=== PATIENT | male | born 1955 | race Hispanic/Latino ===

== ENCOUNTER 2018-08-29 15:50 | Inpatient (IN) | payer MEDICARE ==
--- NOTE | 2018-08-29 16:42 | Emergency Department Report ---
ED Shortness of Breath HPI - General Chief Complaint: Dyspnea/Respdistress Stated Complaint: CHEST/RIGHT SIDE PAIN, PERI Time Seen by Provider: 08/29/18 16:22 Source: EMS, old records reviewed Mode of arrival: Stretcher Limitations: Physical Limitation - History of Present Illness Initial Comments: 63-year-old male the past medical history cva with residual right-sided deficit, CAD, and hypertension presents to the hospital complaining of shortness of breath 1 month suddenly worsened today. Patient has been back and forth to his primary care physician at [facility] without any improvement. Patient also complains of ongoing right-sided sharp chest pain that is worse with palpation and movement that extends to his right shoulder. Patient received albuterol 5 mg and Solu-Medrol 125 mg IV in route with minimal improvement. Patient denies a history of COPD or CHF but he is a long-time smoker and states he has recently lost 10 pounds. He also denies home oxygen use. No reports of fever. Occasional cough reported - Related Data Previous Rx's Medication Instructions Recorded Last Taken Type Aspirin [Aspirin TAB] 325 mg PO QDAY #30 tablet 07/19/13 Unknown Rx Carvedilol [Coreg] 25 mg PO Q12HR 30 Days tablet 07/19/13 Unknown Rx Simvastatin (Nf) [Zocor TAB] 20 mg PO QHS 30 Days tablet 07/19/13 Unknown Rx amLODIPine [Norvasc] 10 mg PO DAILY 30 Days tab 07/19/13 Unknown Rx cloNIDine [Catapres] 0.1 mg PO BID #60 tablet 07/19/13 Unknown Rx hydrALAZINE [Apresoline TAB] 100 mg PO Q8H #30 tablet 07/19/13 Unknown Rx Lisinopril [Zestril TAB] 10 mg PO QDAY 30 Days tablet 07/22/13 Unknown Rx Allergies Allergy/AdvReac Type Severity Reaction Status Date / Time Penicillins Allergy Unknown Verified 07/05/13 15:11 ED Review of Systems ROS: Stated complaint: CHEST/RIGHT SIDE PAIN, PREI Other details as noted in HPI Comment: All other systems reviewed and negative ED Past Medical Hx - Past Medical History Previous Medical History?: Yes Hx Hypertension: Yes Hx CVA: Yes Hx Heart Attack/AMI: No Hx Congestive Heart Failure: No Hx Diabetes: No Hx Asthma: No Hx COPD: No - Surgical History Past Surgical History?: Yes Additional Surgical History: testicular torsion 1966 - Social History Smoking Status: Current Every Day Smoker Substance Use Type: None - Medications Home Medications: Home Medications Medication Instructions Recorded Confirmed Last Taken Type Aspirin [Aspirin TAB] 325 mg PO QDAY #30 tablet 07/19/13 Unknown Rx Carvedilol [Coreg] 25 mg PO Q12HR 30 Days tablet 07/19/13 Unknown Rx Simvastatin (Nf) [Zocor TAB] 20 mg PO QHS 30 Days tablet 07/19/13 Unknown Rx amLODIPine [Norvasc] 10 mg PO DAILY 30 Days tab 07/19/13 Unknown Rx cloNIDine [Catapres] 0.1 mg PO BID #60 tablet 07/19/13 Unknown Rx hydrALAZINE [Apresoline TAB] 100 mg PO Q8H #30 tablet 07/19/13 Unknown Rx Lisinopril [Zestril TAB] 10 mg PO QDAY 30 Days tablet 07/22/13 Unknown Rx ED Physical Exam - General Limitations: Physical Limitation - Other Other exam information: General: Respiratory distress Head exam: Atraumatic, normocephalic Eyes exam: Normal appearance, pupils equal reactive to light, extraocular movements intact ENT: Moist mucous membrane, normal oropharynx Neck exam: Normal inspection, full range of motion, no meningismus nontender Respiratory exam: Tachypnea, accessory muscle use, wet sounding breath sounds with bilateral Rales. Breathless with speaking Cardiovascular: Tachycardic regular rhythm Abdomen: Soft, nondistended, and nontender, with normal bowel sounds, no rebound, or guarding Extremity: Full range of motion normal inspection no deformity, no lower extremity pitting edema Back: Normal Inspection, full range of motion, no tenderness Neurologic: Alert, oriented x3, cranial nerves intact, no motor or sensory deficit Psychiatric: normal affect, normal mood Skin: Warm, dry, intact ED Course Vital Signs 08/29/18 08/29/18 08/29/18 16:09 16:11 16:15 Temperature 99 F Pulse Rate 125 H 119 H Pulse Rate [ Anterior Bilateral Throughout] Respiratory 35 H 34 H Rate Respiratory Rate [Anterior Bilateral Throughout] Blood Pressure 172/82 160/74 Blood Pressure [Left] O2 Sat by Pulse 95 93 95 Oximetry 08/29/18 08/29/18 08/29/18 16:30 16:43 18:01 Temperature 98.1 F Pulse Rate 114 H Pulse Rate [ Anterior Bilateral Throughout] Respiratory 35 H 18 Rate Respiratory Rate [Anterior Bilateral Throughout] Blood Pressure 164/78 Blood Pressure [Left] O2 Sat by Pulse 96 Oximetry 08/29/18 08/29/18 08/29/18 20:10 20:47 21:42 Temperature Pulse Rate 120 H Pulse Rate [ 129 H 119 H Anterior Bilateral Throughout] Respiratory 20 Rate Respiratory 20 18 Rate [Anterior Bilateral Throughout] Blood Pressure Blood Pressure 156/68 [Left] O2 Sat by Pulse 95 Oximetry 08/29/18 08/29/18 08/29/18 22:00 22:30 22:40 Temperature Pulse Rate 101 H 104 H 99 H Pulse Rate [ Anterior Bilateral Throughout] Respiratory 16 20 19 Rate Respiratory Rate [Anterior Bilateral Throughout] Blood Pressure 132/60 147/72 133/59 Blood Pressure [Left] O2 Sat by Pulse 93 93 93 Oximetry 08/29/18 08/29/18 08/29/18 22:50 23:00 23:10 Temperature Pulse Rate 97 H 97 H 115 H Pulse Rate [ Anterior Bilateral Throughout] Respiratory 18 18 16 Rate Respiratory Rate [Anterior Bilateral Throughout] Blood Pressure 130/63 125/60 130/63 Blood Pressure [Left] O2 Sat by Pulse 92 92 100 Oximetry 08/29/18 08/29/18 08/29/18 23:11 23:16 23:20 Temperature Pulse Rate 115 H 127 H Pulse Rate [ Anterior Bilateral Throughout] Respiratory 16 19 Rate Respiratory Rate [Anterior Bilateral Throughout] Blood Pressure 156/72 156/72 Blood Pressure 125/60 [Left] O2 Sat by Pulse 99 Oximetry - ABG Interpretation Ph: 7.45 PCO2: 32 PO2: 47 Bicarbonate: 22 Interpretation: other (hypoxia) Additional Comments: abg performed on 4 Liters 36% fio2 and show significant hypoxia ED Medical Decision Making - Lab Data Result diagrams: 08/30/18 08:18 08/30/18 08:18 Lab Results 08/29/18 08/29/18 08/29/18 Range/Units 16:34 16:34 16:34 WBC 14.5 H (4.5-11.0) K/mm3 RBC 4.18 (3.65-5.03) M/mm3 Hgb 13.3 (11.8-15.2) gm/dl Hct 39.1 (35.5-45.6) % MCV 93 (84-94) fl MCH 32 (28-32) pg MCHC 34 (32-34) % RDW 14.3 (13.2-15.2) % Plt Count 337 (140-440) K/mm3 Lymph % (Auto) 10.4 L (13.4-35.0) % [place] % (Auto) 8.4 H (0.0-7.3) % Eos % (Auto) 6.3 H (0.0-4.3) % Baso % (Auto) 0.7 (0.0-1.8) % Lymph # 1.5 (1.2-5.4) K/mm3 [place] # 1.2 H (0.0-0.8) K/mm3 Eos # 0.9 H (0.0-0.4) K/mm3 Baso # 0.1 (0.0-0.1) K/mm3 Seg Neutrophils % 74.2 H (40.0-70.0) % Seg Neutrophils # 10.7 H (1.8-7.7) K/mm3 PT (12.2-14.9) Sec. INR (0.87-1.13) APTT (24.2-36.6) Sec. D-Dimer (0-234) ng/mlDDU POC ABG pH (7.35-7.45) POC ABG pCO2 (35-45) POC ABG HCO3 (22-26 mml/L) POC ABG Total CO2 (23-27mmol/L) POC ABG O2 Sat POC ABG Base Excess ((-2) - (+3)mmol/L) VBG pH (7.320-7.420) FiO2 % Sodium 138 (137-145) mmol/L Potassium 3.6 (3.6-5.0) mmol/L Chloride 100.5 (98-107) mmol/L Carbon Dioxide 22 (22-30) mmol/L Anion Gap 19 mmol/L BUN 19 (9-20) mg/dL Creatinine 0.9 (0.8-1.5) mg/dL Estimated GFR > 60 ml/min BUN/Creatinine Ratio 21 % Glucose 170 H (75-100) mg/dL Lactic Acid 1.90 (0.7-2.0) mmol/L Calcium 10.0 (8.4-10.2) mg/dL Magnesium (1.7-2.3) mg/dL Total Bilirubin 0.60 (0.1-1.2) mg/dL AST 11 (5-40) units/L ALT 7 (7-56) units/L Alkaline Phosphatase 81 (35-129) units/L Total Creatine Kinase 32 L (55-170) units/L CK-MB (CK-2) 2.3 (0.0-4.0) ng/mL CK-MB (CK-2) Rel Index 7.1 H (0-4) Troponin T < 0.010 (0.00-0.029) ng/mL NT-Pro-B Natriuret Pep 694.9 (0-900) pg/mL Total Protein 7.7 (6.3-8.2) g/dL Albumin 3.8 L (3.9-5) g/dL Albumin/Globulin Ratio 1.0 % 08/29/18 08/29/18 08/29/18 Range/Units 16:34 16:34 16:46 WBC (4.5-11.0) K/mm3 RBC (3.65-5.03) M/mm3 Hgb (11.8-15.2) gm/dl Hct (35.5-45.6) % MCV (84-94) fl MCH (28-32) pg MCHC (32-34) % RDW (13.2-15.2) % Plt Count (140-440) K/mm3 Lymph % (Auto) (13.4-35.0) % [place] % (Auto) (0.0-7.3) % Eos % (Auto) (0.0-4.3) % Baso % (Auto) (0.0-1.8) % Lymph # (1.2-5.4) K/mm3 [place] # (0.0-0.8) K/mm3 Eos # (0.0-0.4) K/mm3 Baso # (0.0-0.1) K/mm3 Seg Neutrophils % (40.0-70.0) % Seg Neutrophils # (1.8-7.7) K/mm3 PT 13.0 (12.2-14.9) Sec. INR 0.93 (0.87-1.13) APTT 27.7 (24.2-36.6) Sec. D-Dimer (0-234) ng/mlDDU POC ABG pH (7.35-7.45) POC ABG pCO2 (35-45) POC ABG HCO3 (22-26 mml/L) POC ABG Total CO2 (23-27mmol/L) POC ABG O2 Sat POC ABG Base Excess ((-2) - (+3)mmol/L) VBG pH 7.447 H (7.320-7.420) FiO2 % Sodium (137-145) mmol/L Potassium (3.6-5.0) mmol/L Chloride (98-107) mmol/L Carbon Dioxide (22-30) mmol/L Anion Gap mmol/L BUN (9-20) mg/dL Creatinine (0.8-1.5) mg/dL Estimated GFR ml/min BUN/Creatinine Ratio % Glucose (75-100) mg/dL Lactic Acid (0.7-2.0) mmol/L Calcium (8.4-10.2) mg/dL Magnesium 2.20 (1.7-2.3) mg/dL Total Bilirubin (0.1-1.2) mg/dL AST (5-40) units/L ALT (7-56) units/L Alkaline Phosphatase (35-129) units/L Total Creatine Kinase (55-170) units/L CK-MB (CK-2) (0.0-4.0) ng/mL CK-MB (CK-2) Rel Index (0-4) Troponin T (0.00-0.029) ng/mL NT-Pro-B Natriuret Pep (0-900) pg/mL Total Protein (6.3-8.2) g/dL Albumin (3.9-5) g/dL Albumin/Globulin Ratio % 08/29/18 08/29/18 08/29/18 Range/Units 17:00 17:09 19:25 WBC (4.5-11.0) K/mm3 RBC (3.65-5.03) M/mm3 Hgb (11.8-15.2) gm/dl Hct (35.5-45.6) % MCV (84-94) fl MCH (28-32) pg MCHC (32-34) % RDW (13.2-15.2) % Plt Count (140-440) K/mm3 Lymph % (Auto) (13.4-35.0) % [place] % (Auto) (0.0-7.3) % Eos % (Auto) (0.0-4.3) % Baso % (Auto) (0.0-1.8) % Lymph # (1.2-5.4) K/mm3 [place] # (0.0-0.8) K/mm3 Eos # (0.0-0.4) K/mm3 Baso # (0.0-0.1) K/mm3 Seg Neutrophils % (40.0-70.0) % Seg Neutrophils # (1.8-7.7) K/mm3 PT (12.2-14.9) Sec. INR (0.87-1.13) APTT (24.2-36.6) Sec. D-Dimer 617.53 H (0-234) ng/mlDDU POC ABG pH 7.458 H (7.35-7.45) POC ABG pCO2 32.1 L (35-45) POC ABG HCO3 22.7 (22-26 mml/L) POC ABG Total CO2 24 (23-27mmol/L) POC ABG O2 Sat 85 POC ABG Base Excess -1 ((-2) - (+3)mmol/L) VBG pH (7.320-7.420) FiO2 36 % Sodium (137-145) mmol/L Potassium (3.6-5.0) mmol/L Chloride (98-107) mmol/L Carbon Dioxide (22-30) mmol/L Anion Gap mmol/L BUN (9-20) mg/dL Creatinine (0.8-1.5) mg/dL Estimated GFR ml/min BUN/Creatinine Ratio % Glucose (75-100) mg/dL Lactic Acid 1.40 (0.7-2.0) mmol/L Calcium (8.4-10.2) mg/dL Magnesium (1.7-2.3) mg/dL Total Bilirubin (0.1-1.2) mg/dL AST (5-40) units/L ALT (7-56) units/L Alkaline Phosphatase (35-129) units/L Total Creatine Kinase (55-170) units/L CK-MB (CK-2) (0.0-4.0) ng/mL CK-MB (CK-2) Rel Index (0-4) Troponin T (0.00-0.029) ng/mL NT-Pro-B Natriuret Pep (0-900) pg/mL Total Protein (6.3-8.2) g/dL Albumin (3.9-5) g/dL Albumin/Globulin Ratio % - EKG Data -: EKG Interpreted by Me (ant lat q waves) EKG shows normal: sinus rhythm, axis (qrs -72), QRS complexes (qrsd 107), ST-T waves (no stemi) Rate: tachycardia (116) - EKG Data When compared to previous EKG there are: changes noted (new Inferior lateral infarct noted compared to 2014 EKG) - Radiology Data Radiology results: report reviewed Chest x-ray: Mild elevation of the left hemidiaphragm otherwise normal CT angiogram chest: No pulmonary emboli. 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 Partial destruction of the left ribs 3 and 4 as described. Invasion of the body of the sternum and a pathologic fracture indeterminate mass in the left kidney which could represent a tumor. - Medical Decision Making Patient will be admitted to the hospital for hypoxemia with associated masses suggestive of lung cancer. Patient does not appear to have sepsis or septic shock. Hospitalist informed for admission. - Differential Diagnosis COPD, CHF, PE, bronchitis, pneumonia, sepsis Critical Care Time: No Critical care attestation.: If time is entered above; I have spent that time in minutes in the direct care of this critically ill patient, excluding procedure time. ED Disposition Clinical Impression: Lung mass, Pathological fracture of sternum, Hypoxia, Smoker, History of CVA with residual deficit, Hypertension, Hemiplegia affecting dominant side Disposition: DC-09 OP ADMIT IP TO THIS HOSP Is pt being admited?: Yes Condition: Stable Time of Disposition: 20:08 (hospitalist)
[2018-08-29 16:50] LABS: Basophils # (Auto) 0.1 K/mm3 (0.0-0.1); Basophils % (Auto) 0.7 % (0.0-1.8); Eosinophils # (Auto) 0.9 K/mm3 (0.0-0.4); Eosinophils % (Auto) 6.3 % (0.0-4.3); Hematocrit 39.1 % (35.5-45.6); Hemoglobin 13.3 gm/dl (11.8-15.2); Lymphocytes # (Auto) 1.5 K/mm3 (1.2-5.4); Lymphocytes % (Auto) 10.4 % (13.4-35.0); Mean Corpuscular HGB Conc 34 % (32-34); Mean Corpuscular Volume 93 fl (84-94); Monocytes # (Auto) 1.2 K/mm3 (0.0-0.8); Monocytes % (Auto) 8.4 % (0.0-7.3); Platelet Count 337 K/mm3 (140-440); Red Blood Count 4.18 M/mm3 (3.65-5.03); Red Cell Distribution Width 14.3 % (13.2-15.2)
[2018-08-29] MEDS ORDERED: MORPHINE IV ONE ×2 (16:51→20:06)
[2018-08-29] MEDS ORDERED: ZOFRAN IV ONE (16:51)
[2018-08-29] MEDS ORDERED: MAGNESIUM SULFATE 2GM/50ML 2 GM/50 ML BAG IV ONE (16:54)
[2018-08-29] MEDS ORDERED: ATROVENT IH ONE (16:54)
[2018-08-29] MEDS ORDERED: XOPENEX IH ONE (16:54)
[2018-08-29 16:59] LABS: INR 0.93 (0.87-1.13)
[2018-08-29 17:00] LABS: Partial Thromboplastin Time 27.7 Sec. (24.2-36.6)
[2018-08-29 17:13] LABS: Creatine Kinase MB 2.3 ng/mL (0.0-4.0)
[2018-08-29 17:15] LABS: Alanine Aminotransferase 7 units/L (7-56); Albumin 3.8 g/dL (3.9-5); BUN/Creatinine Ratio 21; Blood Urea Nitrogen 19 mg/dL (9-20); Hemolysis Index 19
--- NOTE | 2018-08-29 18:18 | XRay Report ---
PROCEDURE: XR CHEST 1V AP TECHNIQUE: Chest AP HISTORY: sob COMPARISONS: FINDINGS: Cardiac and mediastinal contours are unremarkable. There is some elevation of the left hemidiaphragm. No acute pulmonary infiltrate identified. No pleural fluid collection seen. Pulmonary vasculature is unremarkable IMPRESSION: Mild elevation the left hemidiaphragm Otherwise no acute findings. This document is electronically signed by Gabino Salcedo MD., August 29 2018 06:16:37 PM ET
--- NOTE | 2018-08-29 19:38 | Cat Scan Report ---
PROCEDURE: CT angiogram chest with contrast. TECHNIQUE: Computerized tomographic angiography of the chest was performed after the IV injection of iodinated nonionic contrast including image processing. The image data was postprocessed using 2-di mensional multiplanar reformatted (MPR) and 3-dimensional (MIP and/or volume rendered) techniques. Au tomated exposure control, adjustment of mA and/or kV according to patient size, or iterative reconstr uction dose optimization techniques were utilized. CT DOSE LENGTH PRODUCT: 703.15 mGycm HISTORY: sob, right sharp cp, elevated ddimer COMPARISONS: None. FINDINGS: The trachea and central bronchi appear normal. The right lung is clear and well expanded. There is so me mildly increased opacity in the left lower lobe. This could represent subsegmental atelectasis or early pneumonia. There are no pleural effusions. The thoracic aorta has a normal caliber without evid ence of dissection. The pulmonary arteries enhance normally. There is no evidence of pulmonary emboli sm. There is a large abnormal solid mediastinal mass beginning in the aorticopulmonary window. This e xtends laterally into the anterior portion of the left upper lobe. I am uncertain whether this mass o riginates in the mediastinum or originates within the left upper lobe. The mass extends to the chest wall. There is destruction involving the anterior half of the left third rib and a small portion of t he anterior left fourth rib. This mass also invades the body of the sternum where there is partial de struction and a pathological fracture. It is impossible to accurately measure the mass because of its irregular shape. The mass is at least 8.4 cm x 6.7 cm in cross-section however. This clearly represe nts a malignancy. It should be relatively easy to perform a percutaneous biopsy if clinically warrant ed. The heart size is normal. The adrenal glands are not enlarged. There is a rounded mass in the lat eral aspect of the left kidney. This measures 3.0 cm x 2.7 cm in cross-section. It has some mixed att enuation and does not represent a simple cyst. A complex cyst or renal neoplasm are possible. IMPRESSION: No evidence of pulmonary embolism. 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 Partial destructions of left ribs 3 and 4 as described. Invasion of the body of the sternum with a pathologic fracture. Indeterminate mass in the left kidney which could rep resent a tumor. This document is electronically signed by Fernando Villalobos MD., August 29 2018 07:36:27 PM ET
[2018-08-29] MEDS ORDERED: HABITROL TD ONE (20:05)
[2018-08-29] MEDS ORDERED: NACL 0.9% 500 ML 500 ML IV ONE (20:07)
[2018-08-29 20:14] LABS: Bilirubin,Urine NEG (Negative); Blood,Urine NEG (Negative); Color,Urine Yellow (Yellow); Mucus,Urine FEW /HPF; Protein,Urine <15 mg/dL mg/dL (Negative)
[2018-08-29] MEDS ORDERED: TYLENOL PO PRN (21:29)
[2018-08-29] MEDS ORDERED: ALUM-MAG HYDROX-SIMETH 200-200-20MG/5ML PO PRN (21:29)
[2018-08-29] MEDS ORDERED: ZOFRAN IV PRN (21:29)
[2018-08-29] MEDS ORDERED: AMBIEN PO PRN (21:29)
[2018-08-29] MEDS ORDERED: SODIUM CHLORIDE FLUSH SYRINGE 10 ML IV PRN (21:29)
--- NOTE | 2018-08-29 21:51 | History and Physical Report ---
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 Patient has been back and forth to his primary care physician at [facility] without any improvement. Patient also complains of ongoing right-sided sharp chest pain that is worse with palpation and movement that extends to his right shoulder. Patient received albuterol 5 mg and Solu-Medrol 125 mg IV in route with minimal improvement. Patient denies a history of COPD or CHF but he is a long-time smoker and states he has recently lost 10 pounds. He also denies home oxygen us e. No reports of fever. Occasional cough reported Past History Past Medical History: hypertension, hyperlipidemia, stroke Past Surgical History: Other (testicular torsion 1965) Social history: lives with family, smoking Medications and Allergies Allergies Allergy/AdvReac Type Severity Reaction Status Date / Time Penicillins Allergy Unknown Verified 07/05/13 15:11 Home Medications Medication Instructions Recorded Confirmed Last Taken Type Aspirin [Aspirin TAB] 325 mg PO QDAY #30 tablet 07/19/13 Unknown Rx Carvedilol [Coreg] 25 mg PO Q12HR 30 Days tablet 07/19/13 Unknown Rx Simvastatin (Nf) [Zocor TAB] 20 mg PO QHS 30 Days tablet 07/19/13 Unknown Rx amLODIPine [Norvasc] 10 mg PO DAILY 30 Days tab 07/19/13 Unknown Rx cloNIDine [Catapres] 0.1 mg PO BID #60 tablet 07/19/13 Unknown Rx hydrALAZINE [Apresoline TAB] 100 mg PO Q8H #30 tablet 07/19/13 Unknown Rx Lisinopril [Zestril TAB] 10 mg PO QDAY 30 Days tablet 07/22/13 Unknown Rx Active Meds: Active Medications Acetaminophen (Tylenol) 650 mg PO Q4H PRN PRN Reason: Pain MILD(1-3)/Fever >100.5/VENEGAS Al Hydrox/Mg Hydrox/Simethicone (Alum-Mag Hydrox-Simeth 400-282-98sg/5ml) 30 ml PO Q4H PRN PRN Reason: Indigestion Albuterol/Ipratropium (Duoneb *Not For Prn Use*) 1 ampul IH Q6HRT GUILLERMO Amlodipine Besylate (Norvasc) 10 mg PO DAILY [facility] Aspirin (Aspirin) 325 mg PO QDAY GUILLERMO Carvedilol (Coreg) 25 mg PO Q12HR GUILLERMO Clonidine HCl (Catapres) 0.1 mg PO BID GUILLERMO Docusate Sodium (Colace) 100 mg PO BID GUILLERMO Enoxaparin Sodium (Lovenox) 40 mg SUB-Q QDAY GUILLERMO Famotidine (Pepcid) 20 mg PO BID GUILLERMO Hydralazine HCl (Apresoline) 100 mg PO Q8H GUILLERMO Hydromorphone HCl (Dilaudid) 2 mg IV Q3H PRN PRN Reason: Pain, Moderate (4-6) Sodium Chloride (Nacl 0.45% 1000 Ml) 1,000 mls @ 125 mls/hr IV DIRECT GUILLERMO Lisinopril (Zestril) 10 mg PO QDAY GUILLERMO Miscellaneous Medication (Simvastatin) 20 mg PO QHS GUILLERMO Ondansetron HCl (Zofran) 4 mg IV Q6H PRN PRN Reason: Nausea And Vomiting Oxycodone/Acetaminophen (Percocet 5/325) 1 tab PO Q6H PRN PRN Reason: Pain, Moderate (4-6) Sodium Chloride (Sodium Chloride Flush Syringe 10 Ml) 10 ml IV BID GUILLERMO Sodium Chloride (Sodium Chloride Flush Syringe 10 Ml) 10 ml IV PRN PRN PRN Reason: LINE FLUSH Zolpidem Tartrate (Ambien) 5 mg PO QHS PRN PRN Reason: Insomnia Review of Systems All systems: negative (as mentioned in HPI) Constitutional: weakness, malaise Respiratory: shortness of breath, dyspnea on exertion, pleurisy, pain on inspiration Musculoskeletal: shooting arm pain, gait dysfunction Exam - Physical Exam Narrative exam: General: the patient is awake alert oriented to time place and person. In moderate distress due to pain HEENT: Head is atraumatic normocephalic,. Pupils equal round reactive to light and accommodation, extraocular movements intact. Oral mucosa moist. Oropharynx clear. No pharyngeal erythema or tonsillar exudate. Neck: Supple no JVD no thyromegaly or lymphadenopathy. Heart: Tachycardic but regular rhythm no murmurs or gallops. S1 and S2 normal. PMI not displaced. Lungs: Globally diminished breath sounds scattered rhonchi bibasilar crackles scattered wheezing mildly labored breathing but no accessory muscle use. Diminished chest wall expansion due to pain Clear to auscultation bilaterally. No rales rhonchi wheezing. Nonlabored breathing. Normal chest wall expansion. Abdomen: Soft, nondistended, and nontender. Normoactive bowel sounds. No hepatosplenomegaly. No abdominal masses or bruit appreciated. Extremities: No cyanosis/clubbing/ edema. Musculoskeletal: Severely limited range of movement of the right upper extremity due to pain. Anterior chest wall CVA tenderness to palpation. Diffuse muscle atrophy of bilateral lower extremities. No obvious deformity . Normal muscle tone. Back: Normal alignment. No step-off. No midline or paraspinal tenderness. No CVA tenderness. Neurological: Right hemiparesis from previous stroke gait not tested. Sensations intact . Skin: Warm and dry no rashes or bruises. Bilateral lower extremity hyperpigmentation and chronic venous insufficiency changes Psychiatric: Normal mood. Appropriate affect and good insight and judgment. Vascular system: No lymphadenopathy. Distal pulses 2+ bilaterally. - Constitutional Vitals: Temp Pulse Resp BP Pulse Ox 98.1 F 120 H 20 156/68 95 08/29/18 16:43 08/29/18 21:42 08/29/18 21:42 08/29/18 21:42 08/29/18 21:42 Results - Labs CBC & Chem 7: 08/29/18 16:34 08/29/18 16:34 Labs: Laboratory Last Values WBC 14.5 K/mm3 (4.5-11.0) H 08/29/18 16:34 RBC 4.18 M/mm3 (3.65-5.03) 08/29/18 16:34 Hgb 13.3 gm/dl (11.8-15.2) 08/29/18 16:34 Hct 39.1 % (35.5-45.6) 08/29/18 16:34 MCV 93 fl (84-94) 08/29/18 16:34 MCH 32 pg (28-32) 08/29/18 16:34 MCHC 34 % (32-34) 08/29/18 16:34 RDW 14.3 % (13.2-15.2) 08/29/18 16:34 Plt Count 337 K/mm3 (140-440) 08/29/18 16:34 Lymph % (Auto) 10.4 % (13.4-35.0) L 08/29/18 16:34 [place] % (Auto) 8.4 % (0.0-7.3) H 08/29/18 16:34 Eos % (Auto) 6.3 % (0.0-4.3) H 08/29/18 16:34 Baso % (Auto) 0.7 % (0.0-1.8) 08/29/18 16:34 Lymph # 1.5 K/mm3 (1.2-5.4) 08/29/18 16:34 [place] # 1.2 K/mm3 (0.0-0.8) H 08/29/18 16:34 Eos # 0.9 K/mm3 (0.0-0.4) H 08/29/18 16:34 Baso # 0.1 K/mm3 (0.0-0.1) 08/29/18 16:34 Seg Neutrophils % 74.2 % (40.0-70.0) H 08/29/18 16:34 Seg Neutrophils # 10.7 K/mm3 (1.8-7.7) H 08/29/18 16:34 PT 13.0 Sec. (12.2-14.9) 08/29/18 16:34 INR 0.93 (0.87-1.13) 08/29/18 16:34 APTT 27.7 Sec. (24.2-36.6) 08/29/18 16:34 D-Dimer 617.53 ng/mlDDU (0-234) H 08/29/18 17:00 POC ABG pH 7.458 (7.35-7.45) H 08/29/18 17:09 POC ABG pCO2 32.1 (35-45) L 08/29/18 17:09 POC ABG HCO3 22.7 (22-26 mml/L) 08/29/18 17:09 POC ABG Total CO2 24 (23-27mmol/L) 08/29/18 17:09 POC ABG O2 Sat 85 08/29/18 17:09 POC ABG Base Excess -1 ((-2) - (+3)mmol/L) 08/29/18 17:09 VBG pH 7.447 (7.320-7.420) H 08/29/18 16:34 FiO2 36 % 08/29/18 17:09 Sodium 138 mmol/L (137-145) 08/29/18 16:34 Potassium 3.6 mmol/L (3.6-5.0) 08/29/18 16:34 Chloride 100.5 mmol/L (98-107) 08/29/18 16:34 Carbon Dioxide 22 mmol/L (22-30) 08/29/18 16:34 Anion Gap 19 mmol/L 08/29/18 16:34 BUN 19 mg/dL (9-20) 08/29/18 16:34 Creatinine 0.9 mg/dL (0.8-1.5) 08/29/18 16:34 Estimated GFR > 60 ml/min 08/29/18 16:34 BUN/Creatinine Ratio 21 % 08/29/18 16:34 Glucose 170 mg/dL (75-100) H 08/29/18 16:34 Lactic Acid 1.40 mmol/L (0.7-2.0) 08/29/18 19:25 Calcium 10.0 mg/dL (8.4-10.2) 08/29/18 16:34 Magnesium 2.20 mg/dL (1.7-2.3) 08/29/18 16:46 Total Bilirubin 0.60 mg/dL (0.1-1.2) 08/29/18 16:34 AST 11 units/L (5-40) 08/29/18 16:34 ALT 7 units/L (7-56) 08/29/18 16:34 Alkaline Phosphatase 81 units/L (35-129) 08/29/18 16:34 Total Creatine Kinase 32 units/L (55-170) L 08/29/18 16:34 CK-MB (CK-2) 2.3 ng/mL (0.0-4.0) 08/29/18 16:34 CK-MB (CK-2) Rel Index 7.1 (0-4) H 08/29/18 16:34 Troponin T < 0.010 ng/mL (0.00-0.029) 08/29/18 16:34 NT-Pro-B Natriuret Pep 694.9 pg/mL (0-900) 08/29/18 16:34 Total Protein 7.7 g/dL (6.3-8.2) 08/29/18 16:34 Albumin 3.8 g/dL (3.9-5) L 08/29/18 16:34 Albumin/Globulin Ratio 1.0 % 08/29/18 16:34 Urine Color Yellow (Yellow) 08/29/18 19:44 Urine Turbidity Clear (Clear) 08/29/18 19:44 Urine pH 5.0 (5.0-7.0) 08/29/18 19:44 Ur Specific [place] 1.035 (1.003-1.030) H 08/29/18 19:44 Urine Protein <15 mg/dl mg/dL (Negative) 08/29/18 19:44 Urine Glucose (UA) Neg mg/dL (Negative) 08/29/18 19:44 Urine Ketones Tr mg/dL (Negative) 08/29/18 19:44 Urine Blood Neg (Negative) 08/29/18 19:44 Urine Nitrite Neg (Negative) 08/29/18 19:44 Urine Bilirubin Neg (Negative) 08/29/18 19:44 Urine Urobilinogen 2.0 mg/dL (<2.0) 08/29/18 19:44 Ur Leukocyte Esterase Neg (Negative) 08/29/18 19:44 Urine WBC (Auto) 7.0 /HPF (0.0-6.0) H 08/29/18 19:44 Urine RBC (Auto) 1.0 /HPF (0.0-6.0) 08/29/18 19:44 U Epithel Cells (Auto) < 1.0 /HPF (0-13.0) 08/29/18 19:44 Urine Mucus Few /HPF 08/29/18 19:44 Assessment and Plan Assessment and plan: Assessment and plan : * Left lung mass /mediastinal mass - highly suspicious for malignancy especially with his underlying tobacco abuse history * Respiratory distress with hypoxia likely secondary to underlying COPD along with pneumonia and lung mass * Right shoulder pain likely secondary to the invasion of the sternum and rib cage. 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 will get right shoulder x-rays for further evaluation As for his shortness of breath this is multifactorial (Ultracet when necessary and scheduled dilators No evidence of acute COPD exacerbation no wheezing Start the patient on IV Levaquin for his left lower lobe pneumonia No need for systemic steroids currently Aggressive pain management with Dilaudid and when necessary Percocet Supportive care with IV fluids Continue his home medications aspirin and statin Monitor CBC and electrolytes Replace electrolytes when necessary as per protocol DVT GI prophylaxis as ordered Monitor and follow the patient closely
[2018-08-29] MEDS ORDERED: NON-FORMULARY (Simvastatin 20 MG) PO SCH (22:00)
[2018-08-29] MEDS ORDERED: NORMODYNE IV PRN (22:07)
--- NOTE | 2018-08-29 23:15 | XRay Report ---
PROCEDURE: RIGHT SHOULDER, 2 VIEWS TECHNIQUE: RIGHT shoulder radiographs including AP views in internal and external rotation. CPT 7303 0 HISTORY: Pain COMPARISONS: None . FINDINGS: Fracture (s) and/or Dislocation(s): None . Joint space(s): There is mild degenerative arthrosis of the glenohumeral joint. . Soft tissues: Normal . Bone mineralization: Normal . Foreign bodies: None . IMPRESSION: There is no acute bony or soft tissue abnormality. There is degenerative arthrosis of th e glenohumeral joint. . This document is electronically signed by Navneet Rivera MD., August 29 2018 11:13:52 PM ET
[2018-08-30] MEDS: APRESOLINE PO SCH ×3 (01:14→22:43)
[2018-08-30] MEDS: DUONEB *Not for PRN Use IH SCH ×5 (01:14→22:39)
[2018-08-30] MEDS: COLACE PO SCH ×3 (01:16→22:37)
[2018-08-30] MEDS: PERCOCET 5/325 PO PRN ×2 (01:16→15:48)
[2018-08-30] MEDS: PRAVACHOL PO SCH ×2 (01:16→22:37)
[2018-08-30] MEDS: CATAPRES PO SCH ×3 (01:16→22:40)
[2018-08-30] MEDS: COREG PO SCH ×3 (01:17→22:43)
[2018-08-30] MEDS: PEPCID PO SCH ×3 (01:17→22:37)
[2018-08-30] MEDS: SODIUM CHLORIDE FLUSH SYRINGE 10 ML IV SCH ×3 (01:18→22:41)
[2018-08-30] MEDS: NACL 0.45% 1000 ML 1,000 ML IV SCH ×2 (07:41→18:29)
[2018-08-30] MEDS: DILAUDID IV PRN (08:16)
[2018-08-30 08:37] LABS: Hematocrit 41.5 % (35.5-45.6); Mean Corpuscular HGB Conc 34 % (32-34); Mean Corpuscular Volume 94 fl (84-94); Platelet Count 329 K/mm3 (140-440); Red Blood Count 4.41 M/mm3 (3.65-5.03); Red Cell Distribution Width 14.3 % (13.2-15.2)
[2018-08-30 08:59] LABS: Alanine Aminotransferase 6 units/L (7-56); Albumin 3.5 g/dL (3.9-5); BUN/Creatinine Ratio 23; Blood Urea Nitrogen 16 mg/dL (9-20); Calcium 9.5 mg/dL (8.4-10.2); Hemolysis Index 29
[2018-08-30] MEDS: LEVAQUIN 750MG/150ML 750 MG/150 ML BAG IV SCH (09:43)
[2018-08-30] MEDS: ZESTRIL PO SCH (09:43)
[2018-08-30] MEDS: ASPIRIN PO SCH (09:43)
[2018-08-30] MEDS: LOVENOX SUB-Q SCH (09:43)
[2018-08-30] MEDS: NORVASC PO SCH (09:44)
[2018-08-30 09:53] LABS: Basophils % (Manual) 0 % (0.0-1.8); Eosinophils % (Manual) 0 % (0.0-4.3); Total Cells Counted 100
[2018-08-30 09:54] LABS: Platelet Clumps Rare; Platelet Estimate Consistent w Auto; RBC Morphology Normal
--- NOTE | 2018-08-30 10:37 | Progress Note ---
Assessment and Plan Assessment and plan: --Hypoxic respiratory failure; requiring BiPAP Oxygen, nebulizers, IV steroids, IV antibiotics, supportive care Consult pulmonary --Left lung mass/left mediastinal mass, suspicious for malignancy Pulmonary evaluation, possible CT-guided biopsy --Right shoulder pain; probably secondary to metastasis Pain management and supportive care --Left lower lobe pneumonia; probably post obstructive pneumonia Continue IV antibiotics follow cultures --Leukocytosis; sepsis secondary to pneumonia --History of CVA with residual right-sided weakness Physical therapy occupational therapy and supportive care --Ongoing tobacco use; smoking cessation advised nicotine patch as needed --Full CODE STATUS --DVT prophylaxis; SCDs, Lovenox Will try to call the family to get additional medical history and to discuss Patient's condition and treatment plan History Interval history: Patient seen and examined medical records reviewed Patient is clearly in distress, shortness of breath on oxygen Admitted with respiratory failure, evaluation consistent with a lung mass No proper history available Vital signs reviewed Hospitalist Physical - Constitutional Vitals: Temp Pulse Resp BP Pulse Ox 100.2 F H 107 H 18 155/84 93 08/30/18 05:42 08/30/18 08:26 08/30/18 08:26 08/30/18 05:42 08/30/18 08:27 General appearance: Present: mild distress, cachectic, disheveled - EENT Eyes: Present: PERRL, EOM intact - Neck Neck: Present: supple, normal ROM - Respiratory Respiratory effort: normal Respiratory: bilateral: diminished, rhonchi, negative: rales, wheezing - Cardiovascular Rhythm: regular Heart Sounds: Present: S1 & S2 - Extremities Extremities: no ischemia, No edema - Abdominal General gastrointestinal: soft, non-tender, non-distended, normal bowel sounds - Integumentary Integumentary: Present: clear, warm - Psychiatric Psychiatric: appropriate mood/affect, cooperative, agitated - Neurologic Neurologic: CNII-XII intact, moves all extremities Results - Labs CBC & Chem 7: 08/30/18 08:18 08/30/18 08:18 Labs: Laboratory Last Values WBC 12.9 K/mm3 (4.5-11.0) H 08/30/18 08:18 RBC 4.41 M/mm3 (3.65-5.03) 08/30/18 08:18 Hgb 14.0 gm/dl (11.8-15.2) 08/30/18 08:18 Hct 41.5 % (35.5-45.6) 08/30/18 08:18 MCV 94 fl (84-94) 08/30/18 08:18 MCH 32 pg (28-32) 08/30/18 08:18 MCHC 34 % (32-34) 08/30/18 08:18 RDW 14.3 % (13.2-15.2) 08/30/18 08:18 Plt Count 329 K/mm3 (140-440) 08/30/18 08:18 Lymph % (Auto) 10.4 % (13.4-35.0) L 08/29/18 16:34 [place] % (Auto) 8.4 % (0.0-7.3) H 08/29/18 16:34 Eos % (Auto) 6.3 % (0.0-4.3) H 08/29/18 16:34 Baso % (Auto) 0.7 % (0.0-1.8) 08/29/18 16:34 Lymph # 1.5 K/mm3 (1.2-5.4) 08/29/18 16:34 [place] # 1.2 K/mm3 (0.0-0.8) H 08/29/18 16:34 Eos # 0.9 K/mm3 (0.0-0.4) H 08/29/18 16:34 Baso # 0.1 K/mm3 (0.0-0.1) 08/29/18 16:34 Add Manual Diff Complete 08/30/18 08:18 Total Counted 100 08/30/18 08:18 Seg Neutrophils % 74.2 % (40.0-70.0) H 08/29/18 16:34 Seg Neuts % (Manual) 89.0 % (40.0-70.0) H 08/30/18 08:18 Band Neutrophils % 0 % 08/30/18 08:18 Lymphocytes % (Manual) 4.0 % (13.4-35.0) L 08/30/18 08:18 Reactive Lymphs % (Man) 0 % 08/30/18 08:18 Monocytes % (Manual) 7.0 % (0.0-7.3) 08/30/18 08:18 Eosinophils % (Manual) 0 % (0.0-4.3) 08/30/18 08:18 Basophils % (Manual) 0 % (0.0-1.8) 08/30/18 08:18 Metamyelocytes % 0 % 08/30/18 08:18 Myelocytes % 0 % 08/30/18 08:18 Promyelocytes % 0 % 08/30/18 08:18 Blast Cells % 0 % 08/30/18 08:18 Nucleated RBC % Not Reportable 08/30/18 08:18 Seg Neutrophils # 10.7 K/mm3 (1.8-7.7) H 08/29/18 16:34 Seg Neutrophils # Man 11.5 K/mm3 (1.8-7.7) H 08/30/18 08:18 Band Neutrophils # 0.0 K/mm3 08/30/18 08:18 Lymphocytes # (Manual) 0.5 K/mm3 (1.2-5.4) L 08/30/18 08:18 Abs React Lymphs (Man) 0.0 K/mm3 08/30/18 08:18 Monocytes # (Manual) 0.9 K/mm3 (0.0-0.8) H 08/30/18 08:18 Eosinophils # (Manual) 0.0 K/mm3 (0.0-0.4) 08/30/18 08:18 Basophils # (Manual) 0.0 K/mm3 (0.0-0.1) 08/30/18 08:18 Metamyelocytes # 0.0 K/mm3 08/30/18 08:18 Myelocytes # 0.0 K/mm3 08/30/18 08:18 Promyelocytes # 0.0 K/mm3 08/30/18 08:18 Blast Cells # 0.0 K/mm3 08/30/18 08:18 WBC Morphology Not Reportable 08/30/18 08:18 Hypersegmented Neuts Not Reportable 08/30/18 08:18 Hyposegmented Neuts Not Reportable 08/30/18 08:18 Hypogranular Neuts Not Reportable 08/30/18 08:18 Smudge Cells Not Reportable 08/30/18 08:18 Toxic Granulation Not Reportable 08/30/18 08:18 Toxic Vacuolation Not Reportable 08/30/18 08:18 Dohle Bodies Not Reportable 08/30/18 08:18 Pelger-Huet Anomaly Not Reportable 08/30/18 08:18 [place] Rods Not Reportable 08/30/18 08:18 Platelet Estimate Consistent w auto 08/30/18 08:18 Clumped Platelets Rare 08/30/18 08:18 Plt Clumps, EDTA Not Reportable 08/30/18 08:18 Large Platelets Not Reportable 08/30/18 08:18 Giant Platelets Not Reportable 08/30/18 08:18 Platelet Satelliting Not Reportable 08/30/18 08:18 Plt Morphology Comment Not Reportable 08/30/18 08:18 RBC Morphology Normal 08/30/18 08:18 Dimorphic RBCs Not Reportable 08/30/18 08:18 Polychromasia Not Reportable 08/30/18 08:18 Hypochromasia Not Reportable 08/30/18 08:18 Poikilocytosis Not Reportable 08/30/18 08:18 Anisocytosis Not Reportable 08/30/18 08:18 Microcytosis Not Reportable 08/30/18 08:18 Macrocytosis Not Reportable 08/30/18 08:18 Spherocytes Not Reportable 08/30/18 08:18 Pappenheimer Bodies Not Reportable 08/30/18 08:18 Sickle Cells Not Reportable 08/30/18 08:18 Target Cells Not Reportable 08/30/18 08:18 Tear Drop Cells Not Reportable 08/30/18 08:18 Ovalocytes Not Reportable 08/30/18 08:18 Helmet Cells Not Reportable 08/30/18 08:18 [place] Bodies Not Reportable 08/30/18 08:18 [place] Rings Not Reportable 08/30/18 08:18 [place] Cells Not Reportable 08/30/18 08:18 Bite Cells Not Reportable 08/30/18 08:18 Crenated Cell Not Reportable 08/30/18 08:18 Elliptocytes Not Reportable 08/30/18 08:18 Acanthocytes (Spur) Not Reportable 08/30/18 08:18 Rouleaux Not Reportable 08/30/18 08:18 Hemoglobin C Crystals Not Reportable 08/30/18 08:18 Schistocytes Not Reportable 08/30/18 08:18 Malaria parasites Not Reportable 08/30/18 08:18 [place] Bodies Not Reportable 08/30/18 08:18 Hem Pathologist Commnt No 08/30/18 08:18 PT 13.0 Sec. (12.2-14.9) 08/29/18 16:34 INR 0.93 (0.87-1.13) 08/29/18 16:34 APTT 27.7 Sec. (24.2-36.6) 08/29/18 16:34 D-Dimer 617.53 ng/mlDDU (0-234) H 08/29/18 17:00 POC ABG pH 7.458 (7.35-7.45) H 08/29/18 17:09 POC ABG pCO2 32.1 (35-45) L 08/29/18 17:09 POC ABG HCO3 22.7 (22-26 mml/L) 08/29/18 17:09 POC ABG Total CO2 24 (23-27mmol/L) 08/29/18 17:09 POC ABG O2 Sat 85 08/29/18 17:09 POC ABG Base Excess -1 ((-2) - (+3)mmol/L) 08/29/18 17:09 VBG pH 7.447 (7.320-7.420) H 08/29/18 16:34 FiO2 36 % 08/29/18 17:09 Sodium 142 mmol/L (137-145) 08/30/18 08:18 Potassium 4.3 mmol/L (3.6-5.0) 08/30/18 08:18 Chloride 103.8 mmol/L (98-107) 08/30/18 08:18 Carbon Dioxide 25 mmol/L (22-30) 08/30/18 08:18 Anion Gap 18 mmol/L 08/30/18 08:18 BUN 16 mg/dL (9-20) 08/30/18 08:18 Creatinine 0.7 mg/dL (0.8-1.5) L 08/30/18 08:18 Estimated GFR > 60 ml/min 08/30/18 08:18 BUN/Creatinine Ratio 23 % 08/30/18 08:18 Glucose 101 mg/dL (75-100) H 08/30/18 08:18 Lactic Acid 1.40 mmol/L (0.7-2.0) 08/29/18 19:25 Calcium 9.5 mg/dL (8.4-10.2) 08/30/18 08:18 Phosphorus 3.20 mg/dL (2.5-4.5) 08/30/18 08:18 Magnesium 1.70 mg/dL (1.7-2.3) 08/30/18 08:18 Total Bilirubin 0.80 mg/dL (0.1-1.2) 08/30/18 08:18 AST 10 units/L (5-40) 08/30/18 08:18 ALT 6 units/L (7-56) L 08/30/18 08:18 Alkaline Phosphatase 67 units/L (35-129) 08/30/18 08:18 Total Creatine Kinase 32 units/L (55-170) L 08/29/18 16:34 CK-MB (CK-2) 2.3 ng/mL (0.0-4.0) 08/29/18 16:34 CK-MB (CK-2) Rel Index 7.1 (0-4) H 08/29/18 16:34 Troponin T < 0.010 ng/mL (0.00-0.029) 08/29/18 16:34 NT-Pro-B Natriuret Pep 694.9 pg/mL (0-900) 08/29/18 16:34 Total Protein 7.1 g/dL (6.3-8.2) 08/30/18 08:18 Albumin 3.5 g/dL (3.9-5) L 08/30/18 08:18 Albumin/Globulin Ratio 1.0 % 08/30/18 08:18 Urine Color Yellow (Yellow) 08/29/18 19:44 Urine Turbidity Clear (Clear) 08/29/18 19:44 Urine pH 5.0 (5.0-7.0) 08/29/18 19:44 Ur Specific [place] 1.035 (1.003-1.030) H 08/29/18 19:44 Urine Protein <15 mg/dl mg/dL (Negative) 08/29/18 19:44 Urine Glucose (UA) Neg mg/dL (Negative) 08/29/18 19:44 Urine Ketones Tr mg/dL (Negative) 08/29/18 19:44 Urine Blood Neg (Negative) 08/29/18 19:44 Urine Nitrite Neg (Negative) 08/29/18 19:44 Urine Bilirubin Neg (Negative) 08/29/18 19:44 Urine Urobilinogen 2.0 mg/dL (<2.0) 08/29/18 19:44 Ur Leukocyte Esterase Neg (Negative) 08/29/18 19:44 Urine WBC (Auto) 7.0 /HPF (0.0-6.0) H 08/29/18 19:44 Urine RBC (Auto) 1.0 /HPF (0.0-6.0) 08/29/18 19:44 U Epithel Cells (Auto) < 1.0 /HPF (0-13.0) 08/29/18 19:44 Urine Mucus Few /HPF 08/29/18 19:44 Active Medications - Current Medications Current Medications: Generic Name Dose Route Start Last Admin Trade Name Freq PRN Reason Stop Dose Admin Acetaminophen 650 mg 08/29/18 21:29 08/30/18 05:53 Tylenol PO 650 mg Q4H PRN Administration Pain MILD(1-3)/Fever >100.5/VENEGAS Al Hydrox/Mg Hydrox/Simethicone 30 ml 08/29/18 21:29 Alum-Mag Hydrox-Simeth [id number]/5ml PO Q4H PRN Indigestion Albuterol/Ipratropium 1 ampul 08/29/18 21:45 08/30/18 08:26 Duoneb *Not For Prn Use* IH 1 ampul Q6HRT GUILLERMO Administration Amlodipine Besylate 10 mg 08/30/18 10:00 08/30/18 09:44 Norvasc PO 10 mg DAILY GUILLERMO Administration Aspirin 325 mg 08/30/18 10:00 08/30/18 09:43 Aspirin PO 325 mg QDAY GUILLERMO Administration Carvedilol 25 mg 08/29/18 22:00 08/30/18 09:43 Coreg PO 25 mg Q12HR GUILLERMO Administration Clonidine HCl 0.1 mg 08/29/18 22:00 08/30/18 09:44 Catapres PO 0.1 mg BID GUILLERMO Administration Docusate Sodium 100 mg 08/29/18 22:00 08/30/18 09:44 Colace PO 100 mg BID GUILLERMO Administration Enoxaparin Sodium 40 mg 08/30/18 10:00 08/30/18 09:43 Lovenox SUB-Q 40 mg QDAY GUILLERMO Administration Famotidine 20 mg 08/29/18 22:00 08/30/18 09:44 Pepcid PO 20 mg BID GUILLERMO Administration Hydralazine HCl 100 mg 08/29/18 22:00 08/30/18 01:14 Apresoline PO 100 mg Q8H GUILLERMO Administration Hydromorphone HCl 2 mg 08/29/18 21:29 08/30/18 08:16 Dilaudid IV 1 mg Q3H PRN Administration Pain, Moderate (4-6) Sodium Chloride 1,000 mls @ 125 mls/hr 08/29/18 22:00 08/30/18 07:41 Nacl 0.45% 1000 Ml IV 125 mls/hr DIRECT GUILLERMO Administration Levofloxacin/Dextrose 750 mg in 150 mls @ 100 mls/hr 08/30/18 10:00 08/30/18 09:43 Levaquin 750mg/150ml IV 100 mls/hr Q24HR GUILLERMO Administration Protocol Labetalol HCl 10 mg 08/29/18 22:07 Normodyne IV Q6HR PRN Hypertension Lisinopril 10 mg 08/30/18 10:00 08/30/18 09:43 Zestril PO 10 mg QDAY GUILLERMO Administration Ondansetron HCl 4 mg 08/29/18 21:29 Zofran IV Q6H PRN Nausea And Vomiting Oxycodone/Acetaminophen 1 tab 08/29/18 21:29 08/30/18 01:16 Percocet 5/325 PO 1 tab Q6H PRN Administration Pain, Moderate (4-6) Pravastatin Sodium 40 mg 08/29/18 22:00 08/30/18 01:16 Pravachol PO 40 mg QHS GUILLERMO Administration Sodium Chloride 10 ml 08/29/18 22:00 08/30/18 09:45 Sodium Chloride Flush Syringe 10 Ml IV 10 ml BID GUILLERMO Administration Sodium Chloride 10 ml 08/29/18 21:29 Sodium Chloride Flush Syringe 10 Ml IV PRN PRN LINE FLUSH Zolpidem Tartrate 5 mg 08/29/18 21:29 Ambien PO QHS PRN Insomnia
[2018-08-31] MEDS: NACL 0.45% 1000 ML 1,000 ML IV SCH ×3 (03:55→21:50)
[2018-08-31] MEDS: DUONEB *Not for PRN Use IH SCH ×3 (08:24→19:58)
--- NOTE | 2018-08-31 09:29 | Progress Note ---
Assessment and Plan Assessment and plan: --Left lung mass/left mediastinal mass, suspicious for malignancy Pulmonary evaluation, possible CT-guided biopsy --Hypoxic respiratory failure; requiring BiPAP Oxygen, nebulizers, IV steroids, IV antibiotics, supportive care Consult pulmonary --Right shoulder pain; probably secondary to metastasis Pain management and supportive care --Left lower lobe pneumonia; probably post obstructive pneumonia Continue IV antibiotics follow cultures --Leukocytosis; sepsis secondary to pneumonia --History of CVA with residual right-sided weakness Physical therapy occupational therapy and supportive care --Ongoing tobacco use; smoking cessation advised nicotine patch as needed --Full CODE STATUS --DVT prophylaxis; SCDs, Lovenox Will try to call the family to get additional medical history and to discuss Patient's condition and treatment plan History Interval history: Patient seen and examined medical records reviewed No new events reported by nursing Mild shortness of breath and congestion of lungs Vital signs reviewed Hospitalist Physical - Constitutional Vitals: Temp Pulse Resp BP Pulse Ox 97.8 F 83 18 101/49 95 08/31/18 06:11 08/31/18 08:34 08/31/18 08:34 08/31/18 06:11 08/31/18 08:25 General appearance: Present: mild distress, cachectic, disheveled - EENT Eyes: Present: PERRL, EOM intact - Neck Neck: Present: supple, normal ROM - Respiratory Respiratory effort: normal Respiratory: bilateral: diminished, rhonchi, negative: rales, wheezing - Cardiovascular Rhythm: regular Heart Sounds: Present: S1 & S2 - Extremities Extremities: no ischemia, No edema - Abdominal General gastrointestinal: soft, non-tender, non-distended, normal bowel sounds - Integumentary Integumentary: Present: clear, warm - Psychiatric Psychiatric: appropriate mood/affect, cooperative - Neurologic Neurologic: CNII-XII intact, moves all extremities Results - Labs CBC & Chem 7: 08/30/18 08:18 08/30/18 08:18 Labs: Laboratory Last Values WBC 12.9 K/mm3 (4.5-11.0) H 08/30/18 08:18 RBC 4.41 M/mm3 (3.65-5.03) 08/30/18 08:18 Hgb 14.0 gm/dl (11.8-15.2) 08/30/18 08:18 Hct 41.5 % (35.5-45.6) 08/30/18 08:18 MCV 94 fl (84-94) 08/30/18 08:18 MCH 32 pg (28-32) 08/30/18 08:18 MCHC 34 % (32-34) 08/30/18 08:18 RDW 14.3 % (13.2-15.2) 08/30/18 08:18 Plt Count 329 K/mm3 (140-440) 08/30/18 08:18 Lymph % (Auto) 10.4 % (13.4-35.0) L 08/29/18 16:34 [place] % (Auto) 8.4 % (0.0-7.3) H 08/29/18 16:34 Eos % (Auto) 6.3 % (0.0-4.3) H 08/29/18 16:34 Baso % (Auto) 0.7 % (0.0-1.8) 08/29/18 16:34 Lymph # 1.5 K/mm3 (1.2-5.4) 08/29/18 16:34 [place] # 1.2 K/mm3 (0.0-0.8) H 08/29/18 16:34 Eos # 0.9 K/mm3 (0.0-0.4) H 08/29/18 16:34 Baso # 0.1 K/mm3 (0.0-0.1) 08/29/18 16:34 Add Manual Diff Complete 08/30/18 08:18 Total Counted 100 08/30/18 08:18 Seg Neutrophils % 74.2 % (40.0-70.0) H 08/29/18 16:34 Seg Neuts % (Manual) 89.0 % (40.0-70.0) H 08/30/18 08:18 Band Neutrophils % 0 % 08/30/18 08:18 Lymphocytes % (Manual) 4.0 % (13.4-35.0) L 08/30/18 08:18 Reactive Lymphs % (Man) 0 % 08/30/18 08:18 Monocytes % (Manual) 7.0 % (0.0-7.3) 08/30/18 08:18 Eosinophils % (Manual) 0 % (0.0-4.3) 08/30/18 08:18 Basophils % (Manual) 0 % (0.0-1.8) 08/30/18 08:18 Metamyelocytes % 0 % 08/30/18 08:18 Myelocytes % 0 % 08/30/18 08:18 Promyelocytes % 0 % 08/30/18 08:18 Blast Cells % 0 % 08/30/18 08:18 Nucleated RBC % Not Reportable 08/30/18 08:18 Seg Neutrophils # 10.7 K/mm3 (1.8-7.7) H 08/29/18 16:34 Seg Neutrophils # Man 11.5 K/mm3 (1.8-7.7) H 08/30/18 08:18 Band Neutrophils # 0.0 K/mm3 08/30/18 08:18 Lymphocytes # (Manual) 0.5 K/mm3 (1.2-5.4) L 08/30/18 08:18 Abs React Lymphs (Man) 0.0 K/mm3 08/30/18 08:18 Monocytes # (Manual) 0.9 K/mm3 (0.0-0.8) H 08/30/18 08:18 Eosinophils # (Manual) 0.0 K/mm3 (0.0-0.4) 08/30/18 08:18 Basophils # (Manual) 0.0 K/mm3 (0.0-0.1) 08/30/18 08:18 Metamyelocytes # 0.0 K/mm3 08/30/18 08:18 Myelocytes # 0.0 K/mm3 08/30/18 08:18 Promyelocytes # 0.0 K/mm3 08/30/18 08:18 Blast Cells # 0.0 K/mm3 08/30/18 08:18 WBC Morphology Not Reportable 08/30/18 08:18 Hypersegmented Neuts Not Reportable 08/30/18 08:18 Hyposegmented Neuts Not Reportable 08/30/18 08:18 Hypogranular Neuts Not Reportable 08/30/18 08:18 Smudge Cells Not Reportable 08/30/18 08:18 Toxic Granulation Not Reportable 08/30/18 08:18 Toxic Vacuolation Not Reportable 08/30/18 08:18 Dohle Bodies Not Reportable 08/30/18 08:18 Pelger-Huet Anomaly Not Reportable 08/30/18 08:18 [place] Rods Not Reportable 08/30/18 08:18 Platelet Estimate Consistent w auto 08/30/18 08:18 Clumped Platelets Rare 08/30/18 08:18 Plt Clumps, EDTA Not Reportable 08/30/18 08:18 Large Platelets Not Reportable 08/30/18 08:18 Giant Platelets Not Reportable 08/30/18 08:18 Platelet Satelliting Not Reportable 08/30/18 08:18 Plt Morphology Comment Not Reportable 08/30/18 08:18 RBC Morphology Normal 08/30/18 08:18 Dimorphic RBCs Not Reportable 08/30/18 08:18 Polychromasia Not Reportable 08/30/18 08:18 Hypochromasia Not Reportable 08/30/18 08:18 Poikilocytosis Not Reportable 08/30/18 08:18 Anisocytosis Not Reportable 08/30/18 08:18 Microcytosis Not Reportable 08/30/18 08:18 Macrocytosis Not Reportable 08/30/18 08:18 Spherocytes Not Reportable 08/30/18 08:18 Pappenheimer Bodies Not Reportable 08/30/18 08:18 Sickle Cells Not Reportable 08/30/18 08:18 Target Cells Not Reportable 08/30/18 08:18 Tear Drop Cells Not Reportable 08/30/18 08:18 Ovalocytes Not Reportable 08/30/18 08:18 Helmet Cells Not Reportable 08/30/18 08:18 [place] Bodies Not Reportable 08/30/18 08:18 [place] Rings Not Reportable 08/30/18 08:18 [place] Cells Not Reportable 08/30/18 08:18 Bite Cells Not Reportable 08/30/18 08:18 Crenated Cell Not Reportable 08/30/18 08:18 Elliptocytes Not Reportable 08/30/18 08:18 Acanthocytes (Spur) Not Reportable 08/30/18 08:18 Rouleaux Not Reportable 08/30/18 08:18 Hemoglobin C Crystals Not Reportable 08/30/18 08:18 Schistocytes Not Reportable 08/30/18 08:18 Malaria parasites Not Reportable 08/30/18 08:18 [place] Bodies Not Reportable 08/30/18 08:18 Hem Pathologist Commnt No 08/30/18 08:18 PT 13.0 Sec. (12.2-14.9) 08/29/18 16:34 INR 0.93 (0.87-1.13) 08/29/18 16:34 APTT 27.7 Sec. (24.2-36.6) 08/29/18 16:34 D-Dimer 617.53 ng/mlDDU (0-234) H 08/29/18 17:00 POC ABG pH 7.458 (7.35-7.45) H 08/29/18 17:09 POC ABG pCO2 32.1 (35-45) L 08/29/18 17:09 POC ABG HCO3 22.7 (22-26 mml/L) 08/29/18 17:09 POC ABG Total CO2 24 (23-27mmol/L) 08/29/18 17:09 POC ABG O2 Sat 85 08/29/18 17:09 POC ABG Base Excess -1 ((-2) - (+3)mmol/L) 08/29/18 17:09 VBG pH 7.447 (7.320-7.420) H 08/29/18 16:34 FiO2 36 % 08/29/18 17:09 Sodium 142 mmol/L (137-145) 08/30/18 08:18 Potassium 4.3 mmol/L (3.6-5.0) 08/30/18 08:18 Chloride 103.8 mmol/L (98-107) 08/30/18 08:18 Carbon Dioxide 25 mmol/L (22-30) 08/30/18 08:18 Anion Gap 18 mmol/L 08/30/18 08:18 BUN 16 mg/dL (9-20) 08/30/18 08:18 Creatinine 0.7 mg/dL (0.8-1.5) L 08/30/18 08:18 Estimated GFR > 60 ml/min 08/30/18 08:18 BUN/Creatinine Ratio 23 % 08/30/18 08:18 Glucose 101 mg/dL (75-100) H 08/30/18 08:18 Lactic Acid 1.40 mmol/L (0.7-2.0) 08/29/18 19:25 Calcium 9.5 mg/dL (8.4-10.2) 08/30/18 08:18 Phosphorus 3.20 mg/dL (2.5-4.5) 08/30/18 08:18 Magnesium 1.70 mg/dL (1.7-2.3) 08/30/18 08:18 Total Bilirubin 0.80 mg/dL (0.1-1.2) 08/30/18 08:18 AST 10 units/L (5-40) 08/30/18 08:18 ALT 6 units/L (7-56) L 08/30/18 08:18 Alkaline Phosphatase 67 units/L (35-129) 08/30/18 08:18 Total Creatine Kinase 32 units/L (55-170) L 08/29/18 16:34 CK-MB (CK-2) 2.3 ng/mL (0.0-4.0) 08/29/18 16:34 CK-MB (CK-2) Rel Index 7.1 (0-4) H 08/29/18 16:34 Troponin T < 0.010 ng/mL (0.00-0.029) 08/29/18 16:34 NT-Pro-B Natriuret Pep 694.9 pg/mL (0-900) 08/29/18 16:34 Total Protein 7.1 g/dL (6.3-8.2) 08/30/18 08:18 Albumin 3.5 g/dL (3.9-5) L 08/30/18 08:18 Albumin/Globulin Ratio 1.0 % 08/30/18 08:18 Urine Color Yellow (Yellow) 08/29/18 19:44 Urine Turbidity Clear (Clear) 08/29/18 19:44 Urine pH 5.0 (5.0-7.0) 08/29/18 19:44 Ur Specific [place] 1.035 (1.003-1.030) H 08/29/18 19:44 Urine Protein <15 mg/dl mg/dL (Negative) 08/29/18 19:44 Urine Glucose (UA) Neg mg/dL (Negative) 08/29/18 19:44 Urine Ketones Tr mg/dL (Negative) 08/29/18 19:44 Urine Blood Neg (Negative) 08/29/18 19:44 Urine Nitrite Neg (Negative) 08/29/18 19:44 Urine Bilirubin Neg (Negative) 08/29/18 19:44 Urine Urobilinogen 2.0 mg/dL (<2.0) 08/29/18 19:44 Ur Leukocyte Esterase Neg (Negative) 08/29/18 19:44 Urine WBC (Auto) 7.0 /HPF (0.0-6.0) H 08/29/18 19:44 Urine RBC (Auto) 1.0 /HPF (0.0-6.0) 08/29/18 19:44 U Epithel Cells (Auto) < 1.0 /HPF (0-13.0) 08/29/18 19:44 Urine Mucus Few /HPF 08/29/18 19:44 Active Medications - Current Medications Current Medications: Generic Name Dose Route Start Last Admin Trade Name Freq PRN Reason Stop Dose Admin Acetaminophen 650 mg 08/29/18 21:29 08/30/18 05:53 Tylenol PO 650 mg Q4H PRN Administration Pain MILD(1-3)/Fever >100.5/VENEGAS Al Hydrox/Mg Hydrox/Simethicone 30 ml 08/29/18 21:29 Alum-Mag Hydrox-Simeth [id number]/5ml PO Q4H PRN Indigestion Albuterol/Ipratropium 1 ampul 08/31/18 08:00 08/31/18 08:24 Duoneb *Not For Prn Use* IH 1 ampul TIDRT GUILLERMO Administration Amlodipine Besylate 10 mg 08/30/18 10:00 08/30/18 09:44 Norvasc PO 10 mg DAILY GUILLERMO Administration Aspirin 325 mg 08/30/18 10:00 08/30/18 09:43 Aspirin PO 325 mg QDAY GUILLERMO Administration Carvedilol 25 mg 08/29/18 22:00 08/30/18 22:43 Coreg PO Not Given Q12HR GUILLERMO Clonidine HCl 0.1 mg 08/29/18 22:00 08/30/18 22:40 Catapres PO Not Given BID GUILLERMO Docusate Sodium 100 mg 08/29/18 22:00 08/30/18 22:37 Colace PO 100 mg BID GUILLERMO Administration Enoxaparin Sodium 40 mg 08/30/18 10:00 08/30/18 09:43 Lovenox SUB-Q 40 mg QDAY GUILLERMO Administration Famotidine 20 mg 08/29/18 22:00 08/30/18 22:37 Pepcid PO 20 mg BID GUILLERMO Administration Hydralazine HCl 100 mg 08/29/18 22:00 08/30/18 22:43 Apresoline PO Not Given Q8H GUILLERMO Hydromorphone HCl 2 mg 08/29/18 21:29 08/30/18 08:16 Dilaudid IV 1 mg Q3H PRN Administration Pain, Moderate (4-6) Sodium Chloride 1,000 mls @ 125 mls/hr 08/29/18 22:00 08/31/18 03:55 Nacl 0.45% 1000 Ml IV 125 mls/hr DIRECT GUILLERMO Administration Levofloxacin/Dextrose 750 mg in 150 mls @ 100 mls/hr 08/30/18 10:00 08/30/18 09:43 Levaquin 750mg/150ml IV 100 mls/hr Q24HR GUILLERMO Administration Protocol Labetalol HCl 10 mg 08/29/18 22:07 Normodyne IV Q6HR PRN Hypertension Lisinopril 10 mg 08/30/18 10:00 08/30/18 09:43 Zestril PO 10 mg QDAY GUILLERMO Administration Ondansetron HCl 4 mg 08/29/18 21:29 Zofran IV Q6H PRN Nausea And Vomiting Oxycodone/Acetaminophen 1 tab 08/29/18 21:29 08/30/18 15:48 Percocet 5/325 PO 1 tab Q6H PRN Administration Pain, Moderate (4-6) Pravastatin Sodium 40 mg 08/29/18 22:00 08/30/18 22:37 Pravachol PO 40 mg QHS GUILLERMO Administration Sodium Chloride 10 ml 08/29/18 22:00 08/30/18 22:41 Sodium Chloride Flush Syringe 10 Ml IV 10 ml BID GUILLERMO Administration Sodium Chloride 10 ml 08/29/18 21:29 Sodium Chloride Flush Syringe 10 Ml IV PRN PRN LINE FLUSH Zolpidem Tartrate 5 mg 08/29/18 21:29 Ambien PO QHS PRN Insomnia Nutrition/Malnutrition Assess - Dietary Evaluation Nutrition/Malnutrition Findings: Nutrition Notes Start: 08/30/18 13:41 Freq: Status: Active Protocol: Document 08/30/18 13:41 RM (Rec: 08/30/18 13:53 RM [id number]) Nutrition Notes Need for Assessment generated from: MST Initial or Follow up Assessment Current Diagnosis Coronary Artery Disease, Hypertension,Stroke, Hyperlipidemia Other Pertinent Diagnosis Respiratory distress, R hemiparesis Current Diet Cardiac Labs/Tests Reviewed Pertinent Medications Reviewed Height 5 ft 11 in Weight 62 kg Usual Body Weight 63.64 kg [place] Body Weight (kg) 78.18 BMI 19.1 Subjective/Other Information Screened for malnutrition. Pt was having difficulty speaking and hard to understand d/t SOB. Pt stated that [employer] he ate 1-2 meals daily. Stated he ate bites of his breakfast this morning. Admitted to chewing difficulty d/t missing teeth. Stated UBW was 140 lbs last month. Stated that prior to his CVA 4 years ago pt weighed 250 lbs. Noted temporal wasting. Percent of energy/protein needs met: 0%/0% Burn Absent Trauma Absent #1 Nutrition Diagnosis Malnutrition Etiology SOB, Hx CVA As Evidenced by Signs and Symptoms pt stated that [employer] he ate 1-2 meals daily, temporal wasting Is patient on ventilator? No Is Patient Ambulatory and/or Out of Bed No REE-([facility]-confined to bed) 1718.052 Kcal/Kg value to use for calculation 33 Approximate Energy Requirements Using 2046 kcal/Kg Calculation Used for Recommendations Kcal/kg Additional Notes Protein Needs: 74-93g (1.2-1. 5g/kg) Fluid Needs: 1 ml/kcal Nutrition Intervention Change [facility] Add Supplement/Snack (indicate name/kcal Ensure Enlive Chocolate 1 /protein ) daily Provides kCal: 350 Provides Protein (gm) 20 Goal #1 Meet at least 75% of calorie and protein needs via PO and ONS intakes Anticipated Discharge Needs: Unable to determine at this time Follow-Up By: 09/01/18 Additional Comments Follow for PO and ONS intakes
[2018-08-31] MEDS: COLACE PO SCH ×2 (10:19→21:48)
[2018-08-31] MEDS: ASPIRIN PO SCH (10:19)
[2018-08-31] MEDS: LOVENOX SUB-Q SCH (10:19)
[2018-08-31] MEDS: LEVAQUIN 750MG/150ML 750 MG/150 ML BAG IV SCH (10:19)
[2018-08-31] MEDS: PEPCID PO SCH ×2 (10:19→21:50)
[2018-08-31] MEDS: PERCOCET 5/325 PO PRN (10:19)
[2018-08-31] MEDS: APRESOLINE PO SCH ×3 (10:25→21:48)
[2018-08-31] MEDS: COREG PO SCH ×2 (10:26→21:48)
[2018-08-31] MEDS: NORVASC PO SCH (10:26)
[2018-08-31] MEDS: CATAPRES PO SCH ×2 (10:26→21:48)
[2018-08-31] MEDS: SODIUM CHLORIDE FLUSH SYRINGE 10 ML IV SCH ×2 (10:27→21:51)
[2018-08-31] MEDS: ZESTRIL PO SCH (10:27)
--- NOTE | 2018-08-31 11:03 | Consultation ---
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 Patient has been back and forth to his primary care physician at [facility] without any improvement. Patient also complains of ongoing right-sided sharp chest pain that is worse with palpation and movement that extends to his right shoulder. Patient received albuterol 5 mg and Solu-Medrol 125 mg IV in route with minimal improvement. Patient denies a history of COPD or CHF but he is a long-time smoker and states he has recently lost 10 pounds. He did report chronic cough and chest congestion to me during the interview. Quit smoking 3 days ago. He also denies home oxygen use. No reports of fever. Imaging CT scan shows a large mediastinal/pulmonary mass. Pulmonary opinion requested at this point Past History Past Medical History: hypertension, hyperlipidemia, stroke Past Surgical History: Other (testicular torsion 1965) Social history: lives with family, smoking Medications and Allergies Allergies Allergy/AdvReac Type Severity Reaction Status Date / Time Penicillins Allergy Unknown Verified 07/05/13 15:11 Home Medications Medication Instructions Recorded Confirmed Last Taken Type Aspirin [Aspirin TAB] 325 mg PO QDAY #30 tablet 07/19/13 08/31/18 Unknown Rx Simvastatin (Nf) [Zocor TAB] 20 mg PO QHS 30 Days tablet 07/19/13 08/31/18 Unknown Rx amLODIPine [Norvasc] 10 mg PO DAILY 30 Days tab 07/19/13 08/31/18 Unknown Rx cloNIDine [Catapres] 0.1 mg PO BID #60 tablet 07/19/13 08/31/18 Unknown Rx Lisinopril [Zestril TAB] 10 mg PO QDAY 30 Days tablet 07/22/13 08/31/18 Unknown Rx hydrALAZINE [Apresoline] 50 mg PO BID 08/31/18 08/31/18 Unknown History Active Meds: Active Medications Acetaminophen (Tylenol) 650 mg PO Q4H PRN PRN Reason: Pain MILD(1-3)/Fever >100.5/VENEGAS Last Admin: 08/30/18 05:53 Dose: 650 mg Documented by: Al Hydrox/Mg Hydrox/Simethicone (Alum-Mag Hydrox-Simeth [id number]/5ml) 30 ml PO Q4H PRN PRN Reason: Indigestion Albuterol/Ipratropium (Duoneb *Not For Prn Use*) 1 ampul IH TIDRT [facility] Last Admin: 08/31/18 08:24 Dose: 1 ampul Documented by: Amlodipine Besylate (Norvasc) 10 mg PO DAILY [facility] Last Admin: 08/31/18 10:26 Dose: Not Given Documented by: Aspirin (Aspirin) 325 mg PO QDAY [facility] Last Admin: 08/31/18 10:19 Dose: 325 mg Documented by: Carvedilol (Coreg) 25 mg PO Q12HR [facility] Last Admin: 08/31/18 10:26 Dose: Not Given Documented by: Clonidine HCl (Catapres) 0.1 mg PO BID [facility] Last Admin: 08/31/18 10:26 Dose: Not Given Documented by: Docusate Sodium (Colace) 100 mg PO BID [facility] Last Admin: 08/31/18 10:19 Dose: 100 mg Documented by: Enoxaparin Sodium (Lovenox) 40 mg SUB-Q QDAY [facility] Last Admin: 08/31/18 10:19 Dose: 40 mg Documented by: Famotidine (Pepcid) 20 mg PO BID [facility] Last Admin: 08/31/18 10:19 Dose: 20 mg Documented by: Hydralazine HCl (Apresoline) 100 mg PO Q8H [facility] Last Admin: 08/31/18 10:25 Dose: Not Given Documented by: Hydromorphone HCl (Dilaudid) 2 mg IV Q3H PRN PRN Reason: Pain, Moderate (4-6) Last Admin: 08/30/18 08:16 Dose: 1 mg Documented by: Sodium Chloride (Nacl 0.45% 1000 Ml) 1,000 mls @ 125 mls/hr IV DIRECT [facility] Last Admin: 08/31/18 03:55 Dose: 125 mls/hr Documented by: Levofloxacin/Dextrose (Levaquin 750mg/150ml) 750 mg in 150 mls @ 100 mls/hr IV Q24HR [facility]; Protocol Last Admin: 08/31/18 10:19 Dose: 100 mls/hr Documented by: Labetalol HCl (Normodyne) 10 mg IV Q6HR PRN PRN Reason: Hypertension Lisinopril (Zestril) 10 mg PO QDAY [facility] Last Admin: 08/31/18 10:27 Dose: Not Given Documented by: Ondansetron HCl (Zofran) 4 mg IV Q6H PRN PRN Reason: Nausea And Vomiting Oxycodone/Acetaminophen (Percocet 5/325) 1 tab PO Q6H PRN PRN Reason: Pain, Moderate (4-6) Last Admin: 08/31/18 10:19 Dose: 1 tab Documented by: Pravastatin Sodium (Pravachol) 40 mg PO QHS [facility] Last Admin: 08/30/18 22:37 Dose: 40 mg Documented by: Sodium Chloride (Sodium Chloride Flush Syringe 10 Ml) 10 ml IV BID [facility] Last Admin: 08/31/18 10:27 Dose: 10 ml Documented by: Sodium Chloride (Sodium Chloride Flush Syringe 10 Ml) 10 ml IV PRN PRN PRN Reason: LINE FLUSH Zolpidem Tartrate (Ambien) 5 mg PO QHS PRN PRN Reason: Insomnia Review of Systems All systems: negative Physical Examination Vital signs: Vital Signs Pulse Ox 95 08/29/18 16:09 General appearance: no acute distress, alert, other (able to talk in full sentences but speech slightly slurred) ENT: oropharynx moist Neck: supple, no JVD, other (no collateral circulation visible in the upper chest) Ascultation: Bilateral: rhonchi Cardiovascular: regular rate and rhythm Gastrointestinal: normoactive bowel sounds, non-distended Integumentary: normal Extremities: no cyanosis, no edema Musculoskeletal: no deformities normal mental status, non-focal exam, CN II-XII normal mood appropriate, affect normal Results - Laboratory Findings CBC and BMP: 08/30/18 08:18 08/30/18 08:18 ABG POC ABG pH 7.458 (7.35-7.45) H 08/29/18 17:09 POC ABG pCO2 32.1 (35-45) L 08/29/18 17:09 POC ABG HCO3 22.7 (22-26 mml/L) 08/29/18 17:09 POC ABG Total CO2 24 (23-27mmol/L) 08/29/18 17:09 POC ABG O2 Sat 85 08/29/18 17:09 PT/INR, D-dimer PT 13.0 Sec. (12.2-14.9) 08/29/18 16:34 INR 0.93 (0.87-1.13) 08/29/18 16:34 D-Dimer 617.53 ng/mlDDU (0-234) H 08/29/18 17:00 Abnormal lab findings: Abnormal Labs 08/29/18 08/29/18 08/29/18 16:34 16:34 16:34 WBC 14.5 H Lymph % (Auto) 10.4 L [place] % (Auto) 8.4 H Eos % (Auto) 6.3 H [place] # 1.2 H Eos # 0.9 H Seg Neutrophils % 74.2 H Seg Neuts % (Manual) Lymphocytes % (Manual) Seg Neutrophils # 10.7 H Seg Neutrophils # Man Lymphocytes # (Manual) Monocytes # (Manual) D-Dimer POC ABG pH POC ABG pCO2 VBG pH 7.447 H Creatinine Glucose 170 H ALT Total Creatine Kinase 32 L CK-MB (CK-2) Rel Index 7.1 H Albumin 3.8 L Ur Specific [place] Urine WBC (Auto) 08/29/18 08/29/18 08/29/18 17:00 17:09 19:44 WBC Lymph % (Auto) [place] % (Auto) Eos % (Auto) [place] # Eos # Seg Neutrophils % Seg Neuts % (Manual) Lymphocytes % (Manual) Seg Neutrophils # Seg Neutrophils # Man Lymphocytes # (Manual) Monocytes # (Manual) D-Dimer 617.53 H POC ABG pH 7.458 H POC ABG pCO2 32.1 L VBG pH Creatinine Glucose ALT Total Creatine Kinase CK-MB (CK-2) Rel Index Albumin Ur Specific [place] 1.035 H Urine WBC (Auto) 7.0 H 08/30/18 08/30/18 08:18 08:18 WBC 12.9 H Lymph % (Auto) [place] % (Auto) Eos % (Auto) [place] # Eos # Seg Neutrophils % Seg Neuts % (Manual) 89.0 H Lymphocytes % (Manual) 4.0 L Seg Neutrophils # Seg Neutrophils # Man 11.5 H Lymphocytes # (Manual) 0.5 L Monocytes # (Manual) 0.9 H D-Dimer POC ABG pH POC ABG pCO2 VBG pH Creatinine 0.7 L Glucose 101 H ALT 6 L Total Creatine Kinase CK-MB (CK-2) Rel Index Albumin 3.5 L Ur Specific [place] Urine WBC (Auto) Assessment and Plan 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 All questions answered. Thanks
[2018-08-31] MEDS: PRAVACHOL PO SCH (21:48)
[2018-09-01 05:44] LABS: Basophils % (Auto) 0.2 % (0.0-1.8); Eosinophils # (Auto) 0.1 K/mm3 (0.0-0.4); Eosinophils % (Auto) 0.7 % (0.0-4.3); Hematocrit 37.6 % (35.5-45.6); Hemoglobin 12.8 gm/dl (11.8-15.2); Lymphocytes % (Auto) 6.5 % (13.4-35.0); Mean Corpuscular HGB Conc 34 % (32-34); Mean Corpuscular Volume 94 fl (84-94); Monocytes # (Auto) 0.6 K/mm3 (0.0-0.8); Monocytes % (Auto) 3.8 % (0.0-7.3); Platelet Count 224 K/mm3 (140-440); Red Blood Count 4.01 M/mm3 (3.65-5.03); Red Cell Distribution Width 13.9 % (13.2-15.2)
[2018-09-01 06:09] LABS: BUN/Creatinine Ratio 30; Blood Urea Nitrogen 21 mg/dL (9-20); Calcium 8.8 mg/dL (8.4-10.2); Hemolysis Index 11
[2018-09-01] MEDS: APRESOLINE PO SCH ×3 (06:25→21:18)
[2018-09-01] MEDS: NACL 0.45% 1000 ML 1,000 ML IV SCH ×2 (06:29→17:35)
[2018-09-01] MEDS: DILAUDID IV PRN (07:12)
[2018-09-01] MEDS: DUONEB *Not for PRN Use IH SCH ×3 (08:07→22:43)
[2018-09-01] MEDS: LEVAQUIN 750MG/150ML 750 MG/150 ML BAG IV SCH (09:17)
[2018-09-01] MEDS: SODIUM CHLORIDE FLUSH SYRINGE 10 ML IV SCH ×2 (09:18→21:17)
--- NOTE | 2018-09-01 09:51 | Progress Note ---
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 Some increased congestion today but no respiratory distress Tobacco abuse Acute exacerbation chronic bronchitis AMS, delirious Recommendations CT guided needle biopsy for diagnosis DuoNeb to 4 times a day Chest trachea insertion has needed Solu-Medrol 40-60 mg IV every 6-8 hours Oxygen support via nasal cannula or mask to maintain oximetry over 92% DVT prophylaxis Smoking cessation discussed Subjective Date of service: 09/01/18 Principal diagnosis: [place], COPD Interval history: Placed on restrictions last night. Some coughing and rhonchi Objective Vital Signs - 12hr 08/31/18 09/01/18 09/01/18 23:25 05:12 08:22 Temperature 99.2 F 97.6 F Pulse Rate 88 88 Pulse Rate [ 87 Anterior Bilateral Throughout] Respiratory 20 18 Rate Respiratory 18 Rate [Anterior Bilateral Throughout] Blood Pressure 168/73 146/77 O2 Sat by Pulse 91 92 Oximetry 09/01/18 08:23 Temperature Pulse Rate Pulse Rate [ Anterior Bilateral Throughout] Respiratory Rate Respiratory Rate [Anterior Bilateral Throughout] Blood Pressure O2 Sat by Pulse 93 Oximetry Constitutional: no acute distress, alert, other (able to talk in full sentences but speech slightly slurred) ENT: oropharynx moist Neck: supple, no JVD, other (no collateral circulation visible in the upper chest) Ascultation: Bilateral: rhonchi Cardiovascular: regular rate and rhythm Gastrointestinal: normoactive bowel sounds, non-distended Integumentary: normal Extremities: no cyanosis, no edema Neurologic: non-focal exam, CN II-XII normal, other (more confused, on restraints) CBC and BMP: 09/01/18 05:31 09/01/18 05:31 ABG, PT/INR, D-dimer: ABG POC ABG pH 7.458 (7.35-7.45) H 08/29/18 17:09 POC ABG pCO2 32.1 (35-45) L 08/29/18 17:09 POC ABG HCO3 22.7 (22-26 mml/L) 08/29/18 17:09 POC ABG Total CO2 24 (23-27mmol/L) 08/29/18 17:09 POC ABG O2 Sat 85 08/29/18 17:09 PT/INR, D-dimer PT 13.0 Sec. (12.2-14.9) 08/29/18 16:34 INR 0.93 (0.87-1.13) 08/29/18 16:34 D-Dimer 617.53 ng/mlDDU (0-234) H 08/29/18 17:00 Abnormal lab findings: Abnormal Labs 08/29/18 08/29/18 08/29/18 16:34 16:34 16:34 WBC 14.5 H Lymph % (Auto) 10.4 L [place] % (Auto) 8.4 H Eos % (Auto) 6.3 H Lymph # [place] # 1.2 H Eos # 0.9 H Seg Neutrophils % 74.2 H Seg Neuts % (Manual) Lymphocytes % (Manual) Seg Neutrophils # 10.7 H Seg Neutrophils # Man Lymphocytes # (Manual) Monocytes # (Manual) D-Dimer POC ABG pH POC ABG pCO2 VBG pH 7.447 H Sodium BUN Creatinine Glucose 170 H ALT Total Creatine Kinase 32 L CK-MB (CK-2) Rel Index 7.1 H Albumin 3.8 L Ur Specific [place] Urine WBC (Auto) 08/29/18 08/29/18 08/29/18 17:00 17:09 19:44 WBC Lymph % (Auto) [place] % (Auto) Eos % (Auto) Lymph # [place] # Eos # Seg Neutrophils % Seg Neuts % (Manual) Lymphocytes % (Manual) Seg Neutrophils # Seg Neutrophils # Man Lymphocytes # (Manual) Monocytes # (Manual) D-Dimer 617.53 H POC ABG pH 7.458 H POC ABG pCO2 32.1 L VBG pH Sodium BUN Creatinine Glucose ALT Total Creatine Kinase CK-MB (CK-2) Rel Index Albumin Ur Specific [place] 1.035 H Urine WBC (Auto) 7.0 H 08/30/18 08/30/18 09/01/18 08:18 08:18 05:31 WBC 12.9 H 15.4 H Lymph % (Auto) 6.5 L [place] % (Auto) Eos % (Auto) Lymph # 1.0 L [place] # Eos # Seg Neutrophils % 88.8 H Seg Neuts % (Manual) 89.0 H Lymphocytes % (Manual) 4.0 L Seg Neutrophils # 13.7 H Seg Neutrophils # Man 11.5 H Lymphocytes # (Manual) 0.5 L Monocytes # (Manual) 0.9 H D-Dimer POC ABG pH POC ABG pCO2 VBG pH Sodium BUN Creatinine 0.7 L Glucose 101 H ALT 6 L Total Creatine Kinase CK-MB (CK-2) Rel Index Albumin 3.5 L Ur Specific [place] Urine WBC (Auto) 09/01/18 05:31 WBC Lymph % (Auto) [place] % (Auto) Eos % (Auto) Lymph # [place] # Eos # Seg Neutrophils % Seg Neuts % (Manual) Lymphocytes % (Manual) Seg Neutrophils # Seg Neutrophils # Man Lymphocytes # (Manual) Monocytes # (Manual) D-Dimer POC ABG pH POC ABG pCO2 VBG pH Sodium 134 L D BUN 21 H Creatinine 0.7 L Glucose ALT Total Creatine Kinase CK-MB (CK-2) Rel Index Albumin Ur Specific [place] Urine WBC (Auto)
--- NOTE | 2018-09-01 11:17 | Progress Note ---
Assessment and Plan Assessment and plan: --Hypoxic respiratory failure; requiring BiPAP Oxygen, nebulizers, IV steroids, IV antibiotics, supportive care Consult pulmonary --Left lung mass/left mediastinal mass, suspicious for malignancy Pulmonary evaluation, possible CT-guided biopsy today --Right shoulder pain; probably secondary to metastasis Pain management and supportive care --Left lower lobe pneumonia; probably post obstructive pneumonia Continue IV antibiotics follow cultures --Leukocytosis; sepsis secondary to pneumonia --History of CVA with residual right-sided weakness Physical therapy occupational therapy and supportive care --Ongoing tobacco use; smoking cessation advised nicotine patch as needed --Full CODE STATUS --DVT prophylaxis; SCDs, Lovenox Will try to call the family to get additional medical history and to discuss Patient's condition and treatment plan History Interval history: Patient seen and examined medical records reviewed No new events reported by the nursing staff Vital signs noted Unable to do CT guided biopsy as the radiologist is not available Patient and his are angry about the procedure could not be done today Hospitalist Physical - Constitutional Vitals: Temp Pulse Resp BP Pulse Ox 97.6 F 87 18 146/77 93 09/01/18 05:12 09/01/18 08:22 09/01/18 08:22 09/01/18 05:12 09/01/18 08:23 General appearance: Present: mild distress, cachectic, disheveled - EENT Eyes: Present: PERRL, EOM intact - Neck Neck: Present: supple, normal ROM - Respiratory Respiratory effort: normal Respiratory: bilateral: diminished, rhonchi, negative: rales, wheezing - Cardiovascular Rhythm: regular Heart Sounds: Present: S1 & S2 - Extremities Extremities: no ischemia, No edema - Abdominal General gastrointestinal: soft, non-tender, non-distended, normal bowel sounds - Integumentary Integumentary: Present: clear, warm - Psychiatric Psychiatric: appropriate mood/affect, cooperative - Neurologic Neurologic: moves all extremities Results - Labs CBC & Chem 7: 09/01/18 05:31 09/01/18 05:31 Labs: Laboratory Last Values WBC 15.4 K/mm3 (4.5-11.0) H 09/01/18 05:31 RBC 4.01 M/mm3 (3.65-5.03) 09/01/18 05:31 Hgb 12.8 gm/dl (11.8-15.2) 09/01/18 05:31 Hct 37.6 % (35.5-45.6) 09/01/18 05:31 MCV 94 fl (84-94) 09/01/18 05:31 MCH 32 pg (28-32) 09/01/18 05:31 MCHC 34 % (32-34) 09/01/18 05:31 RDW 13.9 % (13.2-15.2) 09/01/18 05:31 Plt Count 224 K/mm3 (140-440) 09/01/18 05:31 Lymph % (Auto) 6.5 % (13.4-35.0) L 09/01/18 05:31 [place] % (Auto) 3.8 % (0.0-7.3) 09/01/18 05:31 Eos % (Auto) 0.7 % (0.0-4.3) 09/01/18 05:31 Baso % (Auto) 0.2 % (0.0-1.8) 09/01/18 05:31 Lymph # 1.0 K/mm3 (1.2-5.4) L 09/01/18 05:31 [place] # 0.6 K/mm3 (0.0-0.8) 09/01/18 05:31 Eos # 0.1 K/mm3 (0.0-0.4) 09/01/18 05:31 Baso # 0.0 K/mm3 (0.0-0.1) 09/01/18 05:31 Add Manual Diff Complete 08/30/18 08:18 Total Counted 100 08/30/18 08:18 Seg Neutrophils % 88.8 % (40.0-70.0) H 09/01/18 05:31 Seg Neuts % (Manual) 89.0 % (40.0-70.0) H 08/30/18 08:18 Band Neutrophils % 0 % 08/30/18 08:18 Lymphocytes % (Manual) 4.0 % (13.4-35.0) L 08/30/18 08:18 Reactive Lymphs % (Man) 0 % 08/30/18 08:18 Monocytes % (Manual) 7.0 % (0.0-7.3) 08/30/18 08:18 Eosinophils % (Manual) 0 % (0.0-4.3) 08/30/18 08:18 Basophils % (Manual) 0 % (0.0-1.8) 08/30/18 08:18 Metamyelocytes % 0 % 08/30/18 08:18 Myelocytes % 0 % 08/30/18 08:18 Promyelocytes % 0 % 08/30/18 08:18 Blast Cells % 0 % 08/30/18 08:18 Nucleated RBC % Not Reportable 08/30/18 08:18 Seg Neutrophils # 13.7 K/mm3 (1.8-7.7) H 09/01/18 05:31 Seg Neutrophils # Man 11.5 K/mm3 (1.8-7.7) H 08/30/18 08:18 Band Neutrophils # 0.0 K/mm3 08/30/18 08:18 Lymphocytes # (Manual) 0.5 K/mm3 (1.2-5.4) L 08/30/18 08:18 Abs React Lymphs (Man) 0.0 K/mm3 08/30/18 08:18 Monocytes # (Manual) 0.9 K/mm3 (0.0-0.8) H 08/30/18 08:18 Eosinophils # (Manual) 0.0 K/mm3 (0.0-0.4) 08/30/18 08:18 Basophils # (Manual) 0.0 K/mm3 (0.0-0.1) 08/30/18 08:18 Metamyelocytes # 0.0 K/mm3 08/30/18 08:18 Myelocytes # 0.0 K/mm3 08/30/18 08:18 Promyelocytes # 0.0 K/mm3 08/30/18 08:18 Blast Cells # 0.0 K/mm3 08/30/18 08:18 WBC Morphology Not Reportable 08/30/18 08:18 Hypersegmented Neuts Not Reportable 08/30/18 08:18 Hyposegmented Neuts Not Reportable 08/30/18 08:18 Hypogranular Neuts Not Reportable 08/30/18 08:18 Smudge Cells Not Reportable 08/30/18 08:18 Toxic Granulation Not Reportable 08/30/18 08:18 Toxic Vacuolation Not Reportable 08/30/18 08:18 Dohle Bodies Not Reportable 08/30/18 08:18 Pelger-Huet Anomaly Not Reportable 08/30/18 08:18 [place] Rods Not Reportable 08/30/18 08:18 Platelet Estimate Consistent w auto 08/30/18 08:18 Clumped Platelets Rare 08/30/18 08:18 Plt Clumps, EDTA Not Reportable 08/30/18 08:18 Large Platelets Not Reportable 08/30/18 08:18 Giant Platelets Not Reportable 08/30/18 08:18 Platelet Satelliting Not Reportable 08/30/18 08:18 Plt Morphology Comment Not Reportable 08/30/18 08:18 RBC Morphology Normal 08/30/18 08:18 Dimorphic RBCs Not Reportable 08/30/18 08:18 Polychromasia Not Reportable 08/30/18 08:18 Hypochromasia Not Reportable 08/30/18 08:18 Poikilocytosis Not Reportable 08/30/18 08:18 Anisocytosis Not Reportable 08/30/18 08:18 Microcytosis Not Reportable 08/30/18 08:18 Macrocytosis Not Reportable 08/30/18 08:18 Spherocytes Not Reportable 08/30/18 08:18 Pappenheimer Bodies Not Reportable 08/30/18 08:18 Sickle Cells Not Reportable 08/30/18 08:18 Target Cells Not Reportable 08/30/18 08:18 Tear Drop Cells Not Reportable 08/30/18 08:18 Ovalocytes Not Reportable 08/30/18 08:18 Helmet Cells Not Reportable 08/30/18 08:18 [place] Bodies Not Reportable 08/30/18 08:18 [place] Rings Not Reportable 08/30/18 08:18 [place] Cells Not Reportable 08/30/18 08:18 Bite Cells Not Reportable 08/30/18 08:18 Crenated Cell Not Reportable 08/30/18 08:18 Elliptocytes Not Reportable 08/30/18 08:18 Acanthocytes (Spur) Not Reportable 08/30/18 08:18 Rouleaux Not Reportable 08/30/18 08:18 Hemoglobin C Crystals Not Reportable 08/30/18 08:18 Schistocytes Not Reportable 08/30/18 08:18 Malaria parasites Not Reportable 08/30/18 08:18 [place] Bodies Not Reportable 08/30/18 08:18 Hem Pathologist Commnt No 08/30/18 08:18 PT 13.0 Sec. (12.2-14.9) 08/29/18 16:34 INR 0.93 (0.87-1.13) 08/29/18 16:34 APTT 27.7 Sec. (24.2-36.6) 08/29/18 16:34 D-Dimer 617.53 ng/mlDDU (0-234) H 08/29/18 17:00 POC ABG pH 7.458 (7.35-7.45) H 08/29/18 17:09 POC ABG pCO2 32.1 (35-45) L 08/29/18 17:09 POC ABG HCO3 22.7 (22-26 mml/L) 08/29/18 17:09 POC ABG Total CO2 24 (23-27mmol/L) 08/29/18 17:09 POC ABG O2 Sat 85 08/29/18 17:09 POC ABG Base Excess -1 ((-2) - (+3)mmol/L) 08/29/18 17:09 VBG pH 7.447 (7.320-7.420) H 08/29/18 16:34 FiO2 36 % 08/29/18 17:09 Sodium 134 mmol/L (137-145) L D 09/01/18 05:31 Potassium 4.0 mmol/L (3.6-5.0) 09/01/18 05:31 Chloride 100.5 mmol/L (98-107) 09/01/18 05:31 Carbon Dioxide 22 mmol/L (22-30) 09/01/18 05:31 Anion Gap 16 mmol/L 09/01/18 05:31 BUN 21 mg/dL (9-20) H 09/01/18 05:31 Creatinine 0.7 mg/dL (0.8-1.5) L 09/01/18 05:31 Estimated GFR > 60 ml/min 09/01/18 05:31 BUN/Creatinine Ratio 30 % 09/01/18 05:31 Glucose 86 mg/dL (75-100) 09/01/18 05:31 Lactic Acid 1.40 mmol/L (0.7-2.0) 08/29/18 19:25 Calcium 8.8 mg/dL (8.4-10.2) 09/01/18 05:31 Phosphorus 3.20 mg/dL (2.5-4.5) 08/30/18 08:18 Magnesium 1.70 mg/dL (1.7-2.3) 08/30/18 08:18 Total Bilirubin 0.80 mg/dL (0.1-1.2) 08/30/18 08:18 AST 10 units/L (5-40) 08/30/18 08:18 ALT 6 units/L (7-56) L 08/30/18 08:18 Alkaline Phosphatase 67 units/L (35-129) 08/30/18 08:18 Total Creatine Kinase 32 units/L (55-170) L 08/29/18 16:34 CK-MB (CK-2) 2.3 ng/mL (0.0-4.0) 08/29/18 16:34 CK-MB (CK-2) Rel Index 7.1 (0-4) H 08/29/18 16:34 Troponin T < 0.010 ng/mL (0.00-0.029) 08/29/18 16:34 NT-Pro-B Natriuret Pep 694.9 pg/mL (0-900) 08/29/18 16:34 Total Protein 7.1 g/dL (6.3-8.2) 08/30/18 08:18 Albumin 3.5 g/dL (3.9-5) L 08/30/18 08:18 Albumin/Globulin Ratio 1.0 % 08/30/18 08:18 Urine Color Yellow (Yellow) 08/29/18 19:44 Urine Turbidity Clear (Clear) 08/29/18 19:44 Urine pH 5.0 (5.0-7.0) 08/29/18 19:44 Ur Specific [place] 1.035 (1.003-1.030) H 08/29/18 19:44 Urine Protein <15 mg/dl mg/dL (Negative) 08/29/18 19:44 Urine Glucose (UA) Neg mg/dL (Negative) 08/29/18 19:44 Urine Ketones Tr mg/dL (Negative) 08/29/18 19:44 Urine Blood Neg (Negative) 08/29/18 19:44 Urine Nitrite Neg (Negative) 08/29/18 19:44 Urine Bilirubin Neg (Negative) 08/29/18 19:44 Urine Urobilinogen 2.0 mg/dL (<2.0) 08/29/18 19:44 Ur Leukocyte Esterase Neg (Negative) 08/29/18 19:44 Urine WBC (Auto) 7.0 /HPF (0.0-6.0) H 08/29/18 19:44 Urine RBC (Auto) 1.0 /HPF (0.0-6.0) 08/29/18 19:44 U Epithel Cells (Auto) < 1.0 /HPF (0-13.0) 08/29/18 19:44 Urine Mucus Few /HPF 08/29/18 19:44 Active Medications - Current Medications Current Medications: Generic Name Dose Route Start Last Admin Trade Name Freq PRN Reason Stop Dose Admin Acetaminophen 650 mg 08/29/18 21:29 08/30/18 05:53 Tylenol PO 650 mg Q4H PRN Administration Pain MILD(1-3)/Fever >100.5/VEENGAS Al Hydrox/Mg Hydrox/Simethicone 30 ml 08/29/18 21:29 Alum-Mag Hydrox-Simeth 280-278-05ai/5ml PO Q4H PRN Indigestion Albuterol/Ipratropium 1 ampul 09/01/18 14:00 Duoneb *Not For Prn Use* IH Q6HRT [facility] Amlodipine Besylate 10 mg 08/30/18 10:00 08/31/18 10:26 Norvasc PO Not Given DAILY [facility] Aspirin 325 mg 08/30/18 10:00 08/31/18 10:19 Aspirin PO 325 mg QDAY GUILLERMO Administration Carvedilol 25 mg 08/29/18 22:00 08/31/18 21:48 Coreg PO 25 mg Q12HR GUILLERMO Administration Clonidine HCl 0.1 mg 08/29/18 22:00 08/31/18 21:48 Catapres PO 0.1 mg BID GUILLERMO Administration Docusate Sodium 100 mg 08/29/18 22:00 08/31/18 21:48 Colace PO 100 mg BID GUILLERMO Administration Enoxaparin Sodium 40 mg 08/30/18 10:00 08/31/18 10:19 Lovenox SUB-Q 40 mg QDAY GUILLERMO Administration Famotidine 20 mg 08/29/18 22:00 08/31/18 21:50 Pepcid PO 20 mg BID GUILLERMO Administration Hydralazine HCl 100 mg 08/29/18 22:00 09/01/18 06:25 Apresoline PO 100 mg Q8H GUILLERMO Administration Hydromorphone HCl 2 mg 08/29/18 21:29 09/01/18 07:12 Dilaudid IV 2 mg Q3H PRN Administration Pain, Moderate (4-6) Sodium Chloride 1,000 mls @ 125 mls/hr 08/29/18 22:00 09/01/18 06:29 Nacl 0.45% 1000 Ml IV 125 mls/hr DIRECT GUILLERMO Administration Levofloxacin/Dextrose 750 mg in 150 mls @ 100 mls/hr 08/30/18 10:00 09/01/18 09:17 Levaquin 750mg/150ml IV 100 mls/hr Q24HR GUILLERMO Administration Protocol Labetalol HCl 10 mg 08/29/18 22:07 Normodyne IV Q6HR PRN Hypertension Lisinopril 10 mg 08/30/18 10:00 08/31/18 10:27 Zestril PO Not Given QDAY GUILLERMO Ondansetron HCl 4 mg 08/29/18 21:29 Zofran IV Q6H PRN Nausea And Vomiting Oxycodone/Acetaminophen 1 tab 08/29/18 21:29 08/31/18 10:19 Percocet 5/325 PO 1 tab Q6H PRN Administration Pain, Moderate (4-6) Pravastatin Sodium 40 mg 08/29/18 22:00 08/31/18 21:48 Pravachol PO 40 mg QHS GUILLERMO Administration Sodium Chloride 10 ml 08/29/18 22:00 09/01/18 09:18 Sodium Chloride Flush Syringe 10 Ml IV 10 ml BID GUILLERMO Administration Sodium Chloride 10 ml 08/29/18 21:29 Sodium Chloride Flush Syringe 10 Ml IV PRN PRN LINE FLUSH Zolpidem Tartrate 5 mg 08/29/18 21:29 Ambien PO QHS PRN Insomnia Nutrition/Malnutrition Assess - Dietary Evaluation Nutrition/Malnutrition Findings: Nutrition Notes Start: 08/30/18 13:41 Freq: Status: Active Protocol: Document 08/30/18 13:41 RM (Rec: 04/03/19 13:53 RM [id number]) Nutrition Notes Need for Assessment generated from: MST Initial or Follow up Assessment Current Diagnosis Coronary Artery Disease, Hypertension,Stroke, Hyperlipidemia Other Pertinent Diagnosis Respiratory distress, R hemiparesis Current Diet Cardiac Labs/Tests Reviewed Pertinent Medications Reviewed Height 5 ft 11 in Weight 62 kg Usual Body Weight 63.64 kg [place] Body Weight (kg) 78.18 BMI 19.1 Subjective/Other Information Screened for malnutrition. Pt was having difficulty speaking and hard to understand d/t SOB. 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 Stated he ate bites of his breakfast this morning. Admitted to chewing difficulty d/t missing teeth. Stated UBW was 140 lbs last month. Stated that prior to his CVA 4 years ago pt weighed 250 lbs. Noted temporal wasting. 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 No Is Patient Ambulatory and/or Out of Bed No REE-([place] [facility]-confined to bed) 1718.052 Kcal/Kg value to use for calculation 33 Approximate Energy Requirements Using 2046 kcal/Kg Calculation Used for Recommendations Kcal/kg Additional Notes Protein Needs: 74-93g (1.2-1. 5g/kg) Fluid Needs: 1 ml/kcal Nutrition Intervention Change Diet Order: [facility] soft w/ground meat Add Supplement/Snack (indicate name/kcal Ensure Enlive Chocolate 1 /protein ) daily Provides kCal: 350 Provides Protein (gm) 20 Goal #1 Meet at least 75% of calorie and protein needs via PO and ONS intakes Anticipated Discharge Needs: Unable to determine at this time Follow-Up By: 09/01/18 Additional Comments Follow for PO and ONS intakes
[2018-09-01] MEDS ORDERED: HALDOL IM PRN (11:34)
[2018-09-01] MEDS ORDERED: HALDOL IM ONE (11:35)
[2018-09-01] MEDS ORDERED: ATIVAN IV NR (11:45)
[2018-09-01] MEDS: LOVENOX SUB-Q SCH (12:21)
[2018-09-01] MEDS: CATAPRES PO SCH ×2 (12:21→21:16)
[2018-09-01] MEDS: ZESTRIL PO SCH (12:23)
[2018-09-01] MEDS: ASPIRIN PO SCH (12:23)
[2018-09-01] MEDS: NORVASC PO SCH (12:24)
[2018-09-01] MEDS: COREG PO SCH ×2 (12:24→21:16)
[2018-09-01] MEDS: COLACE PO SCH ×2 (12:24→21:16)
[2018-09-01] MEDS: PEPCID PO SCH ×2 (12:24→21:18)
[2018-09-01] MEDS: PRAVACHOL PO SCH (21:16)
[2018-09-02] MEDS: DUONEB *Not for PRN Use IH SCH ×4 (02:06→21:37)
[2018-09-02] MEDS: DILAUDID IV PRN (05:19)
[2018-09-02] MEDS: NACL 0.45% 1000 ML 1,000 ML IV SCH ×3 (05:19→22:38)
[2018-09-02] MEDS: APRESOLINE PO SCH ×3 (06:28→22:37)
[2018-09-02] MEDS: LEVAQUIN 750MG/150ML 750 MG/150 ML BAG IV SCH (10:31)
[2018-09-02] MEDS: ASPIRIN PO SCH (10:34)
[2018-09-02] MEDS: NORVASC PO SCH (10:34)
[2018-09-02] MEDS: ZESTRIL PO SCH (10:34)
[2018-09-02] MEDS: COLACE PO SCH ×2 (10:34→22:37)
[2018-09-02] MEDS: COREG PO SCH ×2 (10:34→22:36)
[2018-09-02] MEDS: PEPCID PO SCH ×2 (10:34→22:36)
[2018-09-02] MEDS: CATAPRES PO SCH ×2 (10:34→22:36)
[2018-09-02] MEDS: SODIUM CHLORIDE FLUSH SYRINGE 10 ML IV SCH ×2 (10:35→22:37)
[2018-09-02] MEDS: LOVENOX SUB-Q SCH (10:35)
--- NOTE | 2018-09-02 11:08 | Progress Note ---
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 Still with some chest congestion today but no res piratory distress Tobacco abuse Acute exacerbation chronic bronchitis AMS, delirious Recommendations CT guided needle biopsy for diagnosis DuoNeb to 4 times a day Chest PT Complete antibiotics Solu-Medrol 40-60 mg IV every 6-8 hours Oxygen support via nasal cannula or mask to maintain oximetry over 92% DVT prophylaxis Smoking cessation discussed Subjective Date of service: 09/02/18 Principal diagnosis: Lung mass, COPD Interval history: Complaints of his cough, wants to walk out of bed. Family at the bedside Objective Vital Signs - 12hr 09/02/18 09/02/18 05:17 10:34 Temperature 98.1 F Pulse Rate 72 72 Respiratory 20 Rate Blood Pressure 125/58 125/58 O2 Sat by Pulse 93 Oximetry Constitutional: no acute distress, alert, other (able to talk in full sentences but speech slightly slurred) ENT: oropharynx moist Neck: supple, no JVD, other (no collateral circulation visible in the upper chest) Ascultation: Bilateral: rhonchi Cardiovascular: regular rate and rhythm Gastrointestinal: normoactive bowel sounds, non-distended Integumentary: normal Extremities: no cyanosis, no edema Neurologic: non-focal exam, CN II-XII normal, other (more confused, on restraints) Psychiatric: mood appropriate, affect normal CBC and BMP: 09/01/18 05:31 09/01/18 05:31 ABG, PT/INR, D-dimer: ABG POC ABG pH 7.458 (7.35-7.45) H 08/29/18 17:09 POC ABG pCO2 32.1 (35-45) L 08/29/18 17:09 POC ABG HCO3 22.7 (22-26 mml/L) 08/29/18 17:09 POC ABG Total CO2 24 (23-27mmol/L) 08/29/18 17:09 POC ABG O2 Sat 85 08/29/18 17:09 PT/INR, D-dimer PT 13.0 Sec. (12.2-14.9) 08/29/18 16:34 INR 0.93 (0.87-1.13) 08/29/18 16:34 D-Dimer 617.53 ng/mlDDU (0-234) H 08/29/18 17:00 Abnormal lab findings: Abnormal Labs 08/29/18 08/29/18 08/29/18 16:34 16:34 16:34 WBC 14.5 H Lymph % (Auto) 10.4 L [place] % (Auto) 8.4 H Eos % (Auto) 6.3 H Lymph # [place] # 1.2 H Eos # 0.9 H Seg Neutrophils % 74.2 H Seg Neuts % (Manual) Lymphocytes % (Manual) Seg Neutrophils # 10.7 H Seg Neutrophils # Man Lymphocytes # (Manual) Monocytes # (Manual) D-Dimer POC ABG pH POC ABG pCO2 VBG pH 7.447 H Sodium BUN Creatinine Glucose 170 H ALT Total Creatine Kinase 32 L CK-MB (CK-2) Rel Index 7.1 H Albumin 3.8 L Ur Specific [place] Urine WBC (Auto) 08/29/18 08/29/18 08/29/18 17:00 17:09 19:44 WBC Lymph % (Auto) [place] % (Auto) Eos % (Auto) Lymph # [place] # Eos # Seg Neutrophils % Seg Neuts % (Manual) Lymphocytes % (Manual) Seg Neutrophils # Seg Neutrophils # Man Lymphocytes # (Manual) Monocytes # (Manual) D-Dimer 617.53 H POC ABG pH 7.458 H POC ABG pCO2 32.1 L VBG pH Sodium BUN Creatinine Glucose ALT Total Creatine Kinase CK-MB (CK-2) Rel Index Albumin Ur Specific [place] 1.035 H Urine WBC (Auto) 7.0 H 08/30/18 08/30/18 09/01/18 08:18 08:18 05:31 WBC 12.9 H 15.4 H Lymph % (Auto) 6.5 L [place] % (Auto) Eos % (Auto) Lymph # 1.0 L [place] # Eos # Seg Neutrophils % 88.8 H Seg Neuts % (Manual) 89.0 H Lymphocytes % (Manual) 4.0 L Seg Neutrophils # 13.7 H Seg Neutrophils # Man 11.5 H Lymphocytes # (Manual) 0.5 L Monocytes # (Manual) 0.9 H D-Dimer POC ABG pH POC ABG pCO2 VBG pH Sodium BUN Creatinine 0.7 L Glucose 101 H ALT 6 L Total Creatine Kinase CK-MB (CK-2) Rel Index Albumin 3.5 L Ur Specific [place] Urine WBC (Auto) 09/01/18 05:31 WBC Lymph % (Auto) [place] % (Auto) Eos % (Auto) Lymph # [place] # Eos # Seg Neutrophils % Seg Neuts % (Manual) Lymphocytes % (Manual) Seg Neutrophils # Seg Neutrophils # Man Lymphocytes # (Manual) Monocytes # (Manual) D-Dimer POC ABG pH POC ABG pCO2 VBG pH Sodium 134 L D BUN 21 H Creatinine 0.7 L Glucose ALT Total Creatine Kinase CK-MB (CK-2) Rel Index Albumin Ur Specific [place] Urine WBC (Auto)
--- NOTE | 2018-09-02 12:07 | Progress Note ---
Assessment and Plan Assessment and plan: --Left lung mass/left mediastinal mass, suspicious for malignancy Pulmonary evaluation, possible CT-guided biopsy for 09/04/2018 --Hypoxic respiratory failure; requiring BiPAP Oxygen, nebulizers, IV steroids, IV antibiotics, supportive care Pulmonary following --Right shoulder pain; probably secondary to metastasis Pain management and supportive care --Left lower lobe pneumonia; probably post obstructive pneumonia Continue IV antibiotics follow cultures --Leukocytosis; sepsis secondary to pneumonia --History of CVA with residual right-sided weakness Physical therapy occupational therapy and supportive care --Ongoing tobacco use; smoking cessation advised nicotine patch as needed --Full CODE STATUS --DVT prophylaxis; SCDs, Lovenox Will try to call the family to get additional medical history and to discuss Patient's condition and treatment plan History Interval history: Patient seen and examined medical records reviewed New events reported by the nursing staff Patient is alert awake , not in acute distress Vital signs reviewed CT guided lung mass biopsy is scheduled for 09/04/2018 Hospitalist Physical - Constitutional Vitals: Temp Pulse Resp BP Pulse Ox 98.2 F 81 20 108/63 93 09/02/18 11:19 09/02/18 11:20 09/02/18 11:19 09/02/18 11:19 09/02/18 11:20 General appearance: Present: no acute distress, cachectic, disheveled - EENT Eyes: Present: PERRL, EOM intact - Neck Neck: Present: supple, normal ROM - Respiratory Respiratory effort: normal Respiratory: bilateral: diminished, rhonchi, negative: rales, wheezing - Cardiovascular Rhythm: regular Heart Sounds: Present: S1 & S2 - Extremities Extremities: no ischemia, No edema - Abdominal General gastrointestinal: soft, non-tender, non-distended, normal bowel sounds - Integumentary Integumentary: Present: clear, warm - Psychiatric Psychiatric: appropriate mood/affect, cooperative - Neurologic Neurologic: CNII-XII intact, moves all extremities Results - Labs CBC & Chem 7: 09/01/18 05:31 09/01/18 05:31 Labs: Laboratory Last Values WBC 15.4 K/mm3 (4.5-11.0) H 09/01/18 05:31 RBC 4.01 M/mm3 (3.65-5.03) 09/01/18 05:31 Hgb 12.8 gm/dl (11.8-15.2) 09/01/18 05:31 Hct 37.6 % (35.5-45.6) 09/01/18 05:31 MCV 94 fl (84-94) 09/01/18 05:31 MCH 32 pg (28-32) 09/01/18 05:31 MCHC 34 % (32-34) 09/01/18 05:31 RDW 13.9 % (13.2-15.2) 09/01/18 05:31 Plt Count 224 K/mm3 (140-440) 09/01/18 05:31 Lymph % (Auto) 6.5 % (13.4-35.0) L 09/01/18 05:31 [place] % (Auto) 3.8 % (0.0-7.3) 09/01/18 05:31 Eos % (Auto) 0.7 % (0.0-4.3) 09/01/18 05:31 Baso % (Auto) 0.2 % (0.0-1.8) 09/01/18 05:31 Lymph # 1.0 K/mm3 (1.2-5.4) L 09/01/18 05:31 [place] # 0.6 K/mm3 (0.0-0.8) 09/01/18 05:31 Eos # 0.1 K/mm3 (0.0-0.4) 09/01/18 05:31 Baso # 0.0 K/mm3 (0.0-0.1) 09/01/18 05:31 Add Manual Diff Complete 08/30/18 08:18 Total Counted 100 08/30/18 08:18 Seg Neutrophils % 88.8 % (40.0-70.0) H 09/01/18 05:31 Seg Neuts % (Manual) 89.0 % (40.0-70.0) H 08/30/18 08:18 Band Neutrophils % 0 % 08/30/18 08:18 Lymphocytes % (Manual) 4.0 % (13.4-35.0) L 08/30/18 08:18 Reactive Lymphs % (Man) 0 % 08/30/18 08:18 Monocytes % (Manual) 7.0 % (0.0-7.3) 08/30/18 08:18 Eosinophils % (Manual) 0 % (0.0-4.3) 08/30/18 08:18 Basophils % (Manual) 0 % (0.0-1.8) 08/30/18 08:18 Metamyelocytes % 0 % 08/30/18 08:18 Myelocytes % 0 % 08/30/18 08:18 Promyelocytes % 0 % 08/30/18 08:18 Blast Cells % 0 % 08/30/18 08:18 Nucleated RBC % Not Reportable 08/30/18 08:18 Seg Neutrophils # 13.7 K/mm3 (1.8-7.7) H 09/01/18 05:31 Seg Neutrophils # Man 11.5 K/mm3 (1.8-7.7) H 08/30/18 08:18 Band Neutrophils # 0.0 K/mm3 08/30/18 08:18 Lymphocytes # (Manual) 0.5 K/mm3 (1.2-5.4) L 08/30/18 08:18 Abs React Lymphs (Man) 0.0 K/mm3 08/30/18 08:18 Monocytes # (Manual) 0.9 K/mm3 (0.0-0.8) H 08/30/18 08:18 Eosinophils # (Manual) 0.0 K/mm3 (0.0-0.4) 08/30/18 08:18 Basophils # (Manual) 0.0 K/mm3 (0.0-0.1) 08/30/18 08:18 Metamyelocytes # 0.0 K/mm3 08/30/18 08:18 Myelocytes # 0.0 K/mm3 08/30/18 08:18 Promyelocytes # 0.0 K/mm3 08/30/18 08:18 Blast Cells # 0.0 K/mm3 08/30/18 08:18 WBC Morphology Not Reportable 08/30/18 08:18 Hypersegmented Neuts Not Reportable 08/30/18 08:18 Hyposegmented Neuts Not Reportable 08/30/18 08:18 Hypogranular Neuts Not Reportable 08/30/18 08:18 Smudge Cells Not Reportable 08/30/18 08:18 Toxic Granulation Not Reportable 08/30/18 08:18 Toxic Vacuolation Not Reportable 08/30/18 08:18 Dohle Bodies Not Reportable 08/30/18 08:18 Pelger-Huet Anomaly Not Reportable 08/30/18 08:18 [place] Rods Not Reportable 08/30/18 08:18 Platelet Estimate Consistent w auto 08/30/18 08:18 Clumped Platelets Rare 08/30/18 08:18 Plt Clumps, EDTA Not Reportable 08/30/18 08:18 Large Platelets Not Reportable 08/30/18 08:18 Giant Platelets Not Reportable 08/30/18 08:18 Platelet Satelliting Not Reportable 08/30/18 08:18 Plt Morphology Comment Not Reportable 08/30/18 08:18 RBC Morphology Normal 08/30/18 08:18 Dimorphic RBCs Not Reportable 08/30/18 08:18 Polychromasia Not Reportable 08/30/18 08:18 Hypochromasia Not Reportable 08/30/18 08:18 Poikilocytosis Not Reportable 08/30/18 08:18 Anisocytosis Not Reportable 08/30/18 08:18 Microcytosis Not Reportable 08/30/18 08:18 Macrocytosis Not Reportable 08/30/18 08:18 Spherocytes Not Reportable 08/30/18 08:18 Pappenheimer Bodies Not Reportable 08/30/18 08:18 Sickle Cells Not Reportable 08/30/18 08:18 Target Cells Not Reportable 08/30/18 08:18 Tear Drop Cells Not Reportable 08/30/18 08:18 Ovalocytes Not Reportable 08/30/18 08:18 Helmet Cells Not Reportable 08/30/18 08:18 [place] Bodies Not Reportable 08/30/18 08:18 [place] Rings Not Reportable 08/30/18 08:18 Philip Cells Not Reportable 08/30/18 08:18 Bite Cells Not Reportable 08/30/18 08:18 Crenated Cell Not Reportable 08/30/18 08:18 Elliptocytes Not Reportable 08/30/18 08:18 Acanthocytes (Spur) Not Reportable 08/30/18 08:18 Rouleaux Not Reportable 08/30/18 08:18 Hemoglobin C Crystals Not Reportable 08/30/18 08:18 Schistocytes Not Reportable 08/30/18 08:18 Malaria parasites Not Reportable 08/30/18 08:18 Lefty Bodies Not Reportable 08/30/18 08:18 Hem Pathologist Commnt No 08/30/18 08:18 PT 13.0 Sec. (12.2-14.9) 08/29/18 16:34 INR 0.93 (0.87-1.13) 08/29/18 16:34 APTT 27.7 Sec. (24.2-36.6) 08/29/18 16:34 D-Dimer 617.53 ng/mlDDU (0-234) H 08/29/18 17:00 POC ABG pH 7.458 (7.35-7.45) H 08/29/18 17:09 POC ABG pCO2 32.1 (35-45) L 08/29/18 17:09 POC ABG HCO3 22.7 (22-26 mml/L) 08/29/18 17:09 POC ABG Total CO2 24 (23-27mmol/L) 08/29/18 17:09 POC ABG O2 Sat 85 08/29/18 17:09 POC ABG Base Excess -1 ((-2) - (+3)mmol/L) 08/29/18 17:09 VBG pH 7.447 (7.320-7.420) H 08/29/18 16:34 FiO2 36 % 08/29/18 17:09 Sodium 134 mmol/L (137-145) L D 09/01/18 05:31 Potassium 4.0 mmol/L (3.6-5.0) 09/01/18 05:31 Chloride 100.5 mmol/L (98-107) 09/01/18 05:31 Carbon Dioxide 22 mmol/L (22-30) 09/01/18 05:31 Anion Gap 16 mmol/L 09/01/18 05:31 BUN 21 mg/dL (9-20) H 09/01/18 05:31 Creatinine 0.7 mg/dL (0.8-1.5) L 09/01/18 05:31 Estimated GFR > 60 ml/min 09/01/18 05:31 BUN/Creatinine Ratio 30 % 09/01/18 05:31 Glucose 86 mg/dL (75-100) 09/01/18 05:31 Lactic Acid 1.40 mmol/L (0.7-2.0) 08/29/18 19:25 Calcium 8.8 mg/dL (8.4-10.2) 09/01/18 05:31 Phosphorus 3.20 mg/dL (2.5-4.5) 08/30/18 08:18 Magnesium 1.70 mg/dL (1.7-2.3) 08/30/18 08:18 Total Bilirubin 0.80 mg/dL (0.1-1.2) 08/30/18 08:18 AST 10 units/L (5-40) 08/30/18 08:18 ALT 6 units/L (7-56) L 08/30/18 08:18 Alkaline Phosphatase 67 units/L (35-129) 08/30/18 08:18 Total Creatine Kinase 32 units/L (55-170) L 08/29/18 16:34 CK-MB (CK-2) 2.3 ng/mL (0.0-4.0) 08/29/18 16:34 CK-MB (CK-2) Rel Index 7.1 (0-4) H 08/29/18 16:34 Troponin T < 0.010 ng/mL (0.00-0.029) 08/29/18 16:34 NT-Pro-B Natriuret Pep 694.9 pg/mL (0-900) 08/29/18 16:34 Total Protein 7.1 g/dL (6.3-8.2) 08/30/18 08:18 Albumin 3.5 g/dL (3.9-5) L 08/30/18 08:18 Albumin/Globulin Ratio 1.0 % 08/30/18 08:18 Urine Color Yellow (Yellow) 08/29/18 19:44 Urine Turbidity Clear (Clear) 08/29/18 19:44 Urine pH 5.0 (5.0-7.0) 08/29/18 19:44 Ur Specific [place] 1.035 (1.003-1.030) H 08/29/18 19:44 Urine Protein <15 mg/dl mg/dL (Negative) 08/29/18 19:44 Urine Glucose (UA) Neg mg/dL (Negative) 08/29/18 19:44 Urine Ketones Tr mg/dL (Negative) 08/29/18 19:44 Urine Blood Neg (Negative) 08/29/18 19:44 Urine Nitrite Neg (Negative) 08/29/18 19:44 Urine Bilirubin Neg (Negative) 08/29/18 19:44 Urine Urobilinogen 2.0 mg/dL (<2.0) 08/29/18 19:44 Ur Leukocyte Esterase Neg (Negative) 08/29/18 19:44 Urine WBC (Auto) 7.0 /HPF (0.0-6.0) H 08/29/18 19:44 Urine RBC (Auto) 1.0 /HPF (0.0-6.0) 08/29/18 19:44 U Epithel Cells (Auto) < 1.0 /HPF (0-13.0) 08/29/18 19:44 Urine Mucus Few /HPF 08/29/18 19:44 Active Medications - Current Medications Current Medications: Generic Name Dose Route Start Last Admin Trade Name Freq PRN Reason Stop Dose Admin Acetaminophen 650 mg 08/29/18 21:29 08/30/18 05:53 Tylenol PO 650 mg Q4H PRN Administration Pain MILD(1-3)/Fever >100.5/VENEGAS Al Hydrox/Mg Hydrox/Simethicone 30 ml 08/29/18 21:29 Alum-Mag Hydrox-Simeth 376-280-87yw/5ml PO Q4H PRN Indigestion Albuterol/Ipratropium 1 ampul 09/01/18 14:00 09/02/18 07:41 Duoneb *Not For Prn Use* IH 1 ampul Q6HRT GUILLERMO Administration Amlodipine Besylate 10 mg 08/30/18 10:00 09/02/18 10:34 Norvasc PO 10 mg DAILY GUILLERMO Administration Aspirin 325 mg 08/30/18 10:00 09/02/18 10:34 Aspirin PO 325 mg QDAY GUILLERMO Administration Carvedilol 25 mg 08/29/18 22:00 09/02/18 10:34 Coreg PO 25 mg Q12HR GUILLERMO Administration Clonidine HCl 0.1 mg 08/29/18 22:00 09/02/18 10:34 Catapres PO 0.1 mg BID GUILLERMO Administration Docusate Sodium 100 mg 08/29/18 22:00 09/02/18 10:34 Colace PO 100 mg BID GUILLERMO Administration Enoxaparin Sodium 40 mg 08/30/18 10:00 09/02/18 10:35 Lovenox SUB-Q 40 mg QDAY GUILLERMO Administration Famotidine 20 mg 08/29/18 22:00 09/02/18 10:34 Pepcid PO 20 mg BID GUILLERMO Administration Haloperidol Lactate 2 mg 09/01/18 11:34 Haldol IM Q6H PRN Agitation Hydralazine HCl 100 mg 08/29/18 22:00 09/02/18 06:28 Apresoline PO Not Given Q8H GUILLERMO Hydromorphone HCl 2 mg 08/29/18 21:29 09/02/18 05:19 Dilaudid IV 2 mg Q3H PRN Administration Pain, Moderate (4-6) Sodium Chloride 1,000 mls @ 125 mls/hr 08/29/18 22:00 09/02/18 05:19 Nacl 0.45% 1000 Ml IV 125 mls/hr DIRECT GUILLERMO Administration Levofloxacin/Dextrose 750 mg in 150 mls @ 100 mls/hr 08/30/18 10:00 09/02/18 10:31 Levaquin 750mg/150ml IV 100 mls/hr Q24HR GUILLERMO Administration Protocol Labetalol HCl 10 mg 08/29/18 22:07 Normodyne IV Q6HR PRN Hypertension Lisinopril 10 mg 08/30/18 10:00 09/02/18 10:34 Zestril PO 10 mg QDAY GUILLERMO Administration Ondansetron HCl 4 mg 08/29/18 21:29 Zofran IV Q6H PRN Nausea And Vomiting Oxycodone/Acetaminophen 1 tab 08/29/18 21:29 08/31/18 10:19 Percocet 5/325 PO 1 tab Q6H PRN Administration Pain, Moderate (4-6) Pravastatin Sodium 40 mg 08/29/18 22:00 09/01/18 21:16 Pravachol PO 40 mg QHS GUILLERMO Administration Sodium Chloride 10 ml 08/29/18 22:00 09/02/18 10:35 Sodium Chloride Flush Syringe 10 Ml IV 10 ml BID GUILLERMO Administration Sodium Chloride 10 ml 08/29/18 21:29 Sodium Chloride Flush Syringe 10 Ml IV PRN PRN LINE FLUSH Zolpidem Tartrate 5 mg 08/29/18 21:29 Ambien PO QHS PRN Insomnia Nutrition/Malnutrition Assess - Dietary Evaluation Nutrition/Malnutrition Findings: Nutrition Notes Start: 08/30/18 13:41 Freq: Status: Active Protocol: Document 09/01/18 11:38 SA (Rec: 09/01/18 11:51 SA [id number]) Co-Sign 09/01/18 11:38 LP Nutrition Notes Initial or Follow up Reassessment Current Diagnosis Coronary Artery Disease, Hypertension,Stroke, Hyperlipidemia Other Pertinent Diagnosis Respiratory distress, R hemiparesis Current Diet NPO Labs/Tests Na: 134 BUN: 21 Cr: 0.7 Pertinent Medications Reviewed Height 5 ft 11 in Weight 62 kg [place] Body Weight (kg) 78.18 BMI 19.1 Subjective/Other Information Patient very confused at time of visit. Per pt nurse, pt has zero appetite. Nurse states pt will eat when she sits with him and encourages him to eat but only consumes 25% of trays and a little bit of ensure before NPO status. Nurse states he has no N/V/D or chewing/swallowing difficulty. Percent of energy/protein needs met: 0%/0% Burn Absent Trauma Absent #1 Nutrition Diagnosis Malnutrition Diagnosis Progress(for reassessment Continues documentation) Is patient on ventilator? No Is Patient Ambulatory and/or Out of Bed No REE-([facility]-confined to bed) 1718.052 Kcal/Kg value to use for calculation 33 Approximate Energy Requirements Using 2046 kcal/Kg Calculation Used for Recommendations Kcal/kg Additional Notes Protein Needs: 74-93g (1.2-1. 5g/kg) Fluid Needs: 1 ml/kcal Nutrition Intervention Change Diet Order: [facility] soft w/ground meat Add Supplement/Snack (indicate name/kcal Ensure Enlive Chocolate 1 /protein ) daily Provides kCal: 350 Provides Protein (gm) 20 Goal #1 Meet at least 75% of calorie and protein needs via PO and ONS intakes Anticipated Discharge Needs: Unable to determine at this time Follow-Up By: 09/04/18 Additional Comments F/U: PO and ONS intakes
[2018-09-02] MEDS: PRAVACHOL PO SCH (22:36)
[2018-09-03] MEDS: DUONEB *Not for PRN Use IH SCH ×4 (03:52→21:01)
[2018-09-03] MEDS: NACL 0.45% 1000 ML 1,000 ML IV SCH ×2 (06:50→16:52)
[2018-09-03] MEDS: APRESOLINE PO SCH ×3 (07:00→21:48)
--- NOTE | 2018-09-03 10:56 | Progress Note ---
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 Improving Tobacco abuse Acute exacerbation chronic bronchitis. Improving AMS, delirious Recommendations CT guided needle biopsy for diagnosis tomorrow DuoNeb to 4 times a day Chest PT Complete antibiotics May switch to oral steroids Oxygen support via nasal cannula or mask to maintain oximetry over 92% DVT prophylaxis Smoking cessation discussed Subjective Date of service: 09/03/18 Principal diagnosis: Lung mass, COPD Interval history: Multiple complaints, some cough but appears to be better. No chest pain nor fever Objective Vital Signs - 12hr 09/02/18 09/03/18 09/03/18 23:49 03:50 04:01 Temperature 97.8 F Pulse Rate 72 Pulse Rate [ 70 76 Anterior Bilateral Throughout] Respiratory 18 Rate Respiratory 16 18 Rate [Anterior Bilateral Throughout] Blood Pressure 137/64 O2 Sat by Pulse 95 Oximetry 09/03/18 09/03/18 05:14 07:00 Temperature 98.5 F Pulse Rate 70 Pulse Rate [ Anterior Bilateral Throughout] Respiratory 18 Rate Respiratory Rate [Anterior Bilateral Throughout] Blood Pressure 139/65 139/65 O2 Sat by Pulse 94 Oximetry Constitutional: no acute distress, alert, other (slight speech slightly slurred) ENT: oropharynx moist Neck: supple, no JVD, other (no collateral circulation visible in the upper chest) Ascultation: Bilateral: clear, diminished breath sounds, rhonchi (sporadic) Cardiovascular: regular rate and rhythm Gastrointestinal: normoactive bowel sounds, non-distended Integumentary: normal Extremities: no cyanosis, no edema Neurologic: non-focal exam, CN II-XII normal Psychiatric: mood appropriate, affect normal CBC and BMP: 09/01/18 05:31 09/01/18 05:31 ABG, PT/INR, D-dimer: ABG POC ABG pH 7.458 (7.35-7.45) H 08/29/18 17:09 POC ABG pCO2 32.1 (35-45) L 08/29/18 17:09 POC ABG HCO3 22.7 (22-26 mml/L) 08/29/18 17:09 POC ABG Total CO2 24 (23-27mmol/L) 08/29/18 17:09 POC ABG O2 Sat 85 08/29/18 17:09 PT/INR, D-dimer PT 13.0 Sec. (12.2-14.9) 08/29/18 16:34 INR 0.93 (0.87-1.13) 08/29/18 16:34 D-Dimer 617.53 ng/mlDDU (0-234) H 08/29/18 17:00 Abnormal lab findings: Abnormal Labs 08/29/18 08/29/18 08/29/18 16:34 16:34 16:34 WBC 14.5 H Lymph % (Auto) 10.4 L [place] % (Auto) 8.4 H Eos % (Auto) 6.3 H Lymph # [place] # 1.2 H Eos # 0.9 H Seg Neutrophils % 74.2 H Seg Neuts % (Manual) Lymphocytes % (Manual) Seg Neutrophils # 10.7 H Seg Neutrophils # Man Lymphocytes # (Manual) Monocytes # (Manual) D-Dimer POC ABG pH POC ABG pCO2 VBG pH 7.447 H Sodium BUN Creatinine Glucose 170 H ALT Total Creatine Kinase 32 L CK-MB (CK-2) Rel Index 7.1 H Albumin 3.8 L Ur Specific [place] Urine WBC (Auto) 08/29/18 08/29/18 08/29/18 17:00 17:09 19:44 WBC Lymph % (Auto) [place] % (Auto) Eos % (Auto) Lymph # [place] # Eos # Seg Neutrophils % Seg Neuts % (Manual) Lymphocytes % (Manual) Seg Neutrophils # Seg Neutrophils # Man Lymphocytes # (Manual) Monocytes # (Manual) D-Dimer 617.53 H POC ABG pH 7.458 H POC ABG pCO2 32.1 L VBG pH Sodium BUN Creatinine Glucose ALT Total Creatine Kinase CK-MB (CK-2) Rel Index Albumin Ur Specific [place] 1.035 H Urine WBC (Auto) 7.0 H 08/30/18 08/30/18 09/01/18 08:18 08:18 05:31 WBC 12.9 H 15.4 H Lymph % (Auto) 6.5 L [place] % (Auto) Eos % (Auto) Lymph # 1.0 L [place] # Eos # Seg Neutrophils % 88.8 H Seg Neuts % (Manual) 89.0 H Lymphocytes % (Manual) 4.0 L Seg Neutrophils # 13.7 H Seg Neutrophils # Man 11.5 H Lymphocytes # (Manual) 0.5 L Monocytes # (Manual) 0.9 H D-Dimer POC ABG pH POC ABG pCO2 VBG pH Sodium BUN Creatinine 0.7 L Glucose 101 H ALT 6 L Total Creatine Kinase CK-MB (CK-2) Rel Index Albumin 3.5 L Ur Specific [place] Urine WBC (Auto) 09/01/18 05:31 WBC Lymph % (Auto) [place] % (Auto) Eos % (Auto) Lymph # [place] # Eos # Seg Neutrophils % Seg Neuts % (Manual) Lymphocytes % (Manual) Seg Neutrophils # Seg Neutrophils # Man Lymphocytes # (Manual) Monocytes # (Manual) D-Dimer POC ABG pH POC ABG pCO2 VBG pH Sodium 134 L D BUN 21 H Creatinine 0.7 L Glucose ALT Total Creatine Kinase CK-MB (CK-2) Rel Index Albumin Ur Specific [place] Urine WBC (Auto)
--- NOTE | 2018-09-03 11:21 | Progress Note ---
Assessment and Plan Assessment and plan: --Left lung mass/left mediastinal mass, suspicious for malignancy Pulmonary evaluation, possible CT-guided biopsy for 09/04/2018 --Hypoxic respiratory failure; requiring BiPAP Oxygen, nebulizers, IV steroids, IV antibiotics, supportive care Pulmonary following --Right shoulder pain; probably secondary to metastasis Pain management and supportive care --Left lower lobe pneumonia; probably post obstructive pneumonia Continue IV antibiotics follow cultures --Leukocytosis; sepsis secondary to pneumonia --History of CVA with residual right-sided weakness Physical therapy occupational therapy and supportive care --Ongoing tobacco use; smoking cessation advised nicotine patch as needed --Full CODE STATUS --DVT prophylaxis; SCDs, Lovenox Will try to call the family to get additional medical history and to discuss Patient's condition and treatment plan History Interval history: Patient seen and examined medical records reviewed Patient is comfortable on nasal cannula oxygen Not in acute distress, Vital signs reviewed No new complaints, Scheduled for biopsy tomorrow Hospitalist Physical - Constitutional Vitals: Temp Pulse Resp BP Pulse Ox 98.5 F 70 18 139/65 94 09/03/18 05:14 09/03/18 05:14 09/03/18 05:14 09/03/18 07:00 09/03/18 05:14 General appearance: Present: mild distress, cachectic, disheveled - EENT Eyes: Present: PERRL, EOM intact - Neck Neck: Present: supple, normal ROM - Respiratory Respiratory effort: normal Respiratory: bilateral: diminished, rales, rhonchi, negative: wheezing - Cardiovascular Rhythm: regular Heart Sounds: Present: S1 & S2 - Extremities Extremities: no ischemia, No edema - Abdominal General gastrointestinal: soft, non-tender, non-distended, normal bowel sounds - Integumentary Integumentary: Present: clear, warm - Psychiatric Psychiatric: appropriate mood/affect, cooperative - Neurologic Neurologic: moves all extremities Results - Labs CBC & Chem 7: 09/01/18 05:31 09/01/18 05:31 Labs: Laboratory Last Values WBC 15.4 K/mm3 (4.5-11.0) H 09/01/18 05:31 RBC 4.01 M/mm3 (3.65-5.03) 09/01/18 05:31 Hgb 12.8 gm/dl (11.8-15.2) 09/01/18 05:31 Hct 37.6 % (35.5-45.6) 09/01/18 05:31 MCV 94 fl (84-94) 09/01/18 05:31 MCH 32 pg (28-32) 09/01/18 05:31 MCHC 34 % (32-34) 09/01/18 05:31 RDW 13.9 % (13.2-15.2) 09/01/18 05:31 Plt Count 224 K/mm3 (140-440) 09/01/18 05:31 Lymph % (Auto) 6.5 % (13.4-35.0) L 09/01/18 05:31 Hughes % (Auto) 3.8 % (0.0-7.3) 09/01/18 05:31 Eos % (Auto) 0.7 % (0.0-4.3) 09/01/18 05:31 Baso % (Auto) 0.2 % (0.0-1.8) 09/01/18 05:31 Lymph # 1.0 K/mm3 (1.2-5.4) L 09/01/18 05:31 Hughes # 0.6 K/mm3 (0.0-0.8) 09/01/18 05:31 Eos # 0.1 K/mm3 (0.0-0.4) 09/01/18 05:31 Baso # 0.0 K/mm3 (0.0-0.1) 09/01/18 05:31 Add Manual Diff Complete 08/30/18 08:18 Total Counted 100 08/30/18 08:18 Seg Neutrophils % 88.8 % (40.0-70.0) H 09/01/18 05:31 Seg Neuts % (Manual) 89.0 % (40.0-70.0) H 08/30/18 08:18 Band Neutrophils % 0 % 08/30/18 08:18 Lymphocytes % (Manual) 4.0 % (13.4-35.0) L 08/30/18 08:18 Reactive Lymphs % (Man) 0 % 08/30/18 08:18 Monocytes % (Manual) 7.0 % (0.0-7.3) 08/30/18 08:18 Eosinophils % (Manual) 0 % (0.0-4.3) 08/30/18 08:18 Basophils % (Manual) 0 % (0.0-1.8) 08/30/18 08:18 Metamyelocytes % 0 % 08/30/18 08:18 Myelocytes % 0 % 08/30/18 08:18 Promyelocytes % 0 % 08/30/18 08:18 Blast Cells % 0 % 08/30/18 08:18 Nucleated RBC % Not Reportable 08/30/18 08:18 Seg Neutrophils # 13.7 K/mm3 (1.8-7.7) H 09/01/18 05:31 Seg Neutrophils # Man 11.5 K/mm3 (1.8-7.7) H 08/30/18 08:18 Band Neutrophils # 0.0 K/mm3 08/30/18 08:18 Lymphocytes # (Manual) 0.5 K/mm3 (1.2-5.4) L 08/30/18 08:18 Abs React Lymphs (Man) 0.0 K/mm3 08/30/18 08:18 Monocytes # (Manual) 0.9 K/mm3 (0.0-0.8) H 08/30/18 08:18 Eosinophils # (Manual) 0.0 K/mm3 (0.0-0.4) 08/30/18 08:18 Basophils # (Manual) 0.0 K/mm3 (0.0-0.1) 08/30/18 08:18 Metamyelocytes # 0.0 K/mm3 08/30/18 08:18 Myelocytes # 0.0 K/mm3 08/30/18 08:18 Promyelocytes # 0.0 K/mm3 08/30/18 08:18 Blast Cells # 0.0 K/mm3 08/30/18 08:18 WBC Morphology Not Reportable 08/30/18 08:18 Hypersegmented Neuts Not Reportable 08/30/18 08:18 Hyposegmented Neuts Not Reportable 08/30/18 08:18 Hypogranular Neuts Not Reportable 08/30/18 08:18 Smudge Cells Not Reportable 08/30/18 08:18 Toxic Granulation Not Reportable 08/30/18 08:18 Toxic Vacuolation Not Reportable 08/30/18 08:18 Dohle Bodies Not Reportable 08/30/18 08:18 Pelger-Huet Anomaly Not Reportable 08/30/18 08:18 Ed[place]ira Rods Not Reportable 08/30/18 08:18 Platelet Estimate Consistent w auto 08/30/18 08:18 Clumped Platelets Rare 08/30/18 08:18 Plt Clumps, EDTA Not Reportable 08/30/18 08:18 Large Platelets Not Reportable 08/30/18 08:18 Giant Platelets Not Reportable 08/30/18 08:18 Platelet Satelliting Not Reportable 08/30/18 08:18 Plt Morphology Comment Not Reportable 08/30/18 08:18 RBC Morphology Normal 08/30/18 08:18 Dimorphic RBCs Not Reportable 08/30/18 08:18 Polychromasia Not Reportable 08/30/18 08:18 Hypochromasia Not Reportable 08/30/18 08:18 Poikilocytosis Not Reportable 08/30/18 08:18 Anisocytosis Not Reportable 08/30/18 08:18 Microcytosis Not Reportable 08/30/18 08:18 Macrocytosis Not Reportable 08/30/18 08:18 Spherocytes Not Reportable 08/30/18 08:18 Pappenheimer Bodies Not Reportable 08/30/18 08:18 Sickle Cells Not Reportable 08/30/18 08:18 Target Cells Not Reportable 08/30/18 08:18 Tear Drop Cells Not Reportable 08/30/18 08:18 Ovalocytes Not Reportable 08/30/18 08:18 Helmet Cells Not Reportable 08/30/18 08:18 [place] Bodies Not Reportable 08/30/18 08:18 [place] Rings Not Reportable 08/30/18 08:18 [place] Cells Not Reportable 08/30/18 08:18 Bite Cells Not Reportable 08/30/18 08:18 Crenated Cell Not Reportable 08/30/18 08:18 Elliptocytes Not Reportable 08/30/18 08:18 Acanthocytes (Spur) Not Reportable 08/30/18 08:18 Rouleaux Not Reportable 08/30/18 08:18 Hemoglobin C Crystals Not Reportable 08/30/18 08:18 Schistocytes Not Reportable 08/30/18 08:18 Malaria parasites Not Reportable 08/30/18 08:18 Lefty Bodies Not Reportable 08/30/18 08:18 Hem Pathologist Commnt No 08/30/18 08:18 PT 13.0 Sec. (12.2-14.9) 08/29/18 16:34 INR 0.93 (0.87-1.13) 08/29/18 16:34 APTT 27.7 Sec. (24.2-36.6) 08/29/18 16:34 D-Dimer 617.53 ng/mlDDU (0-234) H 08/29/18 17:00 POC ABG pH 7.458 (7.35-7.45) H 08/29/18 17:09 POC ABG pCO2 32.1 (35-45) L 08/29/18 17:09 POC ABG HCO3 22.7 (22-26 mml/L) 08/29/18 17:09 POC ABG Total CO2 24 (23-27mmol/L) 08/29/18 17:09 POC ABG O2 Sat 85 08/29/18 17:09 POC ABG Base Excess -1 ((-2) - (+3)mmol/L) 08/29/18 17:09 VBG pH 7.447 (7.320-7.420) H 08/29/18 16:34 FiO2 36 % 08/29/18 17:09 Sodium 134 mmol/L (137-145) L D 09/01/18 05:31 Potassium 4.0 mmol/L (3.6-5.0) 09/01/18 05:31 Chloride 100.5 mmol/L (98-107) 09/01/18 05:31 Carbon Dioxide 22 mmol/L (22-30) 09/01/18 05:31 Anion Gap 16 mmol/L 09/01/18 05:31 BUN 21 mg/dL (9-20) H 09/01/18 05:31 Creatinine 0.7 mg/dL (0.8-1.5) L 09/01/18 05:31 Estimated GFR > 60 ml/min 09/01/18 05:31 BUN/Creatinine Ratio 30 % 09/01/18 05:31 Glucose 86 mg/dL (75-100) 09/01/18 05:31 Lactic Acid 1.40 mmol/L (0.7-2.0) 08/29/18 19:25 Calcium 8.8 mg/dL (8.4-10.2) 09/01/18 05:31 Phosphorus 3.20 mg/dL (2.5-4.5) 08/30/18 08:18 Magnesium 1.70 mg/dL (1.7-2.3) 08/30/18 08:18 Total Bilirubin 0.80 mg/dL (0.1-1.2) 08/30/18 08:18 AST 10 units/L (5-40) 08/30/18 08:18 ALT 6 units/L (7-56) L 08/30/18 08:18 Alkaline Phosphatase 67 units/L (35-129) 08/30/18 08:18 Total Creatine Kinase 32 units/L (55-170) L 08/29/18 16:34 CK-MB (CK-2) 2.3 ng/mL (0.0-4.0) 08/29/18 16:34 CK-MB (CK-2) Rel Index 7.1 (0-4) H 08/29/18 16:34 Troponin T < 0.010 ng/mL (0.00-0.029) 08/29/18 16:34 NT-Pro-B Natriuret Pep 694.9 pg/mL (0-900) 08/29/18 16:34 Total Protein 7.1 g/dL (6.3-8.2) 08/30/18 08:18 Albumin 3.5 g/dL (3.9-5) L 08/30/18 08:18 Albumin/Globulin Ratio 1.0 % 08/30/18 08:18 Urine Color Yellow (Yellow) 08/29/18 19:44 Urine Turbidity Clear (Clear) 08/29/18 19:44 Urine pH 5.0 (5.0-7.0) 08/29/18 19:44 Ur Specific [place] 1.035 (1.003-1.030) H 08/29/18 19:44 Urine Protein <15 mg/dl mg/dL (Negative) 08/29/18 19:44 Urine Glucose (UA) Neg mg/dL (Negative) 08/29/18 19:44 Urine Ketones Tr mg/dL (Negative) 08/29/18 19:44 Urine Blood Neg (Negative) 08/29/18 19:44 Urine Nitrite Neg (Negative) 08/29/18 19:44 Urine Bilirubin Neg (Negative) 08/29/18 19:44 Urine Urobilinogen 2.0 mg/dL (<2.0) 08/29/18 19:44 Ur Leukocyte Esterase Neg (Negative) 08/29/18 19:44 Urine WBC (Auto) 7.0 /HPF (0.0-6.0) H 08/29/18 19:44 Urine RBC (Auto) 1.0 /HPF (0.0-6.0) 08/29/18 19:44 U Epithel Cells (Auto) < 1.0 /HPF (0-13.0) 08/29/18 19:44 Urine Mucus Few /HPF 08/29/18 19:44 Active Medications - Current Medications Current Medications: Generic Name Dose Route Start Last Admin Trade Name Freq PRN Reason Stop Dose Admin Acetaminophen 650 mg 08/29/18 21:29 08/30/18 05:53 Tylenol PO 650 mg Q4H PRN Administration Pain MILD(1-3)/Fever >100.5/VENEGAS Al Hydrox/Mg Hydrox/Simethicone 30 ml 08/29/18 21:29 Alum-Mag Hydrox-Simeth 744-183-64se/5ml PO Q4H PRN Indigestion Albuterol/Ipratropium 1 ampul 09/01/18 14:00 09/03/18 03:52 Duoneb *Not For Prn Use* IH 1 ampul Q6HRT GUILLERMO Administration Amlodipine Besylate 10 mg 08/30/18 10:00 09/02/18 10:34 Norvasc PO 10 mg DAILY GUILLERMO Administration Aspirin 325 mg 08/30/18 10:00 09/02/18 10:34 Aspirin PO 325 mg QDAY GUILLERMO Administration Carvedilol 25 mg 08/29/18 22:00 09/02/18 22:36 Coreg PO 25 mg Q12HR GUILLERMO Administration Clonidine HCl 0.1 mg 08/29/18 22:00 09/02/18 22:36 Catapres PO Not Given BID GUILLERMO Docusate Sodium 100 mg 08/29/18 22:00 09/02/18 22:37 Colace PO 100 mg BID GUILLERMO Administration Enoxaparin Sodium 40 mg 08/30/18 10:00 09/02/18 10:35 Lovenox SUB-Q 40 mg QDAY GUILLERMO Administration Famotidine 20 mg 08/29/18 22:00 09/02/18 22:36 Pepcid PO 20 mg BID GUILLERMO Administration Haloperidol Lactate 2 mg 09/01/18 11:34 Haldol IM Q6H PRN Agitation Hydralazine HCl 100 mg 08/29/18 22:00 09/03/18 07:00 Apresoline PO Not Given Q8H GUILLERMO Hydromorphone HCl 2 mg 08/29/18 21:29 09/02/18 05:19 Dilaudid IV 2 mg Q3H PRN Administration Pain, Moderate (4-6) Sodium Chloride 1,000 mls @ 125 mls/hr 08/29/18 22:00 09/03/18 06:50 Nacl 0.45% 1000 Ml IV 125 mls/hr DIRECT GUILLERMO Administration Levofloxacin/Dextrose 750 mg in 150 mls @ 100 mls/hr 08/30/18 10:00 09/02/18 10:31 Levaquin 750mg/150ml IV 100 mls/hr Q24HR GUILLERMO Administration Protocol Labetalol HCl 10 mg 08/29/18 22:07 Normodyne IV Q6HR PRN Hypertension Lisinopril 10 mg 08/30/18 10:00 09/02/18 10:34 Zestril PO 10 mg QDAY GUILLERMO Administration Ondansetron HCl 4 mg 08/29/18 21:29 Zofran IV Q6H PRN Nausea And Vomiting Oxycodone/Acetaminophen 1 tab 08/29/18 21:29 08/31/18 10:19 Percocet 5/325 PO 1 tab Q6H PRN Administration Pain, Moderate (4-6) Pravastatin Sodium 40 mg 08/29/18 22:00 09/02/18 22:36 Pravachol PO 40 mg QHS GUILLERMO Administration Sodium Chloride 10 ml 08/29/18 22:00 09/02/18 22:37 Sodium Chloride Flush Syringe 10 Ml IV 10 ml BID GUILLERMO Administration Sodium Chloride 10 ml 08/29/18 21:29 Sodium Chloride Flush Syringe 10 Ml IV PRN PRN LINE FLUSH Zolpidem Tartrate 5 mg 08/29/18 21:29 Ambien PO QHS PRN Insomnia Nutrition/Malnutrition Assess - Dietary Evaluation Nutrition/Malnutrition Findings: Nutrition Notes Start: 08/30/18 13:41 Freq: Status: Active Protocol: Document 09/01/18 11:38 SA (Rec: 09/01/18 11:51 SA [id number]) Co-Sign 09/01/18 11:38 LP Nutrition Notes Initial or Follow up Reassessment Current Diagnosis Coronary Artery Disease, Hypertension,Stroke, Hyperlipidemia Other Pertinent Diagnosis Respiratory distress, R hemiparesis Current Diet NPO Labs/Tests Na: 134 BUN: 21 Cr: 0.7 Pertinent Medications Reviewed Height 5 ft 11 in Weight 62 kg [place] Body Weight (kg) 78.18 BMI 19.1 Subjective/Other Information Patient very confused at time of visit. Per pt nurse, pt has zero appetite. Nurse states pt will eat when she sits with him and encourages him to eat but only consumes 25% of trays and a little bit of ensure before NPO status. Nurse states he has no N/V/D or chewing/swallowing difficulty. Percent of energy/protein needs met: 0%/0% Burn Absent Trauma Absent #1 Nutrition Diagnosis Malnutrition Diagnosis Progress(for reassessment Continues documentation) Is patient on ventilator? No Is Patient Ambulatory and/or Out of Bed No REE-([facility]-confined to bed) 1718.052 Kcal/Kg value to use for calculation 33 Approximate Energy Requirements Using 2046 kcal/Kg Calculation Used for Recommendations Kcal/kg Additional Notes Protein Needs: 74-93g (1.2-1. 5g/kg) Fluid Needs: 1 ml/kcal Nutrition Intervention Change Diet Order: [facility] soft w/ground meat Add Supplement/Snack (indicate name/kcal Ensure Enlive Chocolate 1 /protein ) daily Provides kCal: 350 Provides Protein (gm) 20 Goal #1 Meet at least 75% of calorie and protein needs via PO and ONS intakes Anticipated Discharge Needs: Unable to determine at this time Follow-Up By: 09/04/18 Additional Comments F/U: PO and ONS intakes
[2018-09-03] MEDS: COLACE PO SCH ×2 (13:30→21:49)
[2018-09-03] MEDS: CATAPRES PO SCH ×2 (13:30→21:48)
[2018-09-03] MEDS: LEVAQUIN 750MG/150ML 750 MG/150 ML BAG IV SCH (13:31)
[2018-09-03] MEDS: ASPIRIN PO SCH (13:31)
[2018-09-03] MEDS: LOVENOX SUB-Q SCH (13:31)
[2018-09-03] MEDS: COREG PO SCH ×2 (13:31→21:49)
[2018-09-03] MEDS: PEPCID PO SCH ×2 (13:31→21:50)
[2018-09-03] MEDS: ZESTRIL PO SCH (13:31)
[2018-09-03] MEDS: NORVASC PO SCH (13:31)
[2018-09-03] MEDS: SODIUM CHLORIDE FLUSH SYRINGE 10 ML IV SCH ×2 (13:32→21:50)
[2018-09-03] MEDS: DILAUDID IV PRN (13:53)
[2018-09-03] MEDS: PRAVACHOL PO SCH (21:50)
[2018-09-04] MEDS: NACL 0.45% 1000 ML 1,000 ML IV SCH ×3 (01:58→21:57)
[2018-09-04] MEDS: DILAUDID IV PRN ×3 (01:58→13:07)
[2018-09-04] MEDS: DUONEB *Not for PRN Use IH SCH ×4 (02:57→20:49)
--- NOTE | 2018-09-04 08:33 | Progress Note ---
Assessment and Plan Assessment and plan: --Left lung mass/left mediastinal mass, suspicious for malignancy Pulmonary following ,possible CT-guided biopsy today 09/04/2018 Could not schedule the procedure as the radiologist is not available. --Hypoxic respiratory failure; requiring BiPAP Oxygen, nebulizers, IV steroids, IV antibiotics, supportive care Pulmonary following --Right shoulder pain;secondary to possible metastasis Pain management and supportive care --Left lower lobe pneumonia; probably post obstructive pneumonia Continue IV antibiotics follow cultures --Leukocytosis; sepsis secondary to pneumonia --History of CVA with residual right-sided weakness Physical therapy occupational therapy and supportive care --Pathologic fractures of ribs and sternum; supportive care pain management Incentive spirometry --Ongoing tobacco use; smoking cessation advised nicotine patch as needed --Full CODE STATUS --DVT prophylaxis; SCDs, Lovenox Patient's condition treatment plan discussed in detail with the patient and the family at the bedside I explained to the patient and family and the unavailability of radiologist to do the procedure today And it will be rescheduled rescheduled for tomorrow History Interval history: Patient seen and examined medical records reviewed Patient is very upset that his procedure is canceled As the radiologist is not available patient is in mild distress, vital signs reviewed On nasal cannula oxygen Alert awake oriented Vital signs noted Hospitalist Physical - Constitutional Vitals: Temp Pulse Resp BP Pulse Ox 97.5 F L 71 18 141/60 91 09/04/18 05:55 09/04/18 05:55 09/04/18 05:55 09/04/18 05:55 09/04/18 05:55 General appearance: Present: mild distress, cachectic, disheveled - EENT Eyes: Present: PERRL, EOM intact - Neck Neck: Present: supple, normal ROM - Respiratory Respiratory effort: normal Respiratory: bilateral: diminished, rhonchi, negative: rales, wheezing - Cardiovascular Rhythm: regular Heart Sounds: Present: S1 & S2 - Extremities Extremities: no ischemia, No edema - Abdominal General gastrointestinal: soft, non-tender, non-distended, normal bowel sounds - Integumentary Integumentary: Present: clear, warm - Psychiatric Psychiatric: appropriate mood/affect, cooperative - Neurologic Neurologic: moves all extremities Results - Labs CBC & Chem 7: 09/01/18 05:31 09/01/18 05:31 Labs: Laboratory Last Values WBC 15.4 K/mm3 (4.5-11.0) H 09/01/18 05:31 RBC 4.01 M/mm3 (3.65-5.03) 09/01/18 05:31 Hgb 12.8 gm/dl (11.8-15.2) 09/01/18 05:31 Hct 37.6 % (35.5-45.6) 09/01/18 05:31 MCV 94 fl (84-94) 09/01/18 05:31 MCH 32 pg (28-32) 09/01/18 05:31 MCHC 34 % (32-34) 09/01/18 05:31 RDW 13.9 % (13.2-15.2) 09/01/18 05:31 Plt Count 224 K/mm3 (140-440) 09/01/18 05:31 Lymph % (Auto) 6.5 % (13.4-35.0) L 09/01/18 05:31 [place] % (Auto) 3.8 % (0.0-7.3) 09/01/18 05:31 Eos % (Auto) 0.7 % (0.0-4.3) 09/01/18 05:31 Baso % (Auto) 0.2 % (0.0-1.8) 09/01/18 05:31 Lymph # 1.0 K/mm3 (1.2-5.4) L 09/01/18 05:31 [place] # 0.6 K/mm3 (0.0-0.8) 09/01/18 05:31 Eos # 0.1 K/mm3 (0.0-0.4) 09/01/18 05:31 Baso # 0.0 K/mm3 (0.0-0.1) 09/01/18 05:31 Add Manual Diff Complete 08/30/18 08:18 Total Counted 100 08/30/18 08:18 Seg Neutrophils % 88.8 % (40.0-70.0) H 09/01/18 05:31 Seg Neuts % (Manual) 89.0 % (40.0-70.0) H 08/30/18 08:18 Band Neutrophils % 0 % 08/30/18 08:18 Lymphocytes % (Manual) 4.0 % (13.4-35.0) L 08/30/18 08:18 Reactive Lymphs % (Man) 0 % 08/30/18 08:18 Monocytes % (Manual) 7.0 % (0.0-7.3) 08/30/18 08:18 Eosinophils % (Manual) 0 % (0.0-4.3) 08/30/18 08:18 Basophils % (Manual) 0 % (0.0-1.8) 08/30/18 08:18 Metamyelocytes % 0 % 08/30/18 08:18 Myelocytes % 0 % 08/30/18 08:18 Promyelocytes % 0 % 08/30/18 08:18 Blast Cells % 0 % 08/30/18 08:18 Nucleated RBC % Not Reportable 08/30/18 08:18 Seg Neutrophils # 13.7 K/mm3 (1.8-7.7) H 09/01/18 05:31 Seg Neutrophils # Man 11.5 K/mm3 (1.8-7.7) H 08/30/18 08:18 Band Neutrophils # 0.0 K/mm3 08/30/18 08:18 Lymphocytes # (Manual) 0.5 K/mm3 (1.2-5.4) L 08/30/18 08:18 Abs React Lymphs (Man) 0.0 K/mm3 08/30/18 08:18 Monocytes # (Manual) 0.9 K/mm3 (0.0-0.8) H 08/30/18 08:18 Eosinophils # (Manual) 0.0 K/mm3 (0.0-0.4) 08/30/18 08:18 Basophils # (Manual) 0.0 K/mm3 (0.0-0.1) 08/30/18 08:18 Metamyelocytes # 0.0 K/mm3 08/30/18 08:18 Myelocytes # 0.0 K/mm3 08/30/18 08:18 Promyelocytes # 0.0 K/mm3 08/30/18 08:18 Blast Cells # 0.0 K/mm3 08/30/18 08:18 WBC Morphology Not Reportable 08/30/18 08:18 Hypersegmented Neuts Not Reportable 08/30/18 08:18 Hyposegmented Neuts Not Reportable 08/30/18 08:18 Hypogranular Neuts Not Reportable 08/30/18 08:18 Smudge Cells Not Reportable 08/30/18 08:18 Toxic Granulation Not Reportable 08/30/18 08:18 Toxic Vacuolation Not Reportable 08/30/18 08:18 Dohle Bodies Not Reportable 08/30/18 08:18 Pelger-Huet Anomaly Not Reportable 08/30/18 08:18 [place] Rods Not Reportable 08/30/18 08:18 Platelet Estimate Consistent w auto 08/30/18 08:18 Clumped Platelets Rare 08/30/18 08:18 Plt Clumps, EDTA Not Reportable 08/30/18 08:18 Large Platelets Not Reportable 08/30/18 08:18 Giant Platelets Not Reportable 08/30/18 08:18 Platelet Satelliting Not Reportable 08/30/18 08:18 Plt Morphology Comment Not Reportable 08/30/18 08:18 RBC Morphology Normal 08/30/18 08:18 Dimorphic RBCs Not Reportable 08/30/18 08:18 Polychromasia Not Reportable 08/30/18 08:18 Hypochromasia Not Reportable 08/30/18 08:18 Poikilocytosis Not Reportable 08/30/18 08:18 Anisocytosis Not Reportable 08/30/18 08:18 Microcytosis Not Reportable 08/30/18 08:18 Macrocytosis Not Reportable 08/30/18 08:18 Spherocytes Not Reportable 08/30/18 08:18 Pappenheimer Bodies Not Reportable 08/30/18 08:18 Sickle Cells Not Reportable 08/30/18 08:18 Target Cells Not Reportable 08/30/18 08:18 Tear Drop Cells Not Reportable 08/30/18 08:18 Ovalocytes Not Reportable 08/30/18 08:18 Helmet Cells Not Reportable 08/30/18 08:18 [place] Bodies Not Reportable 08/30/18 08:18 [place] Rings Not Reportable 08/30/18 08:18 [place] Cells Not Reportable 08/30/18 08:18 Bite Cells Not Reportable 08/30/18 08:18 Crenated Cell Not Reportable 08/30/18 08:18 Elliptocytes Not Reportable 08/30/18 08:18 Acanthocytes (Spur) Not Reportable 08/30/18 08:18 Rouleaux Not Reportable 08/30/18 08:18 Hemoglobin C Crystals Not Reportable 08/30/18 08:18 Schistocytes Not Reportable 08/30/18 08:18 Malaria parasites Not Reportable 08/30/18 08:18 [place] Bodies Not Reportable 08/30/18 08:18 Hem Pathologist Commnt No 08/30/18 08:18 PT 13.0 Sec. (12.2-14.9) 08/29/18 16:34 INR 0.93 (0.87-1.13) 08/29/18 16:34 APTT 27.7 Sec. (24.2-36.6) 08/29/18 16:34 D-Dimer 617.53 ng/mlDDU (0-234) H 08/29/18 17:00 POC ABG pH 7.458 (7.35-7.45) H 08/29/18 17:09 POC ABG pCO2 32.1 (35-45) L 08/29/18 17:09 POC ABG HCO3 22.7 (22-26 mml/L) 08/29/18 17:09 POC ABG Total CO2 24 (23-27mmol/L) 08/29/18 17:09 POC ABG O2 Sat 85 08/29/18 17:09 POC ABG Base Excess -1 ((-2) - (+3)mmol/L) 08/29/18 17:09 VBG pH 7.447 (7.320-7.420) H 08/29/18 16:34 FiO2 36 % 08/29/18 17:09 Sodium 134 mmol/L (137-145) L D 09/01/18 05:31 Potassium 4.0 mmol/L (3.6-5.0) 09/01/18 05:31 Chloride 100.5 mmol/L (98-107) 09/01/18 05:31 Carbon Dioxide 22 mmol/L (22-30) 09/01/18 05:31 Anion Gap 16 mmol/L 09/01/18 05:31 BUN 21 mg/dL (9-20) H 09/01/18 05:31 Creatinine 0.7 mg/dL (0.8-1.5) L 09/01/18 05:31 Estimated GFR > 60 ml/min 09/01/18 05:31 BUN/Creatinine Ratio 30 % 09/01/18 05:31 Glucose 86 mg/dL (75-100) 09/01/18 05:31 Lactic Acid 1.40 mmol/L (0.7-2.0) 08/29/18 19:25 Calcium 8.8 mg/dL (8.4-10.2) 09/01/18 05:31 Phosphorus 3.20 mg/dL (2.5-4.5) 08/30/18 08:18 Magnesium 1.70 mg/dL (1.7-2.3) 08/30/18 08:18 Total Bilirubin 0.80 mg/dL (0.1-1.2) 08/30/18 08:18 AST 10 units/L (5-40) 08/30/18 08:18 ALT 6 units/L (7-56) L 08/30/18 08:18 Alkaline Phosphatase 67 units/L (35-129) 08/30/18 08:18 Total Creatine Kinase 32 units/L (55-170) L 08/29/18 16:34 CK-MB (CK-2) 2.3 ng/mL (0.0-4.0) 08/29/18 16:34 CK-MB (CK-2) Rel Index 7.1 (0-4) H 08/29/18 16:34 Troponin T < 0.010 ng/mL (0.00-0.029) 08/29/18 16:34 NT-Pro-B Natriuret Pep 694.9 pg/mL (0-900) 08/29/18 16:34 Total Protein 7.1 g/dL (6.3-8.2) 08/30/18 08:18 Albumin 3.5 g/dL (3.9-5) L 08/30/18 08:18 Albumin/Globulin Ratio 1.0 % 08/30/18 08:18 Urine Color Yellow (Yellow) 08/29/18 19:44 Urine Turbidity Clear (Clear) 08/29/18 19:44 Urine pH 5.0 (5.0-7.0) 08/29/18 19:44 Ur Specific [place] 1.035 (1.003-1.030) H 08/29/18 19:44 Urine Protein <15 mg/dl mg/dL (Negative) 08/29/18 19:44 Urine Glucose (UA) Neg mg/dL (Negative) 08/29/18 19:44 Urine Ketones Tr mg/dL (Negative) 08/29/18 19:44 Urine Blood Neg (Negative) 08/29/18 19:44 Urine Nitrite Neg (Negative) 08/29/18 19:44 Urine Bilirubin Neg (Negative) 08/29/18 19:44 Urine Urobilinogen 2.0 mg/dL (<2.0) 08/29/18 19:44 Ur Leukocyte Esterase Neg (Negative) 08/29/18 19:44 Urine WBC (Auto) 7.0 /HPF (0.0-6.0) H 08/29/18 19:44 Urine RBC (Auto) 1.0 /HPF (0.0-6.0) 08/29/18 19:44 U Epithel Cells (Auto) < 1.0 /HPF (0-13.0) 08/29/18 19:44 Urine Mucus Few /HPF 08/29/18 19:44 Active Medications - Current Medications Current Medications: Generic Name Dose Route Start Last Admin Trade Name Freq PRN Reason Stop Dose Admin Acetaminophen 650 mg 08/29/18 21:29 08/30/18 05:53 Tylenol PO 650 mg Q4H PRN Administration Pain MILD(1-3)/Fever >100.5/VENEGAS Al Hydrox/Mg Hydrox/Simethicone 30 ml 08/29/18 21:29 Alum-Mag Hydrox-Simeth 740-375-89xr/5ml PO Q4H PRN Indigestion Albuterol/Ipratropium 1 ampul 09/01/18 14:00 09/04/18 02:57 Duoneb *Not For Prn Use* IH 1 ampul Q6HRT GUILLERMO Administration Amlodipine Besylate 10 mg 08/30/18 10:00 09/03/18 13:31 Norvasc PO 10 mg DAILY GUILLERMO Administration Aspirin 325 mg 08/30/18 10:00 09/03/18 13:31 Aspirin PO 325 mg QDAY GUILLERMO Administration Carvedilol 25 mg 08/29/18 22:00 09/03/18 21:49 Coreg PO 25 mg Q12HR GUILLERMO Administration Clonidine HCl 0.1 mg 08/29/18 22:00 09/03/18 21:48 Catapres PO 0.1 mg BID GUILLERMO Administration Docusate Sodium 100 mg 08/29/18 22:00 09/03/18 21:49 Colace PO 100 mg BID GUILLERMO Administration Enoxaparin Sodium 40 mg 08/30/18 10:00 09/03/18 13:31 Lovenox SUB-Q 40 mg QDAY GUILLERMO Administration Famotidine 20 mg 08/29/18 22:00 09/03/18 21:50 Pepcid PO 20 mg BID GUILLERMO Administration Haloperidol Lactate 2 mg 09/01/18 11:34 Haldol IM Q6H PRN Agitation Hydralazine HCl 100 mg 08/29/18 22:00 09/03/18 21:48 Apresoline PO Not Given Q8H GUILLERMO Hydromorphone HCl 2 mg 08/29/18 21:29 09/04/18 05:57 Dilaudid IV 2 mg Q3H PRN Administration Pain, Moderate (4-6) Sodium Chloride 1,000 mls @ 125 mls/hr 08/29/18 22:00 09/04/18 01:58 Nacl 0.45% 1000 Ml IV 125 mls/hr DIRECT GUILLERMO Administration Levofloxacin/Dextrose 750 mg in 150 mls @ 100 mls/hr 08/30/18 10:00 09/03/18 13:31 Levaquin 750mg/150ml IV 100 mls/hr Q24HR GUILLERMO Administration Protocol Labetalol HCl 10 mg 08/29/18 22:07 Normodyne IV Q6HR PRN Hypertension Lisinopril 10 mg 08/30/18 10:00 09/03/18 13:31 Zestril PO 10 mg QDAY GUILLERMO Administration Ondansetron HCl 4 mg 08/29/18 21:29 Zofran IV Q6H PRN Nausea And Vomiting Oxycodone/Acetaminophen 1 tab 08/29/18 21:29 08/31/18 10:19 Percocet 5/325 PO 1 tab Q6H PRN Administration Pain, Moderate (4-6) Pravastatin Sodium 40 mg 08/29/18 22:00 09/03/18 21:50 Pravachol PO 40 mg QHS GUILLERMO Administration Sodium Chloride 10 ml 08/29/18 22:00 09/03/18 21:50 Sodium Chloride Flush Syringe 10 Ml IV 10 ml BID GUILLERMO Administration Sodium Chloride 10 ml 08/29/18 21:29 Sodium Chloride Flush Syringe 10 Ml IV PRN PRN LINE FLUSH Zolpidem Tartrate 5 mg 08/29/18 21:29 Ambien PO QHS PRN Insomnia Nutrition/Malnutrition Assess - Dietary Evaluation Nutrition/Malnutrition Findings: Nutrition Notes Start: 08/30/18 13:41 Freq: Status: Active Protocol: Document 09/01/18 11:38 SA (Rec: 09/01/18 11:51 SA [id number]) Co-Sign 09/01/18 11:38 LP Nutrition Notes Initial or Follow up Reassessment Current Diagnosis Coronary Artery Disease, Hypertension,Stroke, Hyperlipidemia Other Pertinent Diagnosis Respiratory distress, R hemiparesis Current Diet NPO Labs/Tests Na: 134 BUN: 21 Cr: 0.7 Pertinent Medications Reviewed Height 5 ft 11 in Weight 62 kg [place] Body Weight (kg) 78.18 BMI 19.1 Subjective/Other Information Patient very confused at time of visit. Per pt nurse, pt has zero appetite. Nurse states pt will eat when she sits with him and encourages him to eat but only consumes 25% of trays and a little bit of ensure before NPO status. Nurse states he has no N/V/D or chewing/swallowing difficulty. Percent of energy/protein needs met: 0%/0% Burn Absent Trauma Absent #1 Nutrition Diagnosis Malnutrition Diagnosis Progress(for reassessment Continues documentation) Is patient on ventilator? No Is Patient Ambulatory and/or Out of Bed No REE-([facility]-confined to bed) 1718.052 Kcal/Kg value to use for calculation 33 Approximate Energy Requirements Using 2046 kcal/Kg Calculation Used for Recommendations Kcal/kg Additional Notes Protein Needs: 74-93g (1.2-1. 5g/kg) Fluid Needs: 1 ml/kcal Nutrition Intervention Change Diet Order: [facility] soft w/ground meat Add Supplement/Snack (indicate name/kcal Ensure Enlive Chocolate 1 /protein ) daily Provides kCal: 350 Provides Protein (gm) 20 Goal #1 Meet at least 75% of calorie and protein needs via PO and ONS intakes Anticipated Discharge Needs: Unable to determine at this time Follow-Up By: 09/04/18 Additional Comments F/U: PO and ONS intakes
[2018-09-04] MEDS ORDERED: ATIVAN IV NR (08:45)
[2018-09-04] MEDS: APRESOLINE PO SCH ×3 (11:03→21:16)
[2018-09-04] MEDS: ZESTRIL PO SCH (11:09)
[2018-09-04] MEDS: LOVENOX SUB-Q SCH (11:09)
[2018-09-04] MEDS: COLACE PO SCH ×2 (11:09→21:37)
[2018-09-04] MEDS: NORVASC PO SCH (11:09)
[2018-09-04] MEDS: ASPIRIN PO SCH (11:10)
[2018-09-04] MEDS: CATAPRES PO SCH ×2 (11:10→21:16)
[2018-09-04] MEDS: COREG PO SCH ×2 (11:10→22:02)
[2018-09-04] MEDS: PEPCID PO SCH ×2 (11:10→21:37)
[2018-09-04] MEDS: SODIUM CHLORIDE FLUSH SYRINGE 10 ML IV SCH ×2 (11:11→21:38)
[2018-09-04] MEDS: PERCOCET 5/325 PO PRN ×2 (11:14→21:38)
[2018-09-04] MEDS: LEVAQUIN 750MG/150ML 750 MG/150 ML BAG IV SCH (11:15)
--- NOTE | 2018-09-04 13:54 | Progress Note ---
Assessment and Plan 63 y/o with anterior mediastinal mass. Follow up biopsy Subjective Date of service: 09/04/18 Principal diagnosis: Lung mass, COPD Interval history: No acute events overnight. Scheduled for biopsy today. Objective Vital Signs - 12hr 09/04/18 09/04/18 09/04/18 03:04 05:55 08:38 Temperature 97.5 F L Pulse Rate 71 Pulse Rate [ 82 84 Anterior Bilateral Throughout] Respiratory 18 Rate Respiratory 18 18 Rate [Anterior Bilateral Throughout] Blood Pressure 141/60 O2 Sat by Pulse 91 99 Oximetry 09/04/18 09/04/18 09/04/18 08:47 11:09 11:10 Temperature Pulse Rate Pulse Rate [ 88 Anterior Bilateral Throughout] Respiratory Rate Respiratory 18 Rate [Anterior Bilateral Throughout] Blood Pressure 141/72 141/72 O2 Sat by Pulse Oximetry 09/04/18 09/04/18 11:38 13:15 Temperature 98.5 F Pulse Rate 87 Pulse Rate [ Anterior Bilateral Throughout] Respiratory 22 Rate Respiratory Rate [Anterior Bilateral Throughout] Blood Pressure 143/65 143/75 O2 Sat by Pulse 90 Oximetry Constitutional: no acute distress, alert, other (slight speech slightly slurred) ENT: oropharynx moist Neck: supple, no JVD, other (no collateral circulation visible in the upper chest) Ascultation: Bilateral: clear, diminished breath sounds, rhonchi (sporadic) Cardiovascular: regular rate and rhythm Gastrointestinal: normoactive bowel sounds, non-distended Integumentary: normal Extremities: no cyanosis, no edema Neurologic: non-focal exam, CN II-XII normal Psychiatric: mood appropriate, affect normal CBC and BMP: 09/01/18 05:31 09/01/18 05:31 ABG, PT/INR, D-dimer: ABG POC ABG pH 7.458 (7.35-7.45) H 08/29/18 17:09 POC ABG pCO2 32.1 (35-45) L 08/29/18 17:09 POC ABG HCO3 22.7 (22-26 mml/L) 08/29/18 17:09 POC ABG Total CO2 24 (23-27mmol/L) 08/29/18 17:09 POC ABG O2 Sat 85 08/29/18 17:09 PT/INR, D-dimer PT 13.0 Sec. (12.2-14.9) 08/29/18 16:34 INR 0.93 (0.87-1.13) 08/29/18 16:34 D-Dimer 617.53 ng/mlDDU (0-234) H 08/29/18 17:00 Abnormal lab findings: Abnormal Labs 08/29/18 08/29/18 08/29/18 16:34 16:34 16:34 WBC 14.5 H Lymph % (Auto) 10.4 L [place] % (Auto) 8.4 H Eos % (Auto) 6.3 H Lymph # [place] # 1.2 H Eos # 0.9 H Seg Neutrophils % 74.2 H Seg Neuts % (Manual) Lymphocytes % (Manual) Seg Neutrophils # 10.7 H Seg Neutrophils # Man Lymphocytes # (Manual) Monocytes # (Manual) D-Dimer POC ABG pH POC ABG pCO2 VBG pH 7.447 H Sodium BUN Creatinine Glucose 170 H ALT Total Creatine Kinase 32 L CK-MB (CK-2) Rel Index 7.1 H Albumin 3.8 L Ur Specific [place] Urine WBC (Auto) 08/29/18 08/29/18 08/29/18 17:00 17:09 19:44 WBC Lymph % (Auto) [place] % (Auto) Eos % (Auto) Lymph # [place] # Eos # Seg Neutrophils % Seg Neuts % (Manual) Lymphocytes % (Manual) Seg Neutrophils # Seg Neutrophils # Man Lymphocytes # (Manual) Monocytes # (Manual) D-Dimer 617.53 H POC ABG pH 7.458 H POC ABG pCO2 32.1 L VBG pH Sodium BUN Creatinine Glucose ALT Total Creatine Kinase CK-MB (CK-2) Rel Index Albumin Ur Specific [place] 1.035 H Urine WBC (Auto) 7.0 H 08/30/18 08/30/18 09/01/18 08:18 08:18 05:31 WBC 12.9 H 15.4 H Lymph % (Auto) 6.5 L [place] % (Auto) Eos % (Auto) Lymph # 1.0 L [place] # Eos # Seg Neutrophils % 88.8 H Seg Neuts % (Manual) 89.0 H Lymphocytes % (Manual) 4.0 L Seg Neutrophils # 13.7 H Seg Neutrophils # Man 11.5 H Lymphocytes # (Manual) 0.5 L Monocytes # (Manual) 0.9 H D-Dimer POC ABG pH POC ABG pCO2 VBG pH Sodium BUN Creatinine 0.7 L Glucose 101 H ALT 6 L Total Creatine Kinase CK-MB (CK-2) Rel Index Albumin 3.5 L Ur Specific [place] Urine WBC (Auto) 09/01/18 05:31 WBC Lymph % (Auto) [place] % (Auto) Eos % (Auto) Lymph # [place] # Eos # Seg Neutrophils % Seg Neuts % (Manual) Lymphocytes % (Manual) Seg Neutrophils # Seg Neutrophils # Man Lymphocytes # (Manual) Monocytes # (Manual) D-Dimer POC ABG pH POC ABG pCO2 VBG pH Sodium 134 L D BUN 21 H Creatinine 0.7 L Glucose ALT Total Creatine Kinase CK-MB (CK-2) Rel Index Albumin Ur Specific [place] Urine WBC (Auto)
[2018-09-04] MEDS: PRAVACHOL PO SCH (21:37)
[2018-09-05] MEDS: DUONEB *Not for PRN Use IH SCH ×4 (01:55→20:49)
[2018-09-05 06:10] LABS: Basophils % (Auto) 0.3 % (0.0-1.8); Eosinophils # (Auto) 0.4 K/mm3 (0.0-0.4); Eosinophils % (Auto) 3.5 % (0.0-4.3); Hematocrit 33.8 % (35.5-45.6); Hemoglobin 11.3 gm/dl (11.8-15.2); Lymphocytes # (Auto) 0.9 K/mm3 (1.2-5.4); Mean Corpuscular HGB Conc 34 % (32-34); Mean Corpuscular Volume 93 fl (84-94); Monocytes # (Auto) 1.5 K/mm3 (0.0-0.8); Monocytes % (Auto) 13.7 % (0.0-7.3); Platelet Count 248 K/mm3 (140-440); Red Blood Count 3.63 M/mm3 (3.65-5.03); Red Cell Distribution Width 13.8 % (13.2-15.2)
[2018-09-05 06:25] LABS: Calcium 8.7 mg/dL (8.4-10.2); Hemolysis Index 0
[2018-09-05] MEDS: NACL 0.45% 1000 ML 1,000 ML IV SCH ×2 (06:41→18:21)
[2018-09-05] MEDS: APRESOLINE PO SCH ×3 (06:43→22:57)
[2018-09-05 06:53] LABS: BUN/Creatinine Ratio 23; Blood Urea Nitrogen 14 mg/dL (9-20)
[2018-09-05] MEDS ORDERED: VERSED IV ONE (09:50)
[2018-09-05] MEDS ORDERED: SUBLIMAZE IV ONE (09:50)
[2018-09-05] MEDS: COREG PO SCH ×2 (10:00→22:35)
[2018-09-05] MEDS: COLACE PO SCH ×2 (10:00→22:36)
[2018-09-05] MEDS: ZESTRIL PO SCH (10:00)
[2018-09-05] MEDS: LOVENOX SUB-Q SCH (10:00)
[2018-09-05] MEDS: CATAPRES PO SCH ×2 (10:00→22:35)
[2018-09-05] MEDS ORDERED: XYLOCAINE 1% 20 mL ONE (10:46)
--- NOTE | 2018-09-05 11:38 | Cat Scan Report ---
CT BIOPSY LUNG LEFT HISTORY: Lung mass DESCRIPTION OF PROCEDURE: Informed consent was obtained. Sterile technique was utilized. 1% lidocaine for skin anesthesia. Anxiolysis was accomplished with IV Versed. The patient was sedated for 10 minutes. Scan of the chest demonstrates a soft tissue density mass measuring up to 7.7 x 10.2 cm. In my opinion this mass appears to originate from the anterior mediastinum and invades the left anterior chest wall. I am not entirely convinced this is a lung mass. Using CT guidance, a 19-gauge introducer needle was advanced to the leading edge of the chest wall portion of this mass. 2 separate 2.2 cm 20-gauge core biopsies were obtained for pathology. The samples were deemed adequate. Followup scan demonstrated no evidence for pneumothorax. The patient tolerated the procedure without difficulty. IMPRESSION: Successful CT-guided biopsy of the left chest wall mass/mediastinal mass as described above.
--- NOTE | 2018-09-05 12:27 | Progress Note ---
Assessment and Plan Assessment and plan: --Left lung mass/left mediastinal mass, suspicious for malignancy s/p CT-guided biopsy today , f/u pathology report Pulmonary following --Hypoxic respiratory failure; requiring BiPAP Oxygen, nebulizers, IV steroids, IV antibiotics, supportive care Pulmonary following --Right shoulder pain;secondary to possible metastasis Pain management and supportive care --Left lower lobe pneumonia; probably post obstructive pneumonia Continue IV antibiotics follow cultures --Leukocytosis; sepsis secondary to pneumonia --History of CVA with residual right-sided weakness Physical therapy occupational therapy and supportive care --Pathologic fractures of ribs and sternum; supportive care pain management Incentive spirometry --Ongoing tobacco use; smoking cessation advised nicotine patch as needed --Full CODE STATUS --DVT prophylaxis; SCDs, Lovenox Patient's condition treatment plan discussed in detail with the patient and the family at the bedside I explained to the patient and family and the unavailability of radiologist to do the procedure today And it will be rescheduled rescheduled for tomorrow History Interval history: Patient seen and examined medical records reviewed patient patient underwent CT-guided lung biopsy today., Tolerated the procedure Patient is alert and awake, confused at times Vital signs noted Hospitalist Physical - Constitutional Vitals: Temp Pulse Resp BP Pulse Ox 97.6 F 82 22 118/52 97 09/05/18 04:15 09/05/18 11:20 09/05/18 11:20 09/05/18 11:20 09/05/18 11:20 General appearance: Present: mild distress, cachectic, disheveled - EENT Eyes: Present: PERRL, EOM intact - Neck Neck: Present: supple, normal ROM - Respiratory Respiratory effort: normal Respiratory: bilateral: diminished, rhonchi, negative: rales, wheezing - Cardiovascular Rhythm: regular Heart Sounds: Present: S1 & S2 - Extremities Extremities: no ischemia, No edema - Abdominal General gastrointestinal: soft, non-tender, non-distended, normal bowel sounds - Integumentary Integumentary: Present: clear, warm - Psychiatric Psychiatric: appropriate mood/affect, cooperative - Neurologic Neurologic: CNII-XII intact, moves all extremities Results - Labs CBC & Chem 7: 09/05/18 05:05 09/05/18 05:05 Labs: Laboratory Last Values WBC 11.1 K/mm3 (4.5-11.0) H 09/05/18 05:05 RBC 3.63 M/mm3 (3.65-5.03) L 09/05/18 05:05 Hgb 11.3 gm/dl (11.8-15.2) L 09/05/18 05:05 Hct 33.8 % (35.5-45.6) L 09/05/18 05:05 MCV 93 fl (84-94) 09/05/18 05:05 MCH 31 pg (28-32) 09/05/18 05:05 MCHC 34 % (32-34) 09/05/18 05:05 RDW 13.8 % (13.2-15.2) 09/05/18 05:05 Plt Count 248 K/mm3 (140-440) 09/05/18 05:05 Lymph % (Auto) 8.0 % (13.4-35.0) L 09/05/18 05:05 [place] % (Auto) 13.7 % (0.0-7.3) H 09/05/18 05:05 Eos % (Auto) 3.5 % (0.0-4.3) 09/05/18 05:05 Baso % (Auto) 0.3 % (0.0-1.8) 09/05/18 05:05 Lymph # 0.9 K/mm3 (1.2-5.4) L 09/05/18 05:05 [place] # 1.5 K/mm3 (0.0-0.8) H 09/05/18 05:05 Eos # 0.4 K/mm3 (0.0-0.4) 09/05/18 05:05 Baso # 0.0 K/mm3 (0.0-0.1) 09/05/18 05:05 Add Manual Diff Complete 08/30/18 08:18 Total Counted 100 08/30/18 08:18 Seg Neutrophils % 74.5 % (40.0-70.0) H 09/05/18 05:05 Seg Neuts % (Manual) 89.0 % (40.0-70.0) H 08/30/18 08:18 Band Neutrophils % 0 % 08/30/18 08:18 Lymphocytes % (Manual) 4.0 % (13.4-35.0) L 08/30/18 08:18 Reactive Lymphs % (Man) 0 % 08/30/18 08:18 Monocytes % (Manual) 7.0 % (0.0-7.3) 08/30/18 08:18 Eosinophils % (Manual) 0 % (0.0-4.3) 08/30/18 08:18 Basophils % (Manual) 0 % (0.0-1.8) 08/30/18 08:18 Metamyelocytes % 0 % 08/30/18 08:18 Myelocytes % 0 % 08/30/18 08:18 Promyelocytes % 0 % 08/30/18 08:18 Blast Cells % 0 % 08/30/18 08:18 Nucleated RBC % Not Reportable 08/30/18 08:18 Seg Neutrophils # 8.3 K/mm3 (1.8-7.7) H 09/05/18 05:05 Seg Neutrophils # Man 11.5 K/mm3 (1.8-7.7) H 08/30/18 08:18 Band Neutrophils # 0.0 K/mm3 08/30/18 08:18 Lymphocytes # (Manual) 0.5 K/mm3 (1.2-5.4) L 08/30/18 08:18 Abs React Lymphs (Man) 0.0 K/mm3 08/30/18 08:18 Monocytes # (Manual) 0.9 K/mm3 (0.0-0.8) H 08/30/18 08:18 Eosinophils # (Manual) 0.0 K/mm3 (0.0-0.4) 08/30/18 08:18 Basophils # (Manual) 0.0 K/mm3 (0.0-0.1) 08/30/18 08:18 Metamyelocytes # 0.0 K/mm3 08/30/18 08:18 Myelocytes # 0.0 K/mm3 08/30/18 08:18 Promyelocytes # 0.0 K/mm3 08/30/18 08:18 Blast Cells # 0.0 K/mm3 08/30/18 08:18 WBC Morphology Not Reportable 08/30/18 08:18 Hypersegmented Neuts Not Reportable 08/30/18 08:18 Hyposegmented Neuts Not Reportable 08/30/18 08:18 Hypogranular Neuts Not Reportable 08/30/18 08:18 Smudge Cells Not Reportable 08/30/18 08:18 Toxic Granulation Not Reportable 08/30/18 08:18 Toxic Vacuolation Not Reportable 08/30/18 08:18 Dohle Bodies Not Reportable 08/30/18 08:18 Pelger-Huet Anomaly Not Reportable 08/30/18 08:18 [place] Rods Not Reportable 08/30/18 08:18 Platelet Estimate Consistent w auto 08/30/18 08:18 Clumped Platelets Rare 08/30/18 08:18 Plt Clumps, EDTA Not Reportable 08/30/18 08:18 Large Platelets Not Reportable 08/30/18 08:18 Giant Platelets Not Reportable 08/30/18 08:18 Platelet Satelliting Not Reportable 08/30/18 08:18 Plt Morphology Comment Not Reportable 08/30/18 08:18 RBC Morphology Normal 08/30/18 08:18 Dimorphic RBCs Not Reportable 08/30/18 08:18 Polychromasia Not Reportable 08/30/18 08:18 Hypochromasia Not Reportable 08/30/18 08:18 Poikilocytosis Not Reportable 08/30/18 08:18 Anisocytosis Not Reportable 08/30/18 08:18 Microcytosis Not Reportable 08/30/18 08:18 Macrocytosis Not Reportable 08/30/18 08:18 Spherocytes Not Reportable 08/30/18 08:18 Pappenheimer Bodies Not Reportable 08/30/18 08:18 Sickle Cells Not Reportable 08/30/18 08:18 Target Cells Not Reportable 08/30/18 08:18 Tear Drop Cells Not Reportable 08/30/18 08:18 Ovalocytes Not Reportable 08/30/18 08:18 Helmet Cells Not Reportable 08/30/18 08:18 [place] Bodies Not Reportable 08/30/18 08:18 [place] Rings Not Reportable 08/30/18 08:18 [place] Cells Not Reportable 08/30/18 08:18 Bite Cells Not Reportable 08/30/18 08:18 Crenated Cell Not Reportable 08/30/18 08:18 Elliptocytes Not Reportable 08/30/18 08:18 Acanthocytes (Spur) Not Reportable 08/30/18 08:18 Rouleaux Not Reportable 08/30/18 08:18 Hemoglobin C Crystals Not Reportable 08/30/18 08:18 Schistocytes Not Reportable 08/30/18 08:18 Malaria parasites Not Reportable 08/30/18 08:18 [place] Bodies Not Reportable 08/30/18 08:18 Hem Pathologist Commnt No 08/30/18 08:18 PT 13.0 Sec. (12.2-14.9) 08/29/18 16:34 INR 0.93 (0.87-1.13) 08/29/18 16:34 APTT 27.7 Sec. (24.2-36.6) 08/29/18 16:34 D-Dimer 617.53 ng/mlDDU (0-234) H 08/29/18 17:00 POC ABG pH 7.458 (7.35-7.45) H 08/29/18 17:09 POC ABG pCO2 32.1 (35-45) L 08/29/18 17:09 POC ABG HCO3 22.7 (22-26 mml/L) 08/29/18 17:09 POC ABG Total CO2 24 (23-27mmol/L) 08/29/18 17:09 POC ABG O2 Sat 85 08/29/18 17:09 POC ABG Base Excess -1 ((-2) - (+3)mmol/L) 08/29/18 17:09 VBG pH 7.447 (7.320-7.420) H 08/29/18 16:34 FiO2 36 % 08/29/18 17:09 Sodium 135 mmol/L (137-145) L 09/05/18 05:05 Potassium 3.8 mmol/L (3.6-5.0) 09/05/18 05:05 Chloride 96.7 mmol/L (98-107) L 09/05/18 05:05 Carbon Dioxide 25 mmol/L (22-30) 09/05/18 05:05 Anion Gap 17 mmol/L 09/05/18 05:05 BUN 14 mg/dL (9-20) 09/05/18 05:05 Creatinine 0.6 mg/dL (0.8-1.5) L 09/05/18 05:05 Estimated GFR > 60 ml/min 09/05/18 05:05 BUN/Creatinine Ratio 23 % 09/05/18 05:05 Glucose 93 mg/dL (75-100) 09/05/18 05:05 Lactic Acid 1.40 mmol/L (0.7-2.0) 08/29/18 19:25 Calcium 8.7 mg/dL (8.4-10.2) 09/05/18 05:05 Phosphorus 3.20 mg/dL (2.5-4.5) 08/30/18 08:18 Magnesium 1.70 mg/dL (1.7-2.3) 08/30/18 08:18 Total Bilirubin 0.80 mg/dL (0.1-1.2) 08/30/18 08:18 AST 10 units/L (5-40) 08/30/18 08:18 ALT 6 units/L (7-56) L 08/30/18 08:18 Alkaline Phosphatase 67 units/L (35-129) 08/30/18 08:18 Total Creatine Kinase 32 units/L (55-170) L 08/29/18 16:34 CK-MB (CK-2) 2.3 ng/mL (0.0-4.0) 08/29/18 16:34 CK-MB (CK-2) Rel Index 7.1 (0-4) H 08/29/18 16:34 Troponin T < 0.010 ng/mL (0.00-0.029) 08/29/18 16:34 NT-Pro-B Natriuret Pep 694.9 pg/mL (0-900) 08/29/18 16:34 Total Protein 7.1 g/dL (6.3-8.2) 08/30/18 08:18 Albumin 3.5 g/dL (3.9-5) L 08/30/18 08:18 Albumin/Globulin Ratio 1.0 % 08/30/18 08:18 Urine Color Yellow (Yellow) 08/29/18 19:44 Urine Turbidity Clear (Clear) 08/29/18 19:44 Urine pH 5.0 (5.0-7.0) 08/29/18 19:44 Ur Specific [place] 1.035 (1.003-1.030) H 08/29/18 19:44 Urine Protein <15 mg/dl mg/dL (Negative) 08/29/18 19:44 Urine Glucose (UA) Neg mg/dL (Negative) 08/29/18 19:44 Urine Ketones Tr mg/dL (Negative) 08/29/18 19:44 Urine Blood Neg (Negative) 08/29/18 19:44 Urine Nitrite Neg (Negative) 08/29/18 19:44 Urine Bilirubin Neg (Negative) 08/29/18 19:44 Urine Urobilinogen 2.0 mg/dL (<2.0) 08/29/18 19:44 Ur Leukocyte Esterase Neg (Negative) 08/29/18 19:44 Urine WBC (Auto) 7.0 /HPF (0.0-6.0) H 08/29/18 19:44 Urine RBC (Auto) 1.0 /HPF (0.0-6.0) 08/29/18 19:44 U Epithel Cells (Auto) < 1.0 /HPF (0-13.0) 08/29/18 19:44 Urine Mucus Few /HPF 08/29/18 19:44 Active Medications - Current Medications Current Medications: Generic Name Dose Route Start Last Admin Trade Name Freq PRN Reason Stop Dose Admin Acetaminophen 650 mg 08/29/18 21:29 08/30/18 05:53 Tylenol PO 650 mg Q4H PRN Administration Pain MILD(1-3)/Fever >100.5/VENEGAS Al Hydrox/Mg Hydrox/Simethicone 30 ml 08/29/18 21:29 Alum-Mag Hydrox-Simeth [id number]/5ml PO Q4H PRN Indigestion Albuterol/Ipratropium 1 ampul 09/01/18 14:00 09/05/18 09:00 Duoneb *Not For Prn Use* IH 1 ampul Q6HRT GUILLERMO Administration Amlodipine Besylate 10 mg 08/30/18 10:00 09/04/18 11:09 Norvasc PO 10 mg DAILY GUILLERMO Administration Aspirin 325 mg 08/30/18 10:00 09/04/18 11:10 Aspirin PO 325 mg QDAY GUILLERMO Administration Carvedilol 25 mg 08/29/18 22:00 09/04/18 22:02 Coreg PO Not Given Q12HR GUILLERMO Clonidine HCl 0.1 mg 08/29/18 22:00 09/04/18 21:16 Catapres PO Not Given BID GUILLERMO Docusate Sodium 100 mg 08/29/18 22:00 09/04/18 21:37 Colace PO 100 mg BID GUILLERMO Administration Enoxaparin Sodium 40 mg 08/30/18 10:00 09/04/18 11:09 Lovenox SUB-Q 40 mg QDAY GUILLERMO Administration Famotidine 20 mg 08/29/18 22:00 09/04/18 21:37 Pepcid PO 20 mg BID GUILLERMO Administration Haloperidol Lactate 2 mg 09/01/18 11:34 Haldol IM Q6H PRN Agitation Hydralazine HCl 100 mg 08/29/18 22:00 09/05/18 06:43 Apresoline PO Not Given Q8H GUILLERMO Hydromorphone HCl 2 mg 08/29/18 21:29 09/04/18 13:07 Dilaudid IV 2 mg Q3H PRN Administration Pain, Moderate (4-6) Sodium Chloride 1,000 mls @ 125 mls/hr 08/29/18 22:00 09/05/18 06:41 Nacl 0.45% 1000 Ml IV 125 mls/hr DIRECT GUILLERMO Administration Levofloxacin/Dextrose 750 mg in 150 mls @ 100 mls/hr 08/30/18 10:00 09/04/18 11:15 Levaquin 750mg/150ml IV 100 mls/hr Q24HR GUILLERMO Administration Protocol Labetalol HCl 10 mg 08/29/18 22:07 Normodyne IV Q6HR PRN Hypertension Lisinopril 10 mg 08/30/18 10:00 09/04/18 11:09 Zestril PO 10 mg QDAY GUILLERMO Administration Ondansetron HCl 4 mg 08/29/18 21:29 Zofran IV Q6H PRN Nausea And Vomiting Oxycodone/Acetaminophen 1 tab 08/29/18 21:29 09/04/18 21:38 Percocet 5/325 PO 1 tab Q6H PRN Administration Pain, Moderate (4-6) Pravastatin Sodium 40 mg 08/29/18 22:00 09/04/18 21:37 Pravachol PO 40 mg QHS GUILLERMO Administration Sodium Chloride 10 ml 08/29/18 22:00 09/04/18 21:38 Sodium Chloride Flush Syringe 10 Ml IV 10 ml BID GUILLERMO Administration Sodium Chloride 10 ml 08/29/18 21:29 Sodium Chloride Flush Syringe 10 Ml IV PRN PRN LINE FLUSH Zolpidem Tartrate 5 mg 08/29/18 21:29 Ambien PO QHS PRN Insomnia Nutrition/Malnutrition Assess - Dietary Evaluation Nutrition/Malnutrition Findings: Nutrition Notes Start: 08/30/18 13:41 Freq: Status: Active Protocol: Document 09/04/18 16:30 RM (Rec: 09/04/18 16:34 RM [id number]) Nutrition Notes Initial or Follow up Reassessment Current Diagnosis Coronary Artery Disease, Hypertension,Stroke, Hyperlipidemia Other Pertinent Diagnosis Respiratory distress, R hemiparesis Current Diet GI soft, Mech Soft w/Ensure Enlive 1 daily Labs/Tests Reviewed Pertinent Medications Reviewed Height 5 ft 11 in Weight 69.2 kg [place] Body Weight (kg) 78.18 BMI 21.2 Subjective/Other Information Pt stated that he has no appetite d/t SOB. Stated he drinks some of the Ensure but chokes on it. Burn Absent Trauma Absent #1 Nutrition Diagnosis Malnutrition Diagnosis Progress(for reassessment Continues documentation) Is patient on ventilator? No Is Patient Ambulatory and/or Out of Bed No REE-([facility]-confined to bed) 1804.356 Kcal/Kg value to use for calculation 33 Approximate Energy Requirements Using 2284 kcal/Kg Calculation Used for Recommendations Kcal/kg Additional Notes Protein Needs: 74-93g (1.2-1. 5g/kg) Fluid Needs: 1 ml/kcal Nutrition Intervention Change Diet Order: Mech soft w/ground meat Add Supplement/Snack (indicate name/kcal D/C Ensure Enlive 1 daily /protein ) Goal #1 Meet at least 75% of calorie and protein needs via PO and ONS intakes Anticipated Discharge Needs: Unable to determine at this time Follow-Up By: 09/06/18 Additional Comments Follow for PO intakes
[2018-09-05] MEDS: NORVASC PO SCH (13:46)
[2018-09-05] MEDS: ASPIRIN PO SCH (13:51)
[2018-09-05] MEDS: PEPCID PO SCH ×2 (13:51→22:35)
[2018-09-05] MEDS: LEVAQUIN 750MG/150ML 750 MG/150 ML BAG IV SCH (13:52)
[2018-09-05] MEDS: SODIUM CHLORIDE FLUSH SYRINGE 10 ML IV SCH ×2 (13:52→22:53)
[2018-09-05] MEDS: PERCOCET 5/325 PO PRN (13:56)
--- NOTE | 2018-09-05 14:08 | Progress Note ---
Assessment and Plan 63 y/o with anterior mediastinal mass. Follow up biopsy results Subjective Date of service: 09/05/18 Principal diagnosis: Lung mass, COPD Interval history: Patient had biopsy this am. Tolerated well. Objective Vital Signs - 12hr 09/05/18 09/05/18 09/05/18 04:15 09:00 09:01 Temperature 97.6 F Pulse Rate 82 Pulse Rate [ 82 Anterior Bilateral Throughout] Pulse Rate [ Intra-Procedure ] Pulse Rate [ Post-Procedure] Pulse Rate [Pre -Procedure] Respiratory 20 Rate Respiratory 22 Rate [Anterior Bilateral Throughout] Respiratory Rate [Intra- Procedure] Respiratory Rate [Post- Procedure] Respiratory Rate [Pre- Procedure] Blood Pressure 116/55 Blood Pressure [Intra- Procedure] Blood Pressure [Post-Procedure ] Blood Pressure [Pre-Procedure] O2 Sat by Pulse 91 93 Oximetry O2 Sat by Pulse Oximetry [ Intra-Procedure ] O2 Sat by Pulse Oximetry [Post -Procedure] O2 Sat by Pulse Oximetry [Pre- Procedure] 09/05/18 09/05/18 09/05/18 09:12 10:43 10:53 Temperature Pulse Rate Pulse Rate [ 84 Anterior Bilateral Throughout] Pulse Rate [ 91 H Intra-Procedure ] Pulse Rate [ Post-Procedure] Pulse Rate [Pre 89 -Procedure] Respiratory Rate Respiratory 22 Rate [Anterior Bilateral Throughout] Respiratory 22 Rate [Intra- Procedure] Respiratory Rate [Post- Procedure] Respiratory 24 Rate [Pre- Procedure] Blood Pressure Blood Pressure 133/60 [Intra- Procedure] Blood Pressure [Post-Procedure ] Blood Pressure 153/65 [Pre-Procedure] O2 Sat by Pulse Oximetry O2 Sat by Pulse 94 Oximetry [ Intra-Procedure ] O2 Sat by Pulse Oximetry [Post -Procedure] O2 Sat by Pulse 97 Oximetry [Pre- Procedure] 09/05/18 09/05/18 09/05/18 11:00 11:05 11:08 Temperature Pulse Rate Pulse Rate [ Anterior Bilateral Throughout] Pulse Rate [ 86 87 87 Intra-Procedure ] Pulse Rate [ Post-Procedure] Pulse Rate [Pre -Procedure] Respiratory Rate Respiratory Rate [Anterior Bilateral Throughout] Respiratory 26 H 24 24 Rate [Intra- Procedure] Respiratory Rate [Post- Procedure] Respiratory Rate [Pre- Procedure] Blood Pressure Blood Pressure 136/64 123/52 116/48 [Intra- Procedure] Blood Pressure [Post-Procedure ] Blood Pressure [Pre-Procedure] O2 Sat by Pulse Oximetry O2 Sat by Pulse 95 95 95 Oximetry [ Intra-Procedure ] O2 Sat by Pulse Oximetry [Post -Procedure] O2 Sat by Pulse Oximetry [Pre- Procedure] 09/05/18 11:20 Temperature Pulse Rate Pulse Rate [ Anterior Bilateral Throughout] Pulse Rate [ Intra-Procedure ] Pulse Rate [ 82 Post-Procedure] Pulse Rate [Pre -Procedure] Respiratory Rate Respiratory Rate [Anterior Bilateral Throughout] Respiratory Rate [Intra- Procedure] Respiratory 22 Rate [Post- Procedure] Respiratory Rate [Pre- Procedure] Blood Pressure Blood Pressure [Intra- Procedure] Blood Pressure 118/52 [Post-Procedure ] Blood Pressure [Pre-Procedure] O2 Sat by Pulse Oximetry O2 Sat by Pulse Oximetry [ Intra-Procedure ] O2 Sat by Pulse 97 Oximetry [Post -Procedure] O2 Sat by Pulse Oximetry [Pre- Procedure] Constitutional: no acute distress, alert, other (slight speech slightly slurred) ENT: oropharynx moist Neck: supple, no JVD, other (no collateral circulation visible in the upper chest) Ascultation: Bilateral: clear, diminished breath sounds, rhonchi (sporadic) Cardiovascular: regular rate and rhythm Gastrointestinal: normoactive bowel sounds, non-distended Integumentary: normal Extremities: no cyanosis, no edema Neurologic: non-focal exam, CN II-XII normal Psychiatric: mood appropriate, affect normal CBC and BMP: 09/05/18 05:05 09/05/18 05:05 ABG, PT/INR, D-dimer: ABG POC ABG pH 7.458 (7.35-7.45) H 08/29/18 17:09 POC ABG pCO2 32.1 (35-45) L 08/29/18 17:09 POC ABG HCO3 22.7 (22-26 mml/L) 08/29/18 17:09 POC ABG Total CO2 24 (23-27mmol/L) 08/29/18 17:09 POC ABG O2 Sat 85 08/29/18 17:09 PT/INR, D-dimer PT 13.0 Sec. (12.2-14.9) 08/29/18 16:34 INR 0.93 (0.87-1.13) 08/29/18 16:34 D-Dimer 617.53 ng/mlDDU (0-234) H 08/29/18 17:00 Abnormal lab findings: Abnormal Labs 08/29/18 08/29/18 08/29/18 16:34 16:34 16:34 WBC 14.5 H RBC Hgb Hct Lymph % (Auto) 10.4 L [place] % (Auto) 8.4 H Eos % (Auto) 6.3 H Lymph # [place] # 1.2 H Eos # 0.9 H Seg Neutrophils % 74.2 H Seg Neuts % (Manual) Lymphocytes % (Manual) Seg Neutrophils # 10.7 H Seg Neutrophils # Man Lymphocytes # (Manual) Monocytes # (Manual) D-Dimer POC ABG pH POC ABG pCO2 VBG pH 7.447 H Sodium Chloride BUN Creatinine Glucose 170 H ALT Total Creatine Kinase 32 L CK-MB (CK-2) Rel Index 7.1 H Albumin 3.8 L Ur Specific [place] Urine WBC (Auto) 08/29/18 08/29/18 08/29/18 17:00 17:09 19:44 WBC RBC Hgb Hct Lymph % (Auto) [place] % (Auto) Eos % (Auto) Lymph # [place] # Eos # Seg Neutrophils % Seg Neuts % (Manual) Lymphocytes % (Manual) Seg Neutrophils # Seg Neutrophils # Man Lymphocytes # (Manual) Monocytes # (Manual) D-Dimer 617.53 H POC ABG pH 7.458 H POC ABG pCO2 32.1 L VBG pH Sodium Chloride BUN Creatinine Glucose ALT Total Creatine Kinase CK-MB (CK-2) Rel Index Albumin Ur Specific [place] 1.035 H Urine WBC (Auto) 7.0 H 08/30/18 08/30/18 09/01/18 08:18 08:18 05:31 WBC 12.9 H 15.4 H RBC Hgb Hct Lymph % (Auto) 6.5 L [place] % (Auto) Eos % (Auto) Lymph # 1.0 L [place] # Eos # Seg Neutrophils % 88.8 H Seg Neuts % (Manual) 89.0 H Lymphocytes % (Manual) 4.0 L Seg Neutrophils # 13.7 H Seg Neutrophils # Man 11.5 H Lymphocytes # (Manual) 0.5 L Monocytes # (Manual) 0.9 H D-Dimer POC ABG pH POC ABG pCO2 VBG pH Sodium Chloride BUN Creatinine 0.7 L Glucose 101 H ALT 6 L Total Creatine Kinase CK-MB (CK-2) Rel Index Albumin 3.5 L Ur Specific [place] Urine WBC (Auto) 09/01/18 09/05/18 09/05/18 05:31 05:05 05:05 WBC 11.1 H RBC 3.63 L Hgb 11.3 L Hct 33.8 L Lymph % (Auto) 8.0 L [place] % (Auto) 13.7 H Eos % (Auto) Lymph # 0.9 L [place] # 1.5 H Eos # Seg Neutrophils % 74.5 H Seg Neuts % (Manual) Lymphocytes % (Manual) Seg Neutrophils # 8.3 H Seg Neutrophils # Man Lymphocytes # (Manual) Monocytes # (Manual) D-Dimer POC ABG pH POC ABG pCO2 VBG pH Sodium 134 L D 135 L Chloride 96.7 L BUN 21 H Creatinine 0.7 L 0.6 L Glucose ALT Total Creatine Kinase CK-MB (CK-2) Rel Index Albumin Ur Specific [place] Urine WBC (Auto)
--- NOTE | 2018-09-05 15:08 | XRay Report ---
AP CHEST: HISTORY: Lung mass, recent CT biopsy Recent CT guided biopsy of a left chest wall mass/left lung mass was performed. Followup AP chest demonstrates no evidence for pneumothorax. There is however diffuse consolidation or atelectasis throughout the left lung. The right lung is clear. Heart size is obscured by left lung opacity. IMPRESSION: No pneumothorax. Diffuse consolidation or complete left lung atelectasis has developed since 08/29/18. I suspect this represents consolidation because there is no mediastinal shift. Please correlate with the patient and consider CT if needed.
[2018-09-05] MEDS: PRAVACHOL PO SCH (22:35)
[2018-09-05] MEDS: DILAUDID IV PRN (22:42)
[2018-09-06] MEDS: NACL 0.45% 1000 ML 1,000 ML IV SCH (02:56)
[2018-09-06] MEDS: DILAUDID IV PRN (04:28)
[2018-09-06] MEDS: APRESOLINE PO SCH ×3 (05:46→22:00)
[2018-09-06 08:36] LABS: Basophils % (Auto) 0.3 % (0.0-1.8); Eosinophils # (Auto) 0.4 K/mm3 (0.0-0.4); Eosinophils % (Auto) 4.1 % (0.0-4.3); Hematocrit 32.3 % (35.5-45.6); Hemoglobin 11.1 gm/dl (11.8-15.2); Lymphocytes # (Auto) 0.9 K/mm3 (1.2-5.4); Lymphocytes % (Auto) 9.8 % (13.4-35.0); Mean Corpuscular HGB Conc 34 % (32-34); Mean Corpuscular Volume 94 fl (84-94); Monocytes # (Auto) 1.1 K/mm3 (0.0-0.8); Monocytes % (Auto) 12.5 % (0.0-7.3); Platelet Count 230 K/mm3 (140-440); Red Blood Count 3.45 M/mm3 (3.65-5.03); Red Cell Distribution Width 13.9 % (13.2-15.2)
[2018-09-06 08:46] LABS: Alanine Aminotransferase 8 units/L (7-56); Albumin 2.3 g/dL (3.9-5); BUN/Creatinine Ratio 18; Blood Urea Nitrogen 14 mg/dL (9-20); Hemolysis Index 4
[2018-09-06] MEDS: DUONEB *Not for PRN Use IH SCH ×3 (09:07→23:18)
[2018-09-06] MEDS: CATAPRES PO SCH ×2 (10:00→22:00)
[2018-09-06] MEDS: NORVASC PO SCH (10:00)
[2018-09-06] MEDS: ZESTRIL PO SCH (10:00)
[2018-09-06] MEDS: COREG PO SCH ×2 (10:00→22:00)
--- NOTE | 2018-09-06 10:51 | Progress Note ---
Assessment and Plan Assessment and plan: --Left lung mass/left mediastinal mass, suspicious for malignancy s/p CT-guided biopsy today , f/u pathology report Pulmonary following --Hypoxic respiratory failure; requiring BiPAP Oxygen, nebulizers, IV steroids, IV antibiotics, supportive care Pulmonary following --Right shoulder pain;secondary to possible metastasis Pain management and supportive care --Left lower lobe pneumonia; probably post obstructive pneumonia Continue IV antibiotics follow cultures --Leukocytosis; sepsis secondary to pneumonia --History of CVA with residual right-sided weakness Physical therapy occupational therapy and supportive care --Pathologic fractures of ribs and sternum; supportive care pain management Incentive spirometry --Ongoing tobacco use; smoking cessation advised nicotine patch as needed --Full CODE STATUS --DVT prophylaxis; SCDs, Lovenox Patient's condition treatment plan discussed in detail with the patient and the family at the bedside I explained to the patient and family and the unavailability of radiologist to do the procedure today And it will be rescheduled rescheduled for tomorrow History Interval history: Patient seen and examined medical records reviewed No new events reported by nursing staff Alert awake oriented 3 not in acute distress,Vital signs noted Underwent biopsy, pathology report suspicious for squamous cell carcinoma Hospitalist Physical - Constitutional Vitals: Temp Pulse Resp BP Pulse Ox 97.8 F 89 16 89/40 92 09/06/18 05:30 09/06/18 06:44 09/06/18 05:30 09/06/18 06:44 09/06/18 05:30 General appearance: Present: mild distress, cachectic, disheveled - EENT Eyes: Present: PERRL, EOM intact - Neck Neck: Present: supple, normal ROM - Respiratory Respiratory effort: normal Respiratory: bilateral: diminished, rhonchi, negative: rales, wheezing - Cardiovascular Rhythm: regular Heart Sounds: Present: S1 & S2 - Extremities Extremities: no ischemia, No edema - Abdominal General gastrointestinal: soft, non-tender, non-distended, normal bowel sounds - Integumentary Integumentary: Present: clear, warm - Psychiatric Psychiatric: appropriate mood/affect, cooperative - Neurologic Neurologic: CNII-XII intact, moves all extremities Results - Labs CBC & Chem 7: 09/06/18 07:35 09/06/18 07:35 Labs: Laboratory Last Values WBC 9.1 K/mm3 (4.5-11.0) 09/06/18 07:35 RBC 3.45 M/mm3 (3.65-5.03) L 09/06/18 07:35 Hgb 11.1 gm/dl (11.8-15.2) L 09/06/18 07:35 Hct 32.3 % (35.5-45.6) L 09/06/18 07:35 MCV 94 fl (84-94) 09/06/18 07:35 MCH 32 pg (28-32) 09/06/18 07:35 MCHC 34 % (32-34) 09/06/18 07:35 RDW 13.9 % (13.2-15.2) 09/06/18 07:35 Plt Count 230 K/mm3 (140-440) 09/06/18 07:35 Lymph % (Auto) 9.8 % (13.4-35.0) L 09/06/18 07:35 [place] % (Auto) 12.5 % (0.0-7.3) H 09/06/18 07:35 Eos % (Auto) 4.1 % (0.0-4.3) 09/06/18 07:35 Baso % (Auto) 0.3 % (0.0-1.8) 09/06/18 07:35 Lymph # 0.9 K/mm3 (1.2-5.4) L 09/06/18 07:35 [place] # 1.1 K/mm3 (0.0-0.8) H 09/06/18 07:35 Eos # 0.4 K/mm3 (0.0-0.4) 09/06/18 07:35 Baso # 0.0 K/mm3 (0.0-0.1) 09/06/18 07:35 Add Manual Diff Complete 08/30/18 08:18 Total Counted 100 08/30/18 08:18 Seg Neutrophils % 73.3 % (40.0-70.0) H 09/06/18 07:35 Seg Neuts % (Manual) 89.0 % (40.0-70.0) H 08/30/18 08:18 Band Neutrophils % 0 % 08/30/18 08:18 Lymphocytes % (Manual) 4.0 % (13.4-35.0) L 08/30/18 08:18 Reactive Lymphs % (Man) 0 % 08/30/18 08:18 Monocytes % (Manual) 7.0 % (0.0-7.3) 08/30/18 08:18 Eosinophils % (Manual) 0 % (0.0-4.3) 08/30/18 08:18 Basophils % (Manual) 0 % (0.0-1.8) 08/30/18 08:18 Metamyelocytes % 0 % 08/30/18 08:18 Myelocytes % 0 % 08/30/18 08:18 Promyelocytes % 0 % 08/30/18 08:18 Blast Cells % 0 % 08/30/18 08:18 Nucleated RBC % Not Reportable 08/30/18 08:18 Seg Neutrophils # 6.7 K/mm3 (1.8-7.7) 09/06/18 07:35 Seg Neutrophils # Man 11.5 K/mm3 (1.8-7.7) H 08/30/18 08:18 Band Neutrophils # 0.0 K/mm3 08/30/18 08:18 Lymphocytes # (Manual) 0.5 K/mm3 (1.2-5.4) L 08/30/18 08:18 Abs React Lymphs (Man) 0.0 K/mm3 08/30/18 08:18 Monocytes # (Manual) 0.9 K/mm3 (0.0-0.8) H 08/30/18 08:18 Eosinophils # (Manual) 0.0 K/mm3 (0.0-0.4) 08/30/18 08:18 Basophils # (Manual) 0.0 K/mm3 (0.0-0.1) 08/30/18 08:18 Metamyelocytes # 0.0 K/mm3 08/30/18 08:18 Myelocytes # 0.0 K/mm3 08/30/18 08:18 Promyelocytes # 0.0 K/mm3 08/30/18 08:18 Blast Cells # 0.0 K/mm3 08/30/18 08:18 WBC Morphology Not Reportable 08/30/18 08:18 Hypersegmented Neuts Not Reportable 08/30/18 08:18 Hyposegmented Neuts Not Reportable 08/30/18 08:18 Hypogranular Neuts Not Reportable 08/30/18 08:18 Smudge Cells Not Reportable 08/30/18 08:18 Toxic Granulation Not Reportable 08/30/18 08:18 Toxic Vacuolation Not Reportable 08/30/18 08:18 Dohle Bodies Not Reportable 08/30/18 08:18 Pelger-Huet Anomaly Not Reportable 08/30/18 08:18 [place] Rods Not Reportable 08/30/18 08:18 Platelet Estimate Consistent w auto 08/30/18 08:18 Clumped Platelets Rare 08/30/18 08:18 Plt Clumps, EDTA Not Reportable 08/30/18 08:18 Large Platelets Not Reportable 08/30/18 08:18 Giant Platelets Not Reportable 08/30/18 08:18 Platelet Satelliting Not Reportable 08/30/18 08:18 Plt Morphology Comment Not Reportable 08/30/18 08:18 RBC Morphology Normal 08/30/18 08:18 Dimorphic RBCs Not Reportable 08/30/18 08:18 Polychromasia Not Reportable 08/30/18 08:18 Hypochromasia Not Reportable 08/30/18 08:18 Poikilocytosis Not Reportable 08/30/18 08:18 Anisocytosis Not Reportable 08/30/18 08:18 Microcytosis Not Reportable 08/30/18 08:18 Macrocytosis Not Reportable 08/30/18 08:18 Spherocytes Not Reportable 08/30/18 08:18 Pappenheimer Bodies Not Reportable 08/30/18 08:18 Sickle Cells Not Reportable 08/30/18 08:18 Target Cells Not Reportable 08/30/18 08:18 Tear Drop Cells Not Reportable 08/30/18 08:18 Ovalocytes Not Reportable 08/30/18 08:18 Helmet Cells Not Reportable 08/30/18 08:18 [place] Bodies Not Reportable 08/30/18 08:18 [place]ray Rings Not Reportable 08/30/18 08:18 [place] Cells Not Reportable 08/30/18 08:18 Bite Cells Not Reportable 08/30/18 08:18 Crenated Cell Not Reportable 08/30/18 08:18 Elliptocytes Not Reportable 08/30/18 08:18 Acanthocytes (Spur) Not Reportable 08/30/18 08:18 Rouleaux Not Reportable 08/30/18 08:18 Hemoglobin C Crystals Not Reportable 08/30/18 08:18 Schistocytes Not Reportable 08/30/18 08:18 Malaria parasites Not Reportable 08/30/18 08:18 Lefty Bodies Not Reportable 08/30/18 08:18 Hem Pathologist Commnt No 08/30/18 08:18 PT 13.0 Sec. (12.2-14.9) 08/29/18 16:34 INR 0.93 (0.87-1.13) 08/29/18 16:34 APTT 27.7 Sec. (24.2-36.6) 08/29/18 16:34 D-Dimer 617.53 ng/mlDDU (0-234) H 08/29/18 17:00 POC ABG pH 7.458 (7.35-7.45) H 08/29/18 17:09 POC ABG pCO2 32.1 (35-45) L 08/29/18 17:09 POC ABG HCO3 22.7 (22-26 mml/L) 08/29/18 17:09 POC ABG Total CO2 24 (23-27mmol/L) 08/29/18 17:09 POC ABG O2 Sat 85 08/29/18 17:09 POC ABG Base Excess -1 ((-2) - (+3)mmol/L) 08/29/18 17:09 VBG pH 7.447 (7.320-7.420) H 08/29/18 16:34 FiO2 36 % 08/29/18 17:09 Sodium 135 mmol/L (137-145) L 09/06/18 07:35 Potassium 3.6 mmol/L (3.6-5.0) 09/06/18 07:35 Chloride 100.4 mmol/L (98-107) 09/06/18 07:35 Carbon Dioxide 22 mmol/L (22-30) 09/06/18 07:35 Anion Gap 16 mmol/L 09/06/18 07:35 BUN 14 mg/dL (9-20) 09/06/18 07:35 Creatinine 0.8 mg/dL (0.8-1.5) 09/06/18 07:35 Estimated GFR > 60 ml/min 09/06/18 07:35 BUN/Creatinine Ratio 18 % 09/06/18 07:35 Glucose 103 mg/dL (75-100) H 09/06/18 07:35 Lactic Acid 1.40 mmol/L (0.7-2.0) 08/29/18 19:25 Calcium 8.0 mg/dL (8.4-10.2) L 09/06/18 07:35 Phosphorus 3.60 mg/dL (2.5-4.5) 09/06/18 07:35 Magnesium 1.70 mg/dL (1.7-2.3) 09/06/18 07:35 Total Bilirubin 0.70 mg/dL (0.1-1.2) 09/06/18 07:35 AST 14 units/L (5-40) 09/06/18 07:35 ALT 8 units/L (7-56) 09/06/18 07:35 Alkaline Phosphatase 51 units/L (35-129) 09/06/18 07:35 Total Creatine Kinase 32 units/L (55-170) L 08/29/18 16:34 CK-MB (CK-2) 2.3 ng/mL (0.0-4.0) 08/29/18 16:34 CK-MB (CK-2) Rel Index 7.1 (0-4) H 08/29/18 16:34 Troponin T < 0.010 ng/mL (0.00-0.029) 08/29/18 16:34 NT-Pro-B Natriuret Pep 694.9 pg/mL (0-900) 08/29/18 16:34 Total Protein 5.0 g/dL (6.3-8.2) L 09/06/18 07:35 Albumin 2.3 g/dL (3.9-5) L 09/06/18 07:35 Albumin/Globulin Ratio 0.9 % 09/06/18 07:35 Urine Color Yellow (Yellow) 08/29/18 19:44 Urine Turbidity Clear (Clear) 08/29/18 19:44 Urine pH 5.0 (5.0-7.0) 08/29/18 19:44 Ur Specific [place] 1.035 (1.003-1.030) H 08/29/18 19:44 Urine Protein <15 mg/dl mg/dL (Negative) 08/29/18 19:44 Urine Glucose (UA) Neg mg/dL (Negative) 08/29/18 19:44 Urine Ketones Tr mg/dL (Negative) 08/29/18 19:44 Urine Blood Neg (Negative) 08/29/18 19:44 Urine Nitrite Neg (Negative) 08/29/18 19:44 Urine Bilirubin Neg (Negative) 08/29/18 19:44 Urine Urobilinogen 2.0 mg/dL (<2.0) 08/29/18 19:44 Ur Leukocyte Esterase Neg (Negative) 08/29/18 19:44 Urine WBC (Auto) 7.0 /HPF (0.0-6.0) H 08/29/18 19:44 Urine RBC (Auto) 1.0 /HPF (0.0-6.0) 08/29/18 19:44 U Epithel Cells (Auto) < 1.0 /HPF (0-13.0) 08/29/18 19:44 Urine Mucus Few /HPF 08/29/18 19:44 Active Medications - Current Medications Current Medications: Generic Name Dose Route Start Last Admin Trade Name Freq PRN Reason Stop Dose Admin Acetaminophen 650 mg 08/29/18 21:29 08/30/18 05:53 Tylenol PO 650 mg Q4H PRN Administration Pain MILD(1-3)/Fever >100.5/VENEGAS Al Hydrox/Mg Hydrox/Simethicone 30 ml 08/29/18 21:29 Alum-Mag Hydrox-Simeth [id number]/5ml PO Q4H PRN Indigestion Albuterol/Ipratropium 1 ampul 09/06/18 08:00 09/06/18 09:07 Duoneb *Not For Prn Use* IH 1 ampul TIDRT GUILLERMO Administration Amlodipine Besylate 10 mg 08/30/18 10:00 09/05/18 13:46 Norvasc PO Not Given DAILY GUILLERMO Aspirin 325 mg 08/30/18 10:00 09/05/18 13:51 Aspirin PO 325 mg QDAY GUILLERMO Administration Carvedilol 25 mg 08/29/18 22:00 09/05/18 22:35 Coreg PO 25 mg Q12HR GUILLERMO Administration Clonidine HCl 0.1 mg 08/29/18 22:00 09/05/18 22:35 Catapres PO 0.1 mg BID GUILLERMO Administration Docusate Sodium 100 mg 08/29/18 22:00 09/05/18 22:36 Colace PO 100 mg BID GUILLERMO Administration Enoxaparin Sodium 40 mg 08/30/18 10:00 09/05/18 10:00 Lovenox SUB-Q Not Given QDAY GUILLERMO Famotidine 20 mg 08/29/18 22:00 09/05/18 22:35 Pepcid PO 20 mg BID GUILLERMO Administration Haloperidol Lactate 2 mg 09/01/18 11:34 Haldol IM Q6H PRN Agitation Hydralazine HCl 100 mg 08/29/18 22:00 09/06/18 05:46 Apresoline PO Not Given Q8H GUILLERMO Hydromorphone HCl 2 mg 08/29/18 21:29 09/06/18 04:28 Dilaudid IV 2 mg Q3H PRN Administration Pain, Moderate (4-6) Sodium Chloride 1,000 mls @ 125 mls/hr 08/29/18 22:00 09/06/18 02:56 Nacl 0.45% 1000 Ml IV 125 mls/hr DIRECT GUILLERMO Administration Levofloxacin/Dextrose 750 mg in 150 mls @ 100 mls/hr 08/30/18 10:00 09/05/18 13:52 Levaquin 750mg/150ml IV 100 mls/hr Q24HR GUILLERMO Administration Protocol Dextrose/Sodium Chloride 1,000 mls @ 100 mls/hr 09/06/18 11:00 D5ns IV DIRECT GUILLERMO Labetalol HCl 10 mg 08/29/18 22:07 Normodyne IV Q6HR PRN Hypertension Lisinopril 10 mg 08/30/18 10:00 09/05/18 10:00 Zestril PO Not Given QDAY GUILLERMO Ondansetron HCl 4 mg 08/29/18 21:29 Zofran IV Q6H PRN Nausea And Vomiting Oxycodone/Acetaminophen 1 tab 08/29/18 21:29 09/05/18 13:56 Percocet 5/325 PO 1 tab Q6H PRN Administration Pain, Moderate (4-6) Pravastatin Sodium 40 mg 08/29/18 22:00 09/05/18 22:35 Pravachol PO 40 mg QHS GUILLERMO Administration Sodium Chloride 10 ml 08/29/18 22:00 09/05/18 22:53 Sodium Chloride Flush Syringe 10 Ml IV 10 ml BID GUILLERMO Administration Sodium Chloride 10 ml 08/29/18 21:29 Sodium Chloride Flush Syringe 10 Ml IV PRN PRN LINE FLUSH Zolpidem Tartrate 5 mg 08/29/18 21:29 Ambien PO QHS PRN Insomnia Nutrition/Malnutrition Assess - Dietary Evaluation Nutrition/Malnutrition Findings: Nutrition Notes Start: 08/30/18 13:41 Freq: Status: Active Protocol: Document 09/04/18 16:30 RM (Rec: 09/04/18 16:34 RM [id number]) Nutrition Notes Initial or Follow up Reassessment Current Diagnosis Coronary Artery Disease, Hypertension,Stroke, Hyperlipidemia Other Pertinent Diagnosis Respiratory distress, R hemiparesis Current Diet GI soft, Mech Soft w/Ensure Enlive 1 daily Labs/Tests Reviewed Pertinent Medications Reviewed Height 5 ft 11 in Weight 69.2 kg [place] Body Weight (kg) 78.18 BMI 21.2 Subjective/Other Information Pt stated that he has no appetite d/t SOB. Stated he drinks some of the Ensure but chokes on it. Burn Absent Trauma Absent #1 Nutrition Diagnosis Malnutrition Diagnosis Progress(for reassessment Continues documentation) Is patient on ventilator? No Is Patient Ambulatory and/or Out of Bed No REE-([facility]-confined to bed) 1804.356 Kcal/Kg value to use for calculation 33 Approximate Energy Requirements Using 2284 kcal/Kg Calculation Used for Recommendations Kcal/kg Additional Notes Protein Needs: 74-93g (1.2-1. 5g/kg) Fluid Needs: 1 ml/kcal Nutrition Intervention Change Diet Order: Mech soft w/ground meat Add Supplement/Snack (indicate name/kcal D/C Ensure Enlive 1 daily /protein ) Goal #1 Meet at least 75% of calorie and protein needs via PO and ONS intakes Anticipated Discharge Needs: Unable to determine at this time Follow-Up By: 09/06/18 Additional Comments Follow for PO intakes
[2018-09-06] MEDS: PEPCID PO SCH ×2 (12:09→23:30)
[2018-09-06] MEDS: COLACE PO SCH ×2 (12:09→23:00)
[2018-09-06] MEDS: LOVENOX SUB-Q SCH (12:09)
[2018-09-06] MEDS: ASPIRIN PO SCH (12:09)
[2018-09-06] MEDS: LEVAQUIN 750MG/150ML 750 MG/150 ML BAG IV SCH (12:10)
[2018-09-06] MEDS: D5NS 1,000 ML IV SCH ×2 (12:10→23:28)
[2018-09-06] MEDS: SODIUM CHLORIDE FLUSH SYRINGE 10 ML IV SCH ×2 (12:11→23:00)
--- NOTE | 2018-09-06 14:03 | Progress Note ---
Assessment and Plan 63 y/o with anterior mediastinal mass. Suggest Onc consult Subjective Date of service: 09/06/18 Principal diagnosis: Lung mass, COPD Interval history: Biopsy suspicious for squamous cell carcinoma. Objective Vital Signs - 12hr 09/06/18 09/06/18 09/06/18 05:30 05:46 06:44 Temperature 97.8 F Pulse Rate 75 78 89 Pulse Rate [ Anterior Bilateral Throughout] Respiratory 16 Rate Respiratory Rate [Anterior Bilateral Throughout] Blood Pressure 80/38 82/46 Blood Pressure 89/40 [Left] O2 Sat by Pulse 92 Oximetry 09/06/18 09/06/18 09:07 12:12 Temperature 99.0 F Pulse Rate 94 H Pulse Rate [ 88 Anterior Bilateral Throughout] Respiratory 20 Rate Respiratory 20 Rate [Anterior Bilateral Throughout] Blood Pressure 88/51 Blood Pressure [Left] O2 Sat by Pulse 93 92 Oximetry Constitutional: no acute distress, alert, other (slight speech slightly slurred) ENT: oropharynx moist Neck: supple, no JVD, other (no collateral circulation visible in the upper chest) Ascultation: Bilateral: clear, diminished breath sounds, rhonchi (sporadic) Cardiovascular: regular rate and rhythm Gastrointestinal: normoactive bowel sounds, non-distended Integumentary: normal Extremities: no cyanosis, no edema Neurologic: non-focal exam, CN II-XII normal Psychiatric: mood appropriate, affect normal CBC and BMP: 09/06/18 07:35 09/06/18 07:35 ABG, PT/INR, D-dimer: ABG POC ABG pH 7.458 (7.35-7.45) H 08/29/18 17:09 POC ABG pCO2 32.1 (35-45) L 08/29/18 17:09 POC ABG HCO3 22.7 (22-26 mml/L) 08/29/18 17:09 POC ABG Total CO2 24 (23-27mmol/L) 08/29/18 17:09 POC ABG O2 Sat 85 08/29/18 17:09 PT/INR, D-dimer PT 13.0 Sec. (12.2-14.9) 08/29/18 16:34 INR 0.93 (0.87-1.13) 08/29/18 16:34 D-Dimer 617.53 ng/mlDDU (0-234) H 08/29/18 17:00 Abnormal lab findings: Abnormal Labs 08/29/18 08/29/18 08/29/18 16:34 16:34 16:34 WBC 14.5 H RBC Hgb Hct Lymph % (Auto) 10.4 L [place] % (Auto) 8.4 H Eos % (Auto) 6.3 H Lymph # [place] # 1.2 H Eos # 0.9 H Seg Neutrophils % 74.2 H Seg Neuts % (Manual) Lymphocytes % (Manual) Seg Neutrophils # 10.7 H Seg Neutrophils # Man Lymphocytes # (Manual) Monocytes # (Manual) D-Dimer POC ABG pH POC ABG pCO2 VBG pH 7.447 H Sodium Chloride BUN Creatinine Glucose 170 H Calcium ALT Total Creatine Kinase 32 L CK-MB (CK-2) Rel Index 7.1 H Total Protein Albumin 3.8 L Ur Specific [place] Urine WBC (Auto) 08/29/18 08/29/18 08/29/18 17:00 17:09 19:44 WBC RBC Hgb Hct Lymph % (Auto) [place] % (Auto) Eos % (Auto) Lymph # [place] # Eos # Seg Neutrophils % Seg Neuts % (Manual) Lymphocytes % (Manual) Seg Neutrophils # Seg Neutrophils # Man Lymphocytes # (Manual) Monocytes # (Manual) D-Dimer 617.53 H POC ABG pH 7.458 H POC ABG pCO2 32.1 L VBG pH Sodium Chloride BUN Creatinine Glucose Calcium ALT Total Creatine Kinase CK-MB (CK-2) Rel Index Total Protein Albumin Ur Specific [place] 1.035 H Urine WBC (Auto) 7.0 H 08/30/18 08/30/18 09/01/18 08:18 08:18 05:31 WBC 12.9 H 15.4 H RBC Hgb Hct Lymph % (Auto) 6.5 L [place] % (Auto) Eos % (Auto) Lymph # 1.0 L [place] # Eos # Seg Neutrophils % 88.8 H Seg Neuts % (Manual) 89.0 H Lymphocytes % (Manual) 4.0 L Seg Neutrophils # 13.7 H Seg Neutrophils # Man 11.5 H Lymphocytes # (Manual) 0.5 L Monocytes # (Manual) 0.9 H D-Dimer POC ABG pH POC ABG pCO2 VBG pH Sodium Chloride BUN Creatinine 0.7 L Glucose 101 H Calcium ALT 6 L Total Creatine Kinase CK-MB (CK-2) Rel Index Total Protein Albumin 3.5 L Ur Specific [place] Urine WBC (Auto) 09/01/18 09/05/18 09/05/18 05:31 05:05 05:05 WBC 11.1 H RBC 3.63 L Hgb 11.3 L Hct 33.8 L Lymph % (Auto) 8.0 L [place] % (Auto) 13.7 H Eos % (Auto) Lymph # 0.9 L [place] # 1.5 H Eos # Seg Neutrophils % 74.5 H Seg Neuts % (Manual) Lymphocytes % (Manual) Seg Neutrophils # 8.3 H Seg Neutrophils # Man Lymphocytes # (Manual) Monocytes # (Manual) D-Dimer POC ABG pH POC ABG pCO2 VBG pH Sodium 134 L D 135 L Chloride 96.7 L BUN 21 H Creatinine 0.7 L 0.6 L Glucose Calcium ALT Total Creatine Kinase CK-MB (CK-2) Rel Index Total Protein Albumin Ur Specific [place] Urine WBC (Auto) 09/06/18 09/06/18 07:35 07:35 WBC RBC 3.45 L Hgb 11.1 L Hct 32.3 L Lymph % (Auto) 9.8 L [place] % (Auto) 12.5 H Eos % (Auto) Lymph # 0.9 L [place] # 1.1 H Eos # Seg Neutrophils % 73.3 H Seg Neuts % (Manual) Lymphocytes % (Manual) Seg Neutrophils # Seg Neutrophils # Man Lymphocytes # (Manual) Monocytes # (Manual) D-Dimer POC ABG pH POC ABG pCO2 VBG pH Sodium 135 L Chloride BUN Creatinine Glucose 103 H Calcium 8.0 L ALT Total Creatine Kinase CK-MB (CK-2) Rel Index Total Protein 5.0 L Albumin 2.3 L Ur Specific [place] Urine WBC (Auto)
[2018-09-06] MEDS: PRAVACHOL PO SCH (23:30)
[2018-09-07] MEDS: APRESOLINE PO SCH ×3 (05:14→23:00)
[2018-09-07 05:24] LABS: Basophils # (Auto) 0.1 K/mm3 (0.0-0.1); Basophils % (Auto) 0.9 % (0.0-1.8); Eosinophils # (Auto) 0.5 K/mm3 (0.0-0.4); Eosinophils % (Auto) 5.5 % (0.0-4.3); Hematocrit 33.7 % (35.5-45.6); Hemoglobin 11.6 gm/dl (11.8-15.2); Lymphocytes % (Auto) 11.3 % (13.4-35.0); Mean Corpuscular HGB Conc 34 % (32-34); Mean Corpuscular Volume 93 fl (84-94); Monocytes # (Auto) 1.1 K/mm3 (0.0-0.8); Monocytes % (Auto) 12.1 % (0.0-7.3); Platelet Count 287 K/mm3 (140-440); Red Blood Count 3.61 M/mm3 (3.65-5.03)
[2018-09-07 05:38] LABS: BUN/Creatinine Ratio 19; Blood Urea Nitrogen 17 mg/dL (9-20); Calcium 8.4 mg/dL (8.4-10.2); Hemolysis Index 13
[2018-09-07] MEDS: DUONEB *Not for PRN Use IH SCH ×3 (08:00→20:16)
--- NOTE | 2018-09-07 08:48 | Event Note ---
Date: 09/07/18 [id number]
[2018-09-07] MEDS: LOVENOX SUB-Q SCH (10:54)
[2018-09-07] MEDS: COLACE PO SCH ×2 (10:54→21:40)
[2018-09-07] MEDS: PEPCID PO SCH ×2 (10:55→21:41)
[2018-09-07] MEDS: COREG PO SCH ×2 (10:55→21:39)
[2018-09-07] MEDS: CATAPRES PO SCH ×2 (10:55→21:40)
[2018-09-07] MEDS: ASPIRIN PO SCH (10:56)
[2018-09-07] MEDS: D5NS 1,000 ML IV SCH ×2 (10:56→21:47)
[2018-09-07] MEDS: LEVAQUIN PO SCH (10:56)
[2018-09-07] MEDS: SODIUM CHLORIDE FLUSH SYRINGE 10 ML IV SCH ×2 (10:57→21:41)
[2018-09-07] MEDS: PERCOCET 5/325 PO PRN ×2 (11:07→21:40)
--- NOTE | 2018-09-07 11:47 | Progress Note ---
Assessment and Plan Assessment and plan: --Squamous cell carcinoma lung; s/p biopsy, squamous cell carcinoma, oncology consulted --Hypoxic respiratory failure; requiring BiPAP, symptoms significantly improved Oxygen, nebulizers, IV steroids, IV antibiotics, supportive care Pulmonary following --Right shoulder pain;secondary to possible metastasis Pain management and supportive care --Left lower lobe pneumonia; probably post obstructive pneumonia Continue IV antibiotics follow cultures --Leukocytosis; sepsis secondary to pneumonia --History of CVA with residual right-sided weakness Physical therapy occupational therapy and supportive care --Pathologic fractures of ribs and sternum; supportive care pain management Incentive spirometry --Ongoing tobacco use; smoking cessation advised nicotine patch as needed --Full CODE STATUS --DVT prophylaxis; SCDs, Lovenox Monitor closely and adjust the management Consults and recommendations noted and appreciated History Interval history: Patient seen and examined medical records reviewed Slightly better wants to go home Hematology oncology consulted No new events reported by the nursing staff Vital signs stable Hospitalist Physical - Constitutional Vitals: Temp Pulse Resp BP Pulse Ox 97.7 F 94 H 24 146/67 97 09/07/18 04:47 09/07/18 10:55 09/07/18 11:07 09/07/18 10:55 09/07/18 08:19 General appearance: Present: no acute distress, cachectic, disheveled - EENT Eyes: Present: PERRL, EOM intact - Neck Neck: Present: supple, normal ROM - Respiratory Respiratory effort: normal Respiratory: bilateral: diminished, rhonchi, negative: rales, wheezing - Cardiovascular Rhythm: regular Heart Sounds: Present: S1 & S2 - Extremities Extremities: no ischemia, No edema - Abdominal General gastrointestinal: soft, non-tender, non-distended, normal bowel sounds - Integumentary Integumentary: Present: clear, warm - Psychiatric Psychiatric: appropriate mood/affect, cooperative - Neurologic Neurologic: CNII-XII intact, moves all extremities Results - Labs CBC & Chem 7: 09/07/18 04:13 09/07/18 04:13 Labs: Laboratory Last Values WBC 9.2 K/mm3 (4.5-11.0) 09/07/18 04:13 RBC 3.61 M/mm3 (3.65-5.03) L 09/07/18 04:13 Hgb 11.6 gm/dl (11.8-15.2) L 09/07/18 04:13 Hct 33.7 % (35.5-45.6) L 09/07/18 04:13 MCV 93 fl (84-94) 09/07/18 04:13 MCH 32 pg (28-32) 09/07/18 04:13 MCHC 34 % (32-34) 09/07/18 04:13 RDW 14.0 % (13.2-15.2) 09/07/18 04:13 Plt Count 287 K/mm3 (140-440) 09/07/18 04:13 Lymph % (Auto) 11.3 % (13.4-35.0) L 09/07/18 04:13 [place] % (Auto) 12.1 % (0.0-7.3) H 09/07/18 04:13 Eos % (Auto) 5.5 % (0.0-4.3) H 09/07/18 04:13 Baso % (Auto) 0.9 % (0.0-1.8) 09/07/18 04:13 Lymph # 1.0 K/mm3 (1.2-5.4) L 09/07/18 04:13 [place] # 1.1 K/mm3 (0.0-0.8) H 09/07/18 04:13 Eos # 0.5 K/mm3 (0.0-0.4) H 09/07/18 04:13 Baso # 0.1 K/mm3 (0.0-0.1) 09/07/18 04:13 Add Manual Diff Complete 08/30/18 08:18 Total Counted 100 08/30/18 08:18 Seg Neutrophils % 70.2 % (40.0-70.0) H 09/07/18 04:13 Seg Neuts % (Manual) 89.0 % (40.0-70.0) H 08/30/18 08:18 Band Neutrophils % 0 % 08/30/18 08:18 Lymphocytes % (Manual) 4.0 % (13.4-35.0) L 08/30/18 08:18 Reactive Lymphs % (Man) 0 % 08/30/18 08:18 Monocytes % (Manual) 7.0 % (0.0-7.3) 08/30/18 08:18 Eosinophils % (Manual) 0 % (0.0-4.3) 08/30/18 08:18 Basophils % (Manual) 0 % (0.0-1.8) 08/30/18 08:18 Metamyelocytes % 0 % 08/30/18 08:18 Myelocytes % 0 % 08/30/18 08:18 Promyelocytes % 0 % 08/30/18 08:18 Blast Cells % 0 % 08/30/18 08:18 Nucleated RBC % Not Reportable 08/30/18 08:18 Seg Neutrophils # 6.5 K/mm3 (1.8-7.7) 09/07/18 04:13 Seg Neutrophils # Man 11.5 K/mm3 (1.8-7.7) H 08/30/18 08:18 Band Neutrophils # 0.0 K/mm3 08/30/18 08:18 Lymphocytes # (Manual) 0.5 K/mm3 (1.2-5.4) L 08/30/18 08:18 Abs React Lymphs (Man) 0.0 K/mm3 08/30/18 08:18 Monocytes # (Manual) 0.9 K/mm3 (0.0-0.8) H 08/30/18 08:18 Eosinophils # (Manual) 0.0 K/mm3 (0.0-0.4) 08/30/18 08:18 Basophils # (Manual) 0.0 K/mm3 (0.0-0.1) 08/30/18 08:18 Metamyelocytes # 0.0 K/mm3 08/30/18 08:18 Myelocytes # 0.0 K/mm3 08/30/18 08:18 Promyelocytes # 0.0 K/mm3 08/30/18 08:18 Blast Cells # 0.0 K/mm3 08/30/18 08:18 WBC Morphology Not Reportable 08/30/18 08:18 Hypersegmented Neuts Not Reportable 08/30/18 08:18 Hyposegmented Neuts Not Reportable 08/30/18 08:18 Hypogranular Neuts Not Reportable 08/30/18 08:18 Smudge Cells Not Reportable 08/30/18 08:18 Toxic Granulation Not Reportable 08/30/18 08:18 Toxic Vacuolation Not Reportable 08/30/18 08:18 Dohle Bodies Not Reportable 08/30/18 08:18 Pelger-Huet Anomaly Not Reportable 08/30/18 08:18 [place] Rods Not Reportable 08/30/18 08:18 Platelet Estimate Consistent w auto 08/30/18 08:18 Clumped Platelets Rare 08/30/18 08:18 Plt Clumps, EDTA Not Reportable 08/30/18 08:18 Large Platelets Not Reportable 08/30/18 08:18 Giant Platelets Not Reportable 08/30/18 08:18 Platelet Satelliting Not Reportable 08/30/18 08:18 Plt Morphology Comment Not Reportable 08/30/18 08:18 RBC Morphology Normal 08/30/18 08:18 Dimorphic RBCs Not Reportable 08/30/18 08:18 Polychromasia Not Reportable 08/30/18 08:18 Hypochromasia Not Reportable 08/30/18 08:18 Poikilocytosis Not Reportable 08/30/18 08:18 Anisocytosis Not Reportable 08/30/18 08:18 Microcytosis Not Reportable 08/30/18 08:18 Macrocytosis Not Reportable 08/30/18 08:18 Spherocytes Not Reportable 08/30/18 08:18 Pappenheimer Bodies Not Reportable 08/30/18 08:18 Sickle Cells Not Reportable 08/30/18 08:18 Target Cells Not Reportable 08/30/18 08:18 Tear Drop Cells Not Reportable 08/30/18 08:18 Ovalocytes Not Reportable 08/30/18 08:18 Helmet Cells Not Reportable 08/30/18 08:18 [place] Bodies Not Reportable 08/30/18 08:18 [place] Rings Not Reportable 08/30/18 08:18 [place] Cells Not Reportable 08/30/18 08:18 Bite Cells Not Reportable 08/30/18 08:18 Crenated Cell Not Reportable 08/30/18 08:18 Elliptocytes Not Reportable 08/30/18 08:18 Acanthocytes (Spur) Not Reportable 08/30/18 08:18 Rouleaux Not Reportable 08/30/18 08:18 Hemoglobin C Crystals Not Reportable 08/30/18 08:18 Schistocytes Not Reportable 08/30/18 08:18 Malaria parasites Not Reportable 08/30/18 08:18 Lefty Bodies Not Reportable 08/30/18 08:18 Hem Pathologist Commnt No 08/30/18 08:18 PT 13.0 Sec. (12.2-14.9) 08/29/18 16:34 INR 0.93 (0.87-1.13) 08/29/18 16:34 APTT 27.7 Sec. (24.2-36.6) 08/29/18 16:34 D-Dimer 617.53 ng/mlDDU (0-234) H 08/29/18 17:00 POC ABG pH 7.458 (7.35-7.45) H 08/29/18 17:09 POC ABG pCO2 32.1 (35-45) L 08/29/18 17:09 POC ABG HCO3 22.7 (22-26 mml/L) 08/29/18 17:09 POC ABG Total CO2 24 (23-27mmol/L) 08/29/18 17:09 POC ABG O2 Sat 85 08/29/18 17:09 POC ABG Base Excess -1 ((-2) - (+3)mmol/L) 08/29/18 17:09 VBG pH 7.447 (7.320-7.420) H 08/29/18 16:34 FiO2 36 % 08/29/18 17:09 Sodium 136 mmol/L (137-145) L 09/07/18 04:13 Potassium 3.1 mmol/L (3.6-5.0) L 09/07/18 04:13 Chloride 99.7 mmol/L (98-107) 09/07/18 04:13 Carbon Dioxide 24 mmol/L (22-30) 09/07/18 04:13 Anion Gap 15 mmol/L 09/07/18 04:13 BUN 17 mg/dL (9-20) 09/07/18 04:13 Creatinine 0.9 mg/dL (0.8-1.5) 09/07/18 04:13 Estimated GFR > 60 ml/min 09/07/18 04:13 BUN/Creatinine Ratio 19 % 09/07/18 04:13 Glucose 127 mg/dL (75-100) H 09/07/18 04:13 Lactic Acid 1.40 mmol/L (0.7-2.0) 08/29/18 19:25 Calcium 8.4 mg/dL (8.4-10.2) 09/07/18 04:13 Phosphorus 3.60 mg/dL (2.5-4.5) 09/06/18 07:35 Magnesium 1.70 mg/dL (1.7-2.3) 09/06/18 07:35 Total Bilirubin 0.70 mg/dL (0.1-1.2) 09/06/18 07:35 AST 14 units/L (5-40) 09/06/18 07:35 ALT 8 units/L (7-56) 09/06/18 07:35 Alkaline Phosphatase 51 units/L (35-129) 09/06/18 07:35 Total Creatine Kinase 32 units/L (55-170) L 08/29/18 16:34 CK-MB (CK-2) 2.3 ng/mL (0.0-4.0) 08/29/18 16:34 CK-MB (CK-2) Rel Index 7.1 (0-4) H 08/29/18 16:34 Troponin T < 0.010 ng/mL (0.00-0.029) 08/29/18 16:34 NT-Pro-B Natriuret Pep 694.9 pg/mL (0-900) 08/29/18 16:34 Total Protein 5.0 g/dL (6.3-8.2) L 09/06/18 07:35 Albumin 2.3 g/dL (3.9-5) L 09/06/18 07:35 Albumin/Globulin Ratio 0.9 % 09/06/18 07:35 Urine Color Yellow (Yellow) 08/29/18 19:44 Urine Turbidity Clear (Clear) 08/29/18 19:44 Urine pH 5.0 (5.0-7.0) 08/29/18 19:44 Ur Specific [place] 1.035 (1.003-1.030) H 08/29/18 19:44 Urine Protein <15 mg/dl mg/dL (Negative) 08/29/18 19:44 Urine Glucose (UA) Neg mg/dL (Negative) 08/29/18 19:44 Urine Ketones Tr mg/dL (Negative) 08/29/18 19:44 Urine Blood Neg (Negative) 08/29/18 19:44 Urine Nitrite Neg (Negative) 08/29/18 19:44 Urine Bilirubin Neg (Negative) 08/29/18 19:44 Urine Urobilinogen 2.0 mg/dL (<2.0) 08/29/18 19:44 Ur Leukocyte Esterase Neg (Negative) 08/29/18 19:44 Urine WBC (Auto) 7.0 /HPF (0.0-6.0) H 08/29/18 19:44 Urine RBC (Auto) 1.0 /HPF (0.0-6.0) 08/29/18 19:44 U Epithel Cells (Auto) < 1.0 /HPF (0-13.0) 08/29/18 19:44 Urine Mucus Few /HPF 08/29/18 19:44 Active Medications - Current Medications Current Medications: Generic Name Dose Route Start Last Admin Trade Name Freq PRN Reason Stop Dose Admin Acetaminophen 650 mg 08/29/18 21:29 08/30/18 05:53 Tylenol PO 650 mg Q4H PRN Administration Pain MILD(1-3)/Fever >100.5/VENEGAS Al Hydrox/Mg Hydrox/Simethicone 30 ml 08/29/18 21:29 Alum-Mag Hydrox-Simeth 572-286-25ev/5ml PO Q4H PRN Indigestion Albuterol/Ipratropium 1 ampul 09/06/18 08:00 09/07/18 08:00 Duoneb *Not For Prn Use* IH 1 ampul TIDRT GUILLERMO Administration Amlodipine Besylate 10 mg 08/30/18 10:00 09/06/18 10:00 Norvasc PO Not Given DAILY GUILLERMO Aspirin 325 mg 08/30/18 10:00 09/07/18 10:56 Aspirin PO 325 mg QDAY GUILLERMO Administration Carvedilol 25 mg 08/29/18 22:00 09/07/18 10:55 Coreg PO 25 mg Q12HR GUILLERMO Administration Clonidine HCl 0.1 mg 08/29/18 22:00 09/07/18 10:55 Catapres PO 0.1 mg BID GUILLERMO Administration Docusate Sodium 100 mg 08/29/18 22:00 09/07/18 10:54 Colace PO 100 mg BID GUILLERMO Administration Enoxaparin Sodium 40 mg 08/30/18 10:00 09/07/18 10:54 Lovenox SUB-Q 40 mg QDAY GUILLERMO Administration Famotidine 20 mg 08/29/18 22:00 09/07/18 10:55 Pepcid PO 20 mg BID GUILLERMO Administration Haloperidol Lactate 2 mg 09/01/18 11:34 Haldol IM Q6H PRN Agitation Hydralazine HCl 100 mg 08/29/18 22:00 09/07/18 05:14 Apresoline PO 100 mg Q8H GUILLERMO Administration Hydromorphone HCl 2 mg 08/29/18 21:29 09/06/18 04:28 Dilaudid IV 2 mg Q3H PRN Administration Pain, Moderate (4-6) Dextrose/Sodium Chloride 1,000 mls @ 100 mls/hr 09/06/18 11:30 09/07/18 10:56 D5ns IV 100 mls/hr DIRECT GUILLERMO Administration Labetalol HCl 10 mg 08/29/18 22:07 Normodyne IV Q6HR PRN Hypertension Levofloxacin 750 mg 09/07/18 10:00 09/07/18 10:56 Levaquin PO 750 mg DAILY GUILLERMO Administration Lisinopril 10 mg 08/30/18 10:00 09/06/18 10:00 Zestril PO Not Given QDAY GUILLERMO Ondansetron HCl 4 mg 08/29/18 21:29 Zofran IV Q6H PRN Nausea And Vomiting Oxycodone/Acetaminophen 1 tab 08/29/18 21:29 09/07/18 11:07 Percocet 5/325 PO 1 tab Q6H PRN Administration Pain, Moderate (4-6) Pravastatin Sodium 40 mg 08/29/18 22:00 09/06/18 23:30 Pravachol PO 40 mg QHS GUILLERMO Administration Sodium Chloride 10 ml 08/29/18 22:00 09/07/18 10:57 Sodium Chloride Flush Syringe 10 Ml IV 10 ml BID GUILLERMO Administration Sodium Chloride 10 ml 08/29/18 21:29 Sodium Chloride Flush Syringe 10 Ml IV PRN PRN LINE FLUSH Zolpidem Tartrate 5 mg 08/29/18 21:29 Ambien PO QHS PRN Insomnia Nutrition/Malnutrition Assess - Dietary Evaluation Nutrition/Malnutrition Findings: Nutrition Notes Start: 08/30/18 13:41 Freq: Status: Active Protocol: Document 09/06/18 13:04 LM (Rec: 04/10/19 13:17 LM [id number]) Co-Sign 09/06/18 13:04 LP Nutrition Notes Initial or Follow up Reassessment Current Diagnosis Coronary Artery Disease, Hypertension,Stroke, Hyperlipidemia Other Pertinent Diagnosis Respiratory distress, R hemiparesis, pneu Current Diet Mechanical soft Labs/Tests Na 135 Pertinent Medications Reviewed Height 5 ft 11 in Weight 67 kg [place] Body Weight (kg) 78.18 BMI 20.6 Subjective/Other Information Family member feeding pt in room at time of visit. Pt only ate a couple of bites. Family member said pt has to be fed. Pt tolerating ensure. Pt took a couple sips at time of visit. Percent of energy/protein needs met: 0%/0% Burn Absent Trauma Absent #1 Nutrition Diagnosis Malnutrition Diagnosis Progress(for reassessment Continues documentation) Is patient on ventilator? No Is Patient Ambulatory and/or Out of Bed No REE-([place]-confined to bed) 1777.992 Kcal/Kg value to use for calculation 33 Approximate Energy Requirements Using 2211 kcal/Kg Calculation Used for Recommendations Kcal/kg Additional Notes Protein Needs: 80-101g (1.2-1. 5g/kg) Fluid Needs: 1 ml/kcal Nutrition Intervention Change [facility] w/ground meat Add Supplement/Snack (indicate name/kcal Ensure Enlive Chocolate 1 /protein ) daily Provides kCal: 350 Provides Protein (gm) 20 Goal #1 Meet at least 75% of calorie and protein needs via PO and ONS intakes Anticipated Discharge Needs: Unable to determine at this time Follow-Up By: 09/08/18 Additional Comments Follow for PO intakes, need for ONS
--- NOTE | 2018-09-07 12:44 | Progress Note ---
Assessment and Plan 63 y/o with anterior mediastinal mass. Onc now following will need walk test prior to discharge to assess oxygen needs Will arrange follow up in our office 10 days post discharge WIll sign off . Call if questions. Subjective Date of service: 09/07/18 Principal diagnosis: Lung mass, COPD Interval history: Onc has seen, awaiting their note. Satting well on 2 liters NC Objective Vital Signs - 12hr 09/07/18 09/07/18 09/07/18 04:47 08:00 08:15 Temperature 97.7 F Pulse Rate 91 H Pulse Rate [ 125 H 124 H Anterior Bilateral Throughout] Respiratory 18 Rate Respiratory 20 20 Rate [Anterior Bilateral Throughout] Blood Pressure Blood Pressure 146/59 [Left] O2 Sat by Pulse 94 Oximetry 09/07/18 09/07/18 09/07/18 08:19 10:55 11:07 Temperature Pulse Rate 94 H Pulse Rate [ Anterior Bilateral Throughout] Respiratory 24 Rate Respiratory Rate [Anterior Bilateral Throughout] Blood Pressure 146/67 Blood Pressure [Left] O2 Sat by Pulse 97 Oximetry Constitutional: no acute distress, alert, other (slight speech slightly slurred) ENT: oropharynx moist Neck: supple, no JVD, other (no collateral circulation visible in the upper chest) Ascultation: Bilateral: clear, diminished breath sounds, rhonchi (sporadic) Cardiovascular: regular rate and rhythm Gastrointestinal: normoactive bowel sounds, non-distended Integumentary: normal Extremities: no cyanosis, no edema Neurologic: non-focal exam, CN II-XII normal Psychiatric: mood appropriate, affect normal CBC and BMP: 09/07/18 04:13 09/07/18 04:13 ABG, PT/INR, D-dimer: ABG POC ABG pH 7.458 (7.35-7.45) H 08/29/18 17:09 POC ABG pCO2 32.1 (35-45) L 08/29/18 17:09 POC ABG HCO3 22.7 (22-26 mml/L) 08/29/18 17:09 POC ABG Total CO2 24 (23-27mmol/L) 08/29/18 17:09 POC ABG O2 Sat 85 08/29/18 17:09 PT/INR, D-dimer PT 13.0 Sec. (12.2-14.9) 08/29/18 16:34 INR 0.93 (0.87-1.13) 08/29/18 16:34 D-Dimer 617.53 ng/mlDDU (0-234) H 08/29/18 17:00 Abnormal lab findings: Abnormal Labs 08/29/18 08/29/18 08/29/18 16:34 16:34 16:34 WBC 14.5 H RBC Hgb Hct Lymph % (Auto) 10.4 L Green % (Auto) 8.4 H Eos % (Auto) 6.3 H Lymph # Green # 1.2 H Eos # 0.9 H Seg Neutrophils % 74.2 H Seg Neuts % (Manual) Lymphocytes % (Manual) Seg Neutrophils # 10.7 H Seg Neutrophils # Man Lymphocytes # (Manual) Monocytes # (Manual) D-Dimer POC ABG pH POC ABG pCO2 VBG pH 7.447 H Sodium Potassium Chloride BUN Creatinine Glucose 170 H Calcium ALT Total Creatine Kinase 32 L CK-MB (CK-2) Rel Index 7.1 H Total Protein Albumin 3.8 L Ur Specific [place] Urine WBC (Auto) 08/29/18 08/29/18 08/29/18 17:00 17:09 19:44 WBC RBC Hgb Hct Lymph % (Auto) Green % (Auto) Eos % (Auto) Lymph # Green # Eos # Seg Neutrophils % Seg Neuts % (Manual) Lymphocytes % (Manual) Seg Neutrophils # Seg Neutrophils # Man Lymphocytes # (Manual) Monocytes # (Manual) D-Dimer 617.53 H POC ABG pH 7.458 H POC ABG pCO2 32.1 L VBG pH Sodium Potassium Chloride BUN Creatinine Glucose Calcium ALT Total Creatine Kinase CK-MB (CK-2) Rel Index Total Protein Albumin Ur Specific [place] 1.035 H Urine WBC (Auto) 7.0 H 08/30/18 08/30/18 09/01/18 08:18 08:18 05:31 WBC 12.9 H 15.4 H RBC Hgb Hct Lymph % (Auto) 6.5 L [place] % (Auto) Eos % (Auto) Lymph # 1.0 L [place] # Eos # Seg Neutrophils % 88.8 H Seg Neuts % (Manual) 89.0 H Lymphocytes % (Manual) 4.0 L Seg Neutrophils # 13.7 H Seg Neutrophils # Man 11.5 H Lymphocytes # (Manual) 0.5 L Monocytes # (Manual) 0.9 H D-Dimer POC ABG pH POC ABG pCO2 VBG pH Sodium Potassium Chloride BUN Creatinine 0.7 L Glucose 101 H Calcium ALT 6 L Total Creatine Kinase CK-MB (CK-2) Rel Index Total Protein Albumin 3.5 L Ur Specific [place] Urine WBC (Auto) 09/01/18 09/05/18 09/05/18 05:31 05:05 05:05 WBC 11.1 H RBC 3.63 L Hgb 11.3 L Hct 33.8 L Lymph % (Auto) 8.0 L [place] % (Auto) 13.7 H Eos % (Auto) Lymph # 0.9 L [place] # 1.5 H Eos # Seg Neutrophils % 74.5 H Seg Neuts % (Manual) Lymphocytes % (Manual) Seg Neutrophils # 8.3 H Seg Neutrophils # Man Lymphocytes # (Manual) Monocytes # (Manual) D-Dimer POC ABG pH POC ABG pCO2 VBG pH Sodium 134 L D 135 L Potassium Chloride 96.7 L BUN 21 H Creatinine 0.7 L 0.6 L Glucose Calcium ALT Total Creatine Kinase CK-MB (CK-2) Rel Index Total Protein Albumin Ur Specific [place] Urine WBC (Auto) 09/06/18 09/06/18 09/07/18 07:35 07:35 04:13 WBC RBC 3.45 L 3.61 L Hgb 11.1 L 11.6 L Hct 32.3 L 33.7 L Lymph % (Auto) 9.8 L 11.3 L [place] % (Auto) 12.5 H 12.1 H Eos % (Auto) 5.5 H Lymph # 0.9 L 1.0 L Green # 1.1 H 1.1 H Eos # 0.5 H Seg Neutrophils % 73.3 H 70.2 H Seg Neuts % (Manual) Lymphocytes % (Manual) Seg Neutrophils # Seg Neutrophils # Man Lymphocytes # (Manual) Monocytes # (Manual) D-Dimer POC ABG pH POC ABG pCO2 VBG pH Sodium 135 L Potassium Chloride BUN Creatinine Glucose 103 H Calcium 8.0 L ALT Total Creatine Kinase CK-MB (CK-2) Rel Index Total Protein 5.0 L Albumin 2.3 L Ur Specific [place] Urine WBC (Auto) 09/07/18 04:13 WBC RBC Hgb Hct Lymph % (Auto) Green % (Auto) Eos % (Auto) Lymph # Green # Eos # Seg Neutrophils % Seg Neuts % (Manual) Lymphocytes % (Manual) Seg Neutrophils # Seg Neutrophils # Man Lymphocytes # (Manual) Monocytes # (Manual) D-Dimer POC ABG pH POC ABG pCO2 VBG pH Sodium 136 L Potassium 3.1 L Chloride BUN Creatinine Glucose 127 H Calcium ALT Total Creatine Kinase CK-MB (CK-2) Rel Index Total Protein Albumin Ur Specific [place] Urine WBC (Auto)
[2018-09-07] MEDS: NORVASC PO SCH (14:00)
--- NOTE | 2018-09-07 19:06 | Cat Scan Report ---
PROCEDURE: CT HEAD/BRAIN WO/W CON TECHNIQUE: Noncontrast axial helical imaging was performed through the brain. Following administrati on of IV contrast axial helical imaging was performed through the brain. HISTORY: lung cancer COMPARISONS: None FINDINGS: There appear to be areas of encephalomalacia in the right cerebellum most suggestive of chronic infar cts. There is no evidence of an acute intracranial process, intracranial hemorrhage or mass effect. There are no areas of abnormal enhancement and no CT evidence of intracranial mass. The ventricles are normal size. There is atherosclerotic vascular calcification of the internal carotid arteries bilaterally and righ t vertebral artery at the skull base. The visualized portions of the orbits, paranasal and mastoid sinuses are notable for mild to moderate bilateral ethmoid and right maxillary sinus mucosal thickening. There is leftward nasal septal deviation. The bony structures are without evidence of lytic or blastic change. IMPRESSION: 1. No CT evidence of intracranial metastases. If there is a persistent clinical concern for intracranial metastasis and if there is no clinical con traindication, MRI brain may be helpful. 2. Appearance of chronic infarcts right cerebellum. 3. Atherosclerotic vascular calcification. 4. Bilateral ethmoid and right maxillary sinus disease. This document is electronically signed by Radha Alvarez MD., September 07 2018 07:04:28 PM ET
--- NOTE | 2018-09-07 19:32 | Cat Scan Report ---
PROCEDURE: CT ABDOMEN PELVIS W CON TECHNIQUE: Axial images of the abdomen and pelvis obtained with intravenous contrast and no oral con trast. Sagittal and coronal reconstructions also obtained. Correlation is made with a prior CTA of e chest from August 29. HISTORY: lung cancer COMPARISONS: Correlation is made with a prior CTA of the chest from August 29. FINDINGS: There is consolidation of the visualized portions of the left lung with associated large left pleural effusion and mediastinal shift to the left, secondary to volume loss. There is soft tissue density w ithin the left mainstem bronchus, and extending to left lower lobe and left upper lobe bronchi consis tent with aspiration. Endobronchial lesion cannot be excluded. These findings are new since the prior examination. There is a large heterogeneous left upper lobe and mediastinal mass with lytic destruction of adjacen t ribs and sternum, consistent with malignancy as previously noted. There is a smaller right pleural effusion and right basilar atelectasis, not present on the prior exa mination. Metastatic lesion in the left rib cage again noted. Trace pericardial effusion. Liver and spleen within normal limits. Adrenals and pancreas are within normal limits. Gallbladder within normal limits. Complex lesion in the mid polar region of the left kidney with central enhancement, suspicious for re nal cell carcinoma measuring approximately 3.4 cm in diameter. No evidence of bowel obstruction or free intraperitoneal air. Large amount of stool in the colon which may reflect constipation. Atherosclerotic calcification along the abdominal aorta with no evidence of aneurysmal dilatation. No evidence of colitis or diverticulitis. There is increased density and stranding of the subcutaneous and mesenteric fat which may reflect estephania sarca. Urinary bladder within normal limits. Nonspecific presacral and perirectal stranding. There are no suspicious bony lesions. IMPRESSION: . Soft tissue density within the left mainstem bronchus extending to left lower lobe and left lower l obe bronchi, consistent with aspiration. Endobronchial lesion cannot be excluded. Consolidation of the entire visualized left lung with associated left pleural effusion and mediastina l shift to the left secondary to atelectasis and volume loss. These findings are new since the prior examination. Large heterogeneous left upper lobe and mediastinal mass with lytic destruction of the adjacent ribs and sternum consistent with malignancy as previously reported. Metastatic lesion in the left rib cage again noted. Trace pericardial effusion. Smaller right pleural effusion and right basilar atelectasis, not present on the prior examination. Complex lesion in the mid polar region of the left kidney with central enhancement suspicious for ton al cell carcinoma measuring approximately 3.4 cm in diameter. Increased density and stranding of the subcutaneous and mesenteric fat which may reflect anasarca. This document is electronically signed by Shahriar Liu MD., September 07 2018 07:30:01 PM ET
[2018-09-07] MEDS: ZESTRIL PO SCH (19:53)
[2018-09-07] MEDS: PRAVACHOL PO SCH (21:41)
[2018-09-08] MEDS: APRESOLINE PO SCH ×3 (06:07→22:00)
[2018-09-08] MEDS: DUONEB *Not for PRN Use IH SCH ×4 (07:36→19:01)
[2018-09-08] MEDS: SODIUM CHLORIDE FLUSH SYRINGE 10 ML IV SCH ×2 (10:00→21:44)
[2018-09-08] MEDS: COLACE PO SCH ×2 (10:00→21:42)
--- NOTE | 2018-09-08 12:30 | Progress Note ---
Assessment and Plan Assessment and plan: --Squamous cell carcinoma lung; s/p biopsy, squamous cell carcinoma, management per oncology --Hypoxic respiratory failure; requiring BiPAP, symptoms significantly improved Oxygen, nebulizers, IV steroids, IV antibiotics, supportive care Pulmonary following --Right shoulder pain;secondary to possible metastasis Pain management and supportive care --Left lower lobe pneumonia; probably post obstructive pneumonia Continue IV antibiotics follow cultures --Leukocytosis; sepsis secondary to pneumonia --History of CVA with residual right-sided weakness Physical therapy occupational therapy and supportive care --Pathologic fractures of ribs and sternum; supportive care pain management Incentive spirometry --Ongoing tobacco use; smoking cessation advised nicotine patch as needed --Full CODE STATUS --DVT prophylaxis; SCDs, Lovenox Monitor closely and adjust the management Consults and recommendations noted and appreciated Discharge planning; case management, possible SNF placement History Interval history: Patient seen and examined medical records reviewed No new events reported by nursing staff Patient complains of generalized weakness Vital signs reviewed Hospitalist Physical - Constitutional Vitals: Temp Pulse Resp BP Pulse Ox 98.0 F 68 22 137/58 95 09/08/18 12:07 09/08/18 12:07 09/08/18 12:07 09/08/18 12:07 09/08/18 12:07 General appearance: Present: no acute distress, cachectic, disheveled - EENT Eyes: Present: PERRL, EOM intact - Neck Neck: Present: supple, normal ROM - Respiratory Respiratory effort: normal Respiratory: bilateral: diminished, rhonchi, negative: rales, wheezing - Cardiovascular Rhythm: regular Heart Sounds: Present: S1 & S2 - Extremities Extremities: no ischemia, No edema - Abdominal General gastrointestinal: soft, non-tender, non-distended, normal bowel sounds - Integumentary Integumentary: Present: clear, warm - Psychiatric Psychiatric: appropriate mood/affect, cooperative - Neurologic Neurologic: moves all extremities, other (residual weakness) Results - Labs CBC & Chem 7: 09/07/18 04:13 09/07/18 04:13 Labs: Laboratory Last Values WBC 9.2 K/mm3 (4.5-11.0) 09/07/18 04:13 RBC 3.61 M/mm3 (3.65-5.03) L 09/07/18 04:13 Hgb 11.6 gm/dl (11.8-15.2) L 09/07/18 04:13 Hct 33.7 % (35.5-45.6) L 09/07/18 04:13 MCV 93 fl (84-94) 09/07/18 04:13 MCH 32 pg (28-32) 09/07/18 04:13 MCHC 34 % (32-34) 09/07/18 04:13 RDW 14.0 % (13.2-15.2) 09/07/18 04:13 Plt Count 287 K/mm3 (140-440) 09/07/18 04:13 Lymph % (Auto) 11.3 % (13.4-35.0) L 09/07/18 04:13 [place] % (Auto) 12.1 % (0.0-7.3) H 09/07/18 04:13 Eos % (Auto) 5.5 % (0.0-4.3) H 09/07/18 04:13 Baso % (Auto) 0.9 % (0.0-1.8) 09/07/18 04:13 Lymph # 1.0 K/mm3 (1.2-5.4) L 09/07/18 04:13 [place] # 1.1 K/mm3 (0.0-0.8) H 09/07/18 04:13 Eos # 0.5 K/mm3 (0.0-0.4) H 09/07/18 04:13 Baso # 0.1 K/mm3 (0.0-0.1) 09/07/18 04:13 Add Manual Diff Complete 08/30/18 08:18 Total Counted 100 08/30/18 08:18 Seg Neutrophils % 70.2 % (40.0-70.0) H 09/07/18 04:13 Seg Neuts % (Manual) 89.0 % (40.0-70.0) H 08/30/18 08:18 Band Neutrophils % 0 % 08/30/18 08:18 Lymphocytes % (Manual) 4.0 % (13.4-35.0) L 08/30/18 08:18 Reactive Lymphs % (Man) 0 % 08/30/18 08:18 Monocytes % (Manual) 7.0 % (0.0-7.3) 08/30/18 08:18 Eosinophils % (Manual) 0 % (0.0-4.3) 08/30/18 08:18 Basophils % (Manual) 0 % (0.0-1.8) 08/30/18 08:18 Metamyelocytes % 0 % 08/30/18 08:18 Myelocytes % 0 % 08/30/18 08:18 Promyelocytes % 0 % 08/30/18 08:18 Blast Cells % 0 % 08/30/18 08:18 Nucleated RBC % Not Reportable 08/30/18 08:18 Seg Neutrophils # 6.5 K/mm3 (1.8-7.7) 09/07/18 04:13 Seg Neutrophils # Man 11.5 K/mm3 (1.8-7.7) H 08/30/18 08:18 Band Neutrophils # 0.0 K/mm3 08/30/18 08:18 Lymphocytes # (Manual) 0.5 K/mm3 (1.2-5.4) L 08/30/18 08:18 Abs React Lymphs (Man) 0.0 K/mm3 08/30/18 08:18 Monocytes # (Manual) 0.9 K/mm3 (0.0-0.8) H 08/30/18 08:18 Eosinophils # (Manual) 0.0 K/mm3 (0.0-0.4) 08/30/18 08:18 Basophils # (Manual) 0.0 K/mm3 (0.0-0.1) 08/30/18 08:18 Metamyelocytes # 0.0 K/mm3 08/30/18 08:18 Myelocytes # 0.0 K/mm3 08/30/18 08:18 Promyelocytes # 0.0 K/mm3 08/30/18 08:18 Blast Cells # 0.0 K/mm3 08/30/18 08:18 WBC Morphology Not Reportable 08/30/18 08:18 Hypersegmented Neuts Not Reportable 08/30/18 08:18 Hyposegmented Neuts Not Reportable 08/30/18 08:18 Hypogranular Neuts Not Reportable 08/30/18 08:18 Smudge Cells Not Reportable 08/30/18 08:18 Toxic Granulation Not Reportable 08/30/18 08:18 Toxic Vacuolation Not Reportable 08/30/18 08:18 Dohle Bodies Not Reportable 08/30/18 08:18 Pelger-Huet Anomaly Not Reportable 08/30/18 08:18 [place] Rods Not Reportable 08/30/18 08:18 Platelet Estimate Consistent w auto 08/30/18 08:18 Clumped Platelets Rare 08/30/18 08:18 Plt Clumps, EDTA Not Reportable 08/30/18 08:18 Large Platelets Not Reportable 08/30/18 08:18 Giant Platelets Not Reportable 08/30/18 08:18 Platelet Satelliting Not Reportable 08/30/18 08:18 Plt Morphology Comment Not Reportable 08/30/18 08:18 RBC Morphology Normal 08/30/18 08:18 Dimorphic RBCs Not Reportable 08/30/18 08:18 Polychromasia Not Reportable 08/30/18 08:18 Hypochromasia Not Reportable 08/30/18 08:18 Poikilocytosis Not Reportable 08/30/18 08:18 Anisocytosis Not Reportable 08/30/18 08:18 Microcytosis Not Reportable 08/30/18 08:18 Macrocytosis Not Reportable 08/30/18 08:18 Spherocytes Not Reportable 08/30/18 08:18 Pappenheimer Bodies Not Reportable 08/30/18 08:18 Sickle Cells Not Reportable 08/30/18 08:18 Target Cells Not Reportable 08/30/18 08:18 Tear Drop Cells Not Reportable 08/30/18 08:18 Ovalocytes Not Reportable 08/30/18 08:18 Helmet Cells Not Reportable 08/30/18 08:18 [place] Bodies Not Reportable 08/30/18 08:18 [place] Rings Not Reportable 08/30/18 08:18 [place] Cells Not Reportable 08/30/18 08:18 Bite Cells Not Reportable 08/30/18 08:18 Crenated Cell Not Reportable 08/30/18 08:18 Elliptocytes Not Reportable 08/30/18 08:18 Acanthocytes (Spur) Not Reportable 08/30/18 08:18 Rouleaux Not Reportable 08/30/18 08:18 Hemoglobin C Crystals Not Reportable 08/30/18 08:18 Schistocytes Not Reportable 08/30/18 08:18 Malaria parasites Not Reportable 08/30/18 08:18 [place] Bodies Not Reportable 08/30/18 08:18 Hem Pathologist Commnt No 08/30/18 08:18 PT 13.0 Sec. (12.2-14.9) 08/29/18 16:34 INR 0.93 (0.87-1.13) 08/29/18 16:34 APTT 27.7 Sec. (24.2-36.6) 08/29/18 16:34 D-Dimer 617.53 ng/mlDDU (0-234) H 08/29/18 17:00 POC ABG pH 7.458 (7.35-7.45) H 08/29/18 17:09 POC ABG pCO2 32.1 (35-45) L 08/29/18 17:09 POC ABG HCO3 22.7 (22-26 mml/L) 08/29/18 17:09 POC ABG Total CO2 24 (23-27mmol/L) 08/29/18 17:09 POC ABG O2 Sat 85 08/29/18 17:09 POC ABG Base Excess -1 ((-2) - (+3)mmol/L) 08/29/18 17:09 VBG pH 7.447 (7.320-7.420) H 08/29/18 16:34 FiO2 36 % 08/29/18 17:09 Sodium 136 mmol/L (137-145) L 09/07/18 04:13 Potassium 3.1 mmol/L (3.6-5.0) L 09/07/18 04:13 Chloride 99.7 mmol/L (98-107) 09/07/18 04:13 Carbon Dioxide 24 mmol/L (22-30) 09/07/18 04:13 Anion Gap 15 mmol/L 09/07/18 04:13 BUN 17 mg/dL (9-20) 09/07/18 04:13 Creatinine 0.9 mg/dL (0.8-1.5) 09/07/18 04:13 Estimated GFR > 60 ml/min 09/07/18 04:13 BUN/Creatinine Ratio 19 % 09/07/18 04:13 Glucose 127 mg/dL (75-100) H 09/07/18 04:13 Lactic Acid 1.40 mmol/L (0.7-2.0) 08/29/18 19:25 Calcium 8.4 mg/dL (8.4-10.2) 09/07/18 04:13 Phosphorus 3.60 mg/dL (2.5-4.5) 09/06/18 07:35 Magnesium 1.70 mg/dL (1.7-2.3) 09/06/18 07:35 Total Bilirubin 0.70 mg/dL (0.1-1.2) 09/06/18 07:35 AST 14 units/L (5-40) 09/06/18 07:35 ALT 8 units/L (7-56) 09/06/18 07:35 Alkaline Phosphatase 51 units/L (35-129) 09/06/18 07:35 Total Creatine Kinase 32 units/L (55-170) L 08/29/18 16:34 CK-MB (CK-2) 2.3 ng/mL (0.0-4.0) 08/29/18 16:34 CK-MB (CK-2) Rel Index 7.1 (0-4) H 08/29/18 16:34 Troponin T < 0.010 ng/mL (0.00-0.029) 08/29/18 16:34 NT-Pro-B Natriuret Pep 694.9 pg/mL (0-900) 08/29/18 16:34 Total Protein 5.0 g/dL (6.3-8.2) L 09/06/18 07:35 Albumin 2.3 g/dL (3.9-5) L 09/06/18 07:35 Albumin/Globulin Ratio 0.9 % 09/06/18 07:35 Urine Color Yellow (Yellow) 08/29/18 19:44 Urine Turbidity Clear (Clear) 08/29/18 19:44 Urine pH 5.0 (5.0-7.0) 08/29/18 19:44 Ur Specific [place] 1.035 (1.003-1.030) H 08/29/18 19:44 Urine Protein <15 mg/dl mg/dL (Negative) 08/29/18 19:44 Urine Glucose (UA) Neg mg/dL (Negative) 08/29/18 19:44 Urine Ketones Tr mg/dL (Negative) 08/29/18 19:44 Urine Blood Neg (Negative) 08/29/18 19:44 Urine Nitrite Neg (Negative) 08/29/18 19:44 Urine Bilirubin Neg (Negative) 08/29/18 19:44 Urine Urobilinogen 2.0 mg/dL (<2.0) 08/29/18 19:44 Ur Leukocyte Esterase Neg (Negative) 08/29/18 19:44 Urine WBC (Auto) 7.0 /HPF (0.0-6.0) H 08/29/18 19:44 Urine RBC (Auto) 1.0 /HPF (0.0-6.0) 08/29/18 19:44 U Epithel Cells (Auto) < 1.0 /HPF (0-13.0) 08/29/18 19:44 Urine Mucus Few /HPF 08/29/18 19:44 Active Medications - Current Medications Current Medications: Generic Name Dose Route Start Last Admin Trade Name Freq PRN Reason Stop Dose Admin Acetaminophen 650 mg 08/29/18 21:29 08/30/18 05:53 Tylenol PO 650 mg Q4H PRN Administration Pain MILD(1-3)/Fever >100.5/VENEGAS Al Hydrox/Mg Hydrox/Simethicone 30 ml 08/29/18 21:29 Alum-Mag Hydrox-Simeth 335-304-47qg/5ml PO Q4H PRN Indigestion Albuterol/Ipratropium 1 ampul 09/06/18 08:00 09/08/18 07:36 Duoneb *Not For Prn Use* IH Not Given TIDRT [facility] Amlodipine Besylate 10 mg 08/30/18 10:00 09/07/18 14:00 Norvasc PO Not Given DAILY [facility] Aspirin 325 mg 08/30/18 10:00 09/07/18 10:56 Aspirin PO 325 mg QDAY GUILLERMO Administration Carvedilol 25 mg 08/29/18 22:00 09/07/18 21:39 Coreg PO 25 mg Q12HR GUILLERMO Administration Clonidine HCl 0.1 mg 08/29/18 22:00 09/07/18 21:40 Catapres PO 0.1 mg BID GUILLERMO Administration Docusate Sodium 100 mg 08/29/18 22:00 09/07/18 21:40 Colace PO 100 mg BID GUILLERMO Administration Enoxaparin Sodium 40 mg 08/30/18 10:00 09/07/18 10:54 Lovenox SUB-Q 40 mg QDAY GUILLERMO Administration Famotidine 20 mg 08/29/18 22:00 09/07/18 21:41 Pepcid PO 20 mg BID GUILLERMO Administration Haloperidol Lactate 2 mg 09/01/18 11:34 09/08/18 03:02 Haldol IM 2 mg Q6H PRN Administration Agitation Hydralazine HCl 100 mg 08/29/18 22:00 09/08/18 06:07 Apresoline PO 100 mg Q8H GUILLERMO Administration Hydromorphone HCl 2 mg 08/29/18 21:29 09/06/18 04:28 Dilaudid IV 2 mg Q3H PRN Administration Pain, Moderate (4-6) Dextrose/Sodium Chloride 1,000 mls @ 100 mls/hr 09/06/18 11:30 09/07/18 21:47 D5ns IV 100 mls/hr DIRECT GUILLERMO Administration Labetalol HCl 10 mg 08/29/18 22:07 Normodyne IV Q6HR PRN Hypertension Levofloxacin 750 mg 09/07/18 10:00 09/07/18 10:56 Levaquin PO 750 mg DAILY GUILLERMO Administration Lisinopril 10 mg 08/30/18 10:00 09/07/18 19:53 Zestril PO Not Given QDAY GUILLERMO Ondansetron HCl 4 mg 08/29/18 21:29 Zofran IV Q6H PRN Nausea And Vomiting Oxycodone/Acetaminophen 1 tab 08/29/18 21:29 09/07/18 21:40 Percocet 5/325 PO 1 tab Q6H PRN Administration Pain, Moderate (4-6) Pravastatin Sodium 40 mg 08/29/18 22:00 09/07/18 21:41 Pravachol PO 40 mg QHS GUILLERMO Administration Sodium Chloride 10 ml 08/29/18 22:00 09/07/18 21:41 Sodium Chloride Flush Syringe 10 Ml IV 10 ml BID GUILLERMO Administration Sodium Chloride 10 ml 08/29/18 21:29 Sodium Chloride Flush Syringe 10 Ml IV PRN PRN LINE FLUSH Zolpidem Tartrate 5 mg 08/29/18 21:29 Ambien PO QHS PRN Insomnia Nutrition/Malnutrition Assess - Dietary Evaluation Nutrition/Malnutrition Findings: Nutrition Notes Start: 08/30/18 13:41 Freq: Status: Active Protocol: Document 04/10/19 13:04 LM (Rec: 09/06/18 13:17 LM [id number]) Co-Sign 09/06/18 13:04 LP Nutrition Notes Initial or Follow up Reassessment Current Diagnosis Coronary Artery Disease, Hypertension,Stroke, Hyperlipidemia Other Pertinent Diagnosis Respiratory distress, R hemiparesis, pneu Current Diet Mechanical soft Labs/Tests Na 135 Pertinent Medications Reviewed Height 5 ft 11 in Weight 67 kg [place] Body Weight (kg) 78.18 BMI 20.6 Subjective/Other Information Family member feeding pt in room at time of visit. Pt only ate a couple of bites. Family member said pt has to be fed. Pt tolerating ensure. Pt took a couple sips at time of visit. Percent of energy/protein needs met: 0%/0% Burn Absent Trauma Absent #1 Nutrition Diagnosis Malnutrition Diagnosis Progress(for reassessment Continues documentation) Is patient on ventilator? No Is Patient Ambulatory and/or Out of Bed No REE-([facility]-confined to bed) 1777.992 Kcal/Kg value to use for calculation 33 Approximate Energy Requirements Using 2211 kcal/Kg Calculation Used for Recommendations Kcal/kg Additional Notes Protein Needs: 80-101g (1.2-1. 5g/kg) Fluid Needs: 1 ml/kcal Nutrition Intervention [facility] Add Supplement/Snack (indicate name/kcal Ensure Enlive Chocolate 1 /protein ) daily Provides kCal: 350 Provides Protein (gm) 20 Goal #1 Meet at least 75% of calorie and protein needs via PO and ONS intakes Anticipated Discharge Needs: Unable to determine at this time Follow-Up By: 09/08/18 Additional Comments Follow for PO intakes, need for ONS
[2018-09-08] MEDS: ASPIRIN PO SCH (12:47)
[2018-09-08] MEDS: NORVASC PO SCH (12:48)
[2018-09-08] MEDS: LOVENOX SUB-Q SCH (12:48)
[2018-09-08] MEDS: LEVAQUIN PO SCH (12:49)
[2018-09-08] MEDS: CATAPRES PO SCH ×2 (12:49→21:42)
[2018-09-08] MEDS: COREG PO SCH ×2 (12:49→21:36)
[2018-09-08] MEDS: ZESTRIL PO SCH (12:50)
[2018-09-08] MEDS: PEPCID PO SCH ×2 (12:50→21:43)
--- NOTE | 2018-09-08 13:39 | Hem/Onc Progress Note ---
Assessment and Plan sq cell ca renal mass d/w dr courtney d/w dr bolton 1. 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 2. Left renal mass, possible renal cell carcinoma. 3. History of smoking present. 4. History of cerebrovascular accident. 5. History of shortness of breath. 6. History of hypertension. 7. History of leukocytosis. 8. History of hyperlipidemia. PLAN: The patient's performance status will guide treatment. If he has two neoplasms and based on performance status, this will become challenging. For renal cell CA, if it is localized, surgery is an option. For the lung CA, clinically bone involvement is present. Palliation with XRT may be an option for pain issues. We also have options of chemotherapy. As per his information, he is able to ambulate minimally with a walker. Outpatient testing will help if any oral targeted agent can be used. - Patient Problems (1) Lung cancer Current Visit: Yes Status: Acute Qualifiers: Laterality: unspecified laterality Subjective Date of service: 09/08/18 Principal diagnosis: lung ca and renal mass Interval history: wants to go home had CT head and abdo pelvis Objective - Constitutional Vitals: Last Vital Signs Temp 98.0 F 09/08/18 12:07 Pulse 75 09/08/18 13:08 Resp 20 09/08/18 13:08 BP 137/58 09/08/18 12:48 Pulse Ox 94 09/08/18 12:55 Pain Intensity (0-10): denies any pain General appearance: no acute distress Performance status: 3-limited selfcare - EENT Eyes: EOM intact ENT: hearing intact - Neck Neck: normal ROM - Respiratory Respiratory effort: Positive: normal Respiratory: bilateral: diminished - Cardiovascular Heart Sounds: Present: S1 & S2 Extremities: No edema - Gastrointestinal General gastrointestinal: Present: soft, non-tender Rectal Exam: deferred - Genitourinary Male genitourinary: Present: deferred - Integumentary Integumentary: warm - Musculoskeletal Musculoskeletal: right sided weakness Medications & Allergies - Medications Allergies/Adverse Reactions: Allergies Penicillins Allergy (Verified 07/05/13 15:11) Unknown Home Medications: Home Medications Medication Instructions Recorded Confirmed Last Taken Type Aspirin [Aspirin TAB] 325 mg PO QDAY #30 tablet 07/19/13 08/31/18 Unknown Rx Simvastatin (Nf) [Zocor TAB] 20 mg PO QHS 30 Days tablet 07/19/13 08/31/18 Unknown Rx amLODIPine [Norvasc] 10 mg PO DAILY 30 Days tab 07/19/13 08/31/18 Unknown Rx cloNIDine [Catapres] 0.1 mg PO BID #60 tablet 07/19/13 08/31/18 Unknown Rx Lisinopril [Zestril TAB] 10 mg PO QDAY 30 Days tablet 07/22/13 08/31/18 Unknown Rx hydrALAZINE [Apresoline] 50 mg PO BID 08/31/18 08/31/18 Unknown History Active Medications: Generic Name Dose Route Start Last Admin Trade Name Freq PRN Reason Stop Dose Admin Acetaminophen 650 mg 08/29/18 21:29 08/30/18 05:53 Tylenol PO 650 mg Q4H PRN Administration Pain MILD(1-3)/Fever >100.5/VENEGAS Al Hydrox/Mg Hydrox/Simethicone 30 ml 08/29/18 21:29 Alum-Mag Hydrox-Simeth 580-447-23ap/5ml PO Q4H PRN Indigestion Albuterol/Ipratropium 1 ampul 09/06/18 08:00 09/08/18 13:11 Duoneb *Not For Prn Use* IH Not Given TIDRT [facility] Amlodipine Besylate 10 mg 08/30/18 10:00 09/08/18 12:48 Norvasc PO 10 mg DAILY GUILLERMO Administration Aspirin 325 mg 08/30/18 10:00 09/08/18 12:47 Aspirin PO 325 mg QDAY GUILLERMO Administration Carvedilol 25 mg 08/29/18 22:00 09/08/18 12:49 Coreg PO 25 mg Q12HR GUILLERMO Administration Clonidine HCl 0.1 mg 08/29/18 22:00 09/08/18 12:49 Catapres PO 0.1 mg BID GUILLERMO Administration Docusate Sodium 100 mg 08/29/18 22:00 09/07/18 21:40 Colace PO 100 mg BID GUILLERMO Administration Enoxaparin Sodium 40 mg 08/30/18 10:00 09/08/18 12:48 Lovenox SUB-Q 40 mg QDAY GUILLERMO Administration Famotidine 20 mg 08/29/18 22:00 09/08/18 12:50 Pepcid PO 20 mg BID GUILLERMO Administration Haloperidol Lactate 2 mg 09/01/18 11:34 09/08/18 03:02 Haldol IM 2 mg Q6H PRN Administration Agitation Hydralazine HCl 100 mg 08/29/18 22:00 09/08/18 06:07 Apresoline PO 100 mg Q8H GUILLERMO Administration Hydromorphone HCl 2 mg 08/29/18 21:29 09/06/18 04:28 Dilaudid IV 2 mg Q3H PRN Administration Pain, Moderate (4-6) Dextrose/Sodium Chloride 1,000 mls @ 100 mls/hr 09/06/18 11:30 09/07/18 21:47 D5ns IV 100 mls/hr DIRECT GUILLERMO Administration Labetalol HCl 10 mg 08/29/18 22:07 Normodyne IV Q6HR PRN Hypertension Levofloxacin 750 mg 09/07/18 10:00 09/08/18 12:49 Levaquin PO 750 mg DAILY GUILLERMO Administration Lisinopril 10 mg 08/30/18 10:00 09/08/18 12:50 Zestril PO 10 mg QDAY GUILLERMO Administration Ondansetron HCl 4 mg 08/29/18 21:29 Zofran IV Q6H PRN Nausea And Vomiting Oxycodone/Acetaminophen 1 tab 08/29/18 21:29 09/07/18 21:40 Percocet 5/325 PO 1 tab Q6H PRN Administration Pain, Moderate (4-6) Pravastatin Sodium 40 mg 08/29/18 22:00 09/07/18 21:41 Pravachol PO 40 mg QHS GUILLERMO Administration Sodium Chloride 10 ml 08/29/18 22:00 09/07/18 21:41 Sodium Chloride Flush Syringe 10 Ml IV 10 ml BID GUILLERMO Administration Sodium Chloride 10 ml 08/29/18 21:29 Sodium Chloride Flush Syringe 10 Ml IV PRN PRN LINE FLUSH Zolpidem Tartrate 5 mg 08/29/18 21:29 Ambien PO QHS PRN Insomnia
--- NOTE | 2018-09-08 21:01 | Consultation ---
REFERRED BY: Mana Howe MD REASON FOR CONSULTATION: Lung cancer. HISTORY OF PRESENT ILLNESS: I saw the patient, a 63-year-old male, in the medical floor. The patient has past history of stroke with right-sided weakness, coronary artery disease, hypertension. He came to the hospital because of shortness of breath for a month, which became worse. He also has been having right-sided chest pain and history of weight loss, history of smoking present. During this admission, the patient underwent imaging, which includes CT chest, which showed an 8.4 cm mass in the lung on the left side, there is also destruction of the ribs, third and fourth on the left side and invasion of the body of the sternum. There is also a mass in the left kidney. I have been asked to evaluate the patient during this admission. The patient had undergone biopsy on 09/05/2018, which was reported as a squamous cell carcinoma, primary origin could include lung, thymus, head and neck. The patient states that he is able to walk, but with a walker. At this time, no headache, no visual issues. Chest pain and breathing have improved. No abdominal pain, no vomiting, no diarrhea, no dysuria. Right-sided weakness. PAST MEDICAL HISTORY: Includes hypertension, hyperlipidemia, stroke. PAST SURGICAL HISTORY: Testicular torsion in 1965. SOCIAL HISTORY: History of smoking present. FAMILY HISTORY: Has a sister who supports him. ALLERGIES: PENICILLIN. HOME MEDICATIONS: Included Coreg, simvastatin, clonidine, hydralazine, lisinopril. During this admission, the patient has been seen by pulmonary team. PHYSICAL EXAMINATION: VITAL SIGNS: Temperature 97, pulse 69, respirations 20, BP 125/55. HEENT: No pallor. No icterus. NECK: No neck lymph nodes. HEART: S1, S2. LUNGS: Decreased air entry. ABDOMEN: Soft. EXTREMITIES: No calf tenderness. Right-sided weakness. LABORATORY DATA: White cell 9, hemoglobin 11, MCV 93, platelet 287, potassium 3.1, creatinine 0.9, bilirubin 0.7, AST 14. RADIOLOGY: CT chest as above. CT abdomen and pelvis, which was ordered by me, complex lesion in the left mid polar of left kidney. Suspicion of renal cell CA, 3.[address] head, no CT evidence of intracranial mets, chronic infarct seen. ASSESSMENT: 1. 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 2. Left renal mass, possible renal cell carcinoma. 3. History of smoking present. 4. History of cerebrovascular accident. 5. History of shortness of breath. 6. History of hypertension. 7. History of leukocytosis. 8. History of hyperlipidemia. PLAN: The patient's performance status will guide treatment. If he has two neoplasms and based on performance status, this will become challenging. For renal cell CA, if it is localized, surgery is an option. For the lung CA, clinically bone involvement is present. Palliation with XRT may be an option for pain issues. We also have options of chemotherapy. As per his information, he is able to ambulate minimally with a walker. Outpatient testing will help if any oral targeted agent can be used. JOB# [id number] NM/NTS
[2018-09-08] MEDS: PRAVACHOL PO SCH (21:42)
--- NOTE | 2018-09-09 01:48 | Consultation ---
RADIATION ONCOLOGY CONSULTATION CHIEF COMPLAINT: ''I have lung cancer. 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 CONCLUSION: 1. 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 2. 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 3. Hypertension. 4. Hyperlipidemia. RECOMMENDATION: We agreed to the recommendation to proceeding forward with definitive radiation therapy. We will plan to deliver dose of 66 michael using megavoltage radiation. He will be considered for concurrent systemic chemotherapy under the direction of Dr. Rhodes. ASSESSMENT: This is an unfortunate 63-year-old gentleman with history of cerebrovascular accident with right-sided residual deficit, coronary artery disease and hypertension, presented with progressive shortness of breath as well as sternum and rib pain. Chest x-ray showed an enlarged left upper lung mass. A CT scan of the chest demonstrated a 10 x 8 cm soft tissue density mass in the left upper lung invading the sternum and rib cage consistent with malignancy. CT-guided biopsy confirmed squamous cell carcinoma. CT scan of the abdomen and pelvis confirmed a soft tissue density within the left main stem bronchus extending to the left lower lobe bronchi consistent with aspiration. There is associated left pleural effusion and mediastinal shift secondary to atelectasis and volume loss. This also revealed a large heterogeneous left upper lung and mediastinal mass with lytic destruction of the adjacent ribs and sternum, trace pericardial effusion, complex lesion in the left kidney with central enhancement suspicious for renal cell carcinoma measuring 3.[address] scan of the head revealed no evidence of intracranial metastasis. There is appearance of chronic infarcts in the right cerebellum. He is now referred for radiation therapy. Clinically, the patient has significant dyspnea. He denies any hemoptysis. He notes a 10-pound weight loss. He has significant pain in the anterior and posterior chest wall. PAST MEDICAL HISTORY: 1. 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 2. History of cerebrovascular accident with residual right-sided weakness. 3. Hypertension. 4. Hyperlipidemia. 5. Tobacco use. SOCIAL HISTORY: Tobacco use. FAMILY HISTORY: Brother was diagnosed and of lung cancer. MEDICATIONS: Simvastatin, Pepcid, Haldol, Dilaudid, Levaquin, Zofran, Pravachol, Ambien. ALLERGIES: PENICILLIN. REVIEW OF SYSTEMS: CONSTITUTIONAL: Weak, tired, fatigued, chills, 10-pound weight loss. HEENT: Residual CVA with weakness. Denies any blurry vision, double vision, hoarseness. RESPIRATORY: Shortness of breath. Denies hemoptysis, chest pain, wheezing. CARDIOVASCULAR: Denies any angina, orthopnea. MUSCULOSKELETAL: Generalized arthritis, joint pain. GASTROINTESTINAL: Denies any nausea, vomiting, diarrhea or rectal bleeding. PHYSICAL EXAMINATION: GENERAL: He is a very chronically, ill-appearing, anxious gentleman, in mild distress. VITAL SIGNS: Blood pressure 137/58, pulse 75, respirations 20, pulse ox 94%, afebrile, ECOG equals 2, pain equals 8/10. HEENT: Normocephalic, atraumatic. Eyes were clear. Intraoral examination is unremarkable. LUNGS: Show decreased breath sounds in the left lung field. Right lung was clear. No spinal or CVA tenderness. CARDIOVASCULAR: Regular rate and rhythm. ABDOMEN: Flat. No palpable masses or hepatosplenomegaly. NEUROLOGIC: He is alert and oriented x 3. He has moderate expressive aphasia, significant weakness, 1/5 strength in all major muscle groups in her right upper extremity, 3/5 strength in the right lower extremity, normal strength of left upper and left lower extremity. 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 We agree with recommendation to proceed forward with definitive radiation therapy. Our plan is to deliver a dose of 66 michael using megavoltage radiation. Risk of radiation is including fatigue, cough, fever esophagitis fibrosis, pneumonitis. Bone marrow suppression was discussed with the patient. In addition, he will be considered for systemic chemotherapy under direction of Dr. Rhodes. We will begin his radiation therapy on Tuesday and bring him, transfer him to [facility] via ambulance. JOB# [id number] [facility]
[2018-09-09] MEDS: APRESOLINE PO SCH ×3 (06:36→22:24)
[2018-09-09] MEDS: DUONEB *Not for PRN Use IH SCH ×3 (08:09→19:55)
[2018-09-09] MEDS: CATAPRES PO SCH ×2 (09:41→22:24)
[2018-09-09] MEDS: COLACE PO SCH ×2 (09:41→22:28)
[2018-09-09] MEDS: LOVENOX SUB-Q SCH (09:41)
[2018-09-09] MEDS: ASPIRIN PO SCH (09:41)
[2018-09-09] MEDS: COREG PO SCH ×2 (09:42→22:28)
[2018-09-09] MEDS: NORVASC PO SCH (09:42)
[2018-09-09] MEDS: ZESTRIL PO SCH (09:42)
[2018-09-09] MEDS: PEPCID PO SCH ×2 (09:42→22:29)
[2018-09-09] MEDS: LEVAQUIN PO SCH (09:43)
[2018-09-09] MEDS: SODIUM CHLORIDE FLUSH SYRINGE 10 ML IV SCH ×2 (09:43→22:29)
--- NOTE | 2018-09-09 12:23 | Progress Note ---
Assessment and Plan Assessment and plan: --Squamous cell carcinoma lung; s/p biopsy, squamous cell carcinoma, Oncology Dr. 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 Heath, Recommend radiation therapy first treatment on 09/11/2018 at [facility] radiation oncology department --Left renal mass/possible renal cell carcinoma, Oncology following --Hypoxic respiratory failure; requiring BiPAP, symptoms significantly improved Continue Oxygen, nebulizers, IV steroids, IV antibiotics, pulmonary following --Right shoulder pain; pathologic fractures of ribs and sternum secondary to possible metastasis, Pain management and supportive care --Left lower lobe pneumonia; probably post obstructive pneumonia Continue IV antibiotics follow cultures --Leukocytosis; sepsis secondary to pneumonia --History of CVA with residual right-sided weakness, abortive care. --Ongoing tobacco use; smoking cessation advised nicotine patch as needed --Full CODE STATUS --DVT prophylaxis; SCDs, Lovenox Discharge planning; case management, possible SNF placement History Interval history: Patient seen and examined medical history reviewed Patient complains of generalized weakness Alert and awake and responding appropriately Vital signs reviewed Hospitalist Physical - Constitutional Vitals: Temp Pulse Resp BP Pulse Ox 98.0 F 76 18 152/63 97 09/09/18 06:08 09/09/18 09:41 09/09/18 09:05 09/09/18 09:41 09/09/18 08:00 General appearance: Present: no acute distress, cachectic, disheveled - EENT Eyes: Present: PERRL, EOM intact - Neck Neck: Present: supple, normal ROM - Respiratory Respiratory effort: normal Respiratory: bilateral: diminished, rhonchi, negative: rales, wheezing - Cardiovascular Rhythm: regular Heart Sounds: Present: S1 & S2 - Extremities Extremities: no ischemia, No edema - Abdominal General gastrointestinal: soft, non-tender, non-distended, normal bowel sounds - Integumentary Integumentary: Present: clear, warm - Psychiatric Psychiatric: appropriate mood/affect, cooperative - Neurologic Neurologic: CNII-XII intact, moves all extremities Results - Labs CBC & Chem 7: 09/07/18 04:13 09/07/18 04:13 Labs: Laboratory Last Values WBC 9.2 K/mm3 (4.5-11.0) 09/07/18 04:13 RBC 3.61 M/mm3 (3.65-5.03) L 09/07/18 04:13 Hgb 11.6 gm/dl (11.8-15.2) L 09/07/18 04:13 Hct 33.7 % (35.5-45.6) L 09/07/18 04:13 MCV 93 fl (84-94) 09/07/18 04:13 MCH 32 pg (28-32) 09/07/18 04:13 MCHC 34 % (32-34) 09/07/18 04:13 RDW 14.0 % (13.2-15.2) 09/07/18 04:13 Plt Count 287 K/mm3 (140-440) 09/07/18 04:13 Lymph % (Auto) 11.3 % (13.4-35.0) L 09/07/18 04:13 [place] % (Auto) 12.1 % (0.0-7.3) H 09/07/18 04:13 Eos % (Auto) 5.5 % (0.0-4.3) H 09/07/18 04:13 Baso % (Auto) 0.9 % (0.0-1.8) 09/07/18 04:13 Lymph # 1.0 K/mm3 (1.2-5.4) L 09/07/18 04:13 [place] # 1.1 K/mm3 (0.0-0.8) H 09/07/18 04:13 Eos # 0.5 K/mm3 (0.0-0.4) H 09/07/18 04:13 Baso # 0.1 K/mm3 (0.0-0.1) 09/07/18 04:13 Add Manual Diff Complete 08/30/18 08:18 Total Counted 100 08/30/18 08:18 Seg Neutrophils % 70.2 % (40.0-70.0) H 09/07/18 04:13 Seg Neuts % (Manual) 89.0 % (40.0-70.0) H 08/30/18 08:18 Band Neutrophils % 0 % 08/30/18 08:18 Lymphocytes % (Manual) 4.0 % (13.4-35.0) L 08/30/18 08:18 Reactive Lymphs % (Man) 0 % 08/30/18 08:18 Monocytes % (Manual) 7.0 % (0.0-7.3) 08/30/18 08:18 Eosinophils % (Manual) 0 % (0.0-4.3) 08/30/18 08:18 Basophils % (Manual) 0 % (0.0-1.8) 08/30/18 08:18 Metamyelocytes % 0 % 08/30/18 08:18 Myelocytes % 0 % 08/30/18 08:18 Promyelocytes % 0 % 08/30/18 08:18 Blast Cells % 0 % 08/30/18 08:18 Nucleated RBC % Not Reportable 08/30/18 08:18 Seg Neutrophils # 6.5 K/mm3 (1.8-7.7) 09/07/18 04:13 Seg Neutrophils # Man 11.5 K/mm3 (1.8-7.7) H 08/30/18 08:18 Band Neutrophils # 0.0 K/mm3 08/30/18 08:18 Lymphocytes # (Manual) 0.5 K/mm3 (1.2-5.4) L 08/30/18 08:18 Abs React Lymphs (Man) 0.0 K/mm3 08/30/18 08:18 Monocytes # (Manual) 0.9 K/mm3 (0.0-0.8) H 08/30/18 08:18 Eosinophils # (Manual) 0.0 K/mm3 (0.0-0.4) 08/30/18 08:18 Basophils # (Manual) 0.0 K/mm3 (0.0-0.1) 08/30/18 08:18 Metamyelocytes # 0.0 K/mm3 08/30/18 08:18 Myelocytes # 0.0 K/mm3 08/30/18 08:18 Promyelocytes # 0.0 K/mm3 08/30/18 08:18 Blast Cells # 0.0 K/mm3 08/30/18 08:18 WBC Morphology Not Reportable 08/30/18 08:18 Hypersegmented Neuts Not Reportable 08/30/18 08:18 Hyposegmented Neuts Not Reportable 08/30/18 08:18 Hypogranular Neuts Not Reportable 08/30/18 08:18 Smudge Cells Not Reportable 08/30/18 08:18 Toxic Granulation Not Reportable 08/30/18 08:18 Toxic Vacuolation Not Reportable 08/30/18 08:18 Dohle Bodies Not Reportable 08/30/18 08:18 Pelger-Huet Anomaly Not Reportable 08/30/18 08:18 Edelmira Rods Not Reportable 08/30/18 08:18 Platelet Estimate Consistent w auto 08/30/18 08:18 Clumped Platelets Rare 08/30/18 08:18 Plt Clumps, EDTA Not Reportable 08/30/18 08:18 Large Platelets Not Reportable 08/30/18 08:18 Giant Platelets Not Reportable 08/30/18 08:18 Platelet Satelliting Not Reportable 08/30/18 08:18 Plt Morphology Comment Not Reportable 08/30/18 08:18 RBC Morphology Normal 08/30/18 08:18 Dimorphic RBCs Not Reportable 08/30/18 08:18 Polychromasia Not Reportable 08/30/18 08:18 Hypochromasia Not Reportable 08/30/18 08:18 Poikilocytosis Not Reportable 08/30/18 08:18 Anisocytosis Not Reportable 08/30/18 08:18 Microcytosis Not Reportable 08/30/18 08:18 Macrocytosis Not Reportable 08/30/18 08:18 Spherocytes Not Reportable 08/30/18 08:18 Pappenheimer Bodies Not Reportable 08/30/18 08:18 Sickle Cells Not Reportable 08/30/18 08:18 Target Cells Not Reportable 08/30/18 08:18 Tear Drop Cells Not Reportable 08/30/18 08:18 Ovalocytes Not Reportable 08/30/18 08:18 Helmet Cells Not Reportable 08/30/18 08:18 [place]-Stacy Bodies Not Reportable 08/30/18 08:18 [place] Rings Not Reportable 08/30/18 08:18 [place] Cells Not Reportable 08/30/18 08:18 Bite Cells Not Reportable 08/30/18 08:18 Crenated Cell Not Reportable 08/30/18 08:18 Elliptocytes Not Reportable 08/30/18 08:18 Acanthocytes (Spur) Not Reportable 08/30/18 08:18 Rouleaux Not Reportable 08/30/18 08:18 Hemoglobin C Crystals Not Reportable 08/30/18 08:18 Schistocytes Not Reportable 08/30/18 08:18 Malaria parasites Not Reportable 08/30/18 08:18 Lefty Bodies Not Reportable 08/30/18 08:18 Hem Pathologist Commnt No 08/30/18 08:18 PT 13.0 Sec. (12.2-14.9) 08/29/18 16:34 INR 0.93 (0.87-1.13) 08/29/18 16:34 APTT 27.7 Sec. (24.2-36.6) 08/29/18 16:34 D-Dimer 617.53 ng/mlDDU (0-234) H 08/29/18 17:00 POC ABG pH 7.458 (7.35-7.45) H 08/29/18 17:09 POC ABG pCO2 32.1 (35-45) L 08/29/18 17:09 POC ABG HCO3 22.7 (22-26 mml/L) 08/29/18 17:09 POC ABG Total CO2 24 (23-27mmol/L) 08/29/18 17:09 POC ABG O2 Sat 85 08/29/18 17:09 POC ABG Base Excess -1 ((-2) - (+3)mmol/L) 08/29/18 17:09 VBG pH 7.447 (7.320-7.420) H 08/29/18 16:34 FiO2 36 % 08/29/18 17:09 Sodium 136 mmol/L (137-145) L 09/07/18 04:13 Potassium 3.1 mmol/L (3.6-5.0) L 09/07/18 04:13 Chloride 99.7 mmol/L (98-107) 09/07/18 04:13 Carbon Dioxide 24 mmol/L (22-30) 09/07/18 04:13 Anion Gap 15 mmol/L 09/07/18 04:13 BUN 17 mg/dL (9-20) 09/07/18 04:13 Creatinine 0.9 mg/dL (0.8-1.5) 09/07/18 04:13 Estimated GFR > 60 ml/min 09/07/18 04:13 BUN/Creatinine Ratio 19 % 09/07/18 04:13 Glucose 127 mg/dL (75-100) H 09/07/18 04:13 Lactic Acid 1.40 mmol/L (0.7-2.0) 08/29/18 19:25 Calcium 8.4 mg/dL (8.4-10.2) 09/07/18 04:13 Phosphorus 3.60 mg/dL (2.5-4.5) 09/06/18 07:35 Magnesium 1.70 mg/dL (1.7-2.3) 09/06/18 07:35 Total Bilirubin 0.70 mg/dL (0.1-1.2) 09/06/18 07:35 AST 14 units/L (5-40) 09/06/18 07:35 ALT 8 units/L (7-56) 09/06/18 07:35 Alkaline Phosphatase 51 units/L (35-129) 09/06/18 07:35 Total Creatine Kinase 32 units/L (55-170) L 08/29/18 16:34 CK-MB (CK-2) 2.3 ng/mL (0.0-4.0) 08/29/18 16:34 CK-MB (CK-2) Rel Index 7.1 (0-4) H 08/29/18 16:34 Troponin T < 0.010 ng/mL (0.00-0.029) 08/29/18 16:34 NT-Pro-B Natriuret Pep 694.9 pg/mL (0-900) 08/29/18 16:34 Total Protein 5.0 g/dL (6.3-8.2) L 09/06/18 07:35 Albumin 2.3 g/dL (3.9-5) L 09/06/18 07:35 Albumin/Globulin Ratio 0.9 % 09/06/18 07:35 Urine Color Yellow (Yellow) 08/29/18 19:44 Urine Turbidity Clear (Clear) 08/29/18 19:44 Urine pH 5.0 (5.0-7.0) 08/29/18 19:44 Ur Specific [place] 1.035 (1.003-1.030) H 08/29/18 19:44 Urine Protein <15 mg/dl mg/dL (Negative) 08/29/18 19:44 Urine Glucose (UA) Neg mg/dL (Negative) 08/29/18 19:44 Urine Ketones Tr mg/dL (Negative) 08/29/18 19:44 Urine Blood Neg (Negative) 08/29/18 19:44 Urine Nitrite Neg (Negative) 08/29/18 19:44 Urine Bilirubin Neg (Negative) 08/29/18 19:44 Urine Urobilinogen 2.0 mg/dL (<2.0) 08/29/18 19:44 Ur Leukocyte Esterase Neg (Negative) 08/29/18 19:44 Urine WBC (Auto) 7.0 /HPF (0.0-6.0) H 08/29/18 19:44 Urine RBC (Auto) 1.0 /HPF (0.0-6.0) 08/29/18 19:44 U Epithel Cells (Auto) < 1.0 /HPF (0-13.0) 08/29/18 19:44 Urine Mucus Few /HPF 08/29/18 19:44 Active Medications - Current Medications Current Medications: Generic Name Dose Route Start Last Admin Trade Name Freq PRN Reason Stop Dose Admin Acetaminophen 650 mg 08/29/18 21:29 08/30/18 05:53 Tylenol PO 650 mg Q4H PRN Administration Pain MILD(1-3)/Fever >100.5/VENEGAS Al Hydrox/Mg Hydrox/Simethicone 30 ml 08/29/18 21:29 Alum-Mag Hydrox-Simeth 867-779-77yd/5ml PO Q4H PRN Indigestion Albuterol/Ipratropium 1 ampul 09/06/18 08:00 09/09/18 08:09 Duoneb *Not For Prn Use* IH 1 ampul TIDRT GUILLERMO Administration Amlodipine Besylate 10 mg 08/30/18 10:00 09/09/18 09:42 Norvasc PO 10 mg DAILY GUILLERMO Administration Aspirin 325 mg 08/30/18 10:00 09/09/18 09:41 Aspirin PO 325 mg QDAY GUILLERMO Administration Carvedilol 25 mg 08/29/18 22:00 09/09/18 09:42 Coreg PO 25 mg Q12HR GUILLERMO Administration Clonidine HCl 0.1 mg 08/29/18 22:00 09/09/18 09:41 Catapres PO 0.1 mg BID GUILLERMO Administration Docusate Sodium 100 mg 08/29/18 22:00 09/09/18 09:41 Colace PO 100 mg BID GUILLERMO Administration Enoxaparin Sodium 40 mg 08/30/18 10:00 09/09/18 09:41 Lovenox SUB-Q 40 mg QDAY GUILLERMO Administration Famotidine 20 mg 08/29/18 22:00 09/09/18 09:42 Pepcid PO 20 mg BID GUILLERMO Administration Haloperidol Lactate 2 mg 09/01/18 11:34 09/08/18 03:02 Haldol IM 2 mg Q6H PRN Administration Agitation Hydralazine HCl 100 mg 08/29/18 22:00 09/09/18 06:36 Apresoline PO Not Given Q8H GUILLERMO Hydromorphone HCl 2 mg 08/29/18 21:29 09/06/18 04:28 Dilaudid IV 2 mg Q3H PRN Administration Pain, Moderate (4-6) Dextrose/Sodium Chloride 1,000 mls @ 100 mls/hr 09/06/18 11:30 09/07/18 21:47 D5ns IV 100 mls/hr DIRECT GUILLERMO Administration Labetalol HCl 10 mg 08/29/18 22:07 Normodyne IV Q6HR PRN Hypertension Levofloxacin 750 mg 09/07/18 10:00 09/09/18 09:43 Levaquin PO 09/12/18 09:59 750 mg DAILY GUILLERMO Administration Lisinopril 10 mg 08/30/18 10:00 09/09/18 09:42 Zestril PO 10 mg QDAY GUILLERMO Administration Ondansetron HCl 4 mg 08/29/18 21:29 Zofran IV Q6H PRN Nausea And Vomiting Oxycodone/Acetaminophen 1 tab 08/29/18 21:29 09/07/18 21:40 Percocet 5/325 PO 1 tab Q6H PRN Administration Pain, Moderate (4-6) Pravastatin Sodium 40 mg 08/29/18 22:00 09/08/18 21:42 Pravachol PO 40 mg QHS GUILLERMO Administration Sodium Chloride 10 ml 08/29/18 22:00 09/09/18 09:43 Sodium Chloride Flush Syringe 10 Ml IV 10 ml BID GUILLERMO Administration Sodium Chloride 10 ml 08/29/18 21:29 Sodium Chloride Flush Syringe 10 Ml IV PRN PRN LINE FLUSH Zolpidem Tartrate 5 mg 08/29/18 21:29 Ambien PO QHS PRN Insomnia Nutrition/Malnutrition Assess - Dietary Evaluation Nutrition/Malnutrition Findings: Nutrition Notes Start: 08/30/18 13:41 Freq: Status: Active Protocol: Document 09/08/18 15:58 RM (Rec: 09/08/18 16:02 RM [id number]) Nutrition Notes Initial or Follow up Reassessment Current Diagnosis Coronary Artery Disease, Hypertension,Stroke, Hyperlipidemia Other Pertinent Diagnosis Respiratory distress, R hemiparesis, pneu Current Diet Mechanical soft w/Ensure Enlive 1 daily Labs/Tests Reviewed Pertinent Medications Reviewed Height 5 ft 11 in Weight 66.6 kg [place] Body Weight (kg) 78.18 BMI 20.5 Subjective/Other Information Pt stated that he eats bites of his meals. Noted 2 Ensure Enlive with 1/3 drunk each. Percent of energy/protein needs met: 11%/17% Burn Absent Trauma Absent #1 Nutrition Diagnosis Malnutrition Diagnosis Progress(for reassessment Continues documentation) Is patient on ventilator? No Is Patient Ambulatory and/or Out of Bed No REE-([facility]-confined to bed) 1773.192 Kcal/Kg value to use for calculation 33 Approximate Energy Requirements Using 2198 kcal/Kg Calculation Used for Recommendations Kcal/kg Additional Notes Protein Needs: 80-101g (1.2-1. 5g/kg) Fluid Needs: 1 ml/kcal Nutrition Intervention Change [facility] Add Supplement/Snack (indicate name/kcal Ensure Enlive Chocolate 1 /protein ) daily Provides kCal: 350 Provides Protein (gm) 20 Goal #1 Meet at least 75% of calorie and protein needs via PO and ONS intakes Anticipated Discharge Needs: Unable to determine at this time Follow-Up By: 09/11/18 Additional Comments Follow for PO and ONS intakes
--- NOTE | 2018-09-09 16:22 | Hem/Onc Progress Note ---
Assessment and Plan sq cell ca renal mass d/w dr courtney d/w dr bolton 1. 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 2. Left renal mass, possible renal cell carcinoma. 3. History of smoking present. 4. History of cerebrovascular accident. 5. History of shortness of breath. 6. History of hypertension. 7. History of leukocytosis. 8. History of hyperlipidemia. PLAN: The patient's performance status will guide treatment. If he has two neoplasms and based on performance status, this will become challenging. For renal cell CA, if it is localized, surgery is an option. For the lung CA, clinically bone involvement is present. Palliation with XRT may be an option for pain issues. We also have options of chemotherapy. As per his information, he is able to ambulate minimally with a walker. Outpatient testing will help if any oral targeted agent can be used for lung ca. option of kiendy bx to confirm RCC - Patient Problems (1) Lung cancer Current Visit: Yes Status: Acute Qualifiers: Laterality: unspecified laterality Subjective Date of service: 09/09/18 Principal diagnosis: lung ca - kidney mass Interval history: pt says - not able to walk Objective - Constitutional Vitals: Last Vital Signs Temp 98.0 F 09/09/18 06:08 Pulse 74 09/09/18 13:43 Resp 18 09/09/18 13:43 BP 116/56 09/09/18 13:34 Pulse Ox 97 09/09/18 08:00 Pain Intensity (0-10): 1/10 (chest) General appearance: no acute distress Performance status: 3-limited selfcare - EENT Eyes: EOM intact ENT: clear oral mucosa Lymph node exam: negative cervical - Neck Neck: supple - Respiratory Respiratory effort: Positive: normal Respiratory: bilateral: CTA - Cardiovascular Heart Sounds: Present: S1 & S2 Extremities: No edema - Gastrointestinal General gastrointestinal: Present: soft, non-tender Rectal Exam: deferred - Genitourinary Male genitourinary: Present: deferred - Integumentary Integumentary: warm - Musculoskeletal Musculoskeletal: right sided weakness Medications & Allergies - Medications Allergies/Adverse Reactions: Allergies Penicillins Allergy (Verified 07/05/13 15:11) Unknown Home Medications: Home Medications Medication Instructions Recorded Confirmed Last Taken Type Aspirin [Aspirin TAB] 325 mg PO QDAY #30 tablet 07/19/13 08/31/18 Unknown Rx Simvastatin (Nf) [Zocor TAB] 20 mg PO QHS 30 Days tablet 07/19/13 08/31/18 Unknown Rx amLODIPine [Norvasc] 10 mg PO DAILY 30 Days tab 07/19/13 08/31/18 Unknown Rx cloNIDine [Catapres] 0.1 mg PO BID #60 tablet 07/19/13 08/31/18 Unknown Rx Lisinopril [Zestril TAB] 10 mg PO QDAY 30 Days tablet 07/22/13 08/31/18 Unknown Rx hydrALAZINE [Apresoline] 50 mg PO BID 08/31/18 08/31/18 Unknown History Active Medications: Generic Name Dose Route Start Last Admin Trade Name Freq PRN Reason Stop Dose Admin Acetaminophen 650 mg 08/29/18 21:29 08/30/18 05:53 Tylenol PO 650 mg Q4H PRN Administration Pain MILD(1-3)/Fever >100.5/VENEGAS Al Hydrox/Mg Hydrox/Simethicone 30 ml 08/29/18 21:29 Alum-Mag Hydrox-Simeth [phone]/5ml PO Q4H PRN Indigestion Albuterol/Ipratropium 1 ampul 09/06/18 08:00 09/09/18 13:53 Duoneb *Not For Prn Use* IH 1 ampul TIDRT GUILLERMO Administration Amlodipine Besylate 10 mg 08/30/18 10:00 09/09/18 09:42 Norvasc PO 10 mg DAILY GUILLERMO Administration Aspirin 325 mg 08/30/18 10:00 09/09/18 09:41 Aspirin PO 325 mg QDAY GUILLERMO Administration Carvedilol 25 mg 08/29/18 22:00 09/09/18 09:42 Coreg PO 25 mg Q12HR GUILLERMO Administration Clonidine HCl 0.1 mg 08/29/18 22:00 09/09/18 09:41 Catapres PO 0.1 mg BID GUILLERMO Administration Docusate Sodium 100 mg 08/29/18 22:00 09/09/18 09:41 Colace PO 100 mg BID GUILLERMO Administration Enoxaparin Sodium 40 mg 08/30/18 10:00 09/09/18 09:41 Lovenox SUB-Q 40 mg QDAY GUILLERMO Administration Famotidine 20 mg 08/29/18 22:00 09/09/18 09:42 Pepcid PO 20 mg BID GUILLERMO Administration Haloperidol Lactate 2 mg 09/01/18 11:34 09/08/18 03:02 Haldol IM 2 mg Q6H PRN Administration Agitation Hydralazine HCl 100 mg 08/29/18 22:00 09/09/18 13:34 Apresoline PO Not Given Q8H GUILLERMO Hydromorphone HCl 2 mg 08/29/18 21:29 09/06/18 04:28 Dilaudid IV 2 mg Q3H PRN Administration Pain, Moderate (4-6) Dextrose/Sodium Chloride 1,000 mls @ 100 mls/hr 09/06/18 11:30 09/07/18 21:47 D5ns IV 100 mls/hr DIRECT GUILLERMO Administration Labetalol HCl 10 mg 08/29/18 22:07 Normodyne IV Q6HR PRN Hypertension Levofloxacin 750 mg 09/07/18 10:00 09/09/18 09:43 Levaquin PO 09/12/18 09:59 750 mg DAILY GUILLERMO Administration Lisinopril 10 mg 08/30/18 10:00 09/09/18 09:42 Zestril PO 10 mg QDAY GUILLERMO Administration Ondansetron HCl 4 mg 08/29/18 21:29 Zofran IV Q6H PRN Nausea And Vomiting Oxycodone/Acetaminophen 1 tab 08/29/18 21:29 09/07/18 21:40 Percocet 5/325 PO 1 tab Q6H PRN Administration Pain, Moderate (4-6) Pravastatin Sodium 40 mg 08/29/18 22:00 09/08/18 21:42 Pravachol PO 40 mg QHS GUILLERMO Administration Sodium Chloride 10 ml 08/29/18 22:00 09/09/18 09:43 Sodium Chloride Flush Syringe 10 Ml IV 10 ml BID GUILLERMO Administration Sodium Chloride 10 ml 08/29/18 21:29 Sodium Chloride Flush Syringe 10 Ml IV PRN PRN LINE FLUSH Zolpidem Tartrate 5 mg 08/29/18 21:29 Ambien PO QHS PRN Insomnia
--- NOTE | 2018-09-09 17:00 | Event Note ---
Date: 09/08/18 I called and discussed with patient's mother Mrs. Lorraine Burrell at [phone] And explained in detail patient's condition, reports of the biopsy, consultants recommendations Treatment plan, prognosis. She had numerous questions, answered all of them. And encouraged her to call back if she has any questions or concerns. Patient's mother verbalized understanding, and understood that patient has Lung cancer. And that oncologist and radiation oncologist evaluated for possible radiation treatment. I informed patient's nurse and the patient's service representative Mr. Mares about the above conversation
[2018-09-09] MEDS: PERCOCET 5/325 PO PRN (22:28)
[2018-09-09] MEDS: PRAVACHOL PO SCH (22:28)
[2018-09-09] MEDS: D5NS 1,000 ML IV SCH (22:29)
[2018-09-10] MEDS: APRESOLINE PO SCH ×3 (05:40→23:48)
[2018-09-10] MEDS: DUONEB *Not for PRN Use IH SCH ×3 (07:39→20:23)
[2018-09-10] MEDS: D5NS 1,000 ML IV SCH ×2 (07:43→18:21)
[2018-09-10] MEDS: ASPIRIN PO SCH (10:21)
[2018-09-10] MEDS: LEVAQUIN PO SCH (10:21)
[2018-09-10] MEDS: COLACE PO SCH ×2 (10:21→23:50)
[2018-09-10] MEDS: PEPCID PO SCH ×2 (10:21→23:49)
[2018-09-10] MEDS: CATAPRES PO SCH ×2 (10:22→23:49)
[2018-09-10] MEDS: COREG PO SCH ×2 (10:22→23:50)
[2018-09-10] MEDS: NORVASC PO SCH (10:23)
[2018-09-10] MEDS: LOVENOX SUB-Q SCH (10:23)
[2018-09-10] MEDS: SODIUM CHLORIDE FLUSH SYRINGE 10 ML IV SCH ×2 (10:23→23:52)
[2018-09-10] MEDS: ZESTRIL PO SCH (10:23)
--- NOTE | 2018-09-10 13:43 | Progress Note ---
Assessment and Plan Assessment and plan: --Squamous cell carcinoma lung; s/p biopsy, squamous cell carcinoma, Oncology Dr. 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 Heath, Recommend radiation therapy first treatment on 09/11/2018 at [facility] radiation oncology department --Left renal mass/possible renal cell carcinoma, Oncology following --Hypoxic respiratory failure; requiring BiPAP, symptoms significantly improved Continue Oxygen, nebulizers, IV steroids, IV antibiotics, pulmonary following --Right shoulder pain; pathologic fractures of ribs and sternum secondary to possible metastasis, Pain management and supportive care --Left lower lobe pneumonia; probably post obstructive pneumonia Continue IV antibiotics follow cultures --Leukocytosis; sepsis secondary to pneumonia --History of CVA with residual right-sided weakness, abortive care. --Ongoing tobacco use; smoking cessation advised nicotine patch as needed --Full CODE STATUS --DVT prophylaxis; SCDs, Lovenox Discharge planning; case management, possible SNF placement History Interval history: Patient examined this morning. No new events reported by the nurse. Patient wants to go home. Says he feels better Vital signs reviewed Hospitalist Physical - Constitutional Vitals: Temp Pulse Resp BP Pulse Ox 97.8 F 72 20 138/56 95 09/10/18 11:21 09/10/18 12:00 09/10/18 12:00 09/10/18 12:00 09/10/18 12:00 General appearance: Present: no acute distress, cachectic, disheveled - EENT Eyes: Present: PERRL, EOM intact - Neck Neck: Present: supple, normal ROM - Respiratory Respiratory effort: normal Respiratory: bilateral: diminished, rhonchi, negative: rales, wheezing - Cardiovascular Rhythm: regular Heart Sounds: Present: S1 & S2 - Extremities Extremities: no ischemia, pulses intact Peripheral Pulses: within normal limits - Abdominal General gastrointestinal: soft, non-tender, non-distended, normal bowel sounds - Integumentary Integumentary: Present: clear, warm - Psychiatric Psychiatric: appropriate mood/affect, cooperative - Neurologic Neurologic: moves all extremities Results - Labs CBC & Chem 7: 09/07/18 04:13 09/07/18 04:13 Labs: Laboratory Last Values WBC 9.2 K/mm3 (4.5-11.0) 09/07/18 04:13 RBC 3.61 M/mm3 (3.65-5.03) L 09/07/18 04:13 Hgb 11.6 gm/dl (11.8-15.2) L 09/07/18 04:13 Hct 33.7 % (35.5-45.6) L 09/07/18 04:13 MCV 93 fl (84-94) 09/07/18 04:13 MCH 32 pg (28-32) 09/07/18 04:13 MCHC 34 % (32-34) 09/07/18 04:13 RDW 14.0 % (13.2-15.2) 09/07/18 04:13 Plt Count 287 K/mm3 (140-440) 09/07/18 04:13 Lymph % (Auto) 11.3 % (13.4-35.0) L 09/07/18 04:13 [place] % (Auto) 12.1 % (0.0-7.3) H 09/07/18 04:13 Eos % (Auto) 5.5 % (0.0-4.3) H 09/07/18 04:13 Baso % (Auto) 0.9 % (0.0-1.8) 09/07/18 04:13 Lymph # 1.0 K/mm3 (1.2-5.4) L 09/07/18 04:13 [place] # 1.1 K/mm3 (0.0-0.8) H 09/07/18 04:13 Eos # 0.5 K/mm3 (0.0-0.4) H 09/07/18 04:13 Baso # 0.1 K/mm3 (0.0-0.1) 09/07/18 04:13 Add Manual Diff Complete 08/30/18 08:18 Total Counted 100 08/30/18 08:18 Seg Neutrophils % 70.2 % (40.0-70.0) H 09/07/18 04:13 Seg Neuts % (Manual) 89.0 % (40.0-70.0) H 08/30/18 08:18 Band Neutrophils % 0 % 08/30/18 08:18 Lymphocytes % (Manual) 4.0 % (13.4-35.0) L 08/30/18 08:18 Reactive Lymphs % (Man) 0 % 08/30/18 08:18 Monocytes % (Manual) 7.0 % (0.0-7.3) 08/30/18 08:18 Eosinophils % (Manual) 0 % (0.0-4.3) 08/30/18 08:18 Basophils % (Manual) 0 % (0.0-1.8) 08/30/18 08:18 Metamyelocytes % 0 % 08/30/18 08:18 Myelocytes % 0 % 08/30/18 08:18 Promyelocytes % 0 % 08/30/18 08:18 Blast Cells % 0 % 08/30/18 08:18 Nucleated RBC % Not Reportable 08/30/18 08:18 Seg Neutrophils # 6.5 K/mm3 (1.8-7.7) 09/07/18 04:13 Seg Neutrophils # Man 11.5 K/mm3 (1.8-7.7) H 08/30/18 08:18 Band Neutrophils # 0.0 K/mm3 08/30/18 08:18 Lymphocytes # (Manual) 0.5 K/mm3 (1.2-5.4) L 08/30/18 08:18 Abs React Lymphs (Man) 0.0 K/mm3 08/30/18 08:18 Monocytes # (Manual) 0.9 K/mm3 (0.0-0.8) H 08/30/18 08:18 Eosinophils # (Manual) 0.0 K/mm3 (0.0-0.4) 08/30/18 08:18 Basophils # (Manual) 0.0 K/mm3 (0.0-0.1) 08/30/18 08:18 Metamyelocytes # 0.0 K/mm3 08/30/18 08:18 Myelocytes # 0.0 K/mm3 08/30/18 08:18 Promyelocytes # 0.0 K/mm3 08/30/18 08:18 Blast Cells # 0.0 K/mm3 08/30/18 08:18 WBC Morphology Not Reportable 08/30/18 08:18 Hypersegmented Neuts Not Reportable 08/30/18 08:18 Hyposegmented Neuts Not Reportable 08/30/18 08:18 Hypogranular Neuts Not Reportable 08/30/18 08:18 Smudge Cells Not Reportable 08/30/18 08:18 Toxic Granulation Not Reportable 08/30/18 08:18 Toxic Vacuolation Not Reportable 08/30/18 08:18 Dohle Bodies Not Reportable 08/30/18 08:18 Pelger-Huet Anomaly Not Reportable 08/30/18 08:18 [place] Rods Not Reportable 08/30/18 08:18 Platelet Estimate Consistent w auto 08/30/18 08:18 Clumped Platelets Rare 08/30/18 08:18 Plt Clumps, EDTA Not Reportable 08/30/18 08:18 Large Platelets Not Reportable 08/30/18 08:18 Giant Platelets Not Reportable 08/30/18 08:18 Platelet Satelliting Not Reportable 08/30/18 08:18 Plt Morphology Comment Not Reportable 08/30/18 08:18 RBC Morphology Normal 08/30/18 08:18 Dimorphic RBCs Not Reportable 08/30/18 08:18 Polychromasia Not Reportable 08/30/18 08:18 Hypochromasia Not Reportable 08/30/18 08:18 Poikilocytosis Not Reportable 08/30/18 08:18 Anisocytosis Not Reportable 08/30/18 08:18 Microcytosis Not Reportable 08/30/18 08:18 Macrocytosis Not Reportable 08/30/18 08:18 Spherocytes Not Reportable 08/30/18 08:18 Pappenheimer Bodies Not Reportable 08/30/18 08:18 Sickle Cells Not Reportable 08/30/18 08:18 Target Cells Not Reportable 08/30/18 08:18 Tear Drop Cells Not Reportable 08/30/18 08:18 Ovalocytes Not Reportable 08/30/18 08:18 Helmet Cells Not Reportable 08/30/18 08:18 [place] Bodies Not Reportable 08/30/18 08:18 [place] Rings Not Reportable 08/30/18 08:18 [place] Cells Not Reportable 08/30/18 08:18 Bite Cells Not Reportable 08/30/18 08:18 Crenated Cell Not Reportable 08/30/18 08:18 Elliptocytes Not Reportable 08/30/18 08:18 Acanthocytes (Spur) Not Reportable 08/30/18 08:18 Rouleaux Not Reportable 08/30/18 08:18 Hemoglobin C Crystals Not Reportable 08/30/18 08:18 Schistocytes Not Reportable 08/30/18 08:18 Malaria parasites Not Reportable 08/30/18 08:18 [place] Bodies Not Reportable 08/30/18 08:18 Hem Pathologist Commnt No 08/30/18 08:18 PT 13.0 Sec. (12.2-14.9) 08/29/18 16:34 INR 0.93 (0.87-1.13) 08/29/18 16:34 APTT 27.7 Sec. (24.2-36.6) 08/29/18 16:34 D-Dimer 617.53 ng/mlDDU (0-234) H 08/29/18 17:00 POC ABG pH 7.458 (7.35-7.45) H 08/29/18 17:09 POC ABG pCO2 32.1 (35-45) L 08/29/18 17:09 POC ABG HCO3 22.7 (22-26 mml/L) 08/29/18 17:09 POC ABG Total CO2 24 (23-27mmol/L) 08/29/18 17:09 POC ABG O2 Sat 85 08/29/18 17:09 POC ABG Base Excess -1 ((-2) - (+3)mmol/L) 08/29/18 17:09 VBG pH 7.447 (7.320-7.420) H 08/29/18 16:34 FiO2 36 % 08/29/18 17:09 Sodium 136 mmol/L (137-145) L 09/07/18 04:13 Potassium 3.1 mmol/L (3.6-5.0) L 09/07/18 04:13 Chloride 99.7 mmol/L (98-107) 09/07/18 04:13 Carbon Dioxide 24 mmol/L (22-30) 09/07/18 04:13 Anion Gap 15 mmol/L 09/07/18 04:13 BUN 17 mg/dL (9-20) 09/07/18 04:13 Creatinine 0.9 mg/dL (0.8-1.5) 09/07/18 04:13 Estimated GFR > 60 ml/min 09/07/18 04:13 BUN/Creatinine Ratio 19 % 09/07/18 04:13 Glucose 127 mg/dL (75-100) H 09/07/18 04:13 Lactic Acid 1.40 mmol/L (0.7-2.0) 08/29/18 19:25 Calcium 8.4 mg/dL (8.4-10.2) 09/07/18 04:13 Phosphorus 3.60 mg/dL (2.5-4.5) 09/06/18 07:35 Magnesium 1.70 mg/dL (1.7-2.3) 09/06/18 07:35 Total Bilirubin 0.70 mg/dL (0.1-1.2) 09/06/18 07:35 AST 14 units/L (5-40) 09/06/18 07:35 ALT 8 units/L (7-56) 09/06/18 07:35 Alkaline Phosphatase 51 units/L (35-129) 09/06/18 07:35 Total Creatine Kinase 32 units/L (55-170) L 08/29/18 16:34 CK-MB (CK-2) 2.3 ng/mL (0.0-4.0) 08/29/18 16:34 CK-MB (CK-2) Rel Index 7.1 (0-4) H 08/29/18 16:34 Troponin T < 0.010 ng/mL (0.00-0.029) 08/29/18 16:34 NT-Pro-B Natriuret Pep 694.9 pg/mL (0-900) 08/29/18 16:34 Total Protein 5.0 g/dL (6.3-8.2) L 09/06/18 07:35 Albumin 2.3 g/dL (3.9-5) L 09/06/18 07:35 Albumin/Globulin Ratio 0.9 % 09/06/18 07:35 Urine Color Yellow (Yellow) 08/29/18 19:44 Urine Turbidity Clear (Clear) 08/29/18 19:44 Urine pH 5.0 (5.0-7.0) 08/29/18 19:44 Ur Specific [place] 1.035 (1.003-1.030) H 08/29/18 19:44 Urine Protein <15 mg/dl mg/dL (Negative) 08/29/18 19:44 Urine Glucose (UA) Neg mg/dL (Negative) 08/29/18 19:44 Urine Ketones Tr mg/dL (Negative) 08/29/18 19:44 Urine Blood Neg (Negative) 08/29/18 19:44 Urine Nitrite Neg (Negative) 08/29/18 19:44 Urine Bilirubin Neg (Negative) 08/29/18 19:44 Urine Urobilinogen 2.0 mg/dL (<2.0) 08/29/18 19:44 Ur Leukocyte Esterase Neg (Negative) 08/29/18 19:44 Urine WBC (Auto) 7.0 /HPF (0.0-6.0) H 08/29/18 19:44 Urine RBC (Auto) 1.0 /HPF (0.0-6.0) 08/29/18 19:44 U Epithel Cells (Auto) < 1.0 /HPF (0-13.0) 08/29/18 19:44 Urine Mucus Few /HPF 08/29/18 19:44 Active Medications - Current Medications Current Medications: Generic Name Dose Route Start Last Admin Trade Name Freq PRN Reason Stop Dose Admin Acetaminophen 650 mg 08/29/18 21:29 08/30/18 05:53 Tylenol PO 650 mg Q4H PRN Administration Pain MILD(1-3)/Fever >100.5/VENEGAS Al Hydrox/Mg Hydrox/Simethicone 30 ml 08/29/18 21:29 Alum-Mag Hydrox-Simeth 996-187-31li/5ml PO Q4H PRN Indigestion Albuterol/Ipratropium 1 ampul 09/06/18 08:00 09/10/18 07:39 Duoneb *Not For Prn Use* IH Not Given TIDRT [facility] Amlodipine Besylate 10 mg 08/30/18 10:00 09/10/18 10:23 Norvasc PO Not Given DAILY [facility] Aspirin 325 mg 08/30/18 10:00 09/10/18 10:21 Aspirin PO 325 mg QDAY GUILLERMO Administration Carvedilol 25 mg 08/29/18 22:00 09/10/18 10:22 Coreg PO Not Given Q12HR [facility] Clonidine HCl 0.1 mg 08/29/18 22:00 09/10/18 10:22 Catapres PO Not Given BID GUILLERMO Docusate Sodium 100 mg 08/29/18 22:00 09/10/18 10:21 Colace PO 100 mg BID GUILLERMO Administration Enoxaparin Sodium 40 mg 08/30/18 10:00 09/10/18 10:23 Lovenox SUB-Q 40 mg QDAY GUILLERMO Administration Famotidine 20 mg 08/29/18 22:00 09/10/18 10:21 Pepcid PO 20 mg BID GUILLERMO Administration Haloperidol Lactate 2 mg 09/01/18 11:34 09/08/18 03:02 Haldol IM 2 mg Q6H PRN Administration Agitation Hydralazine HCl 100 mg 08/29/18 22:00 09/10/18 05:40 Apresoline PO 100 mg Q8H GUILLERMO Administration Hydromorphone HCl 2 mg 08/29/18 21:29 09/06/18 04:28 Dilaudid IV 2 mg Q3H PRN Administration Pain, Moderate (4-6) Dextrose/Sodium Chloride 1,000 mls @ 100 mls/hr 09/06/18 11:30 09/10/18 07:43 D5ns IV 100 mls/hr DIRECT GUILLERMO Administration Labetalol HCl 10 mg 08/29/18 22:07 Normodyne IV Q6HR PRN Hypertension Levofloxacin 750 mg 09/07/18 10:00 09/10/18 10:21 Levaquin PO 09/12/18 09:59 750 mg DAILY GUILLERMO Administration Lisinopril 10 mg 08/30/18 10:00 09/10/18 10:23 Zestril PO Not Given QDAY [facility] Ondansetron HCl 4 mg 08/29/18 21:29 Zofran IV Q6H PRN Nausea And Vomiting Oxycodone/Acetaminophen 1 tab 08/29/18 21:29 09/09/18 22:28 Percocet 5/325 PO 1 tab Q6H PRN Administration Pain, Moderate (4-6) Pravastatin Sodium 40 mg 08/29/18 22:00 09/09/18 22:28 Pravachol PO 40 mg QHS GUILLERMO Administration Sodium Chloride 10 ml 08/29/18 22:00 09/10/18 10:23 Sodium Chloride Flush Syringe 10 Ml IV 10 ml BID GUILLERMO Administration Sodium Chloride 10 ml 08/29/18 21:29 Sodium Chloride Flush Syringe 10 Ml IV PRN PRN LINE FLUSH Zolpidem Tartrate 5 mg 08/29/18 21:29 Ambien PO QHS PRN Insomnia Nutrition/Malnutrition Assess - Dietary Evaluation Nutrition/Malnutrition Findings: Nutrition Notes Start: 08/30/18 13:41 Freq: Status: Active Protocol: Document 09/08/18 15:58 RM (Rec: 09/08/18 16:02 RM [id number]) Nutrition Notes Initial or Follow up Reassessment Current Diagnosis Coronary Artery Disease, Hypertension,Stroke, Hyperlipidemia Other Pertinent Diagnosis Respiratory distress, R hemiparesis, pneu Current Diet Mechanical soft w/Ensure Enlive 1 daily Labs/Tests Reviewed Pertinent Medications Reviewed Height 5 ft 11 in Weight 66.6 kg [place] Body Weight (kg) 78.18 BMI 20.5 Subjective/Other Information Pt stated that he eats bites of his meals. Noted 2 Ensure Enlive with 1/3 drunk each. Percent of energy/protein needs met: 11%/17% Burn Absent Trauma Absent #1 Nutrition Diagnosis Malnutrition Diagnosis Progress(for reassessment Continues documentation) Is patient on ventilator? No Is Patient Ambulatory and/or Out of Bed No REE-([facility]-confined to bed) 1773.192 Kcal/Kg value to use for calculation 33 Approximate Energy Requirements Using 2198 kcal/Kg Calculation Used for Recommendations Kcal/kg Additional Notes Protein Needs: 80-101g (1.2-1. 5g/kg) Fluid Needs: 1 ml/kcal Nutrition Intervention Change [facility] Add Supplement/Snack (indicate name/kcal Ensure Enlive Chocolate 1 /protein ) daily Provides kCal: 350 Provides Protein (gm) 20 Goal #1 Meet at least 75% of calorie and protein needs via PO and ONS intakes Anticipated Discharge Needs: Unable to determine at this time Follow-Up By: 09/11/18 Additional Comments Follow for PO and ONS intakes
--- NOTE | 2018-09-10 17:22 | Hem/Onc Progress Note ---
Assessment and Plan sq cell ca renal mass d/w dr courtney d/w dr bolton 1. 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 2. Left renal mass, possible renal cell carcinoma. 3. History of smoking present. 4. History of cerebrovascular accident. 5. History of shortness of breath. 6. History of hypertension. 7. History of leukocytosis. 8. History of hyperlipidemia. PLAN: The patient's performance status will guide treatment. If he has two neoplasms and based on performance status, this will become challenging. For renal cell CA, if it is localized, surgery is an option. For the lung CA, clinically bone involvement is present. Palliation with XRT may be an option for pain issues. We also have options of chemotherapy. As per his information, he is able to ambulate minimally with a walker. Outpatient testing will help if any oral targeted agent can be used for lung ca. option of kidney bx to confirm RCC 09/10 - kidney bx ordered pt being checked for palliative XRT will look into palmidronate for bone mets - Patient Problems (1) Lung cancer Current Visit: Yes Status: Acute Qualifiers: Laterality: unspecified laterality Subjective Date of service: 09/10/18 Principal diagnosis: lung ca and kidney mass Interval history: pain issues Objective - Constitutional Vitals: Last Vital Signs Temp 98.0 F 09/10/18 16:01 Pulse 72 09/10/18 16:51 Resp 18 09/10/18 16:51 BP 141/54 09/10/18 16:01 Pulse Ox 91 09/10/18 16:40 Pain Intensity (0-10): 1/10 General appearance: no acute distress Performance status: 4-completely disabled - EENT Eyes: EOM intact ENT: hearing intact, clear oral mucosa Lymph node exam: negative cervical - Neck Neck: normal ROM - Respiratory Respiratory effort: Positive: normal Respiratory: bilateral: diminished - Cardiovascular Heart Sounds: Present: S1 & S2 Extremities: No edema - Gastrointestinal General gastrointestinal: Present: soft, non-tender Rectal Exam: deferred - Genitourinary Male genitourinary: Present: deferred - Integumentary Integumentary: warm - Musculoskeletal Musculoskeletal: right sided weakness Medications & Allergies - Medications Allergies/Adverse Reactions: Allergies Penicillins Allergy (Verified 07/05/13 15:11) Unknown Home Medications: Home Medications Medication Instructions Recorded Confirmed Last Taken Type Aspirin [Aspirin TAB] 325 mg PO QDAY #30 tablet 07/19/13 08/31/18 Unknown Rx Simvastatin (Nf) [Zocor TAB] 20 mg PO QHS 30 Days tablet 07/19/13 08/31/18 Unknown Rx amLODIPine [Norvasc] 10 mg PO DAILY 30 Days tab 07/19/13 08/31/18 Unknown Rx cloNIDine [Catapres] 0.1 mg PO BID #60 tablet 07/19/13 08/31/18 Unknown Rx Lisinopril [Zestril TAB] 10 mg PO QDAY 30 Days tablet 07/22/13 08/31/18 Unknown Rx hydrALAZINE [Apresoline] 50 mg PO BID 08/31/18 08/31/18 Unknown History Active Medications: Generic Name Dose Route Start Last Admin Trade Name Freq PRN Reason Stop Dose Admin Acetaminophen 650 mg 08/29/18 21:29 08/30/18 05:53 Tylenol PO 650 mg Q4H PRN Administration Pain MILD(1-3)/Fever >100.5/VENEGAS Al Hydrox/Mg Hydrox/Simethicone 30 ml 08/29/18 21:29 Alum-Mag Hydrox-Simeth 590-133-54bm/5ml PO Q4H PRN Indigestion Albuterol/Ipratropium 1 ampul 09/06/18 08:00 09/10/18 16:41 Duoneb *Not For Prn Use* IH 1 ampul TIDRT GUILLERMO Administration Amlodipine Besylate 10 mg 08/30/18 10:00 09/10/18 10:23 Norvasc PO Not Given DAILY [facility] Aspirin 325 mg 08/30/18 10:00 09/10/18 10:21 Aspirin PO 325 mg QDAY GUILLERMO Administration Carvedilol 25 mg 08/29/18 22:00 09/10/18 10:22 Coreg PO Not Given Q12HR GUILLERMO Clonidine HCl 0.1 mg 08/29/18 22:00 09/10/18 10:22 Catapres PO Not Given BID [facility] Docusate Sodium 100 mg 08/29/18 22:00 09/10/18 10:21 Colace PO 100 mg BID GUILLERMO Administration Enoxaparin Sodium 40 mg 08/30/18 10:00 09/10/18 10:23 Lovenox SUB-Q 40 mg QDAY GUILLERMO Administration Famotidine 20 mg 08/29/18 22:00 09/10/18 10:21 Pepcid PO 20 mg BID GUILLERMO Administration Haloperidol Lactate 2 mg 09/01/18 11:34 09/08/18 03:02 Haldol IM 2 mg Q6H PRN Administration Agitation Hydralazine HCl 100 mg 08/29/18 22:00 09/10/18 14:13 Apresoline PO 100 mg Q8H GUILLERMO Administration Hydromorphone HCl 2 mg 08/29/18 21:29 09/06/18 04:28 Dilaudid IV 2 mg Q3H PRN Administration Pain, Moderate (4-6) Dextrose/Sodium Chloride 1,000 mls @ 100 mls/hr 09/06/18 11:30 09/10/18 07:43 D5ns IV 100 mls/hr DIRECT GUILLERMO Administration Labetalol HCl 10 mg 08/29/18 22:07 Normodyne IV Q6HR PRN Hypertension Levofloxacin 750 mg 09/07/18 10:00 09/10/18 10:21 Levaquin PO 09/12/18 09:59 750 mg DAILY GUILLERMO Administration Lisinopril 10 mg 08/30/18 10:00 09/10/18 10:23 Zestril PO Not Given QDAY [facility]ERMO Ondansetron HCl 4 mg 08/29/18 21:29 Zofran IV Q6H PRN Nausea And Vomiting Oxycodone/Acetaminophen 1 tab 08/29/18 21:29 09/09/18 22:28 Percocet 5/325 PO 1 tab Q6H PRN Administration Pain, Moderate (4-6) Pravastatin Sodium 40 mg 08/29/18 22:00 09/09/18 22:28 Pravachol PO 40 mg QHS GUILLERMO Administration Sodium Chloride 10 ml 08/29/18 22:00 09/10/18 10:23 Sodium Chloride Flush Syringe 10 Ml IV 10 ml BID GUILLERMO Administration Sodium Chloride 10 ml 08/29/18 21:29 Sodium Chloride Flush Syringe 10 Ml IV PRN PRN LINE FLUSH Zolpidem Tartrate 5 mg 08/29/18 21:29 Ambien PO QHS PRN Insomnia
[2018-09-10] MEDS: PRAVACHOL PO SCH (23:51)
[2018-09-11] MEDS: APRESOLINE PO SCH ×3 (05:03→22:35)
--- NOTE | 2018-09-11 07:59 | Hem/Onc Progress Note ---
Assessment and Plan sq cell ca renal mass d/w dr courtney d/w dr bolton 1. 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 2. Left renal mass, possible renal cell carcinoma. 3. History of smoking present. 4. History of cerebrovascular accident. 5. History of shortness of breath. 6. History of hypertension. 7. History of leukocytosis. 8. History of hyperlipidemia. PLAN: The patient's performance status will guide treatment. If he has two neoplasms and based on performance status, this will become challenging. For renal cell CA, if it is localized, surgery is an option. For the lung CA, clinically bone involvement is present. Palliation with XRT may be an option for pain issues. We also have options of chemotherapy. As per his information, he is able to ambulate minimally with a walker. Outpatient testing will help if any oral targeted agent can be used for lung ca. option of kidney bx to confirm RCC 09/10 - kidney bx ordered pt being checked for palliative XRT will look into palmidronate for bone mets 09/11 d/w dr Rodrigues will do MRI abdo and follow WILL TALK TO FAMILY - OLLIE JEFFRIES MOTHER [phone] - Patient Problems (1) Lung cancer Current Visit: Yes Status: Acute Qualifiers: Laterality: unspecified laterality Subjective Date of service: 09/11/18 Principal diagnosis: lung ca - remal mass Interval history: due XRT today Objective - Constitutional Vitals: Last Vital Signs Temp 98.0 F 09/11/18 04:41 Pulse 69 09/11/18 04:41 Resp 20 09/11/18 04:41 BP 127/54 09/11/18 04:41 Pulse Ox 93 09/11/18 04:41 Pain Intensity (0-10): 1/10 (chest) General appearance: no acute distress Performance status: 3-limited selfcare - EENT Eyes: EOM intact ENT: clear oral mucosa Lymph node exam: negative cervical - Neck Neck: normal ROM - Respiratory Respiratory effort: Positive: normal Respiratory: bilateral: diminished - Cardiovascular Heart Sounds: Present: S1 & S2 Extremities: No edema - Gastrointestinal General gastrointestinal: Present: soft, non-tender Rectal Exam: deferred - Genitourinary Male genitourinary: Present: deferred - Integumentary Integumentary: warm - Musculoskeletal Musculoskeletal: right sided weakness Medications & Allergies - Medications Allergies/Adverse Reactions: Allergies Penicillins Allergy (Verified 07/05/13 15:11) Unknown Home Medications: Home Medications Medication Instructions Recorded Confirmed Last Taken Type Aspirin [Aspirin TAB] 325 mg PO QDAY #30 tablet 07/19/13 08/31/18 Unknown Rx Simvastatin (Nf) [Zocor TAB] 20 mg PO QHS 30 Days tablet 07/19/13 08/31/18 Unknown Rx amLODIPine [Norvasc] 10 mg PO DAILY 30 Days tab 07/19/13 08/31/18 Unknown Rx cloNIDine [Catapres] 0.1 mg PO BID #60 tablet 07/19/13 08/31/18 Unknown Rx Lisinopril [Zestril TAB] 10 mg PO QDAY 30 Days tablet 07/22/13 08/31/18 Unknown Rx hydrALAZINE [Apresoline] 50 mg PO BID 08/31/18 08/31/18 Unknown History Active Medications: Generic Name Dose Route Start Last Admin Trade Name Freq PRN Reason Stop Dose Admin Acetaminophen 650 mg 08/29/18 21:29 08/30/18 05:53 Tylenol PO 650 mg Q4H PRN Administration Pain MILD(1-3)/Fever >100.5/VENEGAS Al Hydrox/Mg Hydrox/Simethicone 30 ml 08/29/18 21:29 Alum-Mag Hydrox-Simeth [id number]/5ml PO Q4H PRN Indigestion Albuterol/Ipratropium 1 ampul 09/06/18 08:00 09/10/18 20:23 Duoneb *Not For Prn Use* IH 1 ampul TIDRT GUILLERMO Administration Amlodipine Besylate 10 mg 08/30/18 10:00 09/10/18 10:23 Norvasc PO Not Given DAILY [facility] Aspirin 325 mg 08/30/18 10:00 09/10/18 10:21 Aspirin PO 325 mg QDAY GUILLERMO Administration Carvedilol 25 mg 08/29/18 22:00 09/10/18 23:50 Coreg PO 25 mg Q12HR [facility]LLERMO Administration Clonidine HCl 0.1 mg 08/29/18 22:00 09/10/18 23:49 Catapres PO 0.1 mg BID GUILLERMO Administration Docusate Sodium 100 mg 08/29/18 22:00 09/10/18 23:50 Colace PO 100 mg BID [facility]LLER[facility] Administration Enoxaparin Sodium 40 mg 08/30/18 10:00 09/10/18 10:23 Lovenox SUB-Q 40 mg QDAY GUILLERMO Administration Famotidine 20 mg 08/29/18 22:00 09/10/18 23:49 Pepcid PO 20 mg BID GUILLERMO Administration Haloperidol Lactate 2 mg 09/01/18 11:34 09/08/18 03:02 Haldol IM 2 mg Q6H PRN Administration Agitation Hydralazine HCl 100 mg 08/29/18 22:00 09/11/18 05:03 Apresoline PO Not Given Q8H [facility]ERMO Hydromorphone HCl 2 mg 08/29/18 21:29 09/06/18 04:28 Dilaudid IV 2 mg Q3H PRN Administration Pain, Moderate (4-6) Dextrose/Sodium Chloride 1,000 mls @ 100 mls/hr 09/06/18 11:30 09/10/18 18:21 D5ns IV 100 mls/hr DIRECT GUILLERMO Administration Pamidronate Disodium 60 mg/ 1,006.6667 mls @ 100 mls/hr 09/11/18 08:00 Sodium Chloride IV 09/11/18 18:03 ONCE ONE Labetalol HCl 10 mg 08/29/18 22:07 Normodyne IV Q6HR PRN Hypertension Levofloxacin 750 mg 09/07/18 10:00 09/10/18 10:21 Levaquin PO 09/12/18 09:59 750 mg DAILY GUILLERMO Administration Lisinopril 10 mg 08/30/18 10:00 09/10/18 10:23 Zestril PO Not Given QDAY GUILLERMO Ondansetron HCl 4 mg 08/29/18 21:29 Zofran IV Q6H PRN Nausea And Vomiting Oxycodone/Acetaminophen 1 tab 08/29/18 21:29 09/09/18 22:28 Percocet 5/325 PO 1 tab Q6H PRN Administration Pain, Moderate (4-6) Pravastatin Sodium 40 mg 08/29/18 22:00 09/10/18 23:51 Pravachol PO 40 mg QHS GUILLERMO Administration Sodium Chloride 10 ml 08/29/18 22:00 09/10/18 23:52 Sodium Chloride Flush Syringe 10 Ml IV 10 ml BID GUILLERMO Administration Sodium Chloride 10 ml 08/29/18 21:29 Sodium Chloride Flush Syringe 10 Ml IV PRN PRN LINE FLUSH Zolpidem Tartrate 5 mg 08/29/18 21:29 Ambien PO QHS PRN Insomnia
[2018-09-11] MEDS ORDERED: AREDIA 60 MG in NACL 0.9% 1000 ML 1,000 ML IV ONE (08:00)
[2018-09-11] MEDS: DUONEB *Not for PRN Use IH SCH ×3 (08:09→20:23)
[2018-09-11 09:02] LABS: INR 1.09 (0.87-1.13)
[2018-09-11 09:03] LABS: Partial Thromboplastin Time 30.9 Sec. (24.2-36.6)
--- NOTE | 2018-09-11 11:06 | Event Note ---
Date: 09/11/[address] scan and discussed situation with the oncologist. The patient has advanced left lung cancer which has invaded the mediastinum and resulted in obstruction of most of the left lung. The patient also has a left renal mass suspicious for a RCC that is adjacent to the spleen. Recommend MRI with renal mass protocol for diagnosis of the RCC. MRI should answer the question in a noninvasive way. I suspect the mass is a RCC. Unfortunately, the patient's active lung malignancy issues make him not a candidate for any treatment of the RCC given the advanced, invasive lung cancer. He is not even a candidate for a local renal ablative techniques by interventional radiology. Discussed with Dr. Rhodes who agrees and will cancel the biopsy for now. If
[2018-09-11] MEDS: ASPIRIN PO SCH (11:58)
[2018-09-11] MEDS: COREG PO SCH ×2 (11:58→22:36)
[2018-09-11] MEDS: LOVENOX SUB-Q SCH (11:58)
[2018-09-11] MEDS: NORVASC PO SCH (11:59)
[2018-09-11] MEDS: ZESTRIL PO SCH (11:59)
[2018-09-11] MEDS: LEVAQUIN PO SCH (11:59)
[2018-09-11] MEDS: PEPCID PO SCH ×2 (11:59→22:33)
[2018-09-11] MEDS: CATAPRES PO SCH ×2 (11:59→22:34)
[2018-09-11] MEDS: COLACE PO SCH ×2 (11:59→22:33)
[2018-09-11] MEDS: SODIUM CHLORIDE FLUSH SYRINGE 10 ML IV SCH ×2 (12:00→22:33)
--- NOTE | 2018-09-11 18:44 | Progress Note ---
Assessment and Plan Assessment and plan: --Squamous cell carcinoma lung; s/p biopsy, squamous cell carcinoma, Oncology Dr. 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 Heath, Recommend radiation therapy first treatment on 09/11/2018 at [facility] radiation oncology department --Left renal mass/possible renal cell carcinoma, Oncology following --Hypoxic respiratory failure; requiring BiPAP, symptoms significantly improved Continue Oxygen, nebulizers, IV steroids, IV antibiotics, pulmonary following --Right shoulder pain; pathologic fractures of ribs and sternum secondary to possible metastasis, Pain management and supportive care --Left lower lobe pneumonia; probably post obstructive pneumonia Continue IV antibiotics follow cultures --Sepsis secondary to pneumonia --History of CVA with residual right-sided weakness, abortive care. --Ongoing tobacco use; smoking cessation advised nicotine patch as needed --Full CODE STATUS --DVT prophylaxis; SCDs, Lovenox Disposition: Radiation therapy, Renal biopsy Vs MRI renal mass. Discharge planning; case management, possible SNF placement Plan of care d/w the pt and his mother Ms Lorraine Burrell over the phone. History Interval history: Patient seen and examined, No new events reported Radiation onc to initiate radiation therapy Patient has no new complaints Hospitalist Physical - Constitutional Vitals: Temp Pulse Resp BP Pulse Ox 97.8 F 73 20 109/46 94 09/11/18 17:40 09/11/18 17:38 09/11/18 17:40 09/11/18 17:40 09/11/18 17:38 General appearance: Present: no acute distress, cachectic, disheveled - EENT Eyes: Present: PERRL, EOM intact - Neck Neck: Present: supple, normal ROM - Respiratory Respiratory effort: normal Respiratory: bilateral: diminished, rhonchi, negative: rales, wheezing - Cardiovascular Rhythm: regular Heart Sounds: Present: S1 & S2 - Extremities Extremities: no ischemia, No edema - Abdominal General gastrointestinal: soft, non-tender, non-distended, normal bowel sounds - Integumentary Integumentary: Present: clear, warm - Psychiatric Psychiatric: appropriate mood/affect, cooperative - Neurologic Neurologic: CNII-XII intact, moves all extremities Results - Labs CBC & Chem 7: 09/07/18 04:13 09/07/18 04:13 Labs: Laboratory Last Values WBC 9.2 K/mm3 (4.5-11.0) 09/07/18 04:13 RBC 3.61 M/mm3 (3.65-5.03) L 09/07/18 04:13 Hgb 11.6 gm/dl (11.8-15.2) L 09/07/18 04:13 Hct 33.7 % (35.5-45.6) L 09/07/18 04:13 MCV 93 fl (84-94) 09/07/18 04:13 MCH 32 pg (28-32) 09/07/18 04:13 MCHC 34 % (32-34) 09/07/18 04:13 RDW 14.0 % (13.2-15.2) 09/07/18 04:13 Plt Count 287 K/mm3 (140-440) 09/07/18 04:13 Lymph % (Auto) 11.3 % (13.4-35.0) L 09/07/18 04:13 [place] % (Auto) 12.1 % (0.0-7.3) H 09/07/18 04:13 Eos % (Auto) 5.5 % (0.0-4.3) H 09/07/18 04:13 Baso % (Auto) 0.9 % (0.0-1.8) 09/07/18 04:13 Lymph # 1.0 K/mm3 (1.2-5.4) L 09/07/18 04:13 [place] # 1.1 K/mm3 (0.0-0.8) H 09/07/18 04:13 Eos # 0.5 K/mm3 (0.0-0.4) H 09/07/18 04:13 Baso # 0.1 K/mm3 (0.0-0.1) 09/07/18 04:13 Add Manual Diff Complete 08/30/18 08:18 Total Counted 100 08/30/18 08:18 Seg Neutrophils % 70.2 % (40.0-70.0) H 09/07/18 04:13 Seg Neuts % (Manual) 89.0 % (40.0-70.0) H 08/30/18 08:18 Band Neutrophils % 0 % 08/30/18 08:18 Lymphocytes % (Manual) 4.0 % (13.4-35.0) L 08/30/18 08:18 Reactive Lymphs % (Man) 0 % 08/30/18 08:18 Monocytes % (Manual) 7.0 % (0.0-7.3) 08/30/18 08:18 Eosinophils % (Manual) 0 % (0.0-4.3) 08/30/18 08:18 Basophils % (Manual) 0 % (0.0-1.8) 08/30/18 08:18 Metamyelocytes % 0 % 08/30/18 08:18 Myelocytes % 0 % 08/30/18 08:18 Promyelocytes % 0 % 08/30/18 08:18 Blast Cells % 0 % 08/30/18 08:18 Nucleated RBC % Not Reportable 08/30/18 08:18 Seg Neutrophils # 6.5 K/mm3 (1.8-7.7) 09/07/18 04:13 Seg Neutrophils # Man 11.5 K/mm3 (1.8-7.7) H 08/30/18 08:18 Band Neutrophils # 0.0 K/mm3 08/30/18 08:18 Lymphocytes # (Manual) 0.5 K/mm3 (1.2-5.4) L 08/30/18 08:18 Abs React Lymphs (Man) 0.0 K/mm3 08/30/18 08:18 Monocytes # (Manual) 0.9 K/mm3 (0.0-0.8) H 08/30/18 08:18 Eosinophils # (Manual) 0.0 K/mm3 (0.0-0.4) 08/30/18 08:18 Basophils # (Manual) 0.0 K/mm3 (0.0-0.1) 08/30/18 08:18 Metamyelocytes # 0.0 K/mm3 08/30/18 08:18 Myelocytes # 0.0 K/mm3 08/30/18 08:18 Promyelocytes # 0.0 K/mm3 08/30/18 08:18 Blast Cells # 0.0 K/mm3 08/30/18 08:18 WBC Morphology Not Reportable 08/30/18 08:18 Hypersegmented Neuts Not Reportable 08/30/18 08:18 Hyposegmented Neuts Not Reportable 08/30/18 08:18 Hypogranular Neuts Not Reportable 08/30/18 08:18 Smudge Cells Not Reportable 08/30/18 08:18 Toxic Granulation Not Reportable 08/30/18 08:18 Toxic Vacuolation Not Reportable 08/30/18 08:18 Dohle Bodies Not Reportable 08/30/18 08:18 Pelger-Huet Anomaly Not Reportable 08/30/18 08:18 [place] Rods Not Reportable 08/30/18 08:18 Platelet Estimate Consistent w auto 08/30/18 08:18 Clumped Platelets Rare 08/30/18 08:18 Plt Clumps, EDTA Not Reportable 08/30/18 08:18 Large Platelets Not Reportable 08/30/18 08:18 Giant Platelets Not Reportable 08/30/18 08:18 Platelet Satelliting Not Reportable 08/30/18 08:18 Plt Morphology Comment Not Reportable 08/30/18 08:18 RBC Morphology Normal 08/30/18 08:18 Dimorphic RBCs Not Reportable 08/30/18 08:18 Polychromasia Not Reportable 08/30/18 08:18 Hypochromasia Not Reportable 08/30/18 08:18 Poikilocytosis Not Reportable 08/30/18 08:18 Anisocytosis Not Reportable 08/30/18 08:18 Microcytosis Not Reportable 08/30/18 08:18 Macrocytosis Not Reportable 08/30/18 08:18 Spherocytes Not Reportable 08/30/18 08:18 Pappenheimer Bodies Not Reportable 08/30/18 08:18 Sickle Cells Not Reportable 08/30/18 08:18 Target Cells Not Reportable 08/30/18 08:18 Tear Drop Cells Not Reportable 08/30/18 08:18 Ovalocytes Not Reportable 08/30/18 08:18 Helmet Cells Not Reportable 08/30/18 08:18 [place] Bodies Not Reportable 08/30/18 08:18 [place] Rings Not Reportable 08/30/18 08:18 Philip Cells Not Reportable 08/30/18 08:18 Bite Cells Not Reportable 08/30/18 08:18 Crenated Cell Not Reportable 08/30/18 08:18 Elliptocytes Not Reportable 08/30/18 08:18 Acanthocytes (Spur) Not Reportable 08/30/18 08:18 Rouleaux Not Reportable 08/30/18 08:18 Hemoglobin C Crystals Not Reportable 08/30/18 08:18 Schistocytes Not Reportable 08/30/18 08:18 Malaria parasites Not Reportable 08/30/18 08:18 [place]ty Bodies Not Reportable 08/30/18 08:18 Hem Pathologist Commnt No 08/30/18 08:18 PT 14.8 Sec. (12.2-14.9) 09/11/18 08:34 INR 1.09 (0.87-1.13) 09/11/18 08:34 APTT 30.9 Sec. (24.2-36.6) 09/11/18 08:34 D-Dimer 617.53 ng/mlDDU (0-234) H 08/29/18 17:00 POC ABG pH 7.458 (7.35-7.45) H 08/29/18 17:09 POC ABG pCO2 32.1 (35-45) L 08/29/18 17:09 POC ABG HCO3 22.7 (22-26 mml/L) 08/29/18 17:09 POC ABG Total CO2 24 (23-27mmol/L) 08/29/18 17:09 POC ABG O2 Sat 85 08/29/18 17:09 POC ABG Base Excess -1 ((-2) - (+3)mmol/L) 08/29/18 17:09 VBG pH 7.447 (7.320-7.420) H 08/29/18 16:34 FiO2 36 % 08/29/18 17:09 Sodium 136 mmol/L (137-145) L 09/07/18 04:13 Potassium 3.1 mmol/L (3.6-5.0) L 09/07/18 04:13 Chloride 99.7 mmol/L (98-107) 09/07/18 04:13 Carbon Dioxide 24 mmol/L (22-30) 09/07/18 04:13 Anion Gap 15 mmol/L 09/07/18 04:13 BUN 17 mg/dL (9-20) 09/07/18 04:13 Creatinine 0.9 mg/dL (0.8-1.5) 09/07/18 04:13 Estimated GFR > 60 ml/min 09/07/18 04:13 BUN/Creatinine Ratio 19 % 09/07/18 04:13 Glucose 127 mg/dL (75-100) H 09/07/18 04:13 Lactic Acid 1.40 mmol/L (0.7-2.0) 08/29/18 19:25 Calcium 8.4 mg/dL (8.4-10.2) 09/07/18 04:13 Phosphorus 3.60 mg/dL (2.5-4.5) 09/06/18 07:35 Magnesium 1.70 mg/dL (1.7-2.3) 09/06/18 07:35 Total Bilirubin 0.70 mg/dL (0.1-1.2) 09/06/18 07:35 AST 14 units/L (5-40) 09/06/18 07:35 ALT 8 units/L (7-56) 09/06/18 07:35 Alkaline Phosphatase 51 units/L (35-129) 09/06/18 07:35 Total Creatine Kinase 32 units/L (55-170) L 08/29/18 16:34 CK-MB (CK-2) 2.3 ng/mL (0.0-4.0) 08/29/18 16:34 CK-MB (CK-2) Rel Index 7.1 (0-4) H 08/29/18 16:34 Troponin T < 0.010 ng/mL (0.00-0.029) 08/29/18 16:34 NT-Pro-B Natriuret Pep 694.9 pg/mL (0-900) 08/29/18 16:34 Total Protein 5.0 g/dL (6.3-8.2) L 09/06/18 07:35 Albumin 2.3 g/dL (3.9-5) L 09/06/18 07:35 Albumin/Globulin Ratio 0.9 % 09/06/18 07:35 CA 19-9 Antigen 8 U/mL (<34) 09/08/18 06:59 Urine Color Yellow (Yellow) 08/29/18 19:44 Urine Turbidity Clear (Clear) 08/29/18 19:44 Urine pH 5.0 (5.0-7.0) 08/29/18 19:44 Ur Specific [place] 1.035 (1.003-1.030) H 08/29/18 19:44 Urine Protein <15 mg/dl mg/dL (Negative) 08/29/18 19:44 Urine Glucose (UA) Neg mg/dL (Negative) 08/29/18 19:44 Urine Ketones Tr mg/dL (Negative) 08/29/18 19:44 Urine Blood Neg (Negative) 08/29/18 19:44 Urine Nitrite Neg (Negative) 08/29/18 19:44 Urine Bilirubin Neg (Negative) 08/29/18 19:44 Urine Urobilinogen 2.0 mg/dL (<2.0) 08/29/18 19:44 Ur Leukocyte Esterase Neg (Negative) 08/29/18 19:44 Urine WBC (Auto) 7.0 /HPF (0.0-6.0) H 08/29/18 19:44 Urine RBC (Auto) 1.0 /HPF (0.0-6.0) 08/29/18 19:44 U Epithel Cells (Auto) < 1.0 /HPF (0-13.0) 08/29/18 19:44 Urine Mucus Few /HPF 08/29/18 19:44 Active Medications - Current Medications Current Medications: Generic Name Dose Route Start Last Admin Trade Name Freq PRN Reason Stop Dose Admin Acetaminophen 650 mg 08/29/18 21:29 08/30/18 05:53 Tylenol PO 650 mg Q4H PRN Administration Pain MILD(1-3)/Fever >100.5/VENEGAS Al Hydrox/Mg Hydrox/Simethicone 30 ml 08/29/18 21:29 Alum-Mag Hydrox-Simeth [id number]/5ml PO Q4H PRN Indigestion Albuterol/Ipratropium 1 ampul 09/06/18 08:00 09/11/18 13:42 Duoneb *Not For Prn Use* IH 1 ampul TIDRT GUILLERMO Administration Amlodipine Besylate 10 mg 08/30/18 10:00 09/11/18 11:59 Norvasc PO 10 mg DAILY GUILLERMO Administration Aspirin 325 mg 08/30/18 10:00 09/11/18 11:58 Aspirin PO 325 mg QDAY GUILLERMO Administration Carvedilol 25 mg 08/29/18 22:00 09/11/18 11:58 Coreg PO 25 mg Q12HR GUILLERMO Administration Clonidine HCl 0.1 mg 08/29/18 22:00 09/11/18 11:59 Catapres PO 0.1 mg BID GUILLERMO Administration Docusate Sodium 100 mg 08/29/18 22:00 09/11/18 11:59 Colace PO 100 mg BID GUILLERMO Administration Enoxaparin Sodium 40 mg 08/30/18 10:00 09/11/18 11:58 Lovenox SUB-Q 40 mg QDAY GUILLERMO Administration Famotidine 20 mg 08/29/18 22:00 09/11/18 11:59 Pepcid PO 20 mg BID GUILLERMO Administration Haloperidol Lactate 2 mg 09/01/18 11:34 09/08/18 03:02 Haldol IM 2 mg Q6H PRN Administration Agitation Hydralazine HCl 100 mg 08/29/18 22:00 09/11/18 13:35 Apresoline PO 100 mg Q8H GUILLERMO Administration Hydromorphone HCl 2 mg 08/29/18 21:29 09/06/18 04:28 Dilaudid IV 2 mg Q3H PRN Administration Pain, Moderate (4-6) Dextrose/Sodium Chloride 1,000 mls @ 100 mls/hr 09/06/18 11:30 09/10/18 18:21 D5ns IV 100 mls/hr DIRECT GUILLERMO Administration Labetalol HCl 10 mg 08/29/18 22:07 Normodyne IV Q6HR PRN Hypertension Levofloxacin 750 mg 09/07/18 10:00 09/11/18 11:59 Levaquin PO 09/12/18 09:59 750 mg DAILY GUILLERMO Administration Lisinopril 10 mg 08/30/18 10:00 09/11/18 11:59 Zestril PO 10 mg QDAY GUILLERMO Administration Ondansetron HCl 4 mg 08/29/18 21:29 Zofran IV Q6H PRN Nausea And Vomiting Oxycodone/Acetaminophen 1 tab 08/29/18 21:29 09/09/18 22:28 Percocet 5/325 PO 1 tab Q6H PRN Administration Pain, Moderate (4-6) Pravastatin Sodium 40 mg 08/29/18 22:00 09/10/18 23:51 Pravachol PO 40 mg QHS GUILLERMO Administration Sodium Chloride 10 ml 08/29/18 22:00 09/11/18 12:00 Sodium Chloride Flush Syringe 10 Ml IV 10 ml BID GUILLERMO Administration Sodium Chloride 10 ml 08/29/18 21:29 Sodium Chloride Flush Syringe 10 Ml IV PRN PRN LINE FLUSH Zolpidem Tartrate 5 mg 08/29/18 21:29 Ambien PO QHS PRN Insomnia Nutrition/Malnutrition Assess - Dietary Evaluation Nutrition/Malnutrition Findings: Nutrition Notes Start: 08/30/18 13:41 Freq: Status: Active Protocol: Document 09/11/18 14:55 RM (Rec: 09/11/18 15:04 RM [id number]) Nutrition Notes Initial or Follow up Reassessment Current Diagnosis Coronary Artery Disease, Hypertension,Stroke, Hyperlipidemia Other Pertinent Diagnosis Lung cancer, Respiratory distress, R hemiparesis, pneu Current Diet Mech Soft Labs/Tests Reviewed Pertinent Medications Reviewed Height 5 ft 11 in Weight 66.1 kg [place] Body Weight (kg) 78.18 BMI 20.3 Subjective/Other Information Pt NPO for biopsy earlier today. Biopsy cancelled and Mech soft diet ordered later today. Pt stated that before NPO status he was not eating his meals but drank the Ensure Enlive. Percent of energy/protein needs met: 16%/25% (before NPO) Burn Absent Trauma Absent #1 Nutrition Diagnosis Malnutrition Diagnosis Progress(for reassessment Continues documentation) Is patient on ventilator? No Is Patient Ambulatory and/or Out of Bed No REE-([facility]-confined to bed) 1767.192 Kcal/Kg value to use for calculation 33 Approximate Energy Requirements Using 2181 kcal/Kg Calculation Used for Recommendations Kcal/kg Additional Notes Protein Needs: 80-101g (1.2-1. 5g/kg) Fluid Needs: 1 ml/kcal Nutrition Intervention Change Diet Order: [facility] soft w/ground meat Add Supplement/Snack (indicate name/kcal Ensure Enlive Vanilla BID /protein ) Provides kCal: 350 Provides Protein (gm) 20 Goal #1 Meet at least 75% of calorie and protein needs via PO and ONS intakes Anticipated Discharge Needs: Unable to determine at this time Follow-Up By: 09/13/18 Additional Comments Follow for PO and ONS intakes
[2018-09-11] MEDS: PRAVACHOL PO SCH (22:33)
[2018-09-11] MEDS: D5NS 1,000 ML IV SCH (22:41)
[2018-09-12] MEDS ORDERED: PROVENTIL IH PRN (02:27)
[2018-09-12] MEDS: PERCOCET 5/325 PO PRN (03:33)
[2018-09-12] MEDS: APRESOLINE PO SCH ×3 (05:33→23:11)
[2018-09-12] MEDS: DUONEB *Not for PRN Use IH SCH ×4 (07:37→19:47)
--- NOTE | 2018-09-12 07:44 | Hem/Onc Progress Note ---
Assessment and Plan sq cell ca renal mass d/w dr courtney d/w dr bolton 1. 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 2. Left renal mass, possible renal cell carcinoma. 3. History of smoking present. 4. History of cerebrovascular accident. 5. History of shortness of breath. 6. History of hypertension. 7. History of leukocytosis. 8. History of hyperlipidemia. PLAN: The patient's performance status will guide treatment. If he has two neoplasms and based on performance status, this will become challenging. For renal cell CA, if it is localized, surgery is an option. For the lung CA, clinically bone involvement is present. Palliation with XRT may be an option for pain issues. We also have options of chemotherapy. As per his information, he is able to ambulate minimally with a walker. Outpatient testing will help if any oral targeted agent can be used for lung ca. option of kidney bx to confirm RCC 09/10 - kidney bx ordered pt being checked for palliative XRT will look into palmidronate for bone mets 09/11 d/w dr Rodrigues will do MRI abdo and follow WILL TALK TO FAMILY - OLLIE JEFFRIES MOTHER [phone] 09/12/2018 d/w pts mother - ? pt cannot go to home - ? placement radiology for renal lesion s/p palmidronate - Patient Problems (1) Lung cancer Current Visit: Yes Status: Acute Qualifiers: Laterality: unspecified laterality Subjective Date of service: 09/12/18 Principal diagnosis: lung ca - renal mass Interval history: d/w mother - who lives in [place] Objective - Constitutional Vitals: Last Vital Signs Temp 98.2 F 09/12/18 05:31 Pulse 69 09/12/18 07:37 Resp 18 09/12/18 07:37 BP 139/64 09/12/18 05:33 Pulse Ox 96 09/12/18 07:37 Pain Intensity (0-10): 1/10 General appearance: no acute distress Performance status: 3-limited selfcare - EENT Eyes: EOM intact ENT: clear oral mucosa Lymph node exam: negative cervical - Neck Neck: normal ROM - Respiratory Respiratory effort: Positive: normal Respiratory: bilateral: CTA - Cardiovascular Heart Sounds: Present: S1 & S2 Extremities: No edema - Gastrointestinal General gastrointestinal: Present: soft, non-tender Rectal Exam: deferred - Genitourinary Male genitourinary: Present: deferred - Integumentary Integumentary: clear - Musculoskeletal Musculoskeletal: right sided weakness - Labs Lab Results: Laboratory Results - last 24 hr 09/08/18 09/11/18 06:59 08:34 PT 14.8 INR 1.09 APTT 30.9 CA 19-9 Antigen 8 Medications & Allergies - Medications Allergies/Adverse Reactions: Allergies Penicillins Allergy (Verified 07/05/13 15:11) Unknown Home Medications: Home Medications Medication Instructions Recorded Confirmed Last Taken Type Aspirin [Aspirin TAB] 325 mg PO QDAY #30 tablet 07/19/13 08/31/18 Unknown Rx Simvastatin (Nf) [Zocor TAB] 20 mg PO QHS 30 Days tablet 07/19/13 08/31/18 Unknown Rx amLODIPine [Norvasc] 10 mg PO DAILY 30 Days tab 07/19/13 08/31/18 Unknown Rx cloNIDine [Catapres] 0.1 mg PO BID #60 tablet 07/19/13 08/31/18 Unknown Rx Lisinopril [Zestril TAB] 10 mg PO QDAY 30 Days tablet 07/22/13 08/31/18 Unknown Rx hydrALAZINE [Apresoline] 50 mg PO BID 08/31/18 08/31/18 Unknown History Active Medications: Generic Name Dose Route Start Last Admin Trade Name Freq PRN Reason Stop Dose Admin Acetaminophen 650 mg 08/29/18 21:29 08/30/18 05:53 Tylenol PO 650 mg Q4H PRN Administration Pain MILD(1-3)/Fever >100.5/VENEGAS Al Hydrox/Mg Hydrox/Simethicone 30 ml 08/29/18 21:29 Alum-Mag Hydrox-Simeth 317-657-70xt/5ml PO Q4H PRN Indigestion Albuterol 2.5 mg 09/12/18 02:27 09/12/18 02:35 Proventil IH 2.5 mg Q4HRT PRN Administration Shortness Of Breath Albuterol/Ipratropium 1 ampul 09/06/18 08:00 09/12/18 07:37 Duoneb *Not For Prn Use* IH 1 ampul TIDRT GUILLERMO Administration Amlodipine Besylate 10 mg 08/30/18 10:00 09/11/18 11:59 Norvasc PO 10 mg DAILY GUILLERMO Administration Aspirin 325 mg 08/30/18 10:00 09/11/18 11:58 Aspirin PO 325 mg QDAY GUILLERMO Administration Carvedilol 25 mg 08/29/18 22:00 09/11/18 22:36 Coreg PO Not Given Q12HR [facility] Clonidine HCl 0.1 mg 08/29/18 22:00 09/11/18 22:34 Catapres PO Not Given BID [facility] Docusate Sodium 100 mg 08/29/18 22:00 09/11/18 22:33 Colace PO 100 mg BID GUILLERMO Administration Enoxaparin Sodium 40 mg 08/30/18 10:00 09/11/18 11:58 Lovenox SUB-Q 40 mg QDAY [facility] Administration Famotidine 20 mg 08/29/18 22:00 09/11/18 22:33 Pepcid PO 20 mg BID GUILLERMO Administration Haloperidol Lactate 2 mg 09/01/18 11:34 09/08/18 03:02 Haldol IM 2 mg Q6H PRN Administration Agitation Hydralazine HCl 100 mg 08/29/18 22:00 09/12/18 05:33 Apresoline PO 100 mg Q8H GUILLERMO Administration Hydromorphone HCl 2 mg 08/29/18 21:29 09/06/18 04:28 Dilaudid IV 2 mg Q3H PRN Administration Pain, Moderate (4-6) Dextrose/Sodium Chloride 1,000 mls @ 100 mls/hr 09/06/18 11:30 09/11/18 22:41 D5ns IV 100 mls/hr DIRECT GUILLERMO Administration Labetalol HCl 10 mg 08/29/18 22:07 Normodyne IV Q6HR PRN Hypertension Levofloxacin 750 mg 09/07/18 10:00 09/11/18 11:59 Levaquin PO 09/12/18 09:59 750 mg DAILY GUILLERMO Administration Lisinopril 10 mg 08/30/18 10:00 09/11/18 11:59 Zestril PO 10 mg QDAY GUILLERMO Administration Ondansetron HCl 4 mg 08/29/18 21:29 Zofran IV Q6H PRN Nausea And Vomiting Oxycodone/Acetaminophen 1 tab 08/29/18 21:29 09/12/18 03:33 Percocet 5/325 PO 1 tab Q6H PRN Administration Pain, Moderate (4-6) Pravastatin Sodium 40 mg 08/29/18 22:00 09/11/18 22:33 Pravachol PO 40 mg QHS GUILLERMO Administration Sodium Chloride 10 ml 08/29/18 22:00 09/11/18 22:33 Sodium Chloride Flush Syringe 10 Ml IV 10 ml BID GUILLERMO Administration Sodium Chloride 10 ml 08/29/18 21:29 Sodium Chloride Flush Syringe 10 Ml IV PRN PRN LINE FLUSH Zolpidem Tartrate 5 mg 08/29/18 21:29 Ambien PO QHS PRN Insomnia
[2018-09-12] MEDS: D5NS 1,000 ML IV SCH (08:05)
[2018-09-12] MEDS: NORVASC PO SCH (10:33)
[2018-09-12] MEDS: COLACE PO SCH (10:33)
[2018-09-12] MEDS: LOVENOX SUB-Q SCH (10:34)
[2018-09-12] MEDS: ZESTRIL PO SCH (10:34)
[2018-09-12] MEDS: CATAPRES PO SCH ×2 (10:34→23:23)
[2018-09-12] MEDS: COREG PO SCH ×2 (10:34→23:23)
[2018-09-12] MEDS: SODIUM CHLORIDE FLUSH SYRINGE 10 ML IV SCH (10:34)
[2018-09-12] MEDS: PEPCID PO SCH ×2 (10:34→23:10)
[2018-09-12] MEDS: ASPIRIN PO SCH (10:35)
--- NOTE | 2018-09-12 12:59 | Progress Note ---
Assessment and Plan Assessment and plan: Squamous cell carcinoma lung; s/p biopsy, squamous cell carcinoma, Oncology Dr. Knapp evaluated and recommend radiation therapy, consulted radiation oncologist Stage IIIB T4 with sternum and rib cage invasion Evaluated by radiation oncologist Dr. Heath, Recommend radiation therapy first treatment on 09/11/2018 at [facility] radiation oncology department Left renal mass/possible renal cell carcinoma, Oncology following Acute Hypoxic respiratory failure; requiring BiPAP, symptoms significantly improved Continue Oxygen, nebulizers, IV steroids, IV antibiotics, pulmonary following Pathologic fractures of ribs and sternum secondary to possible metastasis, Pain management and supportive care Left lower lobe pneumonia; probably post obstructive pneumonia Continue IV antibiotics follow cultures Sepsis Etiology secondary to pneumonia History of CVA with residual right-sided weakness, abortive care. tobacco use disorder; smoking cessation advised nicotine patch as needed DVT prophylaxis; SCDs, Lovenox Disposition Full Code Discharge planning; case management, possible SNF placement History Interval history: No new issues overnight Hospitalist Physical - Constitutional Vitals: Temp Pulse Resp BP Pulse Ox 97.8 F 68 20 109/56 96 09/12/18 11:57 09/12/18 11:57 09/12/18 11:57 09/12/18 11:57 09/12/18 11:57 General appearance: Present: no acute distress, cachectic, disheveled - EENT Eyes: Present: PERRL, EOM intact ENT: hearing intact, clear oral mucosa, dentition normal - Neck Neck: Present: supple, normal ROM - Respiratory Respiratory effort: normal Respiratory: bilateral: CTA - Cardiovascular Rhythm: regular Heart Sounds: Present: S1 & S2. Absent: gallop, rub - Extremities Extremities: no ischemia, No edema, Full ROM - Abdominal General gastrointestinal: soft, non-tender, non-distended, normal bowel sounds - Integumentary Integumentary: Present: clear, warm, dry - Neurologic Neurologic: CNII-XII intact, moves all extremities Results - Labs CBC & Chem 7: 09/07/18 04:13 09/07/18 04:13 Labs: Laboratory Last Values WBC 9.2 K/mm3 (4.5-11.0) 09/07/18 04:13 RBC 3.61 M/mm3 (3.65-5.03) L 09/07/18 04:13 Hgb 11.6 gm/dl (11.8-15.2) L 09/07/18 04:13 Hct 33.7 % (35.5-45.6) L 09/07/18 04:13 MCV 93 fl (84-94) 09/07/18 04:13 MCH 32 pg (28-32) 09/07/18 04:13 MCHC 34 % (32-34) 09/07/18 04:13 RDW 14.0 % (13.2-15.2) 09/07/18 04:13 Plt Count 287 K/mm3 (140-440) 09/07/18 04:13 Lymph % (Auto) 11.3 % (13.4-35.0) L 09/07/18 04:13 Burt % (Auto) 12.1 % (0.0-7.3) H 09/07/18 04:13 Eos % (Auto) 5.5 % (0.0-4.3) H 09/07/18 04:13 Baso % (Auto) 0.9 % (0.0-1.8) 09/07/18 04:13 Lymph # 1.0 K/mm3 (1.2-5.4) L 09/07/18 04:13 Burt # 1.1 K/mm3 (0.0-0.8) H 09/07/18 04:13 Eos # 0.5 K/mm3 (0.0-0.4) H 09/07/18 04:13 Baso # 0.1 K/mm3 (0.0-0.1) 09/07/18 04:13 Add Manual Diff Complete 08/30/18 08:18 Total Counted 100 08/30/18 08:18 Seg Neutrophils % 70.2 % (40.0-70.0) H 09/07/18 04:13 Seg Neuts % (Manual) 89.0 % (40.0-70.0) H 08/30/18 08:18 Band Neutrophils % 0 % 08/30/18 08:18 Lymphocytes % (Manual) 4.0 % (13.4-35.0) L 08/30/18 08:18 Reactive Lymphs % (Man) 0 % 08/30/18 08:18 Monocytes % (Manual) 7.0 % (0.0-7.3) 08/30/18 08:18 Eosinophils % (Manual) 0 % (0.0-4.3) 08/30/18 08:18 Basophils % (Manual) 0 % (0.0-1.8) 08/30/18 08:18 Metamyelocytes % 0 % 08/30/18 08:18 Myelocytes % 0 % 08/30/18 08:18 Promyelocytes % 0 % 08/30/18 08:18 Blast Cells % 0 % 08/30/18 08:18 Nucleated RBC % Not Reportable 08/30/18 08:18 Seg Neutrophils # 6.5 K/mm3 (1.8-7.7) 09/07/18 04:13 Seg Neutrophils # Man 11.5 K/mm3 (1.8-7.7) H 08/30/18 08:18 Band Neutrophils # 0.0 K/mm3 08/30/18 08:18 Lymphocytes # (Manual) 0.5 K/mm3 (1.2-5.4) L 08/30/18 08:18 Abs React Lymphs (Man) 0.0 K/mm3 08/30/18 08:18 Monocytes # (Manual) 0.9 K/mm3 (0.0-0.8) H 08/30/18 08:18 Eosinophils # (Manual) 0.0 K/mm3 (0.0-0.4) 08/30/18 08:18 Basophils # (Manual) 0.0 K/mm3 (0.0-0.1) 08/30/18 08:18 Metamyelocytes # 0.0 K/mm3 08/30/18 08:18 Myelocytes # 0.0 K/mm3 08/30/18 08:18 Promyelocytes # 0.0 K/mm3 08/30/18 08:18 Blast Cells # 0.0 K/mm3 08/30/18 08:18 WBC Morphology Not Reportable 08/30/18 08:18 Hypersegmented Neuts Not Reportable 08/30/18 08:18 Hyposegmented Neuts Not Reportable 08/30/18 08:18 Hypogranular Neuts Not Reportable 08/30/18 08:18 Smudge Cells Not Reportable 08/30/18 08:18 Toxic Granulation Not Reportable 08/30/18 08:18 Toxic Vacuolation Not Reportable 08/30/18 08:18 Dohle Bodies Not Reportable 08/30/18 08:18 Pelger-Huet Anomaly Not Reportable 08/30/18 08:18 [place] Rods Not Reportable 08/30/18 08:18 Platelet Estimate Consistent w auto 08/30/18 08:18 Clumped Platelets Rare 08/30/18 08:18 Plt Clumps, EDTA Not Reportable 08/30/18 08:18 Large Platelets Not Reportable 08/30/18 08:18 Giant Platelets Not Reportable 08/30/18 08:18 Platelet Satelliting Not Reportable 08/30/18 08:18 Plt Morphology Comment Not Reportable 08/30/18 08:18 RBC Morphology Normal 08/30/18 08:18 Dimorphic RBCs Not Reportable 08/30/18 08:18 Polychromasia Not Reportable 08/30/18 08:18 Hypochromasia Not Reportable 08/30/18 08:18 Poikilocytosis Not Reportable 08/30/18 08:18 Anisocytosis Not Reportable 08/30/18 08:18 Microcytosis Not Reportable 08/30/18 08:18 Macrocytosis Not Reportable 08/30/18 08:18 Spherocytes Not Reportable 08/30/18 08:18 Pappenheimer Bodies Not Reportable 08/30/18 08:18 Sickle Cells Not Reportable 08/30/18 08:18 Target Cells Not Reportable 08/30/18 08:18 Tear Drop Cells Not Reportable 08/30/18 08:18 Ovalocytes Not Reportable 08/30/18 08:18 Helmet Cells Not Reportable 08/30/18 08:18 [place] Bodies Not Reportable 08/30/18 08:18 [place] Rings Not Reportable 08/30/18 08:18 Philip Cells Not Reportable 08/30/18 08:18 Bite Cells Not Reportable 08/30/18 08:18 Crenated Cell Not Reportable 08/30/18 08:18 Elliptocytes Not Reportable 08/30/18 08:18 Acanthocytes (Spur) Not Reportable 08/30/18 08:18 Rouleaux Not Reportable 08/30/18 08:18 Hemoglobin C Crystals Not Reportable 08/30/18 08:18 Schistocytes Not Reportable 08/30/18 08:18 Malaria parasites Not Reportable 08/30/18 08:18 Lefty Bodies Not Reportable 08/30/18 08:18 Hem Pathologist Commnt No 08/30/18 08:18 PT 14.8 Sec. (12.2-14.9) 09/11/18 08:34 INR 1.09 (0.87-1.13) 09/11/18 08:34 APTT 30.9 Sec. (24.2-36.6) 09/11/18 08:34 D-Dimer 617.53 ng/mlDDU (0-234) H 08/29/18 17:00 POC ABG pH 7.458 (7.35-7.45) H 08/29/18 17:09 POC ABG pCO2 32.1 (35-45) L 08/29/18 17:09 POC ABG HCO3 22.7 (22-26 mml/L) 08/29/18 17:09 POC ABG Total CO2 24 (23-27mmol/L) 08/29/18 17:09 POC ABG O2 Sat 85 08/29/18 17:09 POC ABG Base Excess -1 ((-2) - (+3)mmol/L) 08/29/18 17:09 VBG pH 7.447 (7.320-7.420) H 08/29/18 16:34 FiO2 36 % 08/29/18 17:09 Sodium 136 mmol/L (137-145) L 09/07/18 04:13 Potassium 3.1 mmol/L (3.6-5.0) L 09/07/18 04:13 Chloride 99.7 mmol/L (98-107) 09/07/18 04:13 Carbon Dioxide 24 mmol/L (22-30) 09/07/18 04:13 Anion Gap 15 mmol/L 09/07/18 04:13 BUN 17 mg/dL (9-20) 09/07/18 04:13 Creatinine 0.9 mg/dL (0.8-1.5) 09/07/18 04:13 Estimated GFR > 60 ml/min 09/07/18 04:13 BUN/Creatinine Ratio 19 % 09/07/18 04:13 Glucose 127 mg/dL (75-100) H 09/07/18 04:13 Lactic Acid 1.40 mmol/L (0.7-2.0) 08/29/18 19:25 Calcium 8.4 mg/dL (8.4-10.2) 09/07/18 04:13 Phosphorus 3.60 mg/dL (2.5-4.5) 09/06/18 07:35 Magnesium 1.70 mg/dL (1.7-2.3) 09/06/18 07:35 Total Bilirubin 0.70 mg/dL (0.1-1.2) 09/06/18 07:35 AST 14 units/L (5-40) 09/06/18 07:35 ALT 8 units/L (7-56) 09/06/18 07:35 Alkaline Phosphatase 51 units/L (35-129) 09/06/18 07:35 Total Creatine Kinase 32 units/L (55-170) L 08/29/18 16:34 CK-MB (CK-2) 2.3 ng/mL (0.0-4.0) 08/29/18 16:34 CK-MB (CK-2) Rel Index 7.1 (0-4) H 08/29/18 16:34 Troponin T < 0.010 ng/mL (0.00-0.029) 08/29/18 16:34 NT-Pro-B Natriuret Pep 694.9 pg/mL (0-900) 08/29/18 16:34 Total Protein 5.0 g/dL (6.3-8.2) L 09/06/18 07:35 Albumin 2.3 g/dL (3.9-5) L 09/06/18 07:35 Albumin/Globulin Ratio 0.9 % 09/06/18 07:35 CA 19-9 Antigen 8 U/mL (<34) 09/08/18 06:59 Urine Color Yellow (Yellow) 08/29/18 19:44 Urine Turbidity Clear (Clear) 08/29/18 19:44 Urine pH 5.0 (5.0-7.0) 08/29/18 19:44 Ur Specific [place] 1.035 (1.003-1.030) H 08/29/18 19:44 Urine Protein <15 mg/dl mg/dL (Negative) 08/29/18 19:44 Urine Glucose (UA) Neg mg/dL (Negative) 08/29/18 19:44 Urine Ketones Tr mg/dL (Negative) 08/29/18 19:44 Urine Blood Neg (Negative) 08/29/18 19:44 Urine Nitrite Neg (Negative) 08/29/18 19:44 Urine Bilirubin Neg (Negative) 08/29/18 19:44 Urine Urobilinogen 2.0 mg/dL (<2.0) 08/29/18 19:44 Ur Leukocyte Esterase Neg (Negative) 08/29/18 19:44 Urine WBC (Auto) 7.0 /HPF (0.0-6.0) H 08/29/18 19:44 Urine RBC (Auto) 1.0 /HPF (0.0-6.0) 08/29/18 19:44 U Epithel Cells (Auto) < 1.0 /HPF (0-13.0) 08/29/18 19:44 Urine Mucus Few /HPF 08/29/18 19:44 Active Medications - Current Medications Current Medications: Generic Name Dose Route Start Last Admin Trade Name Freq PRN Reason Stop Dose Admin Acetaminophen 650 mg 08/29/18 21:29 08/30/18 05:53 Tylenol PO 650 mg Q4H PRN Administration Pain MILD(1-3)/Fever >100.5/VENEGAS Al Hydrox/Mg Hydrox/Simethicone 30 ml 08/29/18 21:29 Alum-Mag Hydrox-Simeth [id number]/5ml PO Q4H PRN Indigestion Albuterol 2.5 mg 09/12/18 02:27 09/12/18 02:35 Proventil IH 2.5 mg Q4HRT PRN Administration Shortness Of Breath Albuterol/Ipratropium 1 ampul 09/06/18 08:00 09/12/18 07:37 Duoneb *Not For Prn Use* IH 1 ampul TIDRT GUILLERMO Administration Amlodipine Besylate 10 mg 08/30/18 10:00 09/12/18 10:33 Norvasc PO 10 mg DAILY GUILLERMO Administration Aspirin 325 mg 08/30/18 10:00 09/12/18 10:35 Aspirin PO 325 mg QDAY GUILLERMO Administration Carvedilol 25 mg 08/29/18 22:00 09/12/18 10:34 Coreg PO 25 mg Q12HR GUILLERMO Administration Clonidine HCl 0.1 mg 08/29/18 22:00 09/12/18 10:34 Catapres PO 0.1 mg BID GUILLERMO Administration Docusate Sodium 100 mg 08/29/18 22:00 09/12/18 10:33 Colace PO 100 mg BID GUILLERMO Administration Enoxaparin Sodium 40 mg 08/30/18 10:00 09/12/18 10:34 Lovenox SUB-Q 40 mg QDAY GUILLERMO Administration Famotidine 20 mg 08/29/18 22:00 09/12/18 10:34 Pepcid PO 20 mg BID GUILLERMO Administration Haloperidol Lactate 2 mg 09/01/18 11:34 09/08/18 03:02 Haldol IM 2 mg Q6H PRN Administration Agitation Hydralazine HCl 100 mg 08/29/18 22:00 09/12/18 05:33 Apresoline PO 100 mg Q8H GUILLERMO Administration Hydromorphone HCl 2 mg 08/29/18 21:29 09/06/18 04:28 Dilaudid IV 2 mg Q3H PRN Administration Pain, Moderate (4-6) Dextrose/Sodium Chloride 1,000 mls @ 100 mls/hr 09/06/18 11:30 09/12/18 08:05 D5ns IV 100 mls/hr DIRECT GUILLERMO Administration Labetalol HCl 10 mg 08/29/18 22:07 Normodyne IV Q6HR PRN Hypertension Lisinopril 10 mg 08/30/18 10:00 09/12/18 10:34 Zestril PO 10 mg QDAY GUILLERMO Administration Ondansetron HCl 4 mg 08/29/18 21:29 Zofran IV Q6H PRN Nausea And Vomiting Oxycodone/Acetaminophen 1 tab 08/29/18 21:29 09/12/18 03:33 Percocet 5/325 PO 1 tab Q6H PRN Administration Pain, Moderate (4-6) Pravastatin Sodium 40 mg 08/29/18 22:00 09/11/18 22:33 Pravachol PO 40 mg QHS GUILLERMO Administration Sodium Chloride 10 ml 08/29/18 22:00 09/12/18 10:34 Sodium Chloride Flush Syringe 10 Ml IV 10 ml BID GUILLERMO Administration Sodium Chloride 10 ml 08/29/18 21:29 Sodium Chloride Flush Syringe 10 Ml IV PRN PRN LINE FLUSH Zolpidem Tartrate 5 mg 08/29/18 21:29 Ambien PO QHS PRN Insomnia Nutrition/Malnutrition Assess - Dietary Evaluation Nutrition/Malnutrition Findings: Nutrition Notes Start: 08/30/18 13:41 Freq: Status: Active Protocol: Document 09/11/18 14:55 RM (Rec: 09/11/18 15:04 RM [id number]) Nutrition Notes Initial or Follow up Reassessment Current Diagnosis Coronary Artery Disease, Hypertension,Stroke, Hyperlipidemia Other Pertinent Diagnosis Lung cancer, Respiratory distress, R hemiparesis, pneu Current Diet Mec Soft Labs/Tests Reviewed Pertinent Medications Reviewed Height 5 ft 11 in Weight 66.1 kg [place] Body Weight (kg) 78.18 BMI 20.3 Subjective/Other Information Pt NPO for biopsy earlier today. Biopsy cancelled and Mech soft diet ordered later today. Pt stated that before NPO status he was not eating his meals but drank the Ensure Enlive. Percent of energy/protein needs met: 16%/25% (before NPO) Burn Absent Trauma Absent #1 Nutrition Diagnosis Malnutrition Diagnosis Progress(for reassessment Continues documentation) Is patient on ventilator? No Is Patient Ambulatory and/or Out of Bed No REE-([facility]-confined to bed) 1767.192 Kcal/Kg value to use for calculation 33 Approximate Energy Requirements Using 2181 kcal/Kg Calculation Used for Recommendations Kcal/kg Additional Notes Protein Needs: 80-101g (1.2-1. 5g/kg) Fluid Needs: 1 ml/kcal Nutrition Intervention Change Diet Order: [facility] soft w/ground meat Add Supplement/Snack (indicate name/kcal Ensure Enlive Vanilla BID /protein ) Provides kCal: 350 Provides Protein (gm) 20 Goal #1 Meet at least 75% of calorie and protein needs via PO and ONS intakes Anticipated Discharge Needs: Unable to determine at this time Follow-Up By: 09/13/18 Additional Comments Follow for PO and ONS intakes
[2018-09-12] MEDS: PRAVACHOL PO SCH (23:23)
[2018-09-13] MEDS: COLACE PO SCH ×3 (06:02→22:46)
[2018-09-13] MEDS: SODIUM CHLORIDE FLUSH SYRINGE 10 ML IV SCH ×3 (07:26→22:46)
[2018-09-13] MEDS: APRESOLINE PO SCH ×3 (07:26→22:45)
--- NOTE | 2018-09-13 07:42 | Hem/Onc Progress Note ---
Assessment and Plan sq cell ca renal mass d/w dr courtney d/w dr bolton 1. 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 2. Left renal mass, possible renal cell carcinoma. 3. History of smoking present. 4. History of cerebrovascular accident. 5. History of shortness of breath. 6. History of hypertension. 7. History of leukocytosis. 8. History of hyperlipidemia. PLAN: The patient's performance status will guide treatment. If he has two neoplasms and based on performance status, this will become challenging. For renal cell CA, if it is localized, surgery is an option. For the lung CA, clinically bone involvement is present. Palliation with XRT may be an option for pain issues. We also have options of chemotherapy. As per his information, he is able to ambulate minimally with a walker. Outpatient testing will help if any oral targeted agent can be used for lung ca. option of kidney bx to confirm RCC 09/10 - kidney bx ordered pt being checked for palliative XRT will look into palmidronate for bone mets 09/11 d/w dr Rodrigues will do MRI abdo and follow WILL TALK TO FAMILY - OLLIE JEFFRIES MOTHER [phone] 09/12/2018 d/w pts mother - ? pt cannot go to home - ? placement radiology for renal lesion s/p palmidronate 09/13 lung ca h/o cva and placement being looked into MRI not done will look into CT 3 phase his performance status is not good - ? palliation - ? need for even the kidney radiology? I had d/w pt s mother yesterday for his squamous cell - his first line is IV chemo I had d/w dr courtney yesterday reg pt - Patient Problems (1) Lung cancer Current Visit: Yes Status: Acute Qualifiers: Laterality: unspecified laterality Subjective Date of service: 09/13/18 Principal diagnosis: lung ca - kidney mass Interval history: pt did not have MRI Objective - Constitutional Vitals: Last Vital Signs Temp 98.3 F 09/13/18 05:46 Pulse 73 09/13/18 07:26 Resp 24 09/13/18 05:46 BP 122/50 09/13/18 07:26 Pulse Ox 88 09/13/18 05:46 Pain Intensity (0-10): 06/08 General appearance: no acute distress Performance status: 3-limited selfcare - EENT Eyes: EOM intact ENT: clear oral mucosa Lymph node exam: negative cervical - Neck Neck: normal ROM - Respiratory Respiratory effort: Positive: normal Respiratory: bilateral: diminished - Cardiovascular Heart Sounds: Present: S1 & S2 Extremities: normal temperature - Gastrointestinal General gastrointestinal: Present: soft, non-tender Rectal Exam: deferred - Genitourinary Male genitourinary: Present: deferred - Integumentary Integumentary: warm - Musculoskeletal Musculoskeletal: right sided weakness Medications & Allergies - Medications Allergies/Adverse Reactions: Allergies Penicillins Allergy (Verified 07/05/13 15:11) Unknown Home Medications: Home Medications Medication Instructions Recorded Confirmed Last Taken Type Aspirin [Aspirin TAB] 325 mg PO QDAY #30 tablet 07/19/13 08/31/18 Unknown Rx Simvastatin (Nf) [Zocor TAB] 20 mg PO QHS 30 Days tablet 07/19/13 08/31/18 Unknown Rx amLODIPine [Norvasc] 10 mg PO DAILY 30 Days tab 07/19/13 08/31/18 Unknown Rx cloNIDine [Catapres] 0.1 mg PO BID #60 tablet 07/19/13 08/31/18 Unknown Rx Lisinopril [Zestril TAB] 10 mg PO QDAY 30 Days tablet 07/22/13 08/31/18 Unknown Rx hydrALAZINE [Apresoline] 50 mg PO BID 08/31/18 08/31/18 Unknown History Active Medications: Generic Name Dose Route Start Last Admin Trade Name Freq PRN Reason Stop Dose Admin Acetaminophen 650 mg 08/29/18 21:29 08/30/18 05:53 Tylenol PO 650 mg Q4H PRN Administration Pain MILD(1-3)/Fever >100.5/VENEGAS Al Hydrox/Mg Hydrox/Simethicone 30 ml 08/29/18 21:29 Alum-Mag Hydrox-Simeth 636-302-25ie/5ml PO Q4H PRN Indigestion Albuterol 2.5 mg 09/12/18 02:27 09/12/18 02:35 Proventil IH 2.5 mg Q4HRT PRN Administration Shortness Of Breath Albuterol/Ipratropium 1 ampul 09/06/18 08:00 09/12/18 19:47 Duoneb *Not For Prn Use* IH 1 ampul TIDRT GUILLERMO Administration Amlodipine Besylate 10 mg 08/30/18 10:00 09/12/18 10:33 Norvasc PO 10 mg DAILY GUILLERMO Administration Aspirin 325 mg 08/30/18 10:00 09/12/18 10:35 Aspirin PO 325 mg QDAY GUILLERMO Administration Carvedilol 25 mg 08/29/18 22:00 09/12/18 23:23 Coreg PO 25 mg Q12HR GUILLERMO Administration Clonidine HCl 0.1 mg 08/29/18 22:00 09/12/18 23:23 Catapres PO 0.1 mg BID GUILLERMO Administration Docusate Sodium 100 mg 08/29/18 22:00 09/13/18 06:02 Colace PO 100 mg BID GUILLERMO Administration Enoxaparin Sodium 40 mg 08/30/18 10:00 09/12/18 10:34 Lovenox SUB-Q 40 mg QDAY GUILLERMO Administration Famotidine 20 mg 08/29/18 22:00 09/12/18 23:10 Pepcid PO 20 mg BID GUILLERMO Administration Haloperidol Lactate 2 mg 09/01/18 11:34 09/08/18 03:02 Haldol IM 2 mg Q6H PRN Administration Agitation Hydralazine HCl 100 mg 08/29/18 22:00 09/13/18 07:26 Apresoline PO 100 mg Q8H GUILLERMO Administration Hydromorphone HCl 2 mg 08/29/18 21:29 09/06/18 04:28 Dilaudid IV 2 mg Q3H PRN Administration Pain, Moderate (4-6) Labetalol HCl 10 mg 08/29/18 22:07 Normodyne IV Q6HR PRN Hypertension Lisinopril 10 mg 08/30/18 10:00 09/12/18 10:34 Zestril PO 10 mg QDAY GUILLERMO Administration Ondansetron HCl 4 mg 08/29/18 21:29 Zofran IV Q6H PRN Nausea And Vomiting Oxycodone/Acetaminophen 1 tab 08/29/18 21:29 09/12/18 03:33 Percocet 5/325 PO 1 tab Q6H PRN Administration Pain, Moderate (4-6) Pravastatin Sodium 40 mg 08/29/18 22:00 09/12/18 23:23 Pravachol PO 40 mg QHS GUILLERMO Administration Sodium Chloride 10 ml 08/29/18 22:00 09/13/18 07:26 Sodium Chloride Flush Syringe 10 Ml IV 10 ml BID GUILLERMO Administration Sodium Chloride 10 ml 08/29/18 21:29 09/13/18 06:02 Sodium Chloride Flush Syringe 10 Ml IV 10 ml PRN PRN Administration LINE FLUSH Zolpidem Tartrate 5 mg 08/29/18 21:29 Ambien PO QHS PRN Insomnia
[2018-09-13] MEDS: DUONEB *Not for PRN Use IH SCH ×3 (08:06→20:43)
[2018-09-13] MEDS: ASPIRIN PO SCH (11:34)
[2018-09-13] MEDS: PEPCID PO SCH ×2 (11:34→22:46)
[2018-09-13] MEDS: LOVENOX SUB-Q SCH (11:34)
[2018-09-13] MEDS: ZESTRIL PO SCH (11:38)
[2018-09-13] MEDS: NORVASC PO SCH (11:39)
[2018-09-13] MEDS: COREG PO SCH ×2 (11:39→22:46)
[2018-09-13] MEDS: CATAPRES PO SCH ×2 (11:39→22:45)
--- NOTE | 2018-09-13 12:39 | Progress Note ---
Assessment and Plan Assessment and plan: Squamous cell carcinoma lung; s/p biopsy, squamous cell carcinoma, Oncology, Dr. Knapp, evaluated and recommend radiation therapy, consulted radiation oncologist Stage IIIB T4 with sternum and rib cage invasion Evaluated by radiation oncologist Dr. Heath, Recommend radiation therapy first treatment on 09/11/2018 at [facility] radiation oncology department Left renal mass/possible renal cell carcinoma, Oncology following Acute Hypoxic respiratory failure; requiring BiPAP, symptoms significantly improved Continue Oxygen, nebulizers, IV steroids, IV antibiotics, pulmonary following Pathologic fractures of ribs and sternum secondary to possible metastasis, Pain management and supportive care Left lower lobe pneumonia; probably post obstructive pneumonia Continue IV antibiotics follow cultures Sepsis Etiology secondary to pneumonia History of CVA with residual right-sided weakness, abortive care. tobacco use disorder; smoking cessation advised nicotine patch as needed DVT prophylaxis; SCDs, Lovenox Disposition Full Code Discharge planning; case management, possible SNF placement Oncology also recommends likely hospice with halfway. Overall the patient's performance status will guide treatment. If he has to do plasma was and based on his poor performance status, his treatment will become challenging. If the patient does indeed have renal cell carcinoma, surgery isn't an option if the lesion is localized. However, for the lung cancer, pain radiation and radiation may be an option for pain issues given the bone involvement. I will attempt to begin discussions with the mother Lorraine at [phone] History Interval history: No new issues overnight Hospitalist Physical - Constitutional Vitals: Temp Pulse Resp BP Pulse Ox 98.2 F 76 20 128/55 92 09/13/18 11:39 09/13/18 11:39 09/13/18 11:39 09/13/18 11:39 09/13/18 11:39 General appearance: Present: no acute distress, cachectic, disheveled - EENT Eyes: Present: PERRL, EOM intact ENT: hearing intact, clear oral mucosa, dentition normal - Neck Neck: Present: supple, normal ROM - Respiratory Respiratory effort: normal Respiratory: bilateral: CTA - Cardiovascular Rhythm: regular Heart Sounds: Present: S1 & S2. Absent: gallop, rub - Extremities Extremities: no ischemia, No edema, Full ROM - Abdominal General gastrointestinal: soft, non-tender, non-distended, normal bowel sounds - Integumentary Integumentary: Present: clear, warm, dry - Neurologic Neurologic: CNII-XII intact, moves all extremities Results - Labs CBC & Chem 7: 09/07/18 04:13 09/07/18 04:13 Labs: Laboratory Last Values WBC 9.2 K/mm3 (4.5-11.0) 09/07/18 04:13 RBC 3.61 M/mm3 (3.65-5.03) L 09/07/18 04:13 Hgb 11.6 gm/dl (11.8-15.2) L 09/07/18 04:13 Hct 33.7 % (35.5-45.6) L 09/07/18 04:13 MCV 93 fl (84-94) 09/07/18 04:13 MCH 32 pg (28-32) 09/07/18 04:13 MCHC 34 % (32-34) 09/07/18 04:13 RDW 14.0 % (13.2-15.2) 09/07/18 04:13 Plt Count 287 K/mm3 (140-440) 09/07/18 04:13 Lymph % (Auto) 11.3 % (13.4-35.0) L 09/07/18 04:13 [place] % (Auto) 12.1 % (0.0-7.3) H 09/07/18 04:13 Eos % (Auto) 5.5 % (0.0-4.3) H 09/07/18 04:13 Baso % (Auto) 0.9 % (0.0-1.8) 09/07/18 04:13 Lymph # 1.0 K/mm3 (1.2-5.4) L 09/07/18 04:13 [place] # 1.1 K/mm3 (0.0-0.8) H 09/07/18 04:13 Eos # 0.5 K/mm3 (0.0-0.4) H 09/07/18 04:13 Baso # 0.1 K/mm3 (0.0-0.1) 09/07/18 04:13 Add Manual Diff Complete 08/30/18 08:18 Total Counted 100 08/30/18 08:18 Seg Neutrophils % 70.2 % (40.0-70.0) H 09/07/18 04:13 Seg Neuts % (Manual) 89.0 % (40.0-70.0) H 08/30/18 08:18 Band Neutrophils % 0 % 08/30/18 08:18 Lymphocytes % (Manual) 4.0 % (13.4-35.0) L 08/30/18 08:18 Reactive Lymphs % (Man) 0 % 08/30/18 08:18 Monocytes % (Manual) 7.0 % (0.0-7.3) 08/30/18 08:18 Eosinophils % (Manual) 0 % (0.0-4.3) 08/30/18 08:18 Basophils % (Manual) 0 % (0.0-1.8) 08/30/18 08:18 Metamyelocytes % 0 % 08/30/18 08:18 Myelocytes % 0 % 08/30/18 08:18 Promyelocytes % 0 % 08/30/18 08:18 Blast Cells % 0 % 08/30/18 08:18 Nucleated RBC % Not Reportable 08/30/18 08:18 Seg Neutrophils # 6.5 K/mm3 (1.8-7.7) 09/07/18 04:13 Seg Neutrophils # Man 11.5 K/mm3 (1.8-7.7) H 08/30/18 08:18 Band Neutrophils # 0.0 K/mm3 08/30/18 08:18 Lymphocytes # (Manual) 0.5 K/mm3 (1.2-5.4) L 08/30/18 08:18 Abs React Lymphs (Man) 0.0 K/mm3 08/30/18 08:18 Monocytes # (Manual) 0.9 K/mm3 (0.0-0.8) H 08/30/18 08:18 Eosinophils # (Manual) 0.0 K/mm3 (0.0-0.4) 08/30/18 08:18 Basophils # (Manual) 0.0 K/mm3 (0.0-0.1) 08/30/18 08:18 Metamyelocytes # 0.0 K/mm3 08/30/18 08:18 Myelocytes # 0.0 K/mm3 08/30/18 08:18 Promyelocytes # 0.0 K/mm3 08/30/18 08:18 Blast Cells # 0.0 K/mm3 08/30/18 08:18 WBC Morphology Not Reportable 08/30/18 08:18 Hypersegmented Neuts Not Reportable 08/30/18 08:18 Hyposegmented Neuts Not Reportable 08/30/18 08:18 Hypogranular Neuts Not Reportable 08/30/18 08:18 Smudge Cells Not Reportable 08/30/18 08:18 Toxic Granulation Not Reportable 08/30/18 08:18 Toxic Vacuolation Not Reportable 08/30/18 08:18 Dohle Bodies Not Reportable 08/30/18 08:18 Pelger-Huet Anomaly Not Reportable 08/30/18 08:18 Edelmira Rods Not Reportable 08/30/18 08:18 Platelet Estimate Consistent w auto 08/30/18 08:18 Clumped Platelets Rare 08/30/18 08:18 Plt Clumps, EDTA Not Reportable 08/30/18 08:18 Large Platelets Not Reportable 08/30/18 08:18 Giant Platelets Not Reportable 08/30/18 08:18 Platelet Satelliting Not Reportable 08/30/18 08:18 Plt Morphology Comment Not Reportable 08/30/18 08:18 RBC Morphology Normal 08/30/18 08:18 Dimorphic RBCs Not Reportable 08/30/18 08:18 Polychromasia Not Reportable 08/30/18 08:18 Hypochromasia Not Reportable 08/30/18 08:18 Poikilocytosis Not Reportable 08/30/18 08:18 Anisocytosis Not Reportable 08/30/18 08:18 Microcytosis Not Reportable 08/30/18 08:18 Macrocytosis Not Reportable 08/30/18 08:18 Spherocytes Not Reportable 08/30/18 08:18 Pappenheimer Bodies Not Reportable 08/30/18 08:18 Sickle Cells Not Reportable 08/30/18 08:18 Target Cells Not Reportable 08/30/18 08:18 Tear Drop Cells Not Reportable 08/30/18 08:18 Ovalocytes Not Reportable 08/30/18 08:18 Helmet Cells Not Reportable 08/30/18 08:[address] [place] Bodies Not Reportable 08/30/18 08:18 [place] Rings Not Reportable 08/30/18 08:18 [place] Cells Not Reportable 08/30/18 08:18 Bite Cells Not Reportable 08/30/18 08:18 Crenated Cell Not Reportable 08/30/18 08:18 Elliptocytes Not Reportable 08/30/18 08:18 Acanthocytes (Spur) Not Reportable 08/30/18 08:18 Rouleaux Not Reportable 08/30/18 08:18 Hemoglobin C Crystals Not Reportable 08/30/18 08:18 Schistocytes Not Reportable 08/30/18 08:18 Malaria parasites Not Reportable 08/30/18 08:18 [place] Bodies Not Reportable 08/30/18 08:18 Hem Pathologist Commnt No 08/30/18 08:18 PT 14.8 Sec. (12.2-14.9) 09/11/18 08:34 INR 1.09 (0.87-1.13) 09/11/18 08:34 APTT 30.9 Sec. (24.2-36.6) 09/11/18 08:34 D-Dimer 617.53 ng/mlDDU (0-234) H 08/29/18 17:00 POC ABG pH 7.458 (7.35-7.45) H 08/29/18 17:09 POC ABG pCO2 32.1 (35-45) L 08/29/18 17:09 POC ABG HCO3 22.7 (22-26 mml/L) 08/29/18 17:09 POC ABG Total CO2 24 (23-27mmol/L) 08/29/18 17:09 POC ABG O2 Sat 85 08/29/18 17:09 POC ABG Base Excess -1 ((-2) - (+3)mmol/L) 08/29/18 17:09 VBG pH 7.447 (7.320-7.420) H 08/29/18 16:34 FiO2 36 % 08/29/18 17:09 Sodium 136 mmol/L (137-145) L 09/07/18 04:13 Potassium 3.1 mmol/L (3.6-5.0) L 09/07/18 04:13 Chloride 99.7 mmol/L (98-107) 09/07/18 04:13 Carbon Dioxide 24 mmol/L (22-30) 09/07/18 04:13 Anion Gap 15 mmol/L 09/07/18 04:13 BUN 17 mg/dL (9-20) 09/07/18 04:13 Creatinine 0.9 mg/dL (0.8-1.5) 09/07/18 04:13 Estimated GFR > 60 ml/min 09/07/18 04:13 BUN/Creatinine Ratio 19 % 09/07/18 04:13 Glucose 127 mg/dL (75-100) H 09/07/18 04:13 Lactic Acid 1.40 mmol/L (0.7-2.0) 08/29/18 19:25 Calcium 8.4 mg/dL (8.4-10.2) 09/07/18 04:13 Phosphorus 3.60 mg/dL (2.5-4.5) 09/06/18 07:35 Magnesium 1.70 mg/dL (1.7-2.3) 09/06/18 07:35 Total Bilirubin 0.70 mg/dL (0.1-1.2) 09/06/18 07:35 AST 14 units/L (5-40) 09/06/18 07:35 ALT 8 units/L (7-56) 09/06/18 07:35 Alkaline Phosphatase 51 units/L (35-129) 09/06/18 07:35 Total Creatine Kinase 32 units/L (55-170) L 08/29/18 16:34 CK-MB (CK-2) 2.3 ng/mL (0.0-4.0) 08/29/18 16:34 CK-MB (CK-2) Rel Index 7.1 (0-4) H 08/29/18 16:34 Troponin T < 0.010 ng/mL (0.00-0.029) 08/29/18 16:34 NT-Pro-B Natriuret Pep 694.9 pg/mL (0-900) 08/29/18 16:34 Total Protein 5.0 g/dL (6.3-8.2) L 09/06/18 07:35 Albumin 2.3 g/dL (3.9-5) L 09/06/18 07:35 Albumin/Globulin Ratio 0.9 % 09/06/18 07:35 CA 19-9 Antigen 8 U/mL (<34) 09/08/18 06:59 Urine Color Yellow (Yellow) 08/29/18 19:44 Urine Turbidity Clear (Clear) 08/29/18 19:44 Urine pH 5.0 (5.0-7.0) 08/29/18 19:44 Ur Specific [place] 1.035 (1.003-1.030) H 08/29/18 19:44 Urine Protein <15 mg/dl mg/dL (Negative) 08/29/18 19:44 Urine Glucose (UA) Neg mg/dL (Negative) 08/29/18 19:44 Urine Ketones Tr mg/dL (Negative) 08/29/18 19:44 Urine Blood Neg (Negative) 08/29/18 19:44 Urine Nitrite Neg (Negative) 08/29/18 19:44 Urine Bilirubin Neg (Negative) 08/29/18 19:44 Urine Urobilinogen 2.0 mg/dL (<2.0) 08/29/18 19:44 Ur Leukocyte Esterase Neg (Negative) 08/29/18 19:44 Urine WBC (Auto) 7.0 /HPF (0.0-6.0) H 08/29/18 19:44 Urine RBC (Auto) 1.0 /HPF (0.0-6.0) 08/29/18 19:44 U Epithel Cells (Auto) < 1.0 /HPF (0-13.0) 08/29/18 19:44 Urine Mucus Few /HPF 08/29/18 19:44 Active Medications - Current Medications Current Medications: Generic Name Dose Route Start Last Admin Trade Name Freq PRN Reason Stop Dose Admin Acetaminophen 650 mg 08/29/18 21:29 08/30/18 05:53 Tylenol PO 650 mg Q4H PRN Administration Pain MILD(1-3)/Fever >100.5/VENEGAS Al Hydrox/Mg Hydrox/Simethicone 30 ml 08/29/18 21:29 Alum-Mag Hydrox-Simeth [id number]/5ml PO Q4H PRN Indigestion Albuterol 2.5 mg 09/12/18 02:27 09/12/18 02:35 Proventil IH 2.5 mg Q4HRT PRN Administration Shortness Of Breath Albuterol/Ipratropium 1 ampul 09/06/18 08:00 09/13/18 08:06 Duoneb *Not For Prn Use* IH 1 ampul TIDRT GUILLERMO Administration Amlodipine Besylate 10 mg 08/30/18 10:00 09/13/18 11:39 Norvasc PO 10 mg DAILY GUILLERMO Administration Aspirin 325 mg 08/30/18 10:00 09/13/18 11:34 Aspirin PO 325 mg QDAY GUILLERMO Administration Carvedilol 25 mg 08/29/18 22:00 09/13/18 11:39 Coreg PO 25 mg Q12HR GUILLERMO Administration Clonidine HCl 0.1 mg 08/29/18 22:00 09/13/18 11:39 Catapres PO 0.1 mg BID GUILLERMO Administration Docusate Sodium 100 mg 08/29/18 22:00 09/13/18 11:34 Colace PO 100 mg BID GUILLERMO Administration Enoxaparin Sodium 40 mg 08/30/18 10:00 09/13/18 11:34 Lovenox SUB-Q 40 mg QDAY GUILLERMO Administration Famotidine 20 mg 08/29/18 22:00 09/13/18 11:34 Pepcid PO 20 mg BID GUILLERMO Administration Haloperidol Lactate 2 mg 09/01/18 11:34 09/08/18 03:02 Haldol IM 2 mg Q6H PRN Administration Agitation Hydralazine HCl 100 mg 08/29/18 22:00 09/13/18 07:26 Apresoline PO 100 mg Q8H GUILLERMO Administration Hydromorphone HCl 2 mg 08/29/18 21:29 09/06/18 04:28 Dilaudid IV 2 mg Q3H PRN Administration Pain, Moderate (4-6) Labetalol HCl 10 mg 08/29/18 22:07 Normodyne IV Q6HR PRN Hypertension Lisinopril 10 mg 08/30/18 10:00 09/13/18 11:38 Zestril PO 10 mg QDAY GUILLERMO Administration Ondansetron HCl 4 mg 08/29/18 21:29 Zofran IV Q6H PRN Nausea And Vomiting Oxycodone/Acetaminophen 1 tab 08/29/18 21:29 09/12/18 03:33 Percocet 5/325 PO 1 tab Q6H PRN Administration Pain, Moderate (4-6) Pravastatin Sodium 40 mg 08/29/18 22:00 09/12/18 23:23 Pravachol PO 40 mg QHS GUILLERMO Administration Sodium Chloride 10 ml 08/29/18 22:00 09/13/18 07:26 Sodium Chloride Flush Syringe 10 Ml IV 10 ml BID GUILLERMO Administration Sodium Chloride 10 ml 08/29/18 21:29 09/13/18 06:02 Sodium Chloride Flush Syringe 10 Ml IV 10 ml PRN PRN Administration LINE FLUSH Zolpidem Tartrate 5 mg 08/29/18 21:29 Ambien PO QHS PRN Insomnia Nutrition/Malnutrition Assess - Dietary Evaluation Nutrition/Malnutrition Findings: Nutrition Notes Start: 08/30/18 13:41 Freq: Status: Active Protocol: Document 09/13/18 10:04 CP (Rec: 09/13/18 10:10 CP [id number]) Co-Sign 09/13/18 10:04 LP Nutrition Notes Initial or Follow up Reassessment Current Diagnosis Coronary Artery Disease, Hypertension,Stroke, Hyperlipidemia Other Pertinent Diagnosis Lung cancer, Respiratory distress, R hemiparesis, pneu Current Diet [facility] Soft Labs/Tests Reviewed Pertinent Medications Reviewed Height 5 ft 11 in Weight 62.5 kg [place] Body Weight (kg) 78.18 BMI 19.2 Subjective/Other Information Pt stated that he is hungry but did not like the food given. Pt reported not eating any breakfast due to his food preferences. Discussed the importance of nutrition for his health during visit. Percent of energy/protein needs met: 0%/0% Burn Absent Trauma Absent #1 Nutrition Diagnosis Malnutrition Diagnosis Progress(for reassessment Continues documentation) Is patient on ventilator? No Is Patient Ambulatory and/or Out of Bed No REE-([facility]-confined to bed) 1724.040 Kcal/Kg value to use for calculation 33 Approximate Energy Requirements Using 3 kcal/Kg Calculation Used for Recommendations Kcal/kg Additional Notes Protein Needs: 75-94g (1.2-1. 5g/kg) Fluid Needs: 1 ml/kcal Nutrition Intervention Change Diet Order: [facility] soft w/ground meat Add Supplement/Snack (indicate name/kcal Ensure Enlive Vanilla BID /protein ) Provides kCal: 700 Provides Protein (gm) 40 Goal #1 Meet at least 75% of calorie and protein needs via PO and ONS intakes Anticipated Discharge Needs: Unable to determine at this time Follow-Up By: 09/15/18 Additional Comments Follow for PO and ONS intakes
--- NOTE | 2018-09-13 14:42 | Cat Scan Report ---
PROCEDURE: CT ABDOMEN PELVIS WO/W CON TECHNIQUE: CT of the abdomen and pelvis was performed. Images were obtained before and after IV contr ast administration. Axial images and coronal and sagittal reformatted images were obtained. HISTORY: kidney mass COMPARISON: 09/07/2018 FINDINGS: There is contrast material in the colon which is probably or possibly residual from the prior study. There is complete consolidation of visualized left lung. There is mass extending through the left ant erior chest wall as seen on the previous. There is involvement of the anterior ribs and sternum. Ther e are small bilateral pleural effusions. There are coronary artery calcifications. There is an unchanged small pericardial effusion. There is some unchanged nonspecific adrenal gland thickening. There is a nonspecific complex mass involving the left kidney which measures 3.4 cm. It contains some hyperdense areas which vary in density from arterial to venous and delayed imaging. It is most dense during the arterial phase. I cannot exclude malignancy. There are aortoiliac atherosclerotic calcifications. There is no abdominal aortic aneurysm. There are calcifications involving the celiac trunk/axis, SMA and renal arteries. There is no evidence for intestinal obstruction. The appendix is normal. There is no abnormal fluid collection seen. There is no free intraperitoneal air. There is stool distending the rectosigmoid colon to diameter of 7.3 cm, increased from prior. IMPRESSION: Complex 3.4 cm left renal mass which demonstrates areas of enhancement. This is similar to the previo us and worrisome for malignancy. There is complete consolidation of visualized left lung. This includes a masslike area in the anterio r left lower lung which extends through the anterior chest wall and involves ribs and sternum. This i s consistent with malignancy. Unchanged small pericardial effusion. Unchanged small pleural effusions. Prominent amount of stool distending the rectosigmoid colon. This document is electronically signed by Elizabeth Kwok MD., September 13 2018 02:39:47 PM ET
[2018-09-13] MEDS: PRAVACHOL PO SCH (22:46)
[2018-09-14] MEDS: APRESOLINE PO SCH ×3 (05:49→22:35)
[2018-09-14] MEDS: DUONEB *Not for PRN Use IH SCH ×3 (07:14→19:35)
--- NOTE | 2018-09-14 07:31 | Hem/Onc Progress Note ---
Assessment and Plan #. 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 clinically stage IV XRT consulted for palliation for pain #. bone mets - s/p pamidronate #. Left renal mass, possible renal cell carcinoma. MRI not done - CT ordered #. History of smoking present. #. History of cerebrovascular accident. rt side weakness - unable to walk #. History of shortness of breath. #. History of hypertension. #. History of leukocytosis. #. History of hyperlipidemia. OLLIE JEFFRIES MOTHER [phone] # due to poor performance status - NH with hospice an option pallative XRT CT abdo done suggests Renal cell ca - Patient Problems (1) Lung cancer Current Visit: Yes Status: Acute Qualifiers: Laterality: unspecified laterality Subjective Date of service: 09/14/18 Principal diagnosis: lung ca and renal mass Interval history: Ct abdo done Objective - Constitutional Vitals: Last Vital Signs Temp 98.3 F 09/14/18 04:47 Pulse 70 09/14/18 07:21 Resp 18 09/14/18 07:21 BP 103/46 09/14/18 04:47 Pulse Ox 92 09/14/18 07:12 Pain Intensity (0-10): 1/10 General appearance: no acute distress Performance status: 4-completely disabled - EENT Eyes: EOM intact ENT: clear oral mucosa Lymph node exam: negative cervical - Neck Neck: normal ROM - Respiratory Respiratory effort: Positive: normal Respiratory: bilateral: diminished - Cardiovascular Heart Sounds: Present: S1 & S2 Extremities: No edema - Gastrointestinal General gastrointestinal: Present: soft, non-tender Rectal Exam: deferred - Genitourinary Male genitourinary: Present: deferred - Integumentary Integumentary: warm - Musculoskeletal Musculoskeletal: right sided weakness - Neurologic Neurologic: other (speech - slight slurring) Medications & Allergies - Medications Allergies/Adverse Reactions: Allergies Penicillins Allergy (Verified 07/05/13 15:11) Unknown Home Medications: Home Medications Medication Instructions Recorded Confirmed Last Taken Type Aspirin [Aspirin TAB] 325 mg PO QDAY #30 tablet 07/19/13 08/31/18 Unknown Rx Simvastatin (Nf) [Zocor TAB] 20 mg PO QHS 30 Days tablet 07/19/13 08/31/18 Unknown Rx amLODIPine [Norvasc] 10 mg PO DAILY 30 Days tab 07/19/13 08/31/18 Unknown Rx cloNIDine [Catapres] 0.1 mg PO BID #60 tablet 07/19/13 08/31/18 Unknown Rx Lisinopril [Zestril TAB] 10 mg PO QDAY 30 Days tablet 07/22/13 08/31/18 Unknown Rx hydrALAZINE [Apresoline] 50 mg PO BID 08/31/18 08/31/18 Unknown History Active Medications: Generic Name Dose Route Start Last Admin Trade Name Freq PRN Reason Stop Dose Admin Acetaminophen 650 mg 08/29/18 21:29 08/30/18 05:53 Tylenol PO 650 mg Q4H PRN Administration Pain MILD(1-3)/Fever >100.5/VENEGAS Al Hydrox/Mg Hydrox/Simethicone 30 ml 08/29/18 21:29 Alum-Mag Hydrox-Simeth [id number]/5ml PO Q4H PRN Indigestion Albuterol 2.5 mg 09/12/18 02:27 09/12/18 02:35 Proventil IH 2.5 mg Q4HRT PRN Administration Shortness Of Breath Albuterol/Ipratropium 1 ampul 09/06/18 08:00 09/14/18 07:14 Duoneb *Not For Prn Use* IH 1 ampul TIDRT GUILLERMO Administration Amlodipine Besylate 10 mg 08/30/18 10:00 09/13/18 11:39 Norvasc PO 10 mg DAILY GUILLERMO Administration Aspirin 325 mg 08/30/18 10:00 09/13/18 11:34 Aspirin PO 325 mg QDAY GUILLERMO Administration Carvedilol 25 mg 08/29/18 22:00 09/13/18 22:46 Coreg PO 25 mg Q12HR GUILLERMO Administration Clonidine HCl 0.1 mg 08/29/18 22:00 09/13/18 22:45 Catapres PO 0.1 mg BID GUILLERMO Administration Docusate Sodium 100 mg 08/29/18 22:00 09/13/18 22:46 Colace PO 100 mg BID GUILLERMO Administration Enoxaparin Sodium 40 mg 08/30/18 10:00 09/13/18 11:34 Lovenox SUB-Q 40 mg QDAY GUILLERMO Administration Famotidine 20 mg 08/29/18 22:00 09/13/18 22:46 Pepcid PO 20 mg BID GUILLERMO Administration Haloperidol Lactate 2 mg 09/01/18 11:34 09/08/18 03:02 Haldol IM 2 mg Q6H PRN Administration Agitation Hydralazine HCl 100 mg 08/29/18 22:00 09/14/18 05:49 Apresoline PO Not Given Q8H GUILLERMO Hydromorphone HCl 2 mg 08/29/18 21:29 09/06/18 04:28 Dilaudid IV 2 mg Q3H PRN Administration Pain, Moderate (4-6) Labetalol HCl 10 mg 08/29/18 22:07 Normodyne IV Q6HR PRN Hypertension Lisinopril 10 mg 08/30/18 10:00 09/13/18 11:38 Zestril PO 10 mg QDAY GUILLERMO Administration Ondansetron HCl 4 mg 08/29/18 21:29 Zofran IV Q6H PRN Nausea And Vomiting Oxycodone/Acetaminophen 1 tab 08/29/18 21:29 09/12/18 03:33 Percocet 5/325 PO 1 tab Q6H PRN Administration Pain, Moderate (4-6) Pravastatin Sodium 40 mg 08/29/18 22:00 09/13/18 22:46 Pravachol PO 40 mg QHS GUILLERMO Administration Sodium Chloride 10 ml 08/29/18 22:00 09/13/18 22:46 Sodium Chloride Flush Syringe 10 Ml IV 10 ml BID GUILLERMO Administration Sodium Chloride 10 ml 08/29/18 21:29 09/13/18 06:02 Sodium Chloride Flush Syringe 10 Ml IV 10 ml PRN PRN Administration LINE FLUSH Zolpidem Tartrate 5 mg 08/29/18 21:29 Ambien PO QHS PRN Insomnia
[2018-09-14] MEDS: LOVENOX SUB-Q SCH (11:08)
[2018-09-14] MEDS: COLACE PO SCH ×2 (11:08→22:37)
[2018-09-14] MEDS: ASPIRIN PO SCH (11:08)
[2018-09-14] MEDS: COREG PO SCH ×2 (11:09→22:35)
[2018-09-14] MEDS: NORVASC PO SCH (11:09)
[2018-09-14] MEDS: CATAPRES PO SCH ×2 (11:09→22:36)
[2018-09-14] MEDS: PEPCID PO SCH ×2 (11:09→22:37)
[2018-09-14] MEDS: ZESTRIL PO SCH (11:11)
[2018-09-14] MEDS: SODIUM CHLORIDE FLUSH SYRINGE 10 ML IV SCH ×2 (11:12→22:37)
--- NOTE | 2018-09-14 13:19 | Progress Note ---
Assessment and Plan Assessment and plan: Squamous cell carcinoma lung; s/p biopsy, squamous cell carcinoma, Oncology, Dr. Knapp, evaluated and recommend radiation therapy, consulted radiation oncologist Stage IIIB T4 with sternum and rib cage invasion Evaluated by radiation oncologist Dr. Heath, palliative Radiation therapy Patient has an appointment for radiology on Tuesday at 9am and Tuesday 1pm. will set up transportation from [facility] Left renal mass. CT scan of the abdomen suggests renal cell carcinoma. Oncology following Acute Hypoxic respiratory failure; requiring BiPAP, symptoms significantly improved Continue Oxygen, nebulizers, IV steroids, IV antibiotics, pulmonary following Pathologic fractures of ribs and sternum secondary to possible metastasis, Pain management and supportive care Left lower lobe pneumonia; probably post obstructive pneumonia Continue IV antibiotics follow cultures Sepsis Etiology secondary to pneumonia History of CVA with residual right-sided weakness, abortive care. tobacco use disorder; smoking cessation advised nicotine patch as needed DVT prophylaxis; SCDs, Lovenox Disposition Full Code Discharge planning Oncology recommends hospice with skilled nursing due to poor performance status. However, patient likely to have home hospice. Case management feels that patient will not be accepted into facility given active treatment. Case management discussed with the mother Lorraine at [phone] who is in agreement History Interval history: No new issues overnight Hospitalist Physical - Constitutional Vitals: Temp Pulse Resp BP Pulse Ox 97.8 F 74 18 134/50 94 09/14/18 11:00 09/14/18 11:00 09/14/18 11:00 09/14/18 11:11 09/14/18 11:00 General appearance: Present: no acute distress, cachectic, disheveled - EENT Eyes: Present: PERRL, EOM intact ENT: hearing intact, clear oral mucosa, dentition normal - Neck Neck: Present: supple, normal ROM - Respiratory Respiratory effort: normal Respiratory: bilateral: CTA - Cardiovascular Rhythm: regular Heart Sounds: Present: S1 & S2. Absent: gallop, rub - Extremities Extremities: no ischemia, No edema, Full ROM - Abdominal General gastrointestinal: soft, non-tender, non-distended, normal bowel sounds - Integumentary Integumentary: Present: clear, warm, dry - Neurologic Neurologic: CNII-XII intact, moves all extremities Results - Labs CBC & Chem 7: 09/07/18 04:13 09/07/18 04:13 Labs: Laboratory Last Values WBC 9.2 K/mm3 (4.5-11.0) 09/07/18 04:13 RBC 3.61 M/mm3 (3.65-5.03) L 09/07/18 04:13 Hgb 11.6 gm/dl (11.8-15.2) L 09/07/18 04:13 Hct 33.7 % (35.5-45.6) L 09/07/18 04:13 MCV 93 fl (84-94) 09/07/18 04:13 MCH 32 pg (28-32) 09/07/18 04:13 MCHC 34 % (32-34) 09/07/18 04:13 RDW 14.0 % (13.2-15.2) 09/07/18 04:13 Plt Count 287 K/mm3 (140-440) 09/07/18 04:13 Lymph % (Auto) 11.3 % (13.4-35.0) L 09/07/18 04:13 [place] % (Auto) 12.1 % (0.0-7.3) H 09/07/18 04:13 Eos % (Auto) 5.5 % (0.0-4.3) H 09/07/18 04:13 Baso % (Auto) 0.9 % (0.0-1.8) 09/07/18 04:13 Lymph # 1.0 K/mm3 (1.2-5.4) L 09/07/18 04:13 [place] # 1.1 K/mm3 (0.0-0.8) H 09/07/18 04:13 Eos # 0.5 K/mm3 (0.0-0.4) H 09/07/18 04:13 Baso # 0.1 K/mm3 (0.0-0.1) 09/07/18 04:13 Add Manual Diff Complete 08/30/18 08:18 Total Counted 100 08/30/18 08:18 Seg Neutrophils % 70.2 % (40.0-70.0) H 09/07/18 04:13 Seg Neuts % (Manual) 89.0 % (40.0-70.0) H 08/30/18 08:18 Band Neutrophils % 0 % 08/30/18 08:18 Lymphocytes % (Manual) 4.0 % (13.4-35.0) L 08/30/18 08:18 Reactive Lymphs % (Man) 0 % 08/30/18 08:18 Monocytes % (Manual) 7.0 % (0.0-7.3) 08/30/18 08:18 Eosinophils % (Manual) 0 % (0.0-4.3) 08/30/18 08:18 Basophils % (Manual) 0 % (0.0-1.8) 08/30/18 08:18 Metamyelocytes % 0 % 08/30/18 08:18 Myelocytes % 0 % 08/30/18 08:18 Promyelocytes % 0 % 08/30/18 08:18 Blast Cells % 0 % 08/30/18 08:18 Nucleated RBC % Not Reportable 08/30/18 08:18 Seg Neutrophils # 6.5 K/mm3 (1.8-7.7) 09/07/18 04:13 Seg Neutrophils # Man 11.5 K/mm3 (1.8-7.7) H 08/30/18 08:18 Band Neutrophils # 0.0 K/mm3 08/30/18 08:18 Lymphocytes # (Manual) 0.5 K/mm3 (1.2-5.4) L 08/30/18 08:18 Abs React Lymphs (Man) 0.0 K/mm3 08/30/18 08:18 Monocytes # (Manual) 0.9 K/mm3 (0.0-0.8) H 08/30/18 08:18 Eosinophils # (Manual) 0.0 K/mm3 (0.0-0.4) 08/30/18 08:18 Basophils # (Manual) 0.0 K/mm3 (0.0-0.1) 08/30/18 08:18 Metamyelocytes # 0.0 K/mm3 08/30/18 08:18 Myelocytes # 0.0 K/mm3 08/30/18 08:18 Promyelocytes # 0.0 K/mm3 08/30/18 08:18 Blast Cells # 0.0 K/mm3 08/30/18 08:18 WBC Morphology Not Reportable 08/30/18 08:18 Hypersegmented Neuts Not Reportable 08/30/18 08:18 Hyposegmented Neuts Not Reportable 08/30/18 08:18 Hypogranular Neuts Not Reportable 08/30/18 08:18 Smudge Cells Not Reportable 08/30/18 08:18 Toxic Granulation Not Reportable 08/30/18 08:18 Toxic Vacuolation Not Reportable 08/30/18 08:18 Dohle Bodies Not Reportable 08/30/18 08:18 Pelger-Huet Anomaly Not Reportable 08/30/18 08:18 Edelmira Rods Not Reportable 08/30/18 08:18 Platelet Estimate Consistent w auto 08/30/18 08:18 Clumped Platelets Rare 08/30/18 08:18 Plt Clumps, EDTA Not Reportable 08/30/18 08:18 Large Platelets Not Reportable 08/30/18 08:18 Giant Platelets Not Reportable 08/30/18 08:18 Platelet Satelliting Not Reportable 08/30/18 08:18 Plt Morphology Comment Not Reportable 08/30/18 08:18 RBC Morphology Normal 08/30/18 08:18 Dimorphic RBCs Not Reportable 08/30/18 08:18 Polychromasia Not Reportable 08/30/18 08:18 Hypochromasia Not Reportable 08/30/18 08:18 Poikilocytosis Not Reportable 08/30/18 08:18 Anisocytosis Not Reportable 08/30/18 08:18 Microcytosis Not Reportable 08/30/18 08:18 Macrocytosis Not Reportable 08/30/18 08:18 Spherocytes Not Reportable 08/30/18 08:18 Pappenheimer Bodies Not Reportable 08/30/18 08:18 Sickle Cells Not Reportable 08/30/18 08:18 Target Cells Not Reportable 08/30/18 08:18 Tear Drop Cells Not Reportable 08/30/18 08:18 Ovalocytes Not Reportable 08/30/18 08:18 Helmet Cells Not Reportable 08/30/18 08:18 La-March Arb Bodies Not Reportable 08/30/18 08:18 Boody Rings Not Reportable 08/30/18 08:18 [place] Cells Not Reportable 08/30/18 08:18 Bite Cells Not Reportable 08/30/18 08:18 Crenated Cell Not Reportable 08/30/18 08:18 Elliptocytes Not Reportable 08/30/18 08:18 Acanthocytes (Spur) Not Reportable 08/30/18 08:18 Rouleaux Not Reportable 08/30/18 08:18 Hemoglobin C Crystals Not Reportable 08/30/18 08:18 Schistocytes Not Reportable 08/30/18 08:18 Malaria parasites Not Reportable 08/30/18 08:18 Lefty Bodies Not Reportable 08/30/18 08:18 Hem Pathologist Commnt No 08/30/18 08:18 PT 14.8 Sec. (12.2-14.9) 09/11/18 08:34 INR 1.09 (0.87-1.13) 09/11/18 08:34 APTT 30.9 Sec. (24.2-36.6) 09/11/18 08:34 D-Dimer 617.53 ng/mlDDU (0-234) H 08/29/18 17:00 POC ABG pH 7.458 (7.35-7.45) H 08/29/18 17:09 POC ABG pCO2 32.1 (35-45) L 08/29/18 17:09 POC ABG HCO3 22.7 (22-26 mml/L) 08/29/18 17:09 POC ABG Total CO2 24 (23-27mmol/L) 08/29/18 17:09 POC ABG O2 Sat 85 08/29/18 17:09 POC ABG Base Excess -1 ((-2) - (+3)mmol/L) 08/29/18 17:09 VBG pH 7.447 (7.320-7.420) H 08/29/18 16:34 FiO2 36 % 08/29/18 17:09 Sodium 136 mmol/L (137-145) L 09/07/18 04:13 Potassium 3.1 mmol/L (3.6-5.0) L 09/07/18 04:13 Chloride 99.7 mmol/L (98-107) 09/07/18 04:13 Carbon Dioxide 24 mmol/L (22-30) 09/07/18 04:13 Anion Gap 15 mmol/L 09/07/18 04:13 BUN 17 mg/dL (9-20) 09/07/18 04:13 Creatinine 0.9 mg/dL (0.8-1.5) 09/07/18 04:13 Estimated GFR > 60 ml/min 09/07/18 04:13 BUN/Creatinine Ratio 19 % 09/07/18 04:13 Glucose 127 mg/dL (75-100) H 09/07/18 04:13 Lactic Acid 1.40 mmol/L (0.7-2.0) 08/29/18 19:25 Calcium 8.4 mg/dL (8.4-10.2) 09/07/18 04:13 Phosphorus 3.60 mg/dL (2.5-4.5) 09/06/18 07:35 Magnesium 1.70 mg/dL (1.7-2.3) 09/06/18 07:35 Total Bilirubin 0.70 mg/dL (0.1-1.2) 09/06/18 07:35 AST 14 units/L (5-40) 09/06/18 07:35 ALT 8 units/L (7-56) 09/06/18 07:35 Alkaline Phosphatase 51 units/L (35-129) 09/06/18 07:35 Total Creatine Kinase 32 units/L (55-170) L 08/29/18 16:34 CK-MB (CK-2) 2.3 ng/mL (0.0-4.0) 08/29/18 16:34 CK-MB (CK-2) Rel Index 7.1 (0-4) H 08/29/18 16:34 Troponin T < 0.010 ng/mL (0.00-0.029) 08/29/18 16:34 NT-Pro-B Natriuret Pep 694.9 pg/mL (0-900) 08/29/18 16:34 Total Protein 5.0 g/dL (6.3-8.2) L 09/06/18 07:35 Albumin 2.3 g/dL (3.9-5) L 09/06/18 07:35 Albumin/Globulin Ratio 0.9 % 09/06/18 07:35 Carcinoembryonic Ag See scanned result 09/08/18 06:59 CA 19-9 Antigen 8 U/mL (<34) 09/08/18 06:59 Urine Color Yellow (Yellow) 08/29/18 19:44 Urine Turbidity Clear (Clear) 08/29/18 19:44 Urine pH 5.0 (5.0-7.0) 08/29/18 19:44 Ur Specific [place] 1.035 (1.003-1.030) H 08/29/18 19:44 Urine Protein <15 mg/dl mg/dL (Negative) 08/29/18 19:44 Urine Glucose (UA) Neg mg/dL (Negative) 08/29/18 19:44 Urine Ketones Tr mg/dL (Negative) 08/29/18 19:44 Urine Blood Neg (Negative) 08/29/18 19:44 Urine Nitrite Neg (Negative) 08/29/18 19:44 Urine Bilirubin Neg (Negative) 08/29/18 19:44 Urine Urobilinogen 2.0 mg/dL (<2.0) 08/29/18 19:44 Ur Leukocyte Esterase Neg (Negative) 08/29/18 19:44 Urine WBC (Auto) 7.0 /HPF (0.0-6.0) H 08/29/18 19:44 Urine RBC (Auto) 1.0 /HPF (0.0-6.0) 08/29/18 19:44 U Epithel Cells (Auto) < 1.0 /HPF (0-13.0) 08/29/18 19:44 Urine Mucus Few /HPF 08/29/18 19:44 Active Medications - Current Medications Current Medications: Generic Name Dose Route Start Last Admin Trade Name Freq PRN Reason Stop Dose Admin Acetaminophen 650 mg 08/29/18 21:29 08/30/18 05:53 Tylenol PO 650 mg Q4H PRN Administration Pain MILD(1-3)/Fever >100.5/VENEGAS Al Hydrox/Mg Hydrox/Simethicone 30 ml 08/29/18 21:29 Alum-Mag Hydrox-Simeth 160-219-69xs/5ml PO Q4H PRN Indigestion Albuterol 2.5 mg 09/12/18 02:27 09/12/18 02:35 Proventil IH 2.5 mg Q4HRT PRN Administration Shortness Of Breath Albuterol/Ipratropium 1 ampul 09/06/18 08:00 09/14/18 07:14 Duoneb *Not For Prn Use* IH 1 ampul TIDRT GUILLERMO Administration Amlodipine Besylate 10 mg 08/30/18 10:00 09/14/18 11:09 Norvasc PO 10 mg DAILY GUILLERMO Administration Aspirin 325 mg 08/30/18 10:00 09/14/18 11:08 Aspirin PO 325 mg QDAY GUILLERMO Administration Carvedilol 25 mg 08/29/18 22:00 09/14/18 11:09 Coreg PO 25 mg Q12HR GUILLERMO Administration Clonidine HCl 0.1 mg 08/29/18 22:00 09/14/18 11:09 Catapres PO 0.1 mg BID GUILLERMO Administration Docusate Sodium 100 mg 08/29/18 22:00 09/14/18 11:08 Colace PO 100 mg BID GUILLERMO Administration Enoxaparin Sodium 40 mg 08/30/18 10:00 09/14/18 11:08 Lovenox SUB-Q 40 mg QDAY GUILLERMO Administration Famotidine 20 mg 08/29/18 22:00 09/14/18 11:09 Pepcid PO 20 mg BID GUILLERMO Administration Haloperidol Lactate 2 mg 09/01/18 11:34 09/08/18 03:02 Haldol IM 2 mg Q6H PRN Administration Agitation Hydralazine HCl 100 mg 08/29/18 22:00 09/14/18 05:49 Apresoline PO Not Given Q8H GUILLERMO Hydromorphone HCl 2 mg 08/29/18 21:29 09/06/18 04:28 Dilaudid IV 2 mg Q3H PRN Administration Pain, Moderate (4-6) Labetalol HCl 10 mg 08/29/18 22:07 Normodyne IV Q6HR PRN Hypertension Lisinopril 10 mg 08/30/18 10:00 09/14/18 11:11 Zestril PO 10 mg QDAY GUILLERMO Administration Ondansetron HCl 4 mg 08/29/18 21:29 Zofran IV Q6H PRN Nausea And Vomiting Oxycodone/Acetaminophen 1 tab 08/29/18 21:29 09/12/18 03:33 Percocet 5/325 PO 1 tab Q6H PRN Administration Pain, Moderate (4-6) Pravastatin Sodium 40 mg 08/29/18 22:00 09/13/18 22:46 Pravachol PO 40 mg QHS GUILLERMO Administration Sodium Chloride 10 ml 08/29/18 22:00 09/14/18 11:12 Sodium Chloride Flush Syringe 10 Ml IV 10 ml BID GUILLERMO Administration Sodium Chloride 10 ml 08/29/18 21:29 09/13/18 06:02 Sodium Chloride Flush Syringe 10 Ml IV 10 ml PRN PRN Administration LINE FLUSH Zolpidem Tartrate 5 mg 08/29/18 21:29 Ambien PO QHS PRN Insomnia Nutrition/Malnutrition Assess - Dietary Evaluation Nutrition/Malnutrition Findings: Nutrition Notes Start: 08/30/18 13:41 Freq: Status: Active Protocol: Document 09/13/18 10:04 CP (Rec: 09/13/18 10:10 CP [id number]) Co-Sign 09/13/18 10:04 LP Nutrition Notes Initial or Follow up Reassessment Current Diagnosis Coronary Artery Disease, Hypertension,Stroke, Hyperlipidemia Other Pertinent Diagnosis Lung cancer, Respiratory distress, R hemiparesis, pneu Current Diet [facility] Soft Labs/Tests Reviewed Pertinent Medications Reviewed Height 5 ft 11 in Weight 62.5 kg [place] [employer] Body Weight (kg) 78.18 BMI 19.2 Subjective/Other Information Pt stated that he is hungry but did not like the food given. Pt reported not eating any breakfast due to his food preferences. Discussed the importance of nutrition for his health during visit. Percent of energy/protein needs met: 0%/0% Burn Absent Trauma Absent #1 Nutrition Diagnosis Malnutrition Diagnosis Progress(for reassessment Continues documentation) Is patient on ventilator? No Is Patient Ambulatory and/or Out of Bed No REE-([facility]-confined to bed) 1724.040 Kcal/Kg value to use for calculation 33 Approximate Energy Requirements Using 3 kcal/Kg Calculation Used for Recommendations Kcal/kg Additional Notes Protein Needs: 75-94g (1.2-1. 5g/kg) Fluid Needs: 1 ml/kcal Nutrition Intervention Change Diet Order: [facility] soft w/ground meat Add Supplement/Snack (indicate name/kcal Ensure Enlive Vanilla BID /protein ) Provides kCal: 700 Provides Protein (gm) 40 Goal #1 Meet at least 75% of calorie and protein needs via PO and ONS intakes Anticipated Discharge Needs: Unable to determine at this time Follow-Up By: 09/15/18 Additional Comments Follow for PO and ONS intakes
[2018-09-14] MEDS: PRAVACHOL PO SCH (22:37)
--- NOTE | 2018-09-15 05:40 | Hem/Onc Progress Note ---
Assessment and Plan #. 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 clinically stage IV XRT consulted for palliation for pain #. bone mets - s/p pamidronate #. Left renal mass, possible renal cell carcinoma. MRI not done - CT ordered #. History of smoking present. #. History of cerebrovascular accident. rt side weakness - unable to walk #. History of shortness of breath. #. History of hypertension. #. History of leukocytosis. #. History of hyperlipidemia. OLLIE JEFFRIES MOTHER [phone] # due to poor performance status - NH with hospice an option pallative XRT CT abdo done suggests Renal cell ca pt says getting XRT - and once finishes d/c - Patient Problems (1) Lung cancer Current Visit: Yes Status: Acute Qualifiers: Laterality: unspecified laterality Subjective Date of service: 09/15/18 Principal diagnosis: Sq cell ca - lung and renal mass Interval history: getting XRT Objective - Constitutional Vitals: Last Vital Signs Temp 98.0 F 09/14/18 22:13 Pulse 70 09/14/18 22:36 Resp 20 09/14/18 22:13 BP 110/52 09/14/18 22:36 Pulse Ox 95 09/14/18 22:13 Pain Intensity (0-10): denies any pain General appearance: no acute distress Performance status: 4-completely disabled - EENT Eyes: EOM intact ENT: hearing intact - Respiratory Respiratory effort: Positive: normal Respiratory: bilateral: CTA - Cardiovascular Heart Sounds: Present: S1 & S2 Extremities: No edema - Gastrointestinal General gastrointestinal: Present: soft, non-tender Rectal Exam: deferred - Genitourinary Male genitourinary: Present: deferred - Integumentary Integumentary: warm - Musculoskeletal Musculoskeletal: right sided weakness - Labs Lab Results: Laboratory Results - last 24 hr 09/08/18 06:59 Carcinoembryonic Ag See scanned result Medications & Allergies - Medications Allergies/Adverse Reactions: Allergies Penicillins Allergy (Verified 07/05/13 15:11) Unknown Home Medications: Home Medications Medication Instructions Recorded Confirmed Last Taken Type Aspirin [Aspirin TAB] 325 mg PO QDAY #30 tablet 07/19/13 08/31/18 Unknown Rx Simvastatin (Nf) [Zocor TAB] 20 mg PO QHS 30 Days tablet 07/19/13 08/31/18 Unknown Rx amLODIPine [Norvasc] 10 mg PO DAILY 30 Days tab 07/19/13 08/31/18 Unknown Rx cloNIDine [Catapres] 0.1 mg PO BID #60 tablet 07/19/13 08/31/18 Unknown Rx Lisinopril [Zestril TAB] 10 mg PO QDAY 30 Days tablet 07/22/13 08/31/18 Unknown Rx hydrALAZINE [Apresoline] 50 mg PO BID 08/31/18 08/31/18 Unknown History Active Medications: Generic Name Dose Route Start Last Admin Trade Name Freq PRN Reason Stop Dose Admin Acetaminophen 650 mg 08/29/18 21:29 08/30/18 05:53 Tylenol PO 650 mg Q4H PRN Administration Pain MILD(1-3)/Fever >100.5/VENEGAS Al Hydrox/Mg Hydrox/Simethicone 30 ml 08/29/18 21:29 Alum-Mag Hydrox-Simeth 177-320-99ai/5ml PO Q4H PRN Indigestion Albuterol 2.5 mg 09/12/18 02:27 09/12/18 02:35 Proventil IH 2.5 mg Q4HRT PRN Administration Shortness Of Breath Albuterol/Ipratropium 1 ampul 09/06/18 08:00 09/14/18 19:35 Duoneb *Not For Prn Use* IH 1 ampul TIDRT GUILLERMO Administration Amlodipine Besylate 10 mg 08/30/18 10:00 09/14/18 11:09 Norvasc PO 10 mg DAILY GUILLERMO Administration Aspirin 325 mg 08/30/18 10:00 09/14/18 11:08 Aspirin PO 325 mg QDAY GUILLERMO Administration Carvedilol 25 mg 08/29/18 22:00 09/14/18 22:35 Coreg PO Not Given Q12HR GUILLERMO Clonidine HCl 0.1 mg 08/29/18 22:00 09/14/18 22:36 Catapres PO Not Given BID GUILLERMO Docusate Sodium 100 mg 08/29/18 22:00 09/14/18 22:37 Colace PO 100 mg BID GUILLERMO Administration Enoxaparin Sodium 40 mg 08/30/18 10:00 09/14/18 11:08 Lovenox SUB-Q 40 mg QDAY GUILLERMO Administration Famotidine 20 mg 08/29/18 22:00 09/14/18 22:37 Pepcid PO 20 mg BID GUILLERMO Administration Haloperidol Lactate 2 mg 09/01/18 11:34 09/08/18 03:02 Haldol IM 2 mg Q6H PRN Administration Agitation Hydralazine HCl 100 mg 08/29/18 22:00 09/14/18 22:35 Apresoline PO Not Given Q8H GUILLERMO Hydromorphone HCl 2 mg 08/29/18 21:29 09/06/18 04:28 Dilaudid IV 2 mg Q3H PRN Administration Pain, Moderate (4-6) Labetalol HCl 10 mg 08/29/18 22:07 Normodyne IV Q6HR PRN Hypertension Lisinopril 10 mg 08/30/18 10:00 09/14/18 11:11 Zestril PO 10 mg QDAY GUILLERMO Administration Ondansetron HCl 4 mg 08/29/18 21:29 Zofran IV Q6H PRN Nausea And Vomiting Oxycodone/Acetaminophen 1 tab 08/29/18 21:29 09/12/18 03:33 Percocet 5/325 PO 1 tab Q6H PRN Administration Pain, Moderate (4-6) Pravastatin Sodium 40 mg 08/29/18 22:00 09/14/18 22:37 Pravachol PO 40 mg QHS GUILLERMO Administration Sodium Chloride 10 ml 08/29/18 22:00 09/14/18 22:37 Sodium Chloride Flush Syringe 10 Ml IV 10 ml BID GUILLERMO Administration Sodium Chloride 10 ml 08/29/18 21:29 09/13/18 06:02 Sodium Chloride Flush Syringe 10 Ml IV 10 ml PRN PRN Administration LINE FLUSH Zolpidem Tartrate 5 mg 08/29/18 21:29 Ambien PO QHS PRN Insomnia
[2018-09-15] MEDS: APRESOLINE PO SCH ×3 (05:52→22:29)
[2018-09-15] MEDS: DILAUDID IV PRN ×2 (08:44→13:10)
[2018-09-15] MEDS: DUONEB *Not for PRN Use IH SCH ×3 (10:13→21:14)
[2018-09-15] MEDS: COLACE PO SCH ×2 (10:56→22:25)
[2018-09-15] MEDS: LOVENOX SUB-Q SCH (10:56)
[2018-09-15] MEDS: PEPCID PO SCH ×2 (10:56→22:25)
[2018-09-15] MEDS: ASPIRIN PO SCH (10:56)
[2018-09-15] MEDS: NORVASC PO SCH (10:56)
[2018-09-15] MEDS: COREG PO SCH ×2 (10:56→22:25)
[2018-09-15] MEDS: ZESTRIL PO SCH (10:57)
[2018-09-15] MEDS: SODIUM CHLORIDE FLUSH SYRINGE 10 ML IV SCH ×2 (10:57→22:26)
[2018-09-15] MEDS: CATAPRES PO SCH ×2 (10:57→22:25)
--- NOTE | 2018-09-15 12:24 | Progress Note ---
Assessment and Plan Assessment and plan: Squamous cell carcinoma lung; s/p biopsy, squamous cell carcinoma, Oncology, Dr. Rhodes, evaluated and recommend radiation therapy Evaluated by radiation oncologist Dr. Heath, palliative Radiation therapy Patient has appointments for today at 9am and Tuesday 1pm. [facility] set [facility] Left renal mass. CT scan of the abdomen suggests renal cell carcinoma. Oncology following Acute Hypoxic respiratory failure; requiring BiPAP, symptoms significantly improved Continue Oxygen, nebulizers, IV steroids, IV antibiotics, pulmonary following Pathologic fractures of ribs and sternum secondary to possible metastasis, Pain management and supportive care Left lower lobe pneumonia; probably post obstructive pneumonia Continue IV antibiotics follow cultures Sepsis Etiology secondary to pneumonia History of CVA with residual right-sided weakness, abortive care. tobacco use disorder; smoking cessation advised nicotine patch as needed DVT prophylaxis; SCDs, Lovenox Disposition Full Code Discharge planning Oncology recommends hospice with custodial due to poor performance status. However, patient likely to have home hospice. Case management feels that patient will not be accepted into facility given active treatment. Case management discussed with the mother Lorraine at [phone] who is in agreement History Interval history: No new issues overnight Hospitalist Physical - Constitutional Vitals: Temp Pulse Resp BP Pulse Ox 97.8 F 71 18 158/65 95 09/15/18 04:38 09/15/18 10:56 09/15/18 10:52 09/15/18 10:56 09/15/18 10:53 General appearance: Present: no acute distress, cachectic, disheveled - EENT Eyes: Present: PERRL, EOM intact ENT: hearing intact, clear oral mucosa, dentition normal - Neck Neck: Present: supple, normal ROM - Respiratory Respiratory effort: normal Respiratory: bilateral: CTA - Cardiovascular Rhythm: regular Heart Sounds: Present: S1 & S2. Absent: gallop, rub - Extremities Extremities: no ischemia, No edema, Full ROM - Abdominal General gastrointestinal: soft, non-tender, non-distended, normal bowel sounds - Integumentary Integumentary: Present: clear, warm, dry - Neurologic Neurologic: CNII-XII intact, moves all extremities Results - Labs CBC & Chem 7: 09/07/18 04:13 09/07/18 04:13 Labs: Laboratory Last Values WBC 9.2 K/mm3 (4.5-11.0) 09/07/18 04:13 RBC 3.61 M/mm3 (3.65-5.03) L 09/07/18 04:13 Hgb 11.6 gm/dl (11.8-15.2) L 09/07/18 04:13 Hct 33.7 % (35.5-45.6) L 09/07/18 04:13 MCV 93 fl (84-94) 09/07/18 04:13 MCH 32 pg (28-32) 09/07/18 04:13 MCHC 34 % (32-34) 09/07/18 04:13 RDW 14.0 % (13.2-15.2) 09/07/18 04:13 Plt Count 287 K/mm3 (140-440) 09/07/18 04:13 Lymph % (Auto) 11.3 % (13.4-35.0) L 09/07/18 04:13 [place] % (Auto) 12.1 % (0.0-7.3) H 09/07/18 04:13 Eos % (Auto) 5.5 % (0.0-4.3) H 09/07/18 04:13 Baso % (Auto) 0.9 % (0.0-1.8) 09/07/18 04:13 Lymph # 1.0 K/mm3 (1.2-5.4) L 09/07/18 04:13 [place] # 1.1 K/mm3 (0.0-0.8) H 09/07/18 04:13 Eos # 0.5 K/mm3 (0.0-0.4) H 09/07/18 04:13 Baso # 0.1 K/mm3 (0.0-0.1) 09/07/18 04:13 Add Manual Diff Complete 08/30/18 08:18 Total Counted 100 08/30/18 08:18 Seg Neutrophils % 70.2 % (40.0-70.0) H 09/07/18 04:13 Seg Neuts % (Manual) 89.0 % (40.0-70.0) H 08/30/18 08:18 Band Neutrophils % 0 % 08/30/18 08:18 Lymphocytes % (Manual) 4.0 % (13.4-35.0) L 08/30/18 08:18 Reactive Lymphs % (Man) 0 % 08/30/18 08:18 Monocytes % (Manual) 7.0 % (0.0-7.3) 08/30/18 08:18 Eosinophils % (Manual) 0 % (0.0-4.3) 08/30/18 08:18 Basophils % (Manual) 0 % (0.0-1.8) 08/30/18 08:18 Metamyelocytes % 0 % 08/30/18 08:18 Myelocytes % 0 % 08/30/18 08:18 Promyelocytes % 0 % 08/30/18 08:18 Blast Cells % 0 % 08/30/18 08:18 Nucleated RBC % Not Reportable 08/30/18 08:18 Seg Neutrophils # 6.5 K/mm3 (1.8-7.7) 09/07/18 04:13 Seg Neutrophils # Man 11.5 K/mm3 (1.8-7.7) H 08/30/18 08:18 Band Neutrophils # 0.0 K/mm3 08/30/18 08:18 Lymphocytes # (Manual) 0.5 K/mm3 (1.2-5.4) L 08/30/18 08:18 Abs React Lymphs (Man) 0.0 K/mm3 08/30/18 08:18 Monocytes # (Manual) 0.9 K/mm3 (0.0-0.8) H 08/30/18 08:18 Eosinophils # (Manual) 0.0 K/mm3 (0.0-0.4) 08/30/18 08:18 Basophils # (Manual) 0.0 K/mm3 (0.0-0.1) 08/30/18 08:18 Metamyelocytes # 0.0 K/mm3 08/30/18 08:18 Myelocytes # 0.0 K/mm3 08/30/18 08:18 Promyelocytes # 0.0 K/mm3 08/30/18 08:18 Blast Cells # 0.0 K/mm3 08/30/18 08:18 WBC Morphology Not Reportable 08/30/18 08:18 Hypersegmented Neuts Not Reportable 08/30/18 08:18 Hyposegmented Neuts Not Reportable 08/30/18 08:18 Hypogranular Neuts Not Reportable 08/30/18 08:18 Smudge Cells Not Reportable 08/30/18 08:18 Toxic Granulation Not Reportable 08/30/18 08:18 Toxic Vacuolation Not Reportable 08/30/18 08:18 Dohle Bodies Not Reportable 08/30/18 08:18 Pelger-Huet Anomaly Not Reportable 08/30/18 08:18 [place]ira Rods Not Reportable 08/30/18 08:18 Platelet Estimate Consistent w auto 08/30/18 08:18 Clumped Platelets Rare 08/30/18 08:18 Plt Clumps, EDTA Not Reportable 08/30/18 08:18 Large Platelets Not Reportable 08/30/18 08:18 Giant Platelets Not Reportable 08/30/18 08:18 Platelet Satelliting Not Reportable 08/30/18 08:18 Plt Morphology Comment Not Reportable 08/30/18 08:18 RBC Morphology Normal 08/30/18 08:18 Dimorphic RBCs Not Reportable 08/30/18 08:18 Polychromasia Not Reportable 08/30/18 08:18 Hypochromasia Not Reportable 08/30/18 08:18 Poikilocytosis Not Reportable 08/30/18 08:18 Anisocytosis Not Reportable 08/30/18 08:18 Microcytosis Not Reportable 08/30/18 08:18 Macrocytosis Not Reportable 08/30/18 08:18 Spherocytes Not Reportable 08/30/18 08:18 Pappenheimer Bodies Not Reportable 08/30/18 08:18 Sickle Cells Not Reportable 08/30/18 08:18 Target Cells Not Reportable 08/30/18 08:18 Tear Drop Cells Not Reportable 08/30/18 08:18 Ovalocytes Not Reportable 08/30/18 08:18 Helmet Cells Not Reportable 08/30/18 08:18 [place] Bodies Not Reportable 08/30/18 08:18 Ama Rings Not Reportable 08/30/18 08:18 Philip Cells Not Reportable 08/30/18 08:18 Bite Cells Not Reportable 08/30/18 08:18 Crenated Cell Not Reportable 08/30/18 08:18 Elliptocytes Not Reportable 08/30/18 08:18 Acanthocytes (Spur) Not Reportable 08/30/18 08:18 Rouleaux Not Reportable 08/30/18 08:18 Hemoglobin C Crystals Not Reportable 08/30/18 08:18 Schistocytes Not Reportable 08/30/18 08:18 Malaria parasites Not Reportable 08/30/18 08:18 Lefty Bodies Not Reportable 08/30/18 08:18 Hem Pathologist Commnt No 08/30/18 08:18 PT 14.8 Sec. (12.2-14.9) 09/11/18 08:34 INR 1.09 (0.87-1.13) 09/11/18 08:34 APTT 30.9 Sec. (24.2-36.6) 09/11/18 08:34 D-Dimer 617.53 ng/mlDDU (0-234) H 08/29/18 17:00 POC ABG pH 7.458 (7.35-7.45) H 08/29/18 17:09 POC ABG pCO2 32.1 (35-45) L 08/29/18 17:09 POC ABG HCO3 22.7 (22-26 mml/L) 08/29/18 17:09 POC ABG Total CO2 24 (23-27mmol/L) 08/29/18 17:09 POC ABG O2 Sat 85 08/29/18 17:09 POC ABG Base Excess -1 ((-2) - (+3)mmol/L) 08/29/18 17:09 VBG pH 7.447 (7.320-7.420) H 08/29/18 16:34 FiO2 36 % 08/29/18 17:09 Sodium 136 mmol/L (137-145) L 09/07/18 04:13 Potassium 3.1 mmol/L (3.6-5.0) L 09/07/18 04:13 Chloride 99.7 mmol/L (98-107) 09/07/18 04:13 Carbon Dioxide 24 mmol/L (22-30) 09/07/18 04:13 Anion Gap 15 mmol/L 09/07/18 04:13 BUN 17 mg/dL (9-20) 09/07/18 04:13 Creatinine 0.9 mg/dL (0.8-1.5) 09/07/18 04:13 Estimated GFR > 60 ml/min 09/07/18 04:13 BUN/Creatinine Ratio 19 % 09/07/18 04:13 Glucose 127 mg/dL (75-100) H 09/07/18 04:13 Lactic Acid 1.40 mmol/L (0.7-2.0) 08/29/18 19:25 Calcium 8.4 mg/dL (8.4-10.2) 09/07/18 04:13 Phosphorus 3.60 mg/dL (2.5-4.5) 09/06/18 07:35 Magnesium 1.70 mg/dL (1.7-2.3) 09/06/18 07:35 Total Bilirubin 0.70 mg/dL (0.1-1.2) 09/06/18 07:35 AST 14 units/L (5-40) 09/06/18 07:35 ALT 8 units/L (7-56) 09/06/18 07:35 Alkaline Phosphatase 51 units/L (35-129) 09/06/18 07:35 Total Creatine Kinase 32 units/L (55-170) L 08/29/18 16:34 CK-MB (CK-2) 2.3 ng/mL (0.0-4.0) 08/29/18 16:34 CK-MB (CK-2) Rel Index 7.1 (0-4) H 08/29/18 16:34 Troponin T < 0.010 ng/mL (0.00-0.029) 08/29/18 16:34 NT-Pro-B Natriuret Pep 694.9 pg/mL (0-900) 08/29/18 16:34 Total Protein 5.0 g/dL (6.3-8.2) L 09/06/18 07:35 Albumin 2.3 g/dL (3.9-5) L 09/06/18 07:35 Albumin/Globulin Ratio 0.9 % 09/06/18 07:35 Carcinoembryonic Ag See scanned result 09/08/18 06:59 CA 19-9 Antigen 8 U/mL (<34) 09/08/18 06:59 Urine Color Yellow (Yellow) 08/29/18 19:44 Urine Turbidity Clear (Clear) 08/29/18 19:44 Urine pH 5.0 (5.0-7.0) 08/29/18 19:44 Ur Specific [place] 1.035 (1.003-1.030) H 08/29/18 19:44 Urine Protein <15 mg/dl mg/dL (Negative) 08/29/18 19:44 Urine Glucose (UA) Neg mg/dL (Negative) 08/29/18 19:44 Urine Ketones Tr mg/dL (Negative) 08/29/18 19:44 Urine Blood Neg (Negative) 08/29/18 19:44 Urine Nitrite Neg (Negative) 08/29/18 19:44 Urine Bilirubin Neg (Negative) 08/29/18 19:44 Urine Urobilinogen 2.0 mg/dL (<2.0) 08/29/18 19:44 Ur Leukocyte Esterase Neg (Negative) 08/29/18 19:44 Urine WBC (Auto) 7.0 /HPF (0.0-6.0) H 08/29/18 19:44 Urine RBC (Auto) 1.0 /HPF (0.0-6.0) 08/29/18 19:44 U Epithel Cells (Auto) < 1.0 /HPF (0-13.0) 08/29/18 19:44 Urine Mucus Few /HPF 08/29/18 19:44 Active Medications - Current Medications Current Medications: Generic Name Dose Route Start Last Admin Trade Name Freq PRN Reason Stop Dose Admin Acetaminophen 650 mg 08/29/18 21:29 08/30/18 05:53 Tylenol PO 650 mg Q4H PRN Administration Pain MILD(1-3)/Fever >100.5/VENEGAS Al Hydrox/Mg Hydrox/Simethicone 30 ml 08/29/18 21:29 Alum-Mag Hydrox-Simeth [phone]/5ml PO Q4H PRN Indigestion Albuterol 2.5 mg 09/12/18 02:27 09/12/18 02:35 Proventil IH 2.5 mg Q4HRT PRN Administration Shortness Of Breath Albuterol/Ipratropium 1 ampul 09/06/18 08:00 09/15/18 10:13 Duoneb *Not For Prn Use* IH 1 ampul TIDRT GUILLERMO Administration Amlodipine Besylate 10 mg 08/30/18 10:00 09/15/18 10:56 Norvasc PO 10 mg DAILY GUILLERMO Administration Aspirin 325 mg 08/30/18 10:00 09/15/18 10:56 Aspirin PO 325 mg QDAY GUILLERMO Administration Carvedilol 25 mg 08/29/18 22:00 09/15/18 10:56 Coreg PO 25 mg Q12HR GUILLERMO Administration Clonidine HCl 0.1 mg 08/29/18 22:00 09/15/18 10:57 Catapres PO 0.1 mg BID GUILLERMO Administration Docusate Sodium 100 mg 08/29/18 22:00 09/15/18 10:56 Colace PO 100 mg BID GUILLERMO Administration Enoxaparin Sodium 40 mg 08/30/18 10:00 09/15/18 10:56 Lovenox SUB-Q 40 mg QDAY GUILLERMO Administration Famotidine 20 mg 08/29/18 22:00 09/15/18 10:56 Pepcid PO 20 mg BID GUILLERMO Administration Haloperidol Lactate 2 mg 09/01/18 11:34 09/08/18 03:02 Haldol IM 2 mg Q6H PRN Administration Agitation Hydralazine HCl 100 mg 08/29/18 22:00 09/15/18 05:52 Apresoline PO Not Given Q8H [facility] Hydromorphone HCl 2 mg 08/29/18 21:29 09/15/18 08:44 Dilaudid IV 2 mg Q3H PRN Administration Pain, Moderate (4-6) Labetalol HCl 10 mg 08/29/18 22:07 Normodyne IV Q6HR PRN Hypertension Lisinopril 10 mg 08/30/18 10:00 09/15/18 10:57 Zestril PO 10 mg QDAY GUILLERMO Administration Ondansetron HCl 4 mg 08/29/18 21:29 Zofran IV Q6H PRN Nausea And Vomiting Oxycodone/Acetaminophen 1 tab 08/29/18 21:29 09/12/18 03:33 Percocet 5/325 PO 1 tab Q6H PRN Administration Pain, Moderate (4-6) Pravastatin Sodium 40 mg 08/29/18 22:00 09/14/18 22:37 Pravachol PO 40 mg QHS GUILLERMO Administration Sodium Chloride 10 ml 08/29/18 22:00 09/15/18 10:57 Sodium Chloride Flush Syringe 10 Ml IV 10 ml BID GUILLERMO Administration Sodium Chloride 10 ml 08/29/18 21:29 09/13/18 06:02 Sodium Chloride Flush Syringe 10 Ml IV 10 ml PRN PRN Administration LINE FLUSH Zolpidem Tartrate 5 mg 08/29/18 21:29 Ambien PO QHS PRN Insomnia Nutrition/Malnutrition Assess - Dietary Evaluation Nutrition/Malnutrition Findings: Nutrition Notes Start: 08/30/18 13:41 Freq: Status: Active Protocol: Document 09/15/18 10:14 CP (Rec: 09/15/18 10:20 CP [id number]) Co-Sign 09/15/18 10:14 LP Nutrition Notes Initial or Follow up Reassessment Current Diagnosis Coronary Artery Disease, Hypertension,Stroke, Hyperlipidemia Other Pertinent Diagnosis Lung cancer, Respiratory distress, R hemiparesis, pneu Current Diet [facility] Soft Labs/Tests Reviewed Pertinent Medications Reviewed Height 5 ft 11 in Weight 65.5 kg [place] Body Weight (kg) 78.18 BMI 20.1 Subjective/Other Information Pt eating 50% of meals and has a "good" appetite. Pt not consuming ONS. Percent of energy/protein needs met: 50%/63% Burn Absent Trauma Absent #1 Nutrition Diagnosis Malnutrition Diagnosis Progress(for reassessment Continues documentation) Is patient on ventilator? No Is Patient Ambulatory and/or Out of Bed No REE-([place]-. [facility]-confined to bed) 1760.004 Kcal/Kg value to use for calculation 33 Approximate Energy Requirements Using 2162 kcal/Kg Calculation Used for Recommendations Kcal/kg Additional Notes Protein Needs: 79-98g (1.2-1. 5g/kg) Fluid Needs: 1 ml/kcal Nutrition Intervention Change Diet Order: [facility] soft w/ground meat Add Supplement/Snack (indicate name/kcal D/C /protein ) Goal #1 Meet at least 75% of calorie and protein needs via PO and ONS intakes Anticipated Discharge Needs: Unable to determine at this time Follow-Up By: 09/18/18 Additional Comments Follow for PO and ONS intakes
[2018-09-15] MEDS: PRAVACHOL PO SCH (22:25)
[2018-09-16] MEDS: APRESOLINE PO SCH ×3 (05:40→22:03)
[2018-09-16] MEDS: DUONEB *Not for PRN Use IH SCH ×3 (07:36→20:17)
[2018-09-16] MEDS: LOVENOX SUB-Q SCH (09:59)
[2018-09-16] MEDS: ASPIRIN PO SCH (09:59)
[2018-09-16] MEDS: COLACE PO SCH ×2 (09:59→22:03)
[2018-09-16] MEDS: PEPCID PO SCH ×2 (09:59→22:04)
[2018-09-16] MEDS: NORVASC PO SCH (10:15)
[2018-09-16] MEDS: COREG PO SCH ×2 (10:15→22:04)
[2018-09-16] MEDS: ZESTRIL PO SCH (10:15)
[2018-09-16] MEDS: CATAPRES PO SCH ×2 (10:15→22:03)
[2018-09-16] MEDS: PERCOCET 5/325 PO PRN ×2 (10:18→15:28)
[2018-09-16] MEDS: SODIUM CHLORIDE FLUSH SYRINGE 10 ML IV SCH ×2 (10:35→22:05)
--- NOTE | 2018-09-16 11:16 | Progress Note ---
Assessment and Plan Assessment and plan: Squamous cell carcinoma lung; s/p biopsy, squamous cell carcinoma, Oncology, Dr. Rhodes, evaluated and recommend radiation therapy Evaluated by radiation oncologist Dr. Heath, palliative Radiation therapy Patient has appointments for today at 9am and Tuesday 1pm. will set up transportation from [facility] Hypokalemia. Replete potassium. Left renal mass. CT scan of the abdomen suggests renal cell carcinoma. Oncology following Acute Hypoxic respiratory failure; requiring BiPAP as clinically indicated. Patient with heavy secretions. Add scopolamine Continue Oxygen, nebulizers, IV steroids, IV antibiotics, pulmonary following Pathologic fractures of ribs and sternum secondary to possible metastasis, Pain management and supportive care Left lower lobe pneumonia; probably post obstructive pneumonia Continue IV antibiotics follow cultures Sepsis Etiology secondary to pneumonia History of CVA with residual right-sided weakness, abortive care. tobacco use disorder; smoking cessation advised nicotine patch as needed DVT prophylaxis; SCDs, Lovenox Disposition Full Code Discharge planning Oncology recommends hospice with [facility] due to poor performance status. However, patient likely to have home hospice. Case management feels that patient will not be accepted into facility given active treatment. Case management discussed with the mother Lorraine at [phone] who is in agreement History Interval history: No new issues overnight Hospitalist Physical - Constitutional Vitals: Temp Pulse Resp BP Pulse Ox 97.8 F 63 20 109/41 97 09/16/18 04:09 09/16/18 05:40 09/16/18 04:09 09/16/18 05:40 09/16/18 04:09 General appearance: Present: no acute distress, cachectic, disheveled - EENT Eyes: Present: PERRL, EOM intact ENT: hearing intact, clear oral mucosa, dentition normal - Neck Neck: Present: supple, normal ROM - Respiratory Respiratory effort: normal Respiratory: bilateral: CTA - Cardiovascular Rhythm: regular Heart Sounds: Present: S1 & S2. Absent: gallop, rub - Extremities Extremities: no ischemia, No edema, Full ROM - Abdominal General gastrointestinal: soft, non-tender, non-distended, normal bowel sounds - Integumentary Integumentary: Present: clear, warm, dry - Neurologic Neurologic: CNII-XII intact, moves all extremities Results - Labs CBC & Chem 7: 09/07/18 04:13 09/07/18 04:13 Labs: Laboratory Last Values WBC 9.2 K/mm3 (4.5-11.0) 09/07/18 04:13 RBC 3.61 M/mm3 (3.65-5.03) L 09/07/18 04:13 Hgb 11.6 gm/dl (11.8-15.2) L 09/07/18 04:13 Hct 33.7 % (35.5-45.6) L 09/07/18 04:13 MCV 93 fl (84-94) 09/07/18 04:13 MCH 32 pg (28-32) 09/07/18 04:13 MCHC 34 % (32-34) 09/07/18 04:13 RDW 14.0 % (13.2-15.2) 09/07/18 04:13 Plt Count 287 K/mm3 (140-440) 09/07/18 04:13 Lymph % (Auto) 11.3 % (13.4-35.0) L 09/07/18 04:13 [place] % (Auto) 12.1 % (0.0-7.3) H 09/07/18 04:13 Eos % (Auto) 5.5 % (0.0-4.3) H 09/07/18 04:13 Baso % (Auto) 0.9 % (0.0-1.8) 09/07/18 04:13 Lymph # 1.0 K/mm3 (1.2-5.4) L 09/07/18 04:13 [place] # 1.1 K/mm3 (0.0-0.8) H 09/07/18 04:13 Eos # 0.5 K/mm3 (0.0-0.4) H 09/07/18 04:13 Baso # 0.1 K/mm3 (0.0-0.1) 09/07/18 04:13 Add Manual Diff Complete 08/30/18 08:18 Total Counted 100 08/30/18 08:18 Seg Neutrophils % 70.2 % (40.0-70.0) H 09/07/18 04:13 Seg Neuts % (Manual) 89.0 % (40.0-70.0) H 08/30/18 08:18 Band Neutrophils % 0 % 08/30/18 08:18 Lymphocytes % (Manual) 4.0 % (13.4-35.0) L 08/30/18 08:18 Reactive Lymphs % (Man) 0 % 08/30/18 08:18 Monocytes % (Manual) 7.0 % (0.0-7.3) 08/30/18 08:18 Eosinophils % (Manual) 0 % (0.0-4.3) 08/30/18 08:18 Basophils % (Manual) 0 % (0.0-1.8) 08/30/18 08:18 Metamyelocytes % 0 % 08/30/18 08:18 Myelocytes % 0 % 08/30/18 08:18 Promyelocytes % 0 % 08/30/18 08:18 Blast Cells % 0 % 08/30/18 08:18 Nucleated RBC % Not Reportable 08/30/18 08:18 Seg Neutrophils # 6.5 K/mm3 (1.8-7.7) 09/07/18 04:13 Seg Neutrophils # Man 11.5 K/mm3 (1.8-7.7) H 08/30/18 08:18 Band Neutrophils # 0.0 K/mm3 08/30/18 08:18 Lymphocytes # (Manual) 0.5 K/mm3 (1.2-5.4) L 08/30/18 08:18 Abs React Lymphs (Man) 0.0 K/mm3 08/30/18 08:18 Monocytes # (Manual) 0.9 K/mm3 (0.0-0.8) H 08/30/18 08:18 Eosinophils # (Manual) 0.0 K/mm3 (0.0-0.4) 08/30/18 08:18 Basophils # (Manual) 0.0 K/mm3 (0.0-0.1) 08/30/18 08:18 Metamyelocytes # 0.0 K/mm3 08/30/18 08:18 Myelocytes # 0.0 K/mm3 08/30/18 08:18 Promyelocytes # 0.0 K/mm3 08/30/18 08:18 Blast Cells # 0.0 K/mm3 08/30/18 08:18 WBC Morphology Not Reportable 08/30/18 08:18 Hypersegmented Neuts Not Reportable 08/30/18 08:18 Hyposegmented Neuts Not Reportable 08/30/18 08:18 Hypogranular Neuts Not Reportable 08/30/18 08:18 Smudge Cells Not Reportable 08/30/18 08:18 Toxic Granulation Not Reportable 08/30/18 08:18 Toxic Vacuolation Not Reportable 08/30/18 08:18 Dohle Bodies Not Reportable 08/30/18 08:18 Pelger-Huet Anomaly Not Reportable 08/30/18 08:18 [place] Rods Not Reportable 08/30/18 08:18 Platelet Estimate Consistent w auto 08/30/18 08:18 Clumped Platelets Rare 08/30/18 08:18 Plt Clumps, EDTA Not Reportable 08/30/18 08:18 Large Platelets Not Reportable 08/30/18 08:18 Giant Platelets Not Reportable 08/30/18 08:18 Platelet Satelliting Not Reportable 08/30/18 08:18 Plt Morphology Comment Not Reportable 08/30/18 08:18 RBC Morphology Normal 08/30/18 08:18 Dimorphic RBCs Not Reportable 08/30/18 08:18 Polychromasia Not Reportable 08/30/18 08:18 Hypochromasia Not Reportable 08/30/18 08:18 Poikilocytosis Not Reportable 08/30/18 08:18 Anisocytosis Not Reportable 08/30/18 08:18 Microcytosis Not Reportable 08/30/18 08:18 Macrocytosis Not Reportable 08/30/18 08:18 Spherocytes Not Reportable 08/30/18 08:18 Pappenheimer Bodies Not Reportable 08/30/18 08:18 Sickle Cells Not Reportable 08/30/18 08:18 Target Cells Not Reportable 08/30/18 08:18 Tear Drop Cells Not Reportable 08/30/18 08:18 Ovalocytes Not Reportable 08/30/18 08:18 Helmet Cells Not Reportable 08/30/18 08:18 [place] Bodies Not Reportable 08/30/18 08:18 [place] Rings Not Reportable 08/30/18 08:18 Philip Cells Not Reportable 08/30/18 08:18 Bite Cells Not Reportable 08/30/18 08:18 Crenated Cell Not Reportable 08/30/18 08:18 Elliptocytes Not Reportable 08/30/18 08:18 Acanthocytes (Spur) Not Reportable 08/30/18 08:18 Rouleaux Not Reportable 08/30/18 08:18 Hemoglobin C Crystals Not Reportable 08/30/18 08:18 Schistocytes Not Reportable 08/30/18 08:18 Malaria parasites Not Reportable 08/30/18 08:18 Lefty Bodies Not Reportable 08/30/18 08:18 Hem Pathologist Commnt No 08/30/18 08:18 PT 14.8 Sec. (12.2-14.9) 09/11/18 08:34 INR 1.09 (0.87-1.13) 09/11/18 08:34 APTT 30.9 Sec. (24.2-36.6) 09/11/18 08:34 D-Dimer 617.53 ng/mlDDU (0-234) H 08/29/18 17:00 POC ABG pH 7.458 (7.35-7.45) H 08/29/18 17:09 POC ABG pCO2 32.1 (35-45) L 08/29/18 17:09 POC ABG HCO3 22.7 (22-26 mml/L) 08/29/18 17:09 POC ABG Total CO2 24 (23-27mmol/L) 08/29/18 17:09 POC ABG O2 Sat 85 08/29/18 17:09 POC ABG Base Excess -1 ((-2) - (+3)mmol/L) 08/29/18 17:09 VBG pH 7.447 (7.320-7.420) H 08/29/18 16:34 FiO2 36 % 08/29/18 17:09 Sodium 136 mmol/L (137-145) L 09/07/18 04:13 Potassium 3.1 mmol/L (3.6-5.0) L 09/07/18 04:13 Chloride 99.7 mmol/L (98-107) 09/07/18 04:13 Carbon Dioxide 24 mmol/L (22-30) 09/07/18 04:13 Anion Gap 15 mmol/L 09/07/18 04:13 BUN 17 mg/dL (9-20) 09/07/18 04:13 Creatinine 0.9 mg/dL (0.8-1.5) 09/07/18 04:13 Estimated GFR > 60 ml/min 09/07/18 04:13 BUN/Creatinine Ratio 19 % 09/07/18 04:13 Glucose 127 mg/dL (75-100) H 09/07/18 04:13 Lactic Acid 1.40 mmol/L (0.7-2.0) 08/29/18 19:25 Calcium 8.4 mg/dL (8.4-10.2) 09/07/18 04:13 Phosphorus 3.60 mg/dL (2.5-4.5) 09/06/18 07:35 Magnesium 1.70 mg/dL (1.7-2.3) 09/06/18 07:35 Total Bilirubin 0.70 mg/dL (0.1-1.2) 09/06/18 07:35 AST 14 units/L (5-40) 09/06/18 07:35 ALT 8 units/L (7-56) 09/06/18 07:35 Alkaline Phosphatase 51 units/L (35-129) 09/06/18 07:35 Total Creatine Kinase 32 units/L (55-170) L 08/29/18 16:34 CK-MB (CK-2) 2.3 ng/mL (0.0-4.0) 08/29/18 16:34 CK-MB (CK-2) Rel Index 7.1 (0-4) H 08/29/18 16:34 Troponin T < 0.010 ng/mL (0.00-0.029) 08/29/18 16:34 NT-Pro-B Natriuret Pep 694.9 pg/mL (0-900) 08/29/18 16:34 Total Protein 5.0 g/dL (6.3-8.2) L 09/06/18 07:35 Albumin 2.3 g/dL (3.9-5) L 09/06/18 07:35 Albumin/Globulin Ratio 0.9 % 09/06/18 07:35 Carcinoembryonic Ag See scanned result 09/08/18 06:59 CA 19-9 Antigen 8 U/mL (<34) 09/08/18 06:59 Urine Color Yellow (Yellow) 08/29/18 19:44 Urine Turbidity Clear (Clear) 08/29/18 19:44 Urine pH 5.0 (5.0-7.0) 08/29/18 19:44 Ur Specific [place] 1.035 (1.003-1.030) H 08/29/18 19:44 Urine Protein <15 mg/dl mg/dL (Negative) 08/29/18 19:44 Urine Glucose (UA) Neg mg/dL (Negative) 08/29/18 19:44 Urine Ketones Tr mg/dL (Negative) 08/29/18 19:44 Urine Blood Neg (Negative) 08/29/18 19:44 Urine Nitrite Neg (Negative) 08/29/18 19:44 Urine Bilirubin Neg (Negative) 08/29/18 19:44 Urine Urobilinogen 2.0 mg/dL (<2.0) 08/29/18 19:44 Ur Leukocyte Esterase Neg (Negative) 08/29/18 19:44 Urine WBC (Auto) 7.0 /HPF (0.0-6.0) H 08/29/18 19:44 Urine RBC (Auto) 1.0 /HPF (0.0-6.0) 08/29/18 19:44 U Epithel Cells (Auto) < 1.0 /HPF (0-13.0) 08/29/18 19:44 Urine Mucus Few /HPF 08/29/18 19:44 Active Medications - Current Medications Current Medications: Generic Name Dose Route Start Last Admin Trade Name Freq PRN Reason Stop Dose Admin Acetaminophen 650 mg 08/29/18 21:29 08/30/18 05:53 Tylenol PO 650 mg Q4H PRN Administration Pain MILD(1-3)/Fever >100.5/VENEGAS Al Hydrox/Mg Hydrox/Simethicone 30 ml 08/29/18 21:29 Alum-Mag Hydrox-Simeth 318-560-00ey/5ml PO Q4H PRN Indigestion Albuterol 2.5 mg 09/12/18 02:27 09/12/18 02:35 Proventil IH 2.5 mg Q4HRT PRN Administration Shortness Of Breath Albuterol/Ipratropium 1 ampul 09/06/18 08:00 09/16/18 07:36 Duoneb *Not For Prn Use* IH 1 ampul TIDRT GUILLERMO Administration Amlodipine Besylate 10 mg 08/30/18 10:00 09/16/18 10:15 Norvasc PO Not Given DAILY GUILLERMO Aspirin 325 mg 08/30/18 10:00 09/16/18 09:59 Aspirin PO 325 mg QDAY [facility] Administration Carvedilol 25 mg 08/29/18 22:00 09/16/18 10:15 Coreg PO Not Given Q12HR [facility] Clonidine HCl 0.1 mg 08/29/18 22:00 09/16/18 10:15 Catapres PO Not Given BID [facility] Docusate Sodium 100 mg 08/29/18 22:00 09/16/18 09:59 Colace PO 100 mg BID [facility] Administration Enoxaparin Sodium 40 mg 08/30/18 10:00 09/16/18 09:59 Lovenox SUB-Q 40 mg QDAY [facility] Administration Famotidine 20 mg 08/29/18 22:00 09/16/18 09:59 Pepcid PO 20 mg BID [facility] Administration Haloperidol Lactate 2 mg 09/01/18 11:34 09/08/18 03:02 Haldol IM 2 mg Q6H PRN Administration Agitation Hydralazine HCl 100 mg 08/29/18 22:00 09/16/18 05:40 Apresoline PO Not Given Q8H [facility] Hydromorphone HCl 2 mg 08/29/18 21:29 09/15/18 13:10 Dilaudid IV 2 mg Q3H PRN Administration Pain, Moderate (4-6) Labetalol HCl 10 mg 08/29/18 22:07 Normodyne IV Q6HR PRN Hypertension Lisinopril 10 mg 08/30/18 10:00 09/16/18 10:15 Zestril PO Not Given QDAY [facility] Ondansetron HCl 4 mg 08/29/18 21:29 Zofran IV Q6H PRN Nausea And Vomiting Oxycodone/Acetaminophen 1 tab 08/29/18 21:29 09/16/18 10:18 Percocet 5/325 PO 1 tab Q6H PRN Administration Pain, Moderate (4-6) Pravastatin Sodium 40 mg 08/29/18 22:00 09/15/18 22:25 Pravachol PO 40 mg QHS GUILLERMO Administration Sodium Chloride 10 ml 08/29/18 22:00 09/16/18 10:35 Sodium Chloride Flush Syringe 10 Ml IV 10 ml BID GUILLERMO Administration Sodium Chloride 10 ml 08/29/18 21:29 09/13/18 06:02 Sodium Chloride Flush Syringe 10 Ml IV 10 ml PRN PRN Administration LINE FLUSH Zolpidem Tartrate 5 mg 08/29/18 21:29 Ambien PO QHS PRN Insomnia Nutrition/Malnutrition Assess - Dietary Evaluation Nutrition/Malnutrition Findings: Nutrition Notes Start: 08/30/18 13:41 Freq: Status: Active Protocol: Document 09/15/18 10:14 CP (Rec: 09/15/18 10:20 CP [id number]) Co-Sign 09/15/18 10:14 LP Nutrition Notes Initial or Follow up Reassessment Current Diagnosis Coronary Artery Disease, Hypertension,Stroke, Hyperlipidemia Other Pertinent Diagnosis Lung cancer, Respiratory distress, R hemiparesis, pneu Current Diet [facility] Soft Labs/Tests Reviewed Pertinent Medications Reviewed Height 5 ft 11 in Weight 65.5 kg [place] Body Weight (kg) 78.18 BMI 20.1 Subjective/Other Information Pt eating 50% of meals and has a "good" appetite. Pt not consuming ONS. Percent of energy/protein needs met: 50%/63% Burn Absent Trauma Absent #1 Nutrition Diagnosis Malnutrition Diagnosis Progress(for reassessment Continues documentation) Is patient on ventilator? No Is Patient Ambulatory and/or Out of Bed No REE-([facility]-confined to bed) 1760.004 Kcal/Kg value to use for calculation 33 Approximate Energy Requirements Using 2162 kcal/Kg Calculation Used for Recommendations Kcal/kg Additional Notes Protein Needs: 79-98g (1.2-1. 5g/kg) Fluid Needs: 1 ml/kcal Nutrition Intervention Change Diet Order: [facility] soft w/ground meat Add Supplement/Snack (indicate name/kcal D/C /protein ) Goal #1 Meet at least 75% of calorie and protein needs via PO and ONS intakes Anticipated Discharge Needs: Unable to determine at this time Follow-Up By: 09/18/18 Additional Comments Follow for PO and ONS intakes
--- NOTE | 2018-09-16 11:26 | Hem/Onc Progress Note ---
Assessment and Plan #. 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 clinically stage IV XRT consulted for palliation for pain #. bone mets - s/p pamidronate #. Left renal mass, possible renal cell carcinoma. MRI not done - CT ordered #. History of smoking present. #. History of cerebrovascular accident. rt side weakness - unable to walk #. History of shortness of breath. #. History of hypertension. #. History of leukocytosis. #. History of hyperlipidemia. OLLIE JEFFRIES MOTHER [phone] # due to poor performance status - NH with hospice an option pallative XRT CT abdo done suggests Renal cell ca pt says getting XRT - and once finishes d/c 09/16 - it appears home with hospice being looked into - Patient Problems (1) Lung cancer Current Visit: Yes Status: Acute Qualifiers: Laterality: unspecified laterality Subjective Date of service: 09/16/18 Principal diagnosis: lung cancer - renal mass Objective - Constitutional Vitals: Last Vital Signs Temp 97.8 F 09/16/18 04:09 Pulse 63 09/16/18 05:40 Resp 20 09/16/18 04:09 BP 109/41 09/16/18 05:40 Pulse Ox 97 09/16/18 04:09 Pain Intensity (0-10): denies any pain General appearance: no acute distress Performance status: 3-limited selfcare - EENT Eyes: EOM intact ENT: clear oral mucosa Lymph node exam: negative cervical - Neck Neck: normal ROM - Respiratory Respiratory effort: Positive: normal Respiratory: bilateral: diminished - Cardiovascular Heart Sounds: Present: S1 & S2 Extremities: No edema - Gastrointestinal General gastrointestinal: Present: soft, non-tender Rectal Exam: deferred - Genitourinary Male genitourinary: Present: deferred - Integumentary Integumentary: warm - Musculoskeletal Musculoskeletal: right sided weakness Medications & Allergies - Medications Allergies/Adverse Reactions: Allergies Penicillins Allergy (Verified 07/05/13 15:11) Unknown Home Medications: Home Medications Medication Instructions Recorded Confirmed Last Taken Type Aspirin [Aspirin TAB] 325 mg PO QDAY #30 tablet 07/19/13 08/31/18 Unknown Rx Simvastatin (Nf) [Zocor TAB] 20 mg PO QHS 30 Days tablet 07/19/13 08/31/18 Unknown Rx amLODIPine [Norvasc] 10 mg PO DAILY 30 Days tab 07/19/13 08/31/18 Unknown Rx cloNIDine [Catapres] 0.1 mg PO BID #60 tablet 07/19/13 08/31/18 Unknown Rx Lisinopril [Zestril TAB] 10 mg PO QDAY 30 Days tablet 07/22/13 08/31/18 Unknown Rx hydrALAZINE [Apresoline] 50 mg PO BID 08/31/18 08/31/18 Unknown History Active Medications: Generic Name Dose Route Start Last Admin Trade Name Freq PRN Reason Stop Dose Admin Acetaminophen 650 mg 08/29/18 21:29 08/30/18 05:53 Tylenol PO 650 mg Q4H PRN Administration Pain MILD(1-3)/Fever >100.5/VENEGAS Al Hydrox/Mg Hydrox/Simethicone 30 ml 08/29/18 21:29 Alum-Mag Hydrox-Simeth 352-873-27ev/5ml PO Q4H PRN Indigestion Albuterol 2.5 mg 09/12/18 02:27 09/12/18 02:35 Proventil IH 2.5 mg Q4HRT PRN Administration Shortness Of Breath Albuterol/Ipratropium 1 ampul 09/06/18 08:00 09/16/18 07:36 Duoneb *Not For Prn Use* IH 1 ampul TIDRT GUILLERMO Administration Amlodipine Besylate 10 mg 08/30/18 10:00 09/16/18 10:15 Norvasc PO Not Given DAILY GUILLERMO Aspirin 325 mg 08/30/18 10:00 09/16/18 09:59 Aspirin PO 325 mg QDAY GUILLERMO Administration Carvedilol 25 mg 08/29/18 22:00 09/16/18 10:15 Coreg PO Not Given Q12HR GUILLERMO Clonidine HCl 0.1 mg 08/29/18 22:00 09/16/18 10:15 Catapres PO Not Given BID GUILLERMO Docusate Sodium 100 mg 08/29/18 22:00 09/16/18 09:59 Colace PO 100 mg BID GUILLERMO Administration Enoxaparin Sodium 40 mg 08/30/18 10:00 09/16/18 09:59 Lovenox SUB-Q 40 mg QDAY GUILLERMO Administration Famotidine 20 mg 08/29/18 22:00 09/16/18 09:59 Pepcid PO 20 mg BID GUILLERMO Administration Haloperidol Lactate 2 mg 09/01/18 11:34 09/08/18 03:02 Haldol IM 2 mg Q6H PRN Administration Agitation Hydralazine HCl 100 mg 08/29/18 22:00 09/16/18 05:40 Apresoline PO Not Given Q8H GUILLERMO Hydromorphone HCl 2 mg 08/29/18 21:29 09/15/18 13:10 Dilaudid IV 2 mg Q3H PRN Administration Pain, Moderate (4-6) Labetalol HCl 10 mg 08/29/18 22:07 Normodyne IV Q6HR PRN Hypertension Lisinopril 10 mg 08/30/18 10:00 09/16/18 10:15 Zestril PO Not Given QDAY [facility] Ondansetron HCl 4 mg 08/29/18 21:29 Zofran IV Q6H PRN Nausea And Vomiting Oxycodone/Acetaminophen 1 tab 08/29/18 21:29 09/16/18 10:18 Percocet 5/325 PO 1 tab Q6H PRN Administration Pain, Moderate (4-6) Potassium Chloride 40 meq 09/17/18 10:00 K-Dur PO QDAY [facility] Pravastatin Sodium 40 mg 08/29/18 22:00 09/15/18 22:25 Pravachol PO 40 mg QHS GUILLERMO Administration Scopolamine 1 each 09/16/18 12:00 Transderm-Scop TD Q3D GUILLERMO Sodium Chloride 10 ml 08/29/18 22:00 09/16/18 10:35 Sodium Chloride Flush Syringe 10 Ml IV 10 ml BID GUILLERMO Administration Sodium Chloride 10 ml 08/29/18 21:29 09/13/18 06:02 Sodium Chloride Flush Syringe 10 Ml IV 10 ml PRN PRN Administration LINE FLUSH Zolpidem Tartrate 5 mg 08/29/18 21:29 Ambien PO QHS PRN Insomnia
[2018-09-16] MEDS ORDERED: POTASSIUM CHLORIDE FEEDTUBE SCH (12:00)
[2018-09-16] MEDS ORDERED: TRANSDERM-SCOP TD SCH (12:00)
[2018-09-16] MEDS ORDERED: K-DUR PO SCH (12:00)
[2018-09-16] MEDS: POTASSIUM CHLORIDE PO SCH (13:18)
[2018-09-16] MEDS: PRAVACHOL PO SCH (22:04)
[2018-09-17] MEDS: APRESOLINE PO SCH ×3 (06:38→22:18)
[2018-09-17] MEDS: DUONEB *Not for PRN Use IH SCH ×3 (07:45→20:54)
--- NOTE | 2018-09-17 09:08 | Progress Note ---
Assessment and Plan Assessment and plan: Squamous cell carcinoma lung; s/p biopsy, squamous cell carcinoma, Oncology, Dr. Rhodes, evaluated and recommend radiation therapy Evaluated by radiation oncologist Dr. Heath, palliative Radiation therapy Patient has appointment for Tuesday 1pm. will set up transportation from [facility] Hypokalemia. Replete potassium. Left renal mass. CT scan of the abdomen suggests renal cell carcinoma. Oncology following Acute Hypoxic respiratory failure; requiring BiPAP as clinically indicated. Patient with heavy secretions. Add scopolamine Continue Oxygen, nebulizers, IV steroids, IV antibiotics, pulmonary following Pathologic fractures of ribs and sternum secondary to possible metastasis, Pain management and supportive care Left lower lobe pneumonia; probably post obstructive pneumonia Continue IV antibiotics follow cultures Sepsis Etiology secondary to pneumonia History of CVA with residual right-sided weakness, abortive care. tobacco use disorder; smoking cessation advised nicotine patch as needed DVT prophylaxis; SCDs, Lovenox Disposition Full Code Discharge planning Oncology recommends hospice with care home due to poor performance status. However, patient likely to have home hospice. Case management feels that patient will not be accepted into facility given active treatment. Case management discussed with the mother Lorraine at [phone] who is in agreement History Interval history: No new issues overnight Hospitalist Physical - Constitutional Vitals: Temp Pulse Resp BP Pulse Ox 98.0 F 75 20 133/68 92 09/17/18 05:51 09/17/18 07:45 09/17/18 07:45 09/17/18 06:38 09/17/18 05:51 General appearance: Present: no acute distress, cachectic, disheveled - EENT Eyes: Present: PERRL, EOM intact ENT: hearing intact, clear oral mucosa, dentition normal - Neck Neck: Present: supple, normal ROM - Respiratory Respiratory effort: normal Respiratory: bilateral: CTA - Cardiovascular Rhythm: regular Heart Sounds: Present: S1 & S2. Absent: gallop, rub - Extremities Extremities: no ischemia, No edema, Full ROM - Abdominal General gastrointestinal: soft, non-tender, non-distended, normal bowel sounds - Integumentary Integumentary: Present: clear, warm, dry - Neurologic Neurologic: CNII-XII intact, moves all extremities Results - Labs CBC & Chem 7: 09/07/18 04:13 09/07/18 04:13 Labs: Laboratory Last Values WBC 9.2 K/mm3 (4.5-11.0) 09/07/18 04:13 RBC 3.61 M/mm3 (3.65-5.03) L 09/07/18 04:13 Hgb 11.6 gm/dl (11.8-15.2) L 09/07/18 04:13 Hct 33.7 % (35.5-45.6) L 09/07/18 04:13 MCV 93 fl (84-94) 09/07/18 04:13 MCH 32 pg (28-32) 09/07/18 04:13 MCHC 34 % (32-34) 09/07/18 04:13 RDW 14.0 % (13.2-15.2) 09/07/18 04:13 Plt Count 287 K/mm3 (140-440) 09/07/18 04:13 Lymph % (Auto) 11.3 % (13.4-35.0) L 09/07/18 04:13 [place] % (Auto) 12.1 % (0.0-7.3) H 09/07/18 04:13 Eos % (Auto) 5.5 % (0.0-4.3) H 09/07/18 04:13 Baso % (Auto) 0.9 % (0.0-1.8) 09/07/18 04:13 Lymph # 1.0 K/mm3 (1.2-5.4) L 09/07/18 04:13 [place] # 1.1 K/mm3 (0.0-0.8) H 09/07/18 04:13 Eos # 0.5 K/mm3 (0.0-0.4) H 09/07/18 04:13 Baso # 0.1 K/mm3 (0.0-0.1) 09/07/18 04:13 Add Manual Diff Complete 08/30/18 08:18 Total Counted 100 08/30/18 08:18 Seg Neutrophils % 70.2 % (40.0-70.0) H 09/07/18 04:13 Seg Neuts % (Manual) 89.0 % (40.0-70.0) H 08/30/18 08:18 Band Neutrophils % 0 % 08/30/18 08:18 Lymphocytes % (Manual) 4.0 % (13.4-35.0) L 08/30/18 08:18 Reactive Lymphs % (Man) 0 % 08/30/18 08:18 Monocytes % (Manual) 7.0 % (0.0-7.3) 08/30/18 08:18 Eosinophils % (Manual) 0 % (0.0-4.3) 08/30/18 08:18 Basophils % (Manual) 0 % (0.0-1.8) 08/30/18 08:18 Metamyelocytes % 0 % 08/30/18 08:18 Myelocytes % 0 % 08/30/18 08:18 Promyelocytes % 0 % 08/30/18 08:18 Blast Cells % 0 % 08/30/18 08:18 Nucleated RBC % Not Reportable 08/30/18 08:18 Seg Neutrophils # 6.5 K/mm3 (1.8-7.7) 09/07/18 04:13 Seg Neutrophils # Man 11.5 K/mm3 (1.8-7.7) H 08/30/18 08:18 Band Neutrophils # 0.0 K/mm3 08/30/18 08:18 Lymphocytes # (Manual) 0.5 K/mm3 (1.2-5.4) L 08/30/18 08:18 Abs React Lymphs (Man) 0.0 K/mm3 08/30/18 08:18 Monocytes # (Manual) 0.9 K/mm3 (0.0-0.8) H 08/30/18 08:18 Eosinophils # (Manual) 0.0 K/mm3 (0.0-0.4) 08/30/18 08:18 Basophils # (Manual) 0.0 K/mm3 (0.0-0.1) 08/30/18 08:18 Metamyelocytes # 0.0 K/mm3 08/30/18 08:18 Myelocytes # 0.0 K/mm3 08/30/18 08:18 Promyelocytes # 0.0 K/mm3 08/30/18 08:18 Blast Cells # 0.0 K/mm3 08/30/18 08:18 WBC Morphology Not Reportable 08/30/18 08:18 Hypersegmented Neuts Not Reportable 08/30/18 08:18 Hyposegmented Neuts Not Reportable 08/30/18 08:18 Hypogranular Neuts Not Reportable 08/30/18 08:18 Smudge Cells Not Reportable 08/30/18 08:18 Toxic Granulation Not Reportable 08/30/18 08:18 Toxic Vacuolation Not Reportable 08/30/18 08:18 Dohle Bodies Not Reportable 08/30/18 08:18 Pelger-Huet Anomaly Not Reportable 08/30/18 08:18 Edelmira Rods Not Reportable 08/30/18 08:18 Platelet Estimate Consistent w auto 08/30/18 08:18 Clumped Platelets Rare 08/30/18 08:18 Plt Clumps, EDTA Not Reportable 08/30/18 08:18 Large Platelets Not Reportable 08/30/18 08:18 Giant Platelets Not Reportable 08/30/18 08:18 Platelet Satelliting Not Reportable 08/30/18 08:18 Plt Morphology Comment Not Reportable 08/30/18 08:18 RBC Morphology Normal 08/30/18 08:18 Dimorphic RBCs Not Reportable 08/30/18 08:18 Polychromasia Not Reportable 08/30/18 08:18 Hypochromasia Not Reportable 08/30/18 08:18 Poikilocytosis Not Reportable 08/30/18 08:18 Anisocytosis Not Reportable 08/30/18 08:18 Microcytosis Not Reportable 08/30/18 08:18 Macrocytosis Not Reportable 08/30/18 08:18 Spherocytes Not Reportable 08/30/18 08:18 Pappenheimer Bodies Not Reportable 08/30/18 08:18 Sickle Cells Not Reportable 08/30/18 08:18 Target Cells Not Reportable 08/30/18 08:18 Tear Drop Cells Not Reportable 08/30/18 08:18 Ovalocytes Not Reportable 08/30/18 08:18 Helmet Cells Not Reportable 08/30/18 08:18 [place] Plant Bodies Not Reportable 08/30/18 08:18 [place] Rings Not Reportable 08/30/18 08:18 Philip Cells Not Reportable 08/30/18 08:18 Bite Cells Not Reportable 08/30/18 08:18 Crenated Cell Not Reportable 08/30/18 08:18 Elliptocytes Not Reportable 08/30/18 08:18 Acanthocytes (Spur) Not Reportable 08/30/18 08:18 Rouleaux Not Reportable 08/30/18 08:18 Hemoglobin C Crystals Not Reportable 08/30/18 08:18 Schistocytes Not Reportable 08/30/18 08:18 Malaria parasites Not Reportable 08/30/18 08:18 Lefty Bodies Not Reportable 08/30/18 08:18 Hem Pathologist Commnt No 08/30/18 08:18 PT 14.8 Sec. (12.2-14.9) 09/11/18 08:34 INR 1.09 (0.87-1.13) 09/11/18 08:34 APTT 30.9 Sec. (24.2-36.6) 09/11/18 08:34 D-Dimer 617.53 ng/mlDDU (0-234) H 08/29/18 17:00 POC ABG pH 7.458 (7.35-7.45) H 08/29/18 17:09 POC ABG pCO2 32.1 (35-45) L 08/29/18 17:09 POC ABG HCO3 22.7 (22-26 mml/L) 08/29/18 17:09 POC ABG Total CO2 24 (23-27mmol/L) 08/29/18 17:09 POC ABG O2 Sat 85 08/29/18 17:09 POC ABG Base Excess -1 ((-2) - (+3)mmol/L) 08/29/18 17:09 VBG pH 7.447 (7.320-7.420) H 08/29/18 16:34 FiO2 36 % 08/29/18 17:09 Sodium 136 mmol/L (137-145) L 09/07/18 04:13 Potassium 3.1 mmol/L (3.6-5.0) L 09/07/18 04:13 Chloride 99.7 mmol/L (98-107) 09/07/18 04:13 Carbon Dioxide 24 mmol/L (22-30) 09/07/18 04:13 Anion Gap 15 mmol/L 09/07/18 04:13 BUN 17 mg/dL (9-20) 09/07/18 04:13 Creatinine 0.9 mg/dL (0.8-1.5) 09/07/18 04:13 Estimated GFR > 60 ml/min 09/07/18 04:13 BUN/Creatinine Ratio 19 % 09/07/18 04:13 Glucose 127 mg/dL (75-100) H 09/07/18 04:13 Lactic Acid 1.40 mmol/L (0.7-2.0) 08/29/18 19:25 Calcium 8.4 mg/dL (8.4-10.2) 09/07/18 04:13 Phosphorus 3.60 mg/dL (2.5-4.5) 09/06/18 07:35 Magnesium 1.70 mg/dL (1.7-2.3) 09/06/18 07:35 Total Bilirubin 0.70 mg/dL (0.1-1.2) 09/06/18 07:35 AST 14 units/L (5-40) 09/06/18 07:35 ALT 8 units/L (7-56) 09/06/18 07:35 Alkaline Phosphatase 51 units/L (35-129) 09/06/18 07:35 Total Creatine Kinase 32 units/L (55-170) L 08/29/18 16:34 CK-MB (CK-2) 2.3 ng/mL (0.0-4.0) 08/29/18 16:34 CK-MB (CK-2) Rel Index 7.1 (0-4) H 08/29/18 16:34 Troponin T < 0.010 ng/mL (0.00-0.029) 08/29/18 16:34 NT-Pro-B Natriuret Pep 694.9 pg/mL (0-900) 08/29/18 16:34 Total Protein 5.0 g/dL (6.3-8.2) L 09/06/18 07:35 Albumin 2.3 g/dL (3.9-5) L 09/06/18 07:35 Albumin/Globulin Ratio 0.9 % 09/06/18 07:35 Carcinoembryonic Ag See scanned result 09/08/18 06:59 CA 19-9 Antigen 8 U/mL (<34) 09/08/18 06:59 Urine Color Yellow (Yellow) 08/29/18 19:44 Urine Turbidity Clear (Clear) 08/29/18 19:44 Urine pH 5.0 (5.0-7.0) 08/29/18 19:44 Ur Specific [place] 1.035 (1.003-1.030) H 08/29/18 19:44 Urine Protein <15 mg/dl mg/dL (Negative) 08/29/18 19:44 Urine Glucose (UA) Neg mg/dL (Negative) 08/29/18 19:44 Urine Ketones Tr mg/dL (Negative) 08/29/18 19:44 Urine Blood Neg (Negative) 08/29/18 19:44 Urine Nitrite Neg (Negative) 08/29/18 19:44 Urine Bilirubin Neg (Negative) 08/29/18 19:44 Urine Urobilinogen 2.0 mg/dL (<2.0) 08/29/18 19:44 Ur Leukocyte Esterase Neg (Negative) 08/29/18 19:44 Urine WBC (Auto) 7.0 /HPF (0.0-6.0) H 08/29/18 19:44 Urine RBC (Auto) 1.0 /HPF (0.0-6.0) 08/29/18 19:44 U Epithel Cells (Auto) < 1.0 /HPF (0-13.0) 08/29/18 19:44 Urine Mucus Few /HPF 08/29/18 19:44 Active Medications - Current Medications Current Medications: Generic Name Dose Route Start Last Admin Trade Name Freq PRN Reason Stop Dose Admin Acetaminophen 650 mg 08/29/18 21:29 08/30/18 05:53 Tylenol PO 650 mg Q4H PRN Administration Pain MILD(1-3)/Fever >100.5/VENEGAS Al Hydrox/Mg Hydrox/Simethicone 30 ml 08/29/18 21:29 Alum-Mag Hydrox-Simeth 756-447-15on/5ml PO Q4H PRN Indigestion Albuterol 2.5 mg 09/12/18 02:27 09/12/18 02:35 Proventil IH 2.5 mg Q4HRT PRN Administration Shortness Of Breath Albuterol/Ipratropium 1 ampul 09/06/18 08:00 09/17/18 07:45 Duoneb *Not For Prn Use* IH 1 ampul TIDRT GUILLERMO Administration Amlodipine Besylate 10 mg 08/30/18 10:00 09/16/18 10:15 Norvasc PO Not Given DAILY GUILLERMO Aspirin 325 mg 08/30/18 10:00 09/16/18 09:59 Aspirin PO 325 mg QDAY [facility] Administration Carvedilol 25 mg 08/29/18 22:00 09/16/18 22:04 Coreg PO 25 mg Q12HR [facility] Administration Clonidine HCl 0.1 mg 08/29/18 22:00 09/16/18 22:03 Catapres PO Not Given BID [facility] Docusate Sodium 100 mg 08/29/18 22:00 09/16/18 22:03 Colace PO Not Given BID [facility] Enoxaparin Sodium 40 mg 08/30/18 10:00 09/16/18 09:59 Lovenox SUB-Q 40 mg QDAY [facility] Administration Famotidine 20 mg 08/29/18 22:00 09/16/18 22:04 Pepcid PO 20 mg BID [facility] Administration Haloperidol Lactate 2 mg 09/01/18 11:34 09/08/18 03:02 Haldol IM 2 mg Q6H PRN Administration Agitation Hydralazine HCl 100 mg 08/29/18 22:00 09/17/18 06:38 Apresoline PO Not Given Q8H [facility] Hydromorphone HCl 2 mg 08/29/18 21:29 09/15/18 13:10 Dilaudid IV 2 mg Q3H PRN Administration Pain, Moderate (4-6) Labetalol HCl 10 mg 08/29/18 22:07 Normodyne IV Q6HR PRN Hypertension Lisinopril 10 mg 08/30/18 10:00 09/16/18 10:15 Zestril PO Not Given QDAY [facility] Ondansetron HCl 4 mg 08/29/18 21:29 Zofran IV Q6H PRN Nausea And Vomiting Oxycodone/Acetaminophen 1 tab 08/29/18 21:29 09/16/18 15:28 Percocet 5/325 PO 1 tab Q6H PRN Administration Pain, Moderate (4-6) Potassium Chloride 40 meq 09/16/18 12:00 09/16/18 13:18 Potassium Chloride PO 40 meq QDAY [facility] Administration Pravastatin Sodium 40 mg 08/29/18 22:00 09/16/18 22:04 Pravachol PO 40 mg QHS [facility] Administration Scopolamine 1 each 09/16/18 12:00 09/16/18 13:19 Transderm-Scop TD 1 each Q3D GUILLERMO Administration Sodium Chloride 10 ml 08/29/18 22:00 09/16/18 22:05 Sodium Chloride Flush Syringe 10 Ml IV 10 ml BID GUILLERMO Administration Sodium Chloride 10 ml 08/29/18 21:29 09/13/18 06:02 Sodium Chloride Flush Syringe 10 Ml IV 10 ml PRN PRN Administration LINE FLUSH Zolpidem Tartrate 5 mg 08/29/18 21:29 Ambien PO QHS PRN Insomnia Nutrition/Malnutrition Assess - Dietary Evaluation Nutrition/Malnutrition Findings: Nutrition Notes Start: 08/30/18 13:41 Freq: Status: Active Protocol: Document 09/15/18 10:14 CP (Rec: 09/15/18 10:20 CP [id number]) Co-Sign 09/15/18 10:14 LP Nutrition Notes Initial or Follow up Reassessment Current Diagnosis Coronary Artery Disease, Hypertension,Stroke, Hyperlipidemia Other Pertinent Diagnosis Lung cancer, Respiratory distress, R hemiparesis, pneu Current Diet [facility] [place] Soft Labs/Tests Reviewed Pertinent Medications Reviewed Height 5 ft 11 in Weight 65.5 kg [place] Body Weight (kg) 78.18 BMI 20.1 Subjective/Other Information Pt eating 50% of meals and has a "good" appetite. Pt not consuming ONS. Percent of energy/protein needs met: 50%/63% Burn Absent Trauma Absent #1 Nutrition Diagnosis Malnutrition Diagnosis Progress(for reassessment Continues documentation) Is patient on ventilator? No Is Patient Ambulatory and/or Out of Bed No REE-([facility]-confined to bed) 1760.004 Kcal/Kg value to use for calculation 33 Approximate Energy Requirements Using 2162 kcal/Kg Calculation Used for Recommendations Kcal/kg Additional Notes Protein Needs: 79-98g (1.2-1. 5g/kg) Fluid Needs: 1 ml/kcal Nutrition Intervention Change Diet Order: [facility] [place] soft w/ground meat Add Supplement/Snack (indicate name/kcal D/C /protein ) Goal #1 Meet at least 75% of calorie and protein needs via PO and ONS intakes Anticipated Discharge Needs: Unable to determine at this time Follow-Up By: 09/18/18 Additional Comments Follow for PO and ONS intakes
[2018-09-17] MEDS: ASPIRIN PO SCH ×2 (09:57→10:12)
[2018-09-17] MEDS: COLACE PO SCH ×3 (09:57→22:18)
[2018-09-17] MEDS: NORVASC PO SCH (09:57)
[2018-09-17] MEDS: PEPCID PO SCH ×2 (09:57→22:17)
[2018-09-17] MEDS: LOVENOX SUB-Q SCH (09:58)
[2018-09-17] MEDS: COREG PO SCH ×2 (09:58→22:17)
[2018-09-17] MEDS: POTASSIUM CHLORIDE PO SCH ×2 (09:58→10:54)
[2018-09-17] MEDS: PERCOCET 5/325 PO PRN (10:01)
[2018-09-17] MEDS: CATAPRES PO SCH ×2 (10:53→22:18)
[2018-09-17] MEDS: ZESTRIL PO SCH (15:19)
[2018-09-17] MEDS: PRAVACHOL PO SCH (22:17)
[2018-09-17] MEDS: SODIUM CHLORIDE FLUSH SYRINGE 10 ML IV SCH (22:25)
[2018-09-18] MEDS: APRESOLINE PO SCH ×3 (06:25→23:27)
[2018-09-18 06:28] LABS: Basophils % (Auto) 0.4 % (0.0-1.8); Eosinophils # (Auto) 0.4 K/mm3 (0.0-0.4); Hematocrit 32.1 % (35.5-45.6); Hemoglobin 10.8 gm/dl (11.8-15.2); Lymphocytes # (Auto) 0.5 K/mm3 (1.2-5.4); Lymphocytes % (Auto) 6.4 % (13.4-35.0); Mean Corpuscular HGB Conc 34 % (32-34); Mean Corpuscular Volume 95 fl (84-94); Monocytes # (Auto) 0.8 K/mm3 (0.0-0.8); Monocytes % (Auto) 10.2 % (0.0-7.3); Platelet Count 255 K/mm3 (140-440); Red Blood Count 3.38 M/mm3 (3.65-5.03); Red Cell Distribution Width 13.9 % (13.2-15.2)
[2018-09-18 06:51] LABS: BUN/Creatinine Ratio 36; Blood Urea Nitrogen 18 mg/dL (9-20); Calcium 7.3 mg/dL (8.4-10.2); Hemolysis Index 6
[2018-09-18] MEDS: DUONEB *Not for PRN Use IH SCH ×3 (07:23→20:42)
--- NOTE | 2018-09-18 07:23 | Hem/Onc Progress Note ---
Assessment and Plan #. 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 clinically stage IV XRT consulted for palliation for pain #. bone mets - s/p pamidronate #. Left renal mass, possible renal cell carcinoma. MRI not done - CT ordered #. History of smoking present. #. History of cerebrovascular accident. rt side weakness - unable to walk #. History of shortness of breath. #. History of hypertension. #. History of leukocytosis. #. History of hyperlipidemia. OLLIE JEFFRIES MOTHER [phone] # due to poor performance status - NH with hospice an option pallative XRT CT abdo done suggests Renal cell ca pt says getting XRT - and once finishes d/c 09/18 - it appears home with hospice being looked into - after XRT - Patient Problems (1) Lung cancer Current Visit: Yes Status: Acute Qualifiers: Laterality: unspecified laterality Subjective Date of service: 09/18/18 Principal diagnosis: lung ca - renal mass Objective - Constitutional Vitals: Last Vital Signs Temp 98.6 F 09/18/18 05:58 Pulse 76 09/18/18 06:23 Resp 18 09/18/18 06:23 BP 135/57 09/18/18 05:58 Pulse Ox 93 09/18/18 06:23 Pain Intensity (0-10): denies any pain General appearance: no acute distress Performance status: 4-completely disabled - EENT Eyes: EOM intact ENT: hearing intact - Neck Neck: normal ROM - Respiratory Respiratory effort: Positive: normal Respiratory: bilateral: diminished - Cardiovascular Heart Sounds: Present: S1 & S2 Extremities: No edema - Gastrointestinal General gastrointestinal: Present: soft, non-tender Rectal Exam: deferred - Genitourinary Male genitourinary: Present: deferred - Integumentary Integumentary: warm - Musculoskeletal Musculoskeletal: right sided weakness - Neurologic Neurologic: other (bed bound due to CVA) - Labs Lab Results: Laboratory Results - last 24 hr 09/18/18 09/18/18 06:13 06:13 WBC 8.3 RBC 3.38 L Hgb 10.8 L Hct 32.1 L MCV 95 H MCH 32 MCHC 34 RDW 13.9 Plt Count 255 Lymph % (Auto) 6.4 L [place] % (Auto) 10.2 H Eos % (Auto) 5.0 H Baso % (Auto) 0.4 Lymph # 0.5 L [place] # 0.8 Eos # 0.4 Baso # 0.0 Seg Neutrophils % 78.0 H Seg Neutrophils # 6.5 Sodium 142 Potassium 3.1 L Chloride 103.9 Carbon Dioxide 27 Anion Gap 14 BUN 18 Creatinine 0.5 L Estimated GFR > 60 BUN/Creatinine Ratio 36 Glucose 115 H Calcium 7.3 L Medications & Allergies - Medications Allergies/Adverse Reactions: Allergies Penicillins Allergy (Verified 07/05/13 15:11) Unknown Home Medications: Home Medications Medication Instructions Recorded Confirmed Last Taken Type Aspirin [Aspirin TAB] 325 mg PO QDAY #30 tablet 07/19/13 08/31/18 Unknown Rx Simvastatin (Nf) [Zocor TAB] 20 mg PO QHS 30 Days tablet 07/19/13 08/31/18 Unknown Rx amLODIPine [Norvasc] 10 mg PO DAILY 30 Days tab 07/19/13 08/31/18 Unknown Rx cloNIDine [Catapres] 0.1 mg PO BID #60 tablet 07/19/13 08/31/18 Unknown Rx Lisinopril [Zestril TAB] 10 mg PO QDAY 30 Days tablet 07/22/13 08/31/18 Unknown Rx hydrALAZINE [Apresoline] 50 mg PO BID 08/31/18 08/31/18 Unknown History Active Medications: Generic Name Dose Route Start Last Admin Trade Name Freq PRN Reason Stop Dose Admin Acetaminophen 650 mg 08/29/18 21:29 08/30/18 05:53 Tylenol PO 650 mg Q4H PRN Administration Pain MILD(1-3)/Fever >100.5/VENEGAS Al Hydrox/Mg Hydrox/Simethicone 30 ml 08/29/18 21:29 Alum-Mag Hydrox-Simeth 595-322-32td/5ml PO Q4H PRN Indigestion Albuterol 2.5 mg 09/12/18 02:27 09/12/18 02:35 Proventil IH 2.5 mg Q4HRT PRN Administration Shortness Of Breath Albuterol/Ipratropium 1 ampul 09/06/18 08:00 09/17/18 20:54 Duoneb *Not For Prn Use* IH 1 ampul TIDRT GUILLERMO Administration Amlodipine Besylate 10 mg 08/30/18 10:00 09/17/18 09:57 Norvasc PO 10 mg DAILY [facility] Administration Aspirin 325 mg 08/30/18 10:00 09/17/18 10:12 Aspirin PO Not Given QDAY [facility] Carvedilol 25 mg 08/29/18 22:00 09/17/18 22:17 Coreg PO 25 mg Q12HR GUILLERMO Administration Clonidine HCl 0.1 mg 08/29/18 22:00 09/17/18 22:18 Catapres PO Not Given BID [facility] Docusate Sodium 100 mg 08/29/18 22:00 09/17/18 22:18 Colace PO Not Given BID [facility] Enoxaparin Sodium 40 mg 08/30/18 10:00 09/17/18 09:58 Lovenox SUB-Q 40 mg QDAY [facility] Administration Famotidine 20 mg 08/29/18 22:00 09/17/18 22:17 Pepcid PO 20 mg BID [facility] Administration Haloperidol Lactate 2 mg 09/01/18 11:34 09/08/18 03:02 Haldol IM 2 mg Q6H PRN Administration Agitation Hydralazine HCl 100 mg 08/29/18 22:00 09/18/18 06:25 Apresoline PO Not Given Q8H [facility] Hydromorphone HCl 2 mg 08/29/18 21:29 09/15/18 13:10 Dilaudid IV 2 mg Q3H PRN Administration Pain, Moderate (4-6) Labetalol HCl 10 mg 08/29/18 22:07 Normodyne IV Q6HR PRN Hypertension Lisinopril 10 mg 08/30/18 10:00 09/17/18 15:19 Zestril PO Not Given QDAY [facility] Ondansetron HCl 4 mg 08/29/18 21:29 Zofran IV Q6H PRN Nausea And Vomiting Oxycodone/Acetaminophen 1 tab 08/29/18 21:29 09/17/18 10:01 Percocet 5/325 PO 1 tab Q6H PRN Administration Pain, Moderate (4-6) Potassium Chloride 40 meq 09/16/18 12:00 09/17/18 10:54 Potassium Chloride PO Not Given QDAY [facility] Pravastatin Sodium 40 mg 08/29/18 22:00 09/17/18 22:17 Pravachol PO 40 mg QHS [facility] Administration Scopolamine 1 each 09/16/18 12:00 09/16/18 13:19 Transderm-Scop TD 1 each Q3D [facility]LLERMO Administration Sodium Chloride 10 ml 08/29/18 22:00 09/17/18 22:25 Sodium Chloride Flush Syringe 10 Ml IV 10 ml BID GUILLERMO Administration Sodium Chloride 10 ml 08/29/18 21:29 09/13/18 06:02 Sodium Chloride Flush Syringe 10 Ml IV 10 ml PRN PRN Administration LINE FLUSH Zolpidem Tartrate 5 mg 08/29/18 21:29 Ambien PO QHS PRN Insomnia
[2018-09-18] MEDS: POTASSIUM CHLORIDE PO SCH (10:30)
[2018-09-18] MEDS: LOVENOX SUB-Q SCH (10:30)
[2018-09-18] MEDS: ASPIRIN PO SCH (10:30)
[2018-09-18] MEDS: COREG PO SCH ×2 (10:30→23:21)
[2018-09-18] MEDS: ZESTRIL PO SCH (10:31)
[2018-09-18] MEDS: NORVASC PO SCH (10:31)
[2018-09-18] MEDS: CATAPRES PO SCH ×2 (10:31→23:22)
[2018-09-18] MEDS: COLACE PO SCH ×2 (10:31→23:23)
[2018-09-18] MEDS: PEPCID PO SCH ×2 (10:31→23:40)
[2018-09-18] MEDS: SODIUM CHLORIDE FLUSH SYRINGE 10 ML IV SCH ×3 (10:32→23:38)
--- NOTE | 2018-09-18 11:08 | Progress Note ---
Assessment and Plan Assessment and plan: Squamous cell carcinoma lung; s/p biopsy, squamous cell carcinoma, Oncology, Dr. Rhodes, evaluated and recommend radiation therapy Evaluated by radiation oncologist Dr. Heath, palliative Radiation therapy Patient has appointment for today 1pm. will set up transportation from [facility] Hypokalemia. Replete potassium. Left renal mass. CT scan of the abdomen suggests renal cell carcinoma. Oncology following Acute Hypoxic respiratory failure; requiring BiPAP as clinically indicated. Patient with heavy secretions. Add scopolamine Continue Oxygen, nebulizers, IV steroids, IV antibiotics, pulmonary following Pathologic fractures of ribs and sternum secondary to possible metastasis, Pain management and supportive care Left lower lobe pneumonia; probably post obstructive pneumonia Continue IV antibiotics follow cultures Sepsis Etiology secondary to pneumonia History of CVA with residual right-sided weakness, abortive care. tobacco use disorder; smoking cessation advised nicotine patch as needed DVT prophylaxis; SCDs, Lovenox Disposition Full Code Discharge planning Oncology recommends hospice with snf due to poor performance status. However, patient likely to have home hospice. Case management feels that patient will not be accepted into facility given active treatment. Case management discussed with the mother Lorraine at [phone] who is in agreement History Interval history: No new issues overnight Hospitalist Physical - Constitutional Vitals: Temp Pulse Resp BP Pulse Ox 98.6 F 73 18 135/57 96 09/18/18 05:58 09/18/18 07:33 09/18/18 07:33 09/18/18 05:58 09/18/18 07:23 General appearance: Present: no acute distress, cachectic, disheveled - EENT Eyes: Present: PERRL, EOM intact ENT: hearing intact, clear oral mucosa, dentition normal - Neck Neck: Present: supple, normal ROM - Respiratory Respiratory effort: normal Respiratory: bilateral: diminished, rhonchi - Cardiovascular Rhythm: regular Heart Sounds: Present: S1 & S2. Absent: gallop, rub - Extremities Extremities: no ischemia, No edema, Full ROM - Abdominal General gastrointestinal: soft, non-tender, non-distended, normal bowel sounds - Integumentary Integumentary: Present: clear, warm, dry - Neurologic Neurologic: CNII-XII intact, moves all extremities Results - Labs CBC & Chem 7: 09/18/18 06:13 09/18/18 06:13 Labs: Laboratory Last Values WBC 8.3 K/mm3 (4.5-11.0) 09/18/18 06:13 RBC 3.38 M/mm3 (3.65-5.03) L 09/18/18 06:13 Hgb 10.8 gm/dl (11.8-15.2) L 09/18/18 06:13 Hct 32.1 % (35.5-45.6) L 09/18/18 06:13 MCV 95 fl (84-94) H 09/18/18 06:13 MCH 32 pg (28-32) 09/18/18 06:13 MCHC 34 % (32-34) 09/18/18 06:13 RDW 13.9 % (13.2-15.2) 09/18/18 06:13 Plt Count 255 K/mm3 (140-440) 09/18/18 06:13 Lymph % (Auto) 6.4 % (13.4-35.0) L 09/18/18 06:13 [place] % (Auto) 10.2 % (0.0-7.3) H 09/18/18 06:13 Eos % (Auto) 5.0 % (0.0-4.3) H 09/18/18 06:13 Baso % (Auto) 0.4 % (0.0-1.8) 09/18/18 06:13 Lymph # 0.5 K/mm3 (1.2-5.4) L 09/18/18 06:13 [place] # 0.8 K/mm3 (0.0-0.8) 09/18/18 06:13 Eos # 0.4 K/mm3 (0.0-0.4) 09/18/18 06:13 Baso # 0.0 K/mm3 (0.0-0.1) 09/18/18 06:13 Add Manual Diff Complete 08/30/18 08:18 Total Counted 100 08/30/18 08:18 Seg Neutrophils % 78.0 % (40.0-70.0) H 09/18/18 06:13 Seg Neuts % (Manual) 89.0 % (40.0-70.0) H 08/30/18 08:18 Band Neutrophils % 0 % 08/30/18 08:18 Lymphocytes % (Manual) 4.0 % (13.4-35.0) L 08/30/18 08:18 Reactive Lymphs % (Man) 0 % 08/30/18 08:18 Monocytes % (Manual) 7.0 % (0.0-7.3) 08/30/18 08:18 Eosinophils % (Manual) 0 % (0.0-4.3) 08/30/18 08:18 Basophils % (Manual) 0 % (0.0-1.8) 08/30/18 08:18 Metamyelocytes % 0 % 08/30/18 08:18 Myelocytes % 0 % 08/30/18 08:18 Promyelocytes % 0 % 08/30/18 08:18 Blast Cells % 0 % 08/30/18 08:18 Nucleated RBC % Not Reportable 08/30/18 08:18 Seg Neutrophils # 6.5 K/mm3 (1.8-7.7) 09/18/18 06:13 Seg Neutrophils # Man 11.5 K/mm3 (1.8-7.7) H 08/30/18 08:18 Band Neutrophils # 0.0 K/mm3 08/30/18 08:18 Lymphocytes # (Manual) 0.5 K/mm3 (1.2-5.4) L 08/30/18 08:18 Abs React Lymphs (Man) 0.0 K/mm3 08/30/18 08:18 Monocytes # (Manual) 0.9 K/mm3 (0.0-0.8) H 08/30/18 08:18 Eosinophils # (Manual) 0.0 K/mm3 (0.0-0.4) 08/30/18 08:18 Basophils # (Manual) 0.0 K/mm3 (0.0-0.1) 08/30/18 08:18 Metamyelocytes # 0.0 K/mm3 08/30/18 08:18 Myelocytes # 0.0 K/mm3 08/30/18 08:18 Promyelocytes # 0.0 K/mm3 08/30/18 08:18 Blast Cells # 0.0 K/mm3 08/30/18 08:18 WBC Morphology Not Reportable 08/30/18 08:18 Hypersegmented Neuts Not Reportable 08/30/18 08:18 Hyposegmented Neuts Not Reportable 08/30/18 08:18 Hypogranular Neuts Not Reportable 08/30/18 08:18 Smudge Cells Not Reportable 08/30/18 08:18 Toxic Granulation Not Reportable 08/30/18 08:18 Toxic Vacuolation Not Reportable 08/30/18 08:18 Dohle Bodies Not Reportable 08/30/18 08:18 Pelger-Huet Anomaly Not Reportable 08/30/18 08:18 Edelmira Rods Not Reportable 08/30/18 08:18 Platelet Estimate Consistent w auto 08/30/18 08:18 Clumped Platelets Rare 08/30/18 08:18 Plt Clumps, EDTA Not Reportable 08/30/18 08:18 Large Platelets Not Reportable 08/30/18 08:18 Giant Platelets Not Reportable 08/30/18 08:18 Platelet Satelliting Not Reportable 08/30/18 08:18 Plt Morphology Comment Not Reportable 08/30/18 08:18 RBC Morphology Normal 08/30/18 08:18 Dimorphic RBCs Not Reportable 08/30/18 08:18 Polychromasia Not Reportable 08/30/18 08:18 Hypochromasia Not Reportable 08/30/18 08:18 Poikilocytosis Not Reportable 08/30/18 08:18 Anisocytosis Not Reportable 08/30/18 08:18 Microcytosis Not Reportable 08/30/18 08:18 Macrocytosis Not Reportable 08/30/18 08:18 Spherocytes Not Reportable 08/30/18 08:18 Pappenheimer Bodies Not Reportable 08/30/18 08:18 Sickle Cells Not Reportable 08/30/18 08:18 Target Cells Not Reportable 08/30/18 08:18 Tear Drop Cells Not Reportable 08/30/18 08:18 Ovalocytes Not Reportable 08/30/18 08:18 Helmet Cells Not Reportable 08/30/18 08:18 [place] Bodies Not Reportable 08/30/18 08:18 [place] Rings Not Reportable 08/30/18 08:18 [place] Cells Not Reportable 08/30/18 08:18 Bite Cells Not Reportable 08/30/18 08:18 Crenated Cell Not Reportable 08/30/18 08:18 Elliptocytes Not Reportable 08/30/18 08:18 Acanthocytes (Spur) Not Reportable 08/30/18 08:18 Rouleaux Not Reportable 08/30/18 08:18 Hemoglobin C Crystals Not Reportable 08/30/18 08:18 Schistocytes Not Reportable 08/30/18 08:18 Malaria parasites Not Reportable 08/30/18 08:18 Lefty Bodies Not Reportable 08/30/18 08:18 Hem Pathologist Commnt No 08/30/18 08:18 PT 14.8 Sec. (12.2-14.9) 09/11/18 08:34 INR 1.09 (0.87-1.13) 09/11/18 08:34 APTT 30.9 Sec. (24.2-36.6) 09/11/18 08:34 D-Dimer 617.53 ng/mlDDU (0-234) H 08/29/18 17:00 POC ABG pH 7.458 (7.35-7.45) H 08/29/18 17:09 POC ABG pCO2 32.1 (35-45) L 08/29/18 17:09 POC ABG HCO3 22.7 (22-26 mml/L) 08/29/18 17:09 POC ABG Total CO2 24 (23-27mmol/L) 08/29/18 17:09 POC ABG O2 Sat 85 08/29/18 17:09 POC ABG Base Excess -1 ((-2) - (+3)mmol/L) 08/29/18 17:09 VBG pH 7.447 (7.320-7.420) H 08/29/18 16:34 FiO2 36 % 08/29/18 17:09 Sodium 142 mmol/L (137-145) 09/18/18 06:13 Potassium 3.1 mmol/L (3.6-5.0) L 09/18/18 06:13 Chloride 103.9 mmol/L (98-107) 09/18/18 06:13 Carbon Dioxide 27 mmol/L (22-30) 09/18/18 06:13 Anion Gap 14 mmol/L 09/18/18 06:13 BUN 18 mg/dL (9-20) 09/18/18 06:13 Creatinine 0.5 mg/dL (0.8-1.5) L 09/18/18 06:13 Estimated GFR > 60 ml/min 09/18/18 06:13 BUN/Creatinine Ratio 36 % 09/18/18 06:13 Glucose 115 mg/dL (75-100) H 09/18/18 06:13 Lactic Acid 1.40 mmol/L (0.7-2.0) 08/29/18 19:25 Calcium 7.3 mg/dL (8.4-10.2) L 09/18/18 06:13 Phosphorus 3.60 mg/dL (2.5-4.5) 09/06/18 07:35 Magnesium 1.70 mg/dL (1.7-2.3) 09/06/18 07:35 Total Bilirubin 0.70 mg/dL (0.1-1.2) 09/06/18 07:35 AST 14 units/L (5-40) 09/06/18 07:35 ALT 8 units/L (7-56) 09/06/18 07:35 Alkaline Phosphatase 51 units/L (35-129) 09/06/18 07:35 Total Creatine Kinase 32 units/L (55-170) L 08/29/18 16:34 CK-MB (CK-2) 2.3 ng/mL (0.0-4.0) 08/29/18 16:34 CK-MB (CK-2) Rel Index 7.1 (0-4) H 08/29/18 16:34 Troponin T < 0.010 ng/mL (0.00-0.029) 08/29/18 16:34 NT-Pro-B Natriuret Pep 694.9 pg/mL (0-900) 08/29/18 16:34 Total Protein 5.0 g/dL (6.3-8.2) L 09/06/18 07:35 Albumin 2.3 g/dL (3.9-5) L 09/06/18 07:35 Albumin/Globulin Ratio 0.9 % 09/06/18 07:35 Carcinoembryonic Ag See scanned result 09/08/18 06:59 CA 19-9 Antigen 8 U/mL (<34) 09/08/18 06:59 Urine Color Yellow (Yellow) 08/29/18 19:44 Urine Turbidity Clear (Clear) 08/29/18 19:44 Urine pH 5.0 (5.0-7.0) 08/29/18 19:44 Ur Specific [place] 1.035 (1.003-1.030) H 08/29/18 19:44 Urine Protein <15 mg/dl mg/dL (Negative) 08/29/18 19:44 Urine Glucose (UA) Neg mg/dL (Negative) 08/29/18 19:44 Urine Ketones Tr mg/dL (Negative) 08/29/18 19:44 Urine Blood Neg (Negative) 08/29/18 19:44 Urine Nitrite Neg (Negative) 08/29/18 19:44 Urine Bilirubin Neg (Negative) 08/29/18 19:44 Urine Urobilinogen 2.0 mg/dL (<2.0) 08/29/18 19:44 Ur Leukocyte Esterase Neg (Negative) 08/29/18 19:44 Urine WBC (Auto) 7.0 /HPF (0.0-6.0) H 08/29/18 19:44 Urine RBC (Auto) 1.0 /HPF (0.0-6.0) 08/29/18 19:44 U Epithel Cells (Auto) < 1.0 /HPF (0-13.0) 08/29/18 19:44 Urine Mucus Few /HPF 08/29/18 19:44 Active Medications - Current Medications Current Medications: Generic Name Dose Route Start Last Admin Trade Name Freq PRN Reason Stop Dose Admin Acetaminophen 650 mg 08/29/18 21:29 08/30/18 05:53 Tylenol PO 650 mg Q4H PRN Administration Pain MILD(1-3)/Fever >100.5/VENEGAS Al Hydrox/Mg Hydrox/Simethicone 30 ml 08/29/18 21:29 Alum-Mag Hydrox-Simeth 260-038-75aw/5ml PO Q4H PRN Indigestion Albuterol 2.5 mg 09/12/18 02:27 09/12/18 02:35 Proventil IH 2.5 mg Q4HRT PRN Administration Shortness Of Breath Albuterol/Ipratropium 1 ampul 09/06/18 08:00 09/18/18 07:23 Duoneb *Not For Prn Use* IH 1 ampul TIDRT GUILLERMO Administration Amlodipine Besylate 10 mg 08/30/18 10:00 09/18/18 10:31 Norvasc PO 10 mg DAILY GUILLERMO Administration Aspirin 325 mg 08/30/18 10:00 09/18/18 10:30 Aspirin PO 325 mg QDAY GUILLERMO Administration Carvedilol 25 mg 08/29/18 22:00 09/18/18 10:30 Coreg PO 25 mg Q12HR GUILLERMO Administration Clonidine HCl 0.1 mg 08/29/18 22:00 09/18/18 10:31 Catapres PO 0.1 mg BID GUILLERMO Administration Docusate Sodium 100 mg 08/29/18 22:00 09/18/18 10:31 Colace PO 100 mg BID GUILLERMO Administration Enoxaparin Sodium 40 mg 08/30/18 10:00 09/18/18 10:30 Lovenox SUB-Q 40 mg QDAY GUILLERMO Administration Famotidine 20 mg 08/29/18 22:00 09/18/18 10:31 Pepcid PO 20 mg BID GUILLERMO Administration Haloperidol Lactate 2 mg 09/01/18 11:34 09/08/18 03:02 Haldol IM 2 mg Q6H PRN Administration Agitation Hydralazine HCl 100 mg 08/29/18 22:00 09/18/18 06:25 Apresoline PO Not Given Q8H [facility] Hydromorphone HCl 2 mg 08/29/18 21:29 09/15/18 13:10 Dilaudid IV 2 mg Q3H PRN Administration Pain, Moderate (4-6) Labetalol HCl 10 mg 08/29/18 22:07 Normodyne IV Q6HR PRN Hypertension Lisinopril 10 mg 08/30/18 10:00 09/18/18 10:31 Zestril PO 10 mg QDAY [facility] Administration Ondansetron HCl 4 mg 08/29/18 21:29 Zofran IV Q6H PRN Nausea And Vomiting Oxycodone/Acetaminophen 1 tab 08/29/18 21:29 09/17/18 10:01 Percocet 5/325 PO 1 tab Q6H PRN Administration Pain, Moderate (4-6) Potassium Chloride 40 meq 09/16/18 12:00 09/18/18 10:30 Potassium Chloride PO 40 meq QDAY GUILLERMO Administration Pravastatin Sodium 40 mg 08/29/18 22:00 09/17/18 22:17 Pravachol PO 40 mg QHS GUILLERMO Administration Scopolamine 1 each 09/16/18 12:00 09/16/18 13:19 Transderm-Scop TD 1 each Q3D GUILLERMO Administration Sodium Chloride 10 ml 08/29/18 22:00 09/18/18 10:32 Sodium Chloride Flush Syringe 10 Ml IV 10 ml BID GUILLERMO Administration Sodium Chloride 10 ml 08/29/18 21:29 09/13/18 06:02 Sodium Chloride Flush Syringe 10 Ml IV 10 ml PRN PRN Administration LINE FLUSH Zolpidem Tartrate 5 mg 08/29/18 21:29 Ambien PO QHS PRN Insomnia Nutrition/Malnutrition Assess - Dietary Evaluation Nutrition/Malnutrition Findings: Nutrition Notes Start: 08/30/18 13:41 Freq: Status: Active Protocol: Document 09/15/18 10:14 CP (Rec: 09/15/18 10:20 CP [id number]) Co-Sign 09/15/18 10:14 LP Nutrition Notes Initial or Follow up Reassessment Current Diagnosis Coronary Artery Disease, Hypertension,Stroke, Hyperlipidemia Other Pertinent Diagnosis Lung cancer, Respiratory distress, R hemiparesis, pneu Current Diet [facility] Soft Labs/Tests Reviewed Pertinent Medications Reviewed Height 5 ft 11 in Weight 65.5 kg [place] Body Weight (kg) 78.18 BMI 20.1 Subjective/Other Information Pt eating 50% of meals and has a "good" appetite. Pt not consuming ONS. Percent of energy/protein needs met: 50%/63% Burn Absent Trauma Absent #1 Nutrition Diagnosis Malnutrition Diagnosis Progress(for reassessment Continues documentation) Is patient on ventilator? No Is Patient Ambulatory and/or Out of Bed No REE-([facility]-confined to bed) 1760.004 Kcal/Kg value to use for calculation 33 Approximate Energy Requirements Using 2162 kcal/Kg Calculation Used for Recommendations Kcal/kg Additional Notes Protein Needs: 79-98g (1.2-1. 5g/kg) Fluid Needs: 1 ml/kcal Nutrition Intervention Change Diet Order: [facility] soft w/ground meat Add Supplement/Snack (indicate name/kcal D/C /protein ) Goal #1 Meet at least 75% of calorie and protein needs via PO and ONS intakes Anticipated Discharge Needs: Unable to determine at this time Follow-Up By: 09/18/18 Additional Comments Follow for PO and ONS intakes
[2018-09-18] MEDS: PRAVACHOL PO SCH (23:23)
[2018-09-19 06:27] VITALS: BP 116/48
[2018-09-19] MEDS: APRESOLINE PO SCH (06:29)
[2018-09-19] MEDS: DUONEB *Not for PRN Use IH SCH ×2 (09:17→13:11)
[2018-09-19] MEDS: LOVENOX SUB-Q SCH (10:21)
[2018-09-19] MEDS: CATAPRES PO SCH (10:22)
[2018-09-19] MEDS: NORVASC PO SCH (10:22)
[2018-09-19] MEDS: COREG PO SCH (10:22)
[2018-09-19] MEDS: COLACE PO SCH (10:22)
[2018-09-19] MEDS: POTASSIUM CHLORIDE PO SCH (10:22)
[2018-09-19] MEDS: ZESTRIL PO SCH (10:22)
[2018-09-19] MEDS: PEPCID PO SCH (10:23)
[2018-09-19] MEDS: ASPIRIN PO SCH (10:23)
[2018-09-19] MEDS: SODIUM CHLORIDE FLUSH SYRINGE 10 ML IV SCH (10:24)
--- NOTE | 2018-09-19 11:12 | Hem/Onc Progress Note ---
Assessment and Plan #. 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 clinically stage IV XRT consulted for palliation for pain #. bone mets - s/p pamidronate #. Left renal mass, possible renal cell carcinoma. MRI not done - CT done #. History of smoking present. #. History of cerebrovascular accident. rt side weakness - unable to walk #. History of shortness of breath. #. History of hypertension. #. History of leukocytosis. #. History of hyperlipidemia. OLLIE JEFFRIES MOTHER [phone] # due to poor performance status - NH with hospice an option pallative XRT CT abdo done suggests Renal cell ca 09/19 - XRT finished d/w dr pak. - as per hospitalist - pt refused hospice - OP follow up an option pt unable to walk sec to CVA - this will make it challenging - Patient Problems (1) Lung cancer Current Visit: Yes Status: Acute Qualifiers: Laterality: unspecified laterality Subjective Date of service: 09/19/18 Principal diagnosis: lung ca and renal mass Interval history: s/p palliative XRT Objective - Constitutional Vitals: Last Vital Signs Temp 98.0 F 09/19/18 06:17 Pulse 71 09/19/18 06:29 Resp 20 09/19/18 06:17 BP 116/48 09/19/18 06:29 Pulse Ox 91 09/19/18 06:17 Pain Intensity (0-10): denies any pain General appearance: no acute distress Performance status: 3-limited selfcare - EENT Eyes: EOM intact ENT: hearing intact - Respiratory Respiratory effort: Positive: normal Respiratory: bilateral: diminished - Cardiovascular Heart Sounds: Present: S1 & S2 Extremities: No edema - Gastrointestinal General gastrointestinal: Present: soft, non-tender Rectal Exam: deferred - Genitourinary Male genitourinary: Present: deferred - Integumentary Integumentary: warm - Musculoskeletal Musculoskeletal: right sided weakness - Neurologic Neurologic: other (speech slurred) Medications & Allergies - Medications Allergies/Adverse Reactions: Allergies Penicillins Allergy (Verified 07/05/13 15:11) Unknown Home Medications: Home Medications Medication Instructions Recorded Confirmed Last Taken Type Aspirin [Aspirin TAB] 325 mg PO QDAY #30 tablet 07/19/13 08/31/18 Unknown Rx Simvastatin (Nf) [Zocor TAB] 20 mg PO QHS 30 Days tablet 07/19/13 08/31/18 Unknown Rx amLODIPine [Norvasc] 10 mg PO DAILY 30 Days tab 07/19/13 08/31/18 Unknown Rx cloNIDine [Catapres] 0.1 mg PO BID #60 tablet 07/19/13 08/31/18 Unknown Rx Lisinopril [Zestril TAB] 10 mg PO QDAY 30 Days tablet 07/22/13 08/31/18 Unknown Rx hydrALAZINE [Apresoline TAB] 50 mg PO BID 08/31/18 08/31/18 Unknown History oxyCODONE /ACETAMINOPHEN [Percocet 1 tab PO Q6H PRN #12 tablet 09/19/18 Unknown Rx 5/325 mg] Active Medications: Generic Name Dose Route Start Last Admin Trade Name Freq PRN Reason Stop Dose Admin Acetaminophen 650 mg 08/29/18 21:29 08/30/18 05:53 Tylenol PO 650 mg Q4H PRN Administration Pain MILD(1-3)/Fever >100.5/VENEGAS Al Hydrox/Mg Hydrox/Simethicone 30 ml 08/29/18 21:29 Alum-Mag Hydrox-Simeth 230-492-45fp/5ml PO Q4H PRN Indigestion Albuterol 2.5 mg 09/12/18 02:27 09/12/18 02:35 Proventil IH 2.5 mg Q4HRT PRN Administration Shortness Of Breath Albuterol/Ipratropium 1 ampul 09/06/18 08:00 09/19/18 09:17 Duoneb *Not For Prn Use* IH 1 ampul TIDRT GUILLERMO Administration Amlodipine Besylate 10 mg 08/30/18 10:00 09/19/18 10:22 Norvasc PO 10 mg DAILY GUILLERMO Administration Aspirin 325 mg 08/30/18 10:00 09/19/18 10:23 Aspirin PO 325 mg QDAY GUILLERMO Administration Carvedilol 25 mg 08/29/18 22:00 09/19/18 10:22 Coreg PO 25 mg Q12HR GUILLERMO Administration Clonidine HCl 0.1 mg 08/29/18 22:00 09/19/18 10:22 Catapres PO 0.1 mg BID GUILLERMO Administration Docusate Sodium 100 mg 08/29/18 22:00 09/19/18 10:22 Colace PO 100 mg BID GUILLERMO Administration Enoxaparin Sodium 40 mg 08/30/18 10:00 09/19/18 10:21 Lovenox SUB-Q 40 mg QDAY GUILLERMO Administration Famotidine 20 mg 08/29/18 22:00 09/19/18 10:23 Pepcid PO 20 mg BID GUILLERMO Administration Haloperidol Lactate 2 mg 09/01/18 11:34 09/08/18 03:02 Haldol IM 2 mg Q6H PRN Administration Agitation Hydralazine HCl 100 mg 08/29/18 22:00 09/19/18 06:29 Apresoline PO 100 mg Q8H GUILLERMO Administration Hydromorphone HCl 2 mg 08/29/18 21:29 09/15/18 13:10 Dilaudid IV 2 mg Q3H PRN Administration Pain, Moderate (4-6) Labetalol HCl 10 mg 08/29/18 22:07 Normodyne IV Q6HR PRN Hypertension Lisinopril 10 mg 08/30/18 10:00 09/19/18 10:22 Zestril PO 10 mg QDAY GUILLERMO Administration Ondansetron HCl 4 mg 08/29/18 21:29 Zofran IV Q6H PRN Nausea And Vomiting Oxycodone/Acetaminophen 1 tab 08/29/18 21:29 09/17/18 10:01 Percocet 5/325 PO 1 tab Q6H PRN Administration Pain, Moderate (4-6) Potassium Chloride 40 meq 09/16/18 12:00 09/19/18 10:22 Potassium Chloride PO 40 meq QDAY GUILLERMO Administration Pravastatin Sodium 40 mg 08/29/18 22:00 09/18/18 23:23 Pravachol PO 40 mg QHS GUILLERMO Administration Scopolamine 1 each 09/16/18 12:00 09/16/18 13:19 Transderm-Scop TD 1 each Q3D GUILLERMO Administration Sodium Chloride 10 ml 08/29/18 22:00 09/19/18 10:24 Sodium Chloride Flush Syringe 10 Ml IV 10 ml BID GUILLERMO Administration Sodium Chloride 10 ml 08/29/18 21:29 09/13/18 06:02 Sodium Chloride Flush Syringe 10 Ml IV 10 ml PRN PRN Administration LINE FLUSH Zolpidem Tartrate 5 mg 08/29/18 21:29 Ambien PO QHS PRN Insomnia
--- NOTE | 2018-09-19 11:16 | Discharge Summary ---
Providers - Providers Date of Admission: 08/29/18 21:29 Attending physician: CADEN HUERTAS MD 09/02/18 18:56 Physical Therapy Evaluation and Treat [CONS] Routine Comment: Reason For Exam: was ambulatory;getting weaker 09/06/18 16:13 Consult to Physician [CONS] Routine Comment: Consulting Provider: MIRIAM RHODES Physician Instructions: Reason For Exam: Lung mass/biopsy? Sq Cell Ca 09/08/18 13:39 Consult to Physician [CONS] Routine Comment: Consulting Provider: CHARLIE WILLIAMSON Physician Instructions: Reason For Exam: lung and kidney mass 09/08/18 17:58 Consult to Wound/ET Nurse [CONS] Routine Reason For Exam: wound eval 09/10/18 11:15 Consult to Physician [CONS] Routine Comment: Consulting Provider: JOYA BRANTLEY Physician Instructions: Reason For Exam: kidney biopsy [facility] Hospital[facility] Reason for admission: metastatic cancer, Renal cell Ca Condition: Stable Hospital course: Squamous cell carcinoma lung; s/p biopsy, squamous cell carcinoma, Oncology, Dr. Rhodes, evaluated and recommended palliative radiation therapy Evaluated by radiation oncologist Dr. Heath, palliative Radiation therapy; Called Dr Heath and told me he finished his radiation treatment. Hypokalemia. Repleted potassium. Left renal mass. CT scan of the abdomen suggests renal cell carcinoma. Acute Hypoxic respiratory failure; requiring BiPAP as clinically indicated. treated with Oxygen, nebulizers, IV steroids, IV antibiotics. Pathologic fractures of ribs and sternum ;secondary to possible metastasis, Pain management and supportive care Left lower lobe pneumonia; treated with IV antibiotics Sepsis ; Etiology secondary to pneumonia. treated History of CVA with residual right-sided weakness, abortive care. tobacco use disorder; smoking cessation advised nicotine patch Patient was appropriate for hospice and patient refused hospice care and he wants to go home. I called his x- and discussed the management plan and patient knew his condition and prognosis and wants to go home and discharged home. Disposition: [id number] HOME UNDER HOME [facility] Time spent for discharge: 32 minutes - Discharge Diagnoses (1) History of CVA with residual deficit Status: Acute (2) Hypoxia Status: Acute (3) Lung cancer Status: Acute Qualifiers: Laterality: unspecified laterality (4) Lung mass Status: Acute (5) Pathological fracture of sternum Status: Acute (6) Sepsis Status: Acute (7) Pneumonia Status: Acute Qualifiers: Pneumonia type: due to unspecified organism Laterality: left Lung location: unspecified part of lung Qualified Code(s): J18.9 - Pneumonia, unspecified organism Core Measure Documentation - Palliative Care Palliative Care/ Comfort Measures: Not Applicable - Core Measures Any of the following diagnoses?: none Exam - Physical Exam Narrative exam: Not in cardiopulmonary distress. The patient appeared well nourished and normally developed. Vital signs as documented. Head exam is unremarkable. No scleral icterus . Neck is without jugular venous distension, thyromegaly, or carotid bruits. Lungs are clear to auscultation. Cardiac exam reveals regular rate and Rhythm. First and second heart sounds normal. No murmurs, rubs or gallops. Abdominal exam reveals normal bowel sounds, no masses, no organomegaly and no aortic enlargement. [employer] OFF SHIFT; alert and oriented - Constitutional Vitals: Temp Pulse Resp BP Pulse Ox 98.0 F 71 20 116/48 91 09/19/18 06:17 09/19/18 06:29 09/19/18 06:17 09/19/18 06:29 09/19/18 06:17 Plan Activity: advance as tolerated Weight Bearing Status: Weight Bear as Tolerated Diet: low salt Follow up with: CLAUDIA ROMERO MD [Primary Care Provider] - 3-5 Days Prescriptions: oxyCODONE /ACETAMINOPHEN [Percocet 5/325 mg] 1 tab PO Q6H PRN #12 tablet PRN Reason: Pain, Moderate (4-6)
== END 2018-09-19 17:02 | disposition home health service (06) | DRG 871 ==
LOC: ED 15:50 → 2B-ACE 21:29 → 3A 22:25
PROVIDERS: ADMIT Internal Medicine Geriatric Medicine; ATTEND Internal Medicine
PROC: 0BBL3ZX Excision of Left Lung, Percutaneous Approach, Diagnostic (ICD-10-PCS; principal; 2018-09-05)
PROC: 0WB83ZX Excision of Chest Wall, Percutaneous Approach, Diagnostic (ICD-10-PCS; 2018-09-05)
PROC: 0WBC3ZX Excision of Mediastinum, Percutaneous Approach, Diagnostic (ICD-10-PCS; 2018-09-05)
DX: A41.9 Sepsis, unspecified organism (principal); J96.01 Acute respiratory failure with hypoxia; J18.1 Lobar pneumonia, unspecified organism; J98.59 Other diseases of mediastinum, not elsewhere classified; C34.92 Malignant neoplasm of unspecified part of left bronchus or lung; M84.48XA Pathological fracture, other site, initial encounter for fracture; J44.1 Chronic obstructive pulmonary disease with (acute) exacerbation; I69.351 Hemiplegia and hemiparesis following cerebral infarction affecting right dominant side; J44.0 Chronic obstructive pulmonary disease with (acute) lower respiratory infection; I10 Essential (primary) hypertension; J20.9 Acute bronchitis, unspecified; I25.10 Atherosclerotic heart disease of native coronary artery without angina pectoris; N28.89 Other specified disorders of kidney and ureter; E87.6 Hypokalemia; F17.200 Nicotine dependence, unspecified, uncomplicated; E78.5 Hyperlipidemia, unspecified; Z88.0 Allergy status to penicillin; Z79.82 Long term (current) use of aspirin; Z79.899 Other long term (current) drug therapy; Z71.6 Tobacco abuse counseling
CPT/HCPCS: 31720; 36415; 70470; 71045; 71275; 74177; 74178; 77012; 80048; 80053; 81001; 82140; 82378; 82550; 82553; 82803; 82805; 83735; 83880; 84100; 84484; 85007; 85025; 85379; 85610; 85730; 86301; 87040; 87086; 88173; 88305; 88333; 88341; 88342; 93005; 93010; 94640; 94667; 94668; 94760; 96374; 96375; 99406; G0378; A9270-GY; J1170; J1630; J1650; J1956; J2250; J2270; J2405; J2430; J3010; J3475; J7030; J7040; J7042; Q9967